=== PATIENT | female | born 1940 | race Caucasian/White ===

== ENCOUNTER 2020-02-13 06:55 | Outpatient (CLI) | payer MEDICARE, SELFPAY ==
[2020-02-13 07:40] LABS: Hemoglobin 12.5 g/dL (12.0-15.0); Mean Corpuscular HGB Conc 32.1 g/dl (32-36); Mean Corpuscular Hemoglobin 29.9 pg (26-34); Mean Corpuscular Volume 93.3 fl (80-100); Platelet Count Result 236 k/mm3 (150-375); Red Blood Count 4.18 M/mm3 (4.2-5.4); Red Cell Distribution Width 13.1 % (11.5-14.5); White Blood Count 5.2 K/mm3 (4.5-10.0)
[2020-02-13 07:51] LABS: Alanine Aminotransferase 16 U/L (4-35); Albumin Level 3.9 g/dL (3.5-5.1); Alkaline Phosphatase 54 U/L (38-126); Anion Gap 2 mmol/L (8-16); Aspartate Amino Transferase 27 U/L (14-36); Bilirubin,Total 0.7 mg/dL (0.2-1.3); Blood Urea Nitrogen 25 mg/dL (7-17); Calcium 9.2 mg/dL (8.4-10.2); Carbon Dioxide 34 mmol/L (22-30); Chloride 103 mmol/L (98-107); Cholesterol 164 mg/dL (0-200); Estimated Glomerular Filt Rate 54; Glucose 104 mg/dL (65-105); HDL Direct 72 mg/dL; Potassium 4.3 mmol/L (3.4-5.0); Sodium 139 mmol/L (137-145); Triglycerides 108 mg/dL (<150)
[2020-02-13 08:02] LABS: LDL Cholesterol Direct 65 mg/dL
[2020-02-13 08:46] LABS: Free T4 Free Thyroxine 0.91 ng/mL (0.78-2.19)
[2020-02-13 09:01] LABS: Folic Acid > 20.0 ng/mL (2.76->20); Vitamin B12 > 1000.0 pg/mL (239-931)
== END 2020-02-13 06:56 | disposition home or self-care (01) ==
PROVIDERS: PCP Internal Medicine; Visit Provider Physician Assistant
DX: E03.9 Hypothyroidism, unspecified (principal); R53.83 Other fatigue; I10 Essential (primary) hypertension; E55.9 Vitamin D deficiency, unspecified
CPT/HCPCS: 36415; 80053; 80061; 82306; 82607; 82746; 84439; 84443; 85027

== ENCOUNTER → 2020-03-26 16:12 | Outpatient (CLI) | payer MEDICARE, SELFPAY ==
--- NOTE | ~2020-03-26 | MM_ITS ---
EXAMINATION: MM screening deep BI w aly HISTORY: Screening mammogram TECHNIQUE: Craniocaudal and mediolateral oblique 3-D tomosynthesis images were obtained and synthetic 2-D images were generated. CAD analysis was submitted and interpreted. COMPARISON: 03/18/2018, 03/04/2017, 02/19/2016 bilateral digital screening mammogram examinations BREAST PARENCHYMAL COMPOSITION: The breasts are heterogeneously dense, which may obscure small masses . FINDINGS: There is a stable prominent amorphous benign calcification in the posterior upper outer edison drant of the left breast. There is no evidence of suspicious mass, calcification, or architectural distortion to suggest malignancy in either breast. There has been no suspicious interval change. IMPRESSION: 1. No mammographic evidence of malignancy. 2. Recommend routine screening mammography in one year. BI-RADS Category 2: Benign finding(s). Reviewed, dictated and finalized at location A. ANIC AND WELDER
== END ==
PROVIDERS: PCP Internal Medicine; Visit Provider Student in an Organized Health Care Education/Training Program
DX: Z12.31 Encounter for screening mammogram for malignant neoplasm of breast (principal)
CPT/HCPCS: 77063; 77067

== ENCOUNTER 2020-06-05 13:05 | Outpatient (CLI) | payer MEDICARE, SELFPAY ==
--- NOTE | ~2020-06-05 | US_ITS ---
EXAMINATION: US thyroid DATE: 06/05/2020 13:41 INDICATION: Goiter TECHNIQUE: Multiple ultrasound images of the thyroid were obtained. COMPARISON: 08/11/2018 FINDINGS: The right thyroid lobe measures 5.1 x 1.7 x 1.4 cm. The left thyroid lobe measures 5.2 x 1.6 x 1.4 c m. 2.1 cm wider than tall solid hypoechoic nodule with smooth margins and without echogenic foci in the right thyroid lobe (TI-RADS 4, moderately suspicious , FNA if >=1.5 cm, annual followup is >=1 cm ) with previously reported benign biopsy in 2010. There is a smaller 1.4 cm wider than tall solid iso to hyperechoic nodule with smooth margins in the left thyroid lobe (TI-RADS 3, mildly suspicious , F NA if >=2.5 cm, annual followup is >1.5 cm). There is normal echotexture, echogenicity and vascular f low throughout the thyroid gland. IMPRESSION: 1. No significant interval change in a couple bilateral likely benign thyroid nodules. Reviewed, dictated and finalized at location B. ICULTURAL MANAGER IMPRESSION: 1. No significant interval change in a couple bilateral likely benign thyroid n odules.
== END 2020-06-05 13:06 | disposition home or self-care (01) ==
PROVIDERS: PCP Internal Medicine; Visit Provider Internal Medicine
DX: E04.1 Nontoxic single thyroid nodule (principal)
CPT/HCPCS: 76536

== ENCOUNTER 2020-08-22 07:27 | Outpatient (CLI) | payer MEDICARE, SELFPAY ==
--- NOTE | ~2020-08-22 | XR_ITS ---
XR hip RT min 2V DATE: 08/22/2020 07:49 INDICATION: Right hip pain. No injury. Patient gets a catch with walking. TECHNIQUE: AP and lateral views of right hip COMPARISON: 09/23/2010 right hip FINDINGS: Osteopenia. Rotatory levoscoliosis and multilevel degenerative disc disease of the lumbar spine, mildly severe at L4-5, severe at L5-S1. Normal alignment at the pubic symphysis and sacroiliac joints. No fracture, dislocation, avascular necrosis or bone destruction of the right hip. Right hip joint sp henri appears well preserved. IMPRESSION: Osteopenia Rotatory levoscoliosis and multilevel degenerative disc disease of the lumbar spine No significant abnormality of right hip Reviewed, dictated and finalized at location B. IMPRESSION: Osteopenia Rotatory levoscoliosis and multilevel degenerative disc disease of the lumbar s pine No significant abnormality of right hip
== END 2020-08-22 07:28 | disposition home or self-care (01) ==
PROVIDERS: PCP Internal Medicine; Visit Provider Internal Medicine
DX: M85.851 Other specified disorders of bone density and structure, right thigh (principal); M47.816 Spondylosis without myelopathy or radiculopathy, lumbar region; M41.9 Scoliosis, unspecified
CPT/HCPCS: 73502

== ENCOUNTER 2020-11-11 08:07 | Outpatient (CLI) | payer MEDICARE, SELFPAY ==
[2020-11-11 08:46] LABS: Basophils Percent Auto 0.7 % (0.2-1.2); Eosinophils Absolute Auto 0.2 K/mm3 (0-0.3); Eosinophils Percent Auto 2.9 % (0-4.4); Hematocrit 39.7 % (37.0-47.0); Hemoglobin 12.5 g/dL (12.0-15.0); Immature Granulocyte Absolute 0.02 K/mm3 (0.00-0.031); Immature Granulocyte Percent A 0.4 % (0-0.5); Lymphocytes Absolute Auto 1.43 K/mm3 (0.9-3.2); Lymphocytes Percent Auto 25.6 % (18.3-44.2); Mean Corpuscular HGB Conc 31.5 g/dl (32-36); Mean Corpuscular Hemoglobin 30.3 pg (26-34); Mean Corpuscular Volume 96.4 fl (80-100); Mean Platelet Volume 10.2 fl (7.4-10.4); Monocytes Absolute Auto 0.4 K/mm3 (0.1-0.6); Monocytes Percent Auto 7.7 % (2.6-8.5); Neutrophils Absolute Auto 3.5 K/mm3 (1.3-6.7); Neutrophils Percent Auto 62.7 % (45.5-73.1); Platelet Count Result 230 k/mm3 (150-375); Red Blood Count 4.12 M/mm3 (4.2-5.4); Red Cell Distribution Width 13.2 % (11.5-14.5); White Blood Count 5.6 K/mm3 (4.5-10.0)
[2020-11-11 09:37] LABS: Free T4 Free Thyroxine 0.76 ng/mL (0.78-2.19)
[2020-11-11 10:32] LABS: Alanine Aminotransferase 23 U/L (4-35); Alkaline Phosphatase 47 U/L (38-126); Anion Gap 3 mmol/L (8-16); Aspartate Amino Transferase 31 U/L (14-36); Bilirubin,Total 0.5 mg/dL (0.2-1.3); Blood Urea Nitrogen 24 mg/dL (7-17); Calcium 9.6 mg/dL (8.4-10.2); Carbon Dioxide 31 mmol/L (22-30); Chloride 106 mmol/L (98-107); Cholesterol 181 mg/dL (0-200); Estimated Glomerular Filt Rate 48; Glucose 101 mg/dL (65-110); HDL Direct 74 mg/dL; Potassium 4.6 mmol/L (3.4-5.0); Sodium 140 mmol/L (137-145); Triglycerides 99 mg/dL (<150)
[2020-11-11 10:43] LABS: LDL Cholesterol Direct 66 mg/dL
[2020-11-11 11:39] LABS: Folic Acid > 20.0 ng/mL (2.76->20); Vitamin B12 > 1000.0 pg/mL (239-931)
== END 2020-11-11 08:08 | disposition home or self-care (01) ==
PROVIDERS: PCP Internal Medicine; Visit Provider Internal Medicine
DX: R53.83 Other fatigue (principal); E78.5 Hyperlipidemia, unspecified; E03.9 Hypothyroidism, unspecified; E55.9 Vitamin D deficiency, unspecified
CPT/HCPCS: 36415; 80053; 80061; 82306; 82607; 82746; 84439; 84443; 85025

== ENCOUNTER 2021-03-23 18:07 | Emergency (ER) | payer MEDICARE, SELFPAY ==
--- NOTE | ~2021-03-23 | XR_ITS ---
EXAMINATION: XR chest 2V 03/23/2021 18:40 INDICATION: Productive cough PROCEDURE: 2 view chest COMPARISON: Comparison to multiple prior studies sequentially, with oldest reviewed study dated 05/18. FINDINGS: The lungs are clear. The cardiomediastinal silhouette is within normal limits. There are no pleural effusions. There is no pneumothorax suspected. There is atherosclerosis. IMPRESSION: 1: NO ACUTE CARDIOPULMONARY DISEASE. Reviewed, dictated and finalized at location A. AGE LINE RELIEF OPERATOR
--- NOTE | 2021-03-23 18:13 | ED.URI ---
HPI - URI/Sore Throat General Chief Complaint: Upper Respiratory Infection Stated Complaint: chest congestion Time Seen by Provider: 03/23/21 18:18 Source: patient and RN notes reviewed Mode of arrival: ambulatory Limitations: no limitations History of Present Illness HPI Narrative: 80-year-old female presents with concern for harsh persistent cough that started Wednesday. She reports rhinorrhea and nasal congestion. She denies body aches, chills, sweats, fever, headache, sore throat, nausea, vomiting, diarrhea. Reports she has been vaccinated for Covid. MD elicited complaint: cough Related Data Home Medications Medication Instructions Recorded Confirmed ascorbic acid (vitamin C) 500 mg 500 mg PO DAILY 02/10/19 03/23/21 chewable tablet coenzyme Q10 30 mg capsule 30 mg PO DAILY 02/10/19 03/23/21 cyanocobalamin (vitamin B-12) 1,000 mcg SUBLINGUAL DAILY 02/10/19 03/23/21 1,000 mcg sublingual tablet multivitamin-ferrous 1 tablet PO DAILY 02/10/19 03/23/21 fumarate-folic acid 18 mg-400 mcg tablet Allergies Allergy/AdvReac Type Severity Reaction Status Date / Time Cephalosporins Allergy Severe throat Verified 03/23/21 18:29 closes cefuroxime Allergy Unknown throat Verified 03/23/21 18:29 swelling citalopram Allergy Unknown Anaphylactic Verified 03/23/21 18:29 Shock nortriptyline Allergy Unknown hot Verified 03/23/21 18:29 flashes, energetic ANTIDEPRESSANTS AdvReac Severe did not Uncoded 12/17/20 14:16 like how it made her feel Review of Systems Review of Systems: CONSTITUTIONAL: Denies malaise, chills, sweats, or fever. EYES: Denies visual changes, redness, or discharge. ENT: Reports rhinorrhea, congestion. Denies sinus pain, otalgia and sore throat. CARDIOVASCULAR: Denies chest pain, palpitations, or edema. RESPIRATORY: Reports productive cough. Denies dyspnea. GASTROINTESTINAL: Denies abdominal pain, nausea, vomiting, diarrhea SKIN: Denies rash or itching. MUSCULOSKELETAL: Denies myalgia. NEUROLOGIC: Denies headache. All systems reviewed & are unremarkable except as noted in HPI and below PMFSH Past Medical History Medical History Anxiety Essential (primary) hypertension Hypothyroidism Thyroid nodule Vitamin D deficiency, unspecified Family History Family History Father Malignant neoplasm of prostate Patient's father is Mother Patient's mother is Cerebrovascular accident, Onset Age: 86 Family history of malignant neoplasm of breast in first degree relative, Onset Age: 86 Other Family history of allergic disorder Family history of mental disorder Social History Social History Smoking status: Never smoker Second hand tobacco smoke exposure: No Alcohol intake: never Substance use: never Gender identity (if verbalized by the patient): Female Comments At time of signature, agree with nursing past medical, surgical, social and family history. There is no relevant family history pertinent to the presenting complaint Exam Narrative: GENERAL: Well-appearing, well-nourished, and in no acute distress. HEAD: Normocephalic EYES: PERRLA, conjunctivae clear ENT: Nares clear, clear discharge. Mucous membranes moist. TM pearly maher with sharp light reflex bilaterally; no tragal tenderness. Oropharynx not erythematous without lesions. Tonsils not enlarged and without exudate, no drooling, no hoarseness, no trismus, uvula midline. NECK: Supple. No lymphadenopathy CHEST: Left upper lobe crackles otherwise clear to auscultation, breath sounds equal. No wheezing, rhonchi or stridor. No respiratory distress, speaks in full sentences. HEART: Regular rate and rhythm. No murmur heard. SKIN: Warm, dry, no rash. NEURO: Alert and oriented x3. PSYCH: Norm
[2021-03-23 18:16] VITALS: BP 140/60; PULSE 68; RESP 16; TEMP 37.2; O2SAT 98
== END 2021-03-23 19:10 | disposition home or self-care (01) ==
PROVIDERS: Emergency Provider Nurse Practitioner; PCP Internal Medicine
DX: J06.9 Acute upper respiratory infection, unspecified (principal); Z20.822 Contact with and (suspected) exposure to COVID-19; I10 Essential (primary) hypertension; E03.9 Hypothyroidism, unspecified; E55.9 Vitamin D deficiency, unspecified; F41.9 Anxiety disorder, unspecified
CPT/HCPCS: 71046; 87426; 99213; C9803; G0463

== ENCOUNTER → 2021-04-23 15:26 | Outpatient (CLI) | payer MEDICARE, SELFPAY ==
--- NOTE | ~2021-04-23 | DEXA_ITS ---
Bone Density Report Name: JOANN GARCIA Age: 80 Sex: Female Ethnicity: White Date of : 1940 Indication: postmenopausal osteoporosis; height loss; Referring Provider: Kendra Fiore Study: Bone densitometry was performed. Exam Date: April 23, 2021 Accession number: [id number] Bone Density: Region BMD T-score Z-score Classification AP Spine (L1, L2, L3) 0.822 -1.8 0.8 Osteopenia Femoral Neck (Left) 0.484 -3.3 -1.0 Osteoporosis Total Hip (Left) 0.606 -2.8 -0.7 Osteoporosis Femoral Neck (Right) 0.523 -2.9 -0.7 Osteoporosis Total Hip (Right) 0.586 -2.9 -0.9 Osteoporosis Total Hip Mean 0.596 -2.9 -0.8 Osteoporosis World Health Organization criteria for BMD impression classify patients as: Normal (T-score at or above -1.0), Osteopenia (T-score between -1.0 and -2.5), or Osteoporosis (T-score at or below -2.5). 10-year Fracture Risk: FRAX not reported because: Some T-score for Spine Total or Hip Total or Femoral Neck at or below -2.5 Previous Exams: Region Exam Age BMD T-score BMD Change BMD Change Date g/cm2 vs Baseline vs Previous AP Spine(L1, L2, L3) 04/23/2021 80 0.822 -1.8 -0.044 -0.014 01/13/2019 78 0.836 -1.7 -0.029 -0.030* 01/11/2017 76 0.867 -1.4 0.001 0.036* 01/03/2015 74 0.830 -1.7 -0.035 -0.083* 12/20/2012 72 0.914 -0.9 0.048 0.005 08/15/2010 69 0.909 -1.0 0.044 0.049* 01/11/2006 65 0.860 -1.4 -0.005 -0.005 12/20/2003 63 0.865 -1.4 Total Hip(Left) 04/23/2021 80 0.606 -2.8 -0.025 -0.018 01/13/2019 78 0.624 -2.6 -0.007 -0.018 01/11/2017 76 0.642 -2.5 0.011 0.018 01/03/2015 74 0.623 -2.6 -0.007 -0.038* 12/20/2012 72 0.662 -2.3 0.031 0.016 08/15/2010 69 0.646 -2.4 0.015 -0.016 01/11/2006 65 0.662 -2.3 0.031 0.031 12/20/2003 63 0.631 -2.5 Total Hip(Right) 04/23/2021 80 0.586 -2.9 -0.036 -0.031* 01/13/2019 78 0.617 -2.7 -0.005 0.003 01/11/2017 76 0.614 -2.7 -0.008 -0.010 01/03/2015 74 0.624 -2.6 0.001 -0.038* 12/20/2012 72 0.661 -2.3 0.039 0.019 08/15/2010 69 0.642 -2.5 0.020 -0.016 01/11/2006 65 0.659 -2.3 0.036 0.036 12/20/2003 63 0.622 -2.6 *Denotes sig
--- NOTE | ~2021-04-23 | MM_ITS ---
EXAMINATION: MM screening deep BI w aly HISTORY: Screening TECHNIQUE: Craniocaudal and mediolateral oblique 3-D tomosynthesis images were obtained and synthetic 2-D images were generated. CAD analysis was submitted and interpreted. COMPARISON: Comparison to multiple prior studies sequentially, with oldest reviewed study dated 02/03. BREAST PARENCHYMAL COMPOSITION: The breasts are heterogenously dense, which may obscure small masses FINDINGS: There is no evidence of suspicious mass, calcification, or architectural distortion to sugg est malignancy in either breast. There has been no suspicious interval change. IMPRESSION: 1. No mammographic evidence of malignancy. 2. Recommend routine screening mammography in one year. BI-RADS Category 1: Negative Reviewed, dictated and finalized at location A. BITION CARVER
== END ==
PROVIDERS: PCP Internal Medicine; Visit Provider Student in an Organized Health Care Education/Training Program
DX: Z12.31 Encounter for screening mammogram for malignant neoplasm of breast (principal); Z78.0 Asymptomatic menopausal state; M81.0 Age-related osteoporosis without current pathological fracture
CPT/HCPCS: 77063; 77067; 77080

== ENCOUNTER 2021-08-28 16:56 | Emergency (ER) | payer OTHER, MEDICARE, SELFPAY ==
--- NOTE | ~2021-08-28 | XR_ITS ---
EXAMINATION: XR forearm RT 2V, XR wrist RT 2V DATE: 08/28/2021 17:33 INDICATION: Right wrist pain radiating to the forearm post injury TECHNIQUE: 1. AP an lateral views of the right forearm were obtained. 2. AP and lateral views of the right wrist were obtained. COMPARISON: none FINDINGS: Comminuted intra-articular fracture of the distal right radius. There is posterior predominant impact ion resulting in approximately 20 degrees dorsal tilt of the distal articular surface. There appears be a 102 mm lucent fracture gap along the distal articular surface. Nondisplaced ulnar styloid avulsi on fracture. Polyarticular osteoarthritis, moderate severity at the first carpometacarpal joint and m ild at the triscaphe and many of the metacarpophalangeal and interphalangeal joints. Normal alignment at the right elbow with additional mild osteoarthritis. Soft tissue swelling about the wrist and dis breonna forearm. IMPRESSION: 1. Dorsally impacted comminuted intra-articular fracture of the distal right radius. 2. Nondisplaced ulnar styloid avulsion fracture. 3. 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 Reviewed, dictated and finalized at location B. IMPRESSION: 1. Dorsally impacted comminuted intra-articular fracture of the distal right ra dius. 2. Nondisplaced ulnar styloid avulsion fracture. 3. 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
[2021-08-28 17:05] VITALS: BP 102/46; PULSE 43; RESP 8; TEMP 36.5; O2SAT 100
--- NOTE | 2021-08-28 17:17 | ED.UPPEXIN ---
HPI - Extremity Injury (Upper) General Chief Complaint: Extremity Injury, Upper Stated Complaint: wrist fx Time Seen by Provider: 08/28/21 17:10 Source: patient Mode of arrival: EMS Limitations: no limitations History of Present Illness HPI narrative: This is a 80-year-old female that presents to the emergency department after a fall today with right wrist pain. Reports she was walking out of work and tripped over a mat. She tried to catch herself with her right hand. Reports swelling and pain to the wrist. Reports decreased ROM in the wrist. Denies other injuries, hitting her head, loss of consciousness, prodromal symptoms, or numbness. Related Data Home Medications Medication Instructions Recorded Confirmed ascorbic acid (vitamin C) 500 mg 500 mg PO DAILY 02/10/19 07/01/21 chewable tablet coenzyme Q10 30 mg capsule (CoQ-10) 30 mg PO DAILY 02/10/19 07/01/21 cyanocobalamin (vitamin B-12) 1,000 mcg sublingual DAILY 02/10/19 07/01/21 1,000 mcg sublingual tablet multivitamin-ferrous 1 tablet PO DAILY 02/10/19 07/01/21 fumarate-folic acid 18 mg-400 mcg tablet (Centrum Complete) Allergies Allergy/AdvReac Type Severity Reaction Status Date / Time Cephalosporins Allergy Severe throat Verified 08/28/21 17:12 closes cefuroxime Allergy Unknown throat Verified 08/28/21 17:12 swelling citalopram Allergy Unknown Anaphylactic Verified 08/28/21 17:12 Shock nortriptyline Allergy Unknown hot Verified 08/28/21 17:12 flashes, energetic ANTIDEPRESSANTS AdvReac Severe did not Uncoded 08/28/21 17:12 like how it made her feel Review of Systems Review of Systems: CONSTITUTIONAL: Denies fever MUSCULOSKELETAL: Reports joint pain, and myalgia. NEUROLOGIC: Denies numbness, or weakness. PSYCHIATRIC: Reports anxiety All systems reviewed & are unremarkable except as noted in HPI and below PMFSH Past Medical History Medical History Anxiety Essential (primary) hypertension Hypothyroidism Thyroid nodule Vitamin D deficiency, unspecified Family History Family History Father Malignant neoplasm of prostate Patient's father is Mother Patient's mother is Cerebrovascular accident, Onset Age: 86 Family history of malignant neoplasm of breast in first degree relative, Onset Age: 86 Other Family history of allergic disorder Family history of mental disorder Social History Social History Smoking status: Never smoker Second hand tobacco smoke exposure: No Alcohol intake: never Substance use: never Gender identity (if verbalized by the patient): Female Exam Narrative: GENERAL: Well-appearing, well-nourished, anxious HEAD: Normocephalic, atraumatic. EYES: PERRLA and EOMI. ENT: Nares clear, no rhinorrhea or epistaxis. Mucous membranes moist. Oropharynx without tonsillar hypertrophy exudate or other lesions. Bilateral TMs pearly maher non-bulging NECK: Supple. No adenopathy or masses. No midline spinal tenderness CHEST: Clear to auscultation. No respiratory distress. No wheezes rales or rhonchi HEART: Regular rate and rhythm. No murmur heard. Normal peripheral pulses. EXTREMITIES: Mild edema about the right wrist with decreased range of motion. No other obvious deformities. Normal radial pulses SKIN: Warm, dry, no rash. NEURO: No focal deficits. Alert and oriented x3. Cranial nerves II through XII grossly intact PSYCH: Anxious Course Vital Signs Vital signs: Vital Signs Temperature 97.7 F 08/28/21 17:05 Pulse Rate 43 L 08/28/21 17:05 Respiratory Rate 8 L 08/28/21 17:05 Blood Pressure 102/46 L 08/28/21 17:05 Pulse Oximetry 100 08/28/21 17:05 Oxygen Delivery Room Air 08/28/21 17:05 Temperature 97.7 F 08/28/21 17:05 Pulse Rate 44 L 08/28/21 19
[2021-08-28] MEDS: diazePAM INJ (*CRX) 10 MG/2 ML SYRINGE 5 MG IV PUSH (17:33)
[2021-08-28 17:38] VITALS: BP 145/53; PULSE 51; RESP 12; O2SAT 99
[2021-08-28 17:40] VITALS: PULSE 20; O2SAT 100
[2021-08-28 19:13] VITALS: BP 122/47; PULSE 44; RESP 13; O2SAT 100
--- NOTE | 2021-08-28 19:13 | PC.NURSE ---
Report received from Giselle WALTERS and care of pt assumed at this time.
[2021-08-28 20:54] VITALS: BP 97/54; PULSE 56; RESP 16; O2SAT 98
== END 2021-08-28 20:55 | disposition home or self-care (01) ==
PROVIDERS: Emergency Provider Emergency Medicine; PCP Internal Medicine
DX: S52.571A Other intraarticular fracture of lower end of right radius, initial encounter for closed fracture (principal); S52.614A Nondisplaced fracture of right ulna styloid process, initial encounter for closed fracture; R00.1 Bradycardia, unspecified; I10 Essential (primary) hypertension; E03.9 Hypothyroidism, unspecified; E55.9 Vitamin D deficiency, unspecified; M19.021 Primary osteoarthritis, right elbow; M19.031 Primary osteoarthritis, right wrist; M18.9 Osteoarthritis of first carpometacarpal joint, unspecified; W18.09XA Striking against other object with subsequent fall, initial encounter
CPT/HCPCS: 73090; 73100; 96374; 99284; A4565; J3360

== ENCOUNTER 2021-10-15 09:46 | Outpatient (RCR) | payer MEDICARE, SELFPAY | END 2021-10-31 09:40 | disposition home or self-care (01) | LOC: ANHPT 09:46 | PROVIDERS: PCP Internal Medicine; Referring Provider Orthopaedic Surgery; Visit Provider Orthopaedic Surgery | DX: S52.501D Unspecified fracture of the lower end of right radius, subsequent encounter for closed fracture with routine healing (principal) | CPT/HCPCS: 99199 ==

== ENCOUNTER → 2021-11-25 01:35 | Outpatient (CLI) | payer MEDICARE, SELFPAY ==
[2021-11-25 11:31] LABS: SARS-CoV-2 RNA PCR Negative
== END ==
PROVIDERS: PCP Internal Medicine; Visit Provider Internal Medicine
DX: R05.9 Cough, unspecified (principal); Z20.822 Contact with and (suspected) exposure to COVID-19
CPT/HCPCS: C9803; U0003; U0005

== ENCOUNTER 2021-12-02 08:53 | Outpatient (CLI) | payer MEDICARE, SELFPAY ==
[2021-12-02 09:27] LABS: Basophils Percent Auto 0.5 % (0.2-1.2); Eosinophils Absolute Auto 0.1 K/mm3 (0-0.3); Eosinophils Percent Auto 1.4 % (0-4.4); Hematocrit 36.4 % (37.0-47.0); Hemoglobin 11.6 g/dL (12.0-15.0); Immature Granulocyte Absolute 0.04 K/mm3 (0.00-0.031); Immature Granulocyte Percent A 0.5 % (0-0.5); Mean Corpuscular HGB Conc 31.9 g/dl (32-36); Mean Corpuscular Hemoglobin 30.1 pg (26-34); Mean Corpuscular Volume 94.5 fl (80-100); Monocytes Absolute Auto 0.7 K/mm3 (0.1-0.6); Monocytes Percent Auto 7.8 % (2.6-8.5); Neutrophils Percent Auto 70.8 % (45.5-73.1); Platelet Count Result 285 k/mm3 (150-375); Red Blood Count 3.85 M/mm3 (4.2-5.4); Red Cell Distribution Width 13.4 % (11.5-14.5); White Blood Count 8.4 K/mm3 (4.5-10.0)
[2021-12-02 09:44] LABS: Alanine Aminotransferase 12 U/L (6-35); Albumin Level 4.2 g/dL (3.5-5.1); Alkaline Phosphatase 75 U/L (38-126); Anion Gap 7 mmol/L (8-16); Aspartate Amino Transferase 26 U/L (14-36); Bilirubin,Total 0.5 mg/dL (0.2-1.3); Blood Urea Nitrogen 24 mg/dL (7-17); Calcium 9.7 mg/dL (8.4-10.2); Carbon Dioxide 32 mmol/L (22-30); Chloride 98 mmol/L (98-107); Cholesterol 176 mg/dL (0-200); Estimated Glomerular Filt Rate 39; Glucose 117 mg/dL (65-110); HDL Direct 70 mg/dL; Potassium 4.5 mmol/L (3.4-5.0); Sodium 137 mmol/L (137-145); Triglycerides 111 mg/dL (<150)
[2021-12-02 09:55] LABS: LDL Cholesterol Direct 68 mg/dL
[2021-12-02 09:59] LABS: Free T4 Free Thyroxine 1.08 ng/mL (0.78-2.19); Vitamin D 25 Hydroxy 67.8 ng/mL
[2021-12-02 10:50] LABS: Folic Acid > 20.0 ng/mL (2.76->20); Vitamin B12 > 1000.0 pg/mL (239-931)
== END 2021-12-02 08:54 | disposition home or self-care (01) ==
LOC: ANHLAB 08:55
PROVIDERS: PCP Internal Medicine; Visit Provider Internal Medicine
DX: E03.9 Hypothyroidism, unspecified (principal); E55.9 Vitamin D deficiency, unspecified; R53.83 Other fatigue; I10 Essential (primary) hypertension
CPT/HCPCS: 36415; 80053; 80061; 82306; 82607; 82746; 84439; 84443; 85025

== ENCOUNTER 2022-04-15 09:07 | Outpatient (CLI) | payer MEDICARE, SELFPAY ==
[2022-04-15 09:23] LABS: Basophils Percent Auto 0.4 % (0.2-1.2); Eosinophils Absolute Auto 0.1 K/mm3 (0-0.3); Eosinophils Percent Auto 1.9 % (0-4.4); Hematocrit 40.3 % (37.0-47.0); Hemoglobin 12.9 g/dL (12.0-15.0); Immature Granulocyte Absolute 0.02 K/mm3 (0.00-0.031); Immature Granulocyte Percent A 0.4 % (0-0.5); Lymphocytes Percent Auto 26.8 % (18.3-44.2); Mean Corpuscular Hemoglobin 29.4 pg (26-34); Mean Corpuscular Volume 91.8 fl (80-100); Mean Platelet Volume 9.4 fl (7.4-10.4); Monocytes Absolute Auto 0.4 K/mm3 (0.1-0.6); Monocytes Percent Auto 8.2 % (2.6-8.5); Neutrophils Absolute Auto 3.3 K/mm3 (1.3-6.7); Neutrophils Percent Auto 62.3 % (45.5-73.1); Platelet Count Result 265 k/mm3 (150-375); Red Blood Count 4.39 M/mm3 (4.2-5.4); Red Cell Distribution Width 13.6 % (11.5-14.5); White Blood Count 5.2 K/mm3 (4.5-10.0)
[2022-04-15 09:40] LABS: Alanine Aminotransferase 18 U/L (6-35); Albumin Level 4.3 g/dL (3.5-5.1); Alkaline Phosphatase 59 U/L (38-126); Anion Gap 6 mmol/L (8-16); Aspartate Amino Transferase 25 U/L (14-36); Bilirubin,Total 0.4 mg/dL (0.2-1.3); Blood Urea Nitrogen 25 mg/dL (7-17); Calcium 9.2 mg/dL (8.4-10.2); Carbon Dioxide 31 mmol/L (22-30); Chloride 104 mmol/L (98-107); Estimated Glomerular Filt Rate 43; Glucose 110 mg/dL (65-110); Potassium 4.6 mmol/L (3.4-5.0); Sodium 141 mmol/L (137-145)
[2022-04-15 09:51] LABS: Hemoglobin A1C 5.6 % (<5.7)
[2022-04-15 09:52] LABS: Iron 91 ug/dL (37-170)
[2022-04-15 10:02] LABS: Percent Iron Saturation 26 % (20-50)
[2022-04-15 10:47] LABS: Folic Acid > 20.0 ng/mL (2.76->20)
== END 2022-04-15 09:08 | disposition home or self-care (01) ==
PROVIDERS: PCP Internal Medicine; Visit Provider Internal Medicine
DX: J32.9 Chronic sinusitis, unspecified (principal); R73.9 Hyperglycemia, unspecified; D64.9 Anemia, unspecified
CPT/HCPCS: 36415; 80053; 82607; 82746; 83036; 83540; 83550; 85025

== ENCOUNTER 2022-06-22 10:38 | Outpatient (CLI) | payer OTHER, SELFPAY ==
--- NOTE | 2022-06-22 11:01 | ECG_ITS ---
Measurements Intervals [place] Rate: 51 P: 17 TX: 192 QRS: -13 QRSD: 89 T: 53 QT: 419 QTc: 388 Interpretive Statements SINUS BRADYCARDIA DELAYED PRECORDIAL R/S TRANSITION BORDERLINE ECG COMPARED TO ECG 05/01/2019 23:33:59 SINUS BRADYCARDIA NOW PRESENT Electronically Signed On 06-22-2022 11:27:10 CDT by Josue Moreno D.O.
[2022-06-22 11:18] LABS: Anion Gap 2 mmol/L (8-16); Blood Urea Nitrogen 42 mg/dL (7-17); Calcium 9.2 mg/dL (8.4-10.2); Carbon Dioxide 32 mmol/L (22-30); Chloride 103 mmol/L (98-107); Estimated Glomerular Filt Rate 33; Glucose 104 mg/dL (65-110); Potassium 5.1 mmol/L (3.4-5.0); Sodium 137 mmol/L (137-145)
== END 2022-06-22 10:39 | disposition home or self-care (01) ==
PROVIDERS: PCP Internal Medicine; Visit Provider Orthopaedic Surgery Hand Surgery
DX: Z01.818 Encounter for other preprocedural examination (principal); R94.31 Abnormal electrocardiogram [ECG] [EKG]
CPT/HCPCS: 36415; 80048; 93005

== ENCOUNTER → 2022-08-11 14:10 | Outpatient (CLI) | payer MEDICARE, SELFPAY ==
--- NOTE | ~2022-08-11 | MM_ITS ---
EXAMINATION: MM screening deep BI w aly HISTORY: Screening mammogram, family history of breast cancer in her mother. TECHNIQUE: Craniocaudal and mediolateral oblique 3-D tomosynthesis images were obtained and synthetic 2-D images were generated. CAD analysis was submitted and interpreted. COMPARISON: 04/23/2021, 03/26/2020, 03/18/2018 BREAST PARENCHYMAL COMPOSITION: The breasts are heterogeneously dense, which may obscure small masses . FINDINGS: No suspicious mass, calcification, or architectural distortion are identified in either abigail ast to suggest malignancy. There has been no suspicious interval change. IMPRESSION: 1. No mammographic evidence of malignancy. 2. Recommend routine screening mammography while the patient remains in good health. BI-RADS Category 1: Negative Reviewed, dictated and finalized at location A. IMPRESSION: 1. No mammographic evidence of malignancy. 2. Recommend routine screening mammography while the patient remains in good he alth. BI-RADS Category 1: Negative
== END ==
PROVIDERS: PCP Student in an Organized Health Care Education/Training Program; Visit Provider Student in an Organized Health Care Education/Training Program
DX: Z12.31 Encounter for screening mammogram for malignant neoplasm of breast (principal)
CPT/HCPCS: 77063; 77067

== ENCOUNTER 2023-01-05 08:47 | Outpatient (CLI) | payer MEDICARE, SELFPAY ==
--- NOTE | ~2023-01-05 | XR_ITS ---
XR lumbar spine 2-3V DATE: 01/05/2023 09:12 INDICATION: Right posterior radiating back pain TECHNIQUE: Standing AP, lateral and coned lateral lumbosacral views COMPARISON: 09/23/2010 lumbar spine FINDINGS: There is osteopenia. There is approximately 18 degrees levoscoliosis measured from L1 to L4. There is severe degenerative disc disease at T12-L1, L1-2 and L2-3. Moderate degenerative disc disease at L4-5. Severe degenerative disc disease at L5-S1. There is degenerative change at the apophyseal joints with associated grade 1 anterolisthesis at L4-5 . The included lower thoracic and lumbar pedicles are intact. No fracture or bone destruction is detect ed. The sacral iliac joints are intact. IMPRESSION: Osteopenia Levoscoliosis Multilevel degenerative disc disease, most severe at T12-L1, L1-2, L2-3 and L5-S1 Reviewed, dictated and finalized at location L. IMPRESSION: Osteopenia Levoscoliosis Multilevel degenerative disc disease, most severe at T12-L1, L1-2, L2-3 and L5- S1
== END 2023-01-05 08:48 | disposition home or self-care (01) ==
PROVIDERS: PCP Internal Medicine; Visit Provider Internal Medicine
DX: M85.88 Other specified disorders of bone density and structure, other site (principal); M51.36 Other intervertebral disc degeneration, lumbar region; M51.34 Other intervertebral disc degeneration, thoracic region; M51.35 Other intervertebral disc degeneration, thoracolumbar region
CPT/HCPCS: 72100

== ENCOUNTER 2023-01-13 15:26 | Outpatient (CLI) | payer MEDICARE, SELFPAY ==
--- NOTE | ~2023-01-13 | MR_ITS ---
MRI of the lumbar spine Clinical History: Back pain Technique: Axial T2-weighted images, and sagittal T1-weighted, T2-weighted, and T2 fat-sat images wer e acquired. Findings: No acute fracture identified. There is 2 mm retrolisthesis of L1 over L2. There is 2 mm ret rolisthesis of L2 over L3. There is 4 mm retrolisthesis of L5 over S1. There is mild chronic anterior wedging deformity of T12. No suspicious bone marrow signal abnormality seen. At T12-L1, there is left foraminal disc osteophyte complex, with severe left neural foraminal narrowi ng. No central canal stenosis, cord compression, or right neural foraminal narrowing. At L1-L2, there is advanced degenerative disc narrowing. There is mild diffuse disc bulge and mild fa cet arthropathy. No central canal stenosis. There is moderate bilateral neural foraminal narrowing. At L2-L3, there is advanced degenerative disc narrowing. There is mild diffuse disc bulge and mild fa cet arthropathy. No central canal stenosis. There is moderate left neural foraminal narrowing, and se peyton right neural foraminal narrowing. At L3-L4, there is mild disc bulge with moderate to advanced facet arthropathy. No alex central wendy l stenosis. There is moderate to advanced right neural foraminal narrowing. There is minimal left faustino ral foraminal narrowing. At L4-L5, disc bulge and severe facet arthropathy result in moderate central canal stenosis/thecal sa c compression. There is advanced right neural foraminal narrowing, and mild to moderate left neural f oraminal narrowing. At L5-S1, there is advanced degenerative disc narrowing. Disc bulge/protrusion and facet arthropathy are present. There is minimal central canal stenosis. There is severe left neural foraminal narrowing , and moderate to severe right neural foraminal narrowing. Paravertebral soft tissues are unremarkable. There is a partially imaged probable cystic mass in the left pelvis measuring at least 4.8 cm in diameter. Impression: Moderate to severe degenerative spondylosis in the lumbar spine. Multiple grade 1 listheses are prese nt in the lumbar spine as well, as detailed above. Mild chronic anterior wedging deformity of T12. Partially imaged probable cystic mass in the left pelvis measuring at least 4.8 cm in diameter. This could be of gynecologic origin. Dedicated imaging advised to completely visualize the lesion, to bett er exclude solid component. Reviewed, dictated and finalized at location M. Impression: Moderate to severe degenerative spondylosis in the lumbar spine. Multiple grade 1 listheses are present in the lumbar spine as well, as detailed above. Mild chronic anterior wedging deformity of T12. Partially imaged probable cystic mass in the left pelvis measuring at least 4.8 cm in diameter. This could be of gynecologic origin. Dedicated imaging advised to completely visualize the lesion, to better exclude solid component.
== END 2023-01-13 15:27 | disposition home or self-care (01) ==
PROVIDERS: PCP Internal Medicine; Visit Provider Internal Medicine
DX: M19.90 Unspecified osteoarthritis, unspecified site (principal); M47.896 Other spondylosis, lumbar region
CPT/HCPCS: 72148

== ENCOUNTER 2023-01-19 13:11 | Outpatient (CLI) | payer MEDICARE, SELFPAY ==
[2023-01-22 03:24] LABS: CA-125 9 U/mL (<35)
== END 2023-01-19 13:12 | disposition home or self-care (01) ==
PROVIDERS: Visit Provider Obstetrics & Gynecology
DX: R19.04 Left lower quadrant abdominal swelling, mass and lump (principal)
CPT/HCPCS: 36415; 86304

== ENCOUNTER 2023-01-21 12:38 | Outpatient (CLI) | payer MEDICARE, SELFPAY ==
--- NOTE | ~2023-01-21 | US_ITS ---
EXAMINATION: US pelvic complete w TV DATE: 01/21/2023 13:32 INDICATION: Lower abdominal pain. Mass. Comparison:No prior studies for comparison. TECHNIQUE: Multiple transabdominal and endovaginal sonographic images of the pelvis performed. FINDINGS: The uterus measures 4.6 x 2.2 x 3.7 cm. The endometrial complex measures 5 mm. The there is a small right adnexal cyst measuring 1.4 cm. There is a simple 5 cm left ovarian cyst. There is no free fluid in the pelvis. There are no abnormal masses seen on either side. IMPRESSION: 1. Thickened endomtrial complex. The differential diagnosis includes endometrial hyperplasia, polyp a nd carcinoma. Biopsy is recommended. 2: Simple bilateral ovarian cysts, largest measuring 5 cm in the left ovary. Reviewed, dictated and finalized at location A. IMPRESSION: 1. Thickened endomtrial complex. The differential diagnosis includes endometria l hyperplasia, polyp and carcinoma. Biopsy is recommended. 2: Simple bilateral ovarian cysts, largest measuring 5 cm in the left ovary.
== END 2023-01-21 12:39 ==
LOC: MICIMG 12:39
PROVIDERS: PCP Internal Medicine; Visit Provider Obstetrics & Gynecology
DX: R19.04 Left lower quadrant abdominal swelling, mass and lump (principal); N83.201 Unspecified ovarian cyst, right side; N83.202 Unspecified ovarian cyst, left side
CPT/HCPCS: 76830; 76856

== ENCOUNTER 2023-01-21 12:40 | Outpatient (CLI) | payer MEDICARE, SELFPAY ==
--- NOTE | ~2023-01-21 | US_ITS ---
US thyroid INDICATION: Follow-up thyroid nodules TECHNIQUE: Real-time sonographic images of the thyroid gland were obtained. COMPARISON: Comparison to multiple prior studies sequentially, with oldest reviewed study dated 06/2020. FINDINGS: The right thyroid lobe measures 4.7 x 1.7 x 1.6 cm. The left thyroid lobe measures 4.3 x 1 .6 x 1.3 cm. Thyroid gland is diffusely heterogeneous. There are bilateral thyroid nodules which are not significantly changed from prior study. Largest dominant nodule in the right lobe measures 1.7 x 1.4 x 1.4 cm and is slightly hyperechoic, solid, wider than tall with smooth margins and no internal echogenic foci, TR 4. Largest nodule in the left lobe measures 1.5 x 1.2 x 0.7 cm and is slightly hyp erechoic, solid, wider than tall, smoothly marginated without echogenic foci, TR 3. IMPRESSION: 1. Enlarged heterogeneous thyroid gland containing multiple nodules which are relatively stable, lik amanda benign. Reviewed, dictated and finalized at location A. IMPRESSION: 1. Enlarged heterogeneous thyroid gland containing multiple nodules which are relatively stable, likely benign.
== END 2023-01-21 12:41 ==
LOC: MICIMG 12:41
PROVIDERS: PCP Internal Medicine; Visit Provider Internal Medicine
DX: E04.2 Nontoxic multinodular goiter (principal)
CPT/HCPCS: 76536

== ENCOUNTER 2023-01-28 02:15 | Day surgery (SDC) | payer MEDICARE, SELFPAY ==
[2023-01-19 13:36] VITALS: BMI 25.0
[2023-01-28 10:31] VITALS: BP 143/49; PULSE 54; RESP 18; TEMP 36.7; O2SAT 54; BMI 24.4
--- NOTE | 2023-01-28 10:59 | PM.HPGS ---
History of Present Illness History of Present Illness Consent: Risks, benefits, and alternatives have been discussed and questions answered. Patient agrees to proceed with procedure. Chief complaint: history of colonic polyps Narrative: Minal Rojo is a 82 year old female Presents for colonoscopy. Patient's current weight appetite and bowel movements are normal. Patient denies abdominal pain. She has had no bleeding. Family history noncontributory. Patient is reported to have an adenomatous colon polyp removed from the colon in 2018. This was performed in all. Patient presents today for screening exam. Review of Systems Review of Systems: Review of systems noncontributory. COUNTS INCLUDE 234 BEDS AT THE [facility] Past Medical History Medical History Anxiety Essential (primary) hypertension GERD (gastroesophageal reflux disease) Hypothyroidism Osteoporosis Thyroid disorder Thyroid nodule Vitamin D deficiency, unspecified Surgical History Surgical History History of esophageal surgery History of surgery of uterus Family History Family History Father Malignant neoplasm of prostate Patient's father is Mother Patient's mother is Cerebrovascular accident, Onset Age: 86 Family history of malignant neoplasm of breast in first degree relative, Onset Age: 86 Other Family history of allergic disorder Family history of mental disorder Social History Social History Smoking status: Never smoker Second hand tobacco smoke exposure: No Alcohol intake: never Substance use: never Lack of Transportation: No Lack of Food: Never True Current Housing: I Have Housing Concerned About Future Housing: No Difficulty Paying Gas/Electric Bills: No Difficulty Paying for Meds: No Currently Unemployed: No Education: High School Diploma/GED Difficulty w/ Childcare or Family Care: No Living arrangements: alone Gender identity (if verbalized by the patient): Female Spiritual care concerns: No Meds Home Medications and Allergies Home Medications Medication Instructions Recorded Confirmed Type ascorbic acid (vitamin C) 500 mg 500 mg PO DAILY 02/10/19 01/19/23 History chewable tablet cholecalciferol (vitamin D3) 125 5,000 unit PO DAILY #30 caps 02/10/19 01/19/23 Rx mcg (5,000 unit) capsule coenzyme Q10 30 mg capsule (CoQ-10) 30 mg PO DAILY 02/10/19 01/19/23 History cyanocobalamin (vitamin B-12) 1,000 mcg sublingual DAILY 02/10/19 01/19/23 History 1,000 mcg sublingual tablet multivitamin-ferrous 1 tablet PO DAILY 02/10/19 01/19/23 History fumarate-folic acid 18 mg-400 mcg tablet (Centrum Complete) acetaminophen 325 mg tablet 650 mg PO PRN PRN Pain 09/02/21 01/19/23 History (Tylenol) magnesium oxide 200 mg PO DAILY 09/02/21 01/19/23 History zinc 10 mg tablet 10 mg PO DAILY 09/02/21 01/19/23 History alendronate 70 mg tablet (Fosamax) 70 mg PO WEEKLY 03/10/22 01/19/23 History lisinopril 40 mg tablet 40 mg PO DAILY #90 tabs 06/24/22 01/19/23 Rx omeprazole 20 mg capsule,delayed 20 mg PO DAILY #90 caps 06/24/22 01/19/23 Rx release alprazolam 0.5 mg tablet 0.25 mg PO BID PRN anxiety #120 01/01/23 01/19/23 Rx tabs Allergies Allergy/AdvReac Type Severity Reaction Status Date / Time Cephalosporins Allergy Severe throat Verified 01/19/23 13:35 closes cefuroxime Allergy Unknown throat Verified 01/19/23 13:35 swelling citalopram Allergy Unknown Anaphylactic Verified 01/19/23 13:35 Shock nortriptyline Allergy Unknown hot Verified 01/19/23 13:35 flashes, energetic ANTIDEPRESSANTS AdvReac Severe did not Uncoded 01/19/23 13:35 like how it made her feel Vital Signs Vital Signs - 24 hr 01/28/23
[2023-01-28] MEDS: LACTATED RINGERS 1,000 ML 150 ML IV CONT (11:00)
--- NOTE | 2023-01-28 11:13 | WPDANESEPPF ---
Anes - Initial Pre Proc Eval Procedure: Operation Date: 01/28/23 11:30 Proposed Procedures p Colonoscopy - Kamran Cesar MD Date/Time: 01/28/23 11:13 Surgeon: Kamran Cesar MD Pre Op Diagnosis: history of colonic polyps Patient Data Age: 82 Gender: F Height: 1.6 m Weight: 62.6 kg Last Vital Signs Temp 98.1 F 01/28/23 10:31 Pulse 54 L 01/28/23 10:31 Resp 18 01/28/23 10:31 BP 143/49 H 01/28/23 10:31 Pulse Ox 54 L 01/28/23 10:31 O2 Del Method Room Air 01/28/23 10:31 Allergies Allergy/AdvReac Type Severity Reaction Status Date / Time Cephalosporins Allergy Severe throat Verified 01/19/23 13:35 closes cefuroxime Allergy Unknown throat Verified 01/19/23 13:35 swelling citalopram Allergy Unknown Anaphylactic Verified 01/19/23 13:35 Shock nortriptyline Allergy Unknown hot Verified 01/19/23 13:35 flashes, energetic ANTIDEPRESSANTS AdvReac Severe did not Uncoded 01/19/23 13:35 like how it made her feel Home Medications Medication Instructions Recorded Confirmed Type ascorbic acid (vitamin C) 500 mg 500 mg PO DAILY 02/10/19 01/19/23 History chewable tablet cholecalciferol (vitamin D3) 125 5,000 unit PO DAILY #30 caps 02/10/19 01/19/23 Rx mcg (5,000 unit) capsule coenzyme Q10 30 mg capsule (CoQ-10) 30 mg PO DAILY 02/10/19 01/19/23 History cyanocobalamin (vitamin B-12) 1,000 mcg sublingual DAILY 02/10/19 01/19/23 History 1,000 mcg sublingual tablet multivitamin-ferrous 1 tablet PO DAILY 02/10/19 01/19/23 History fumarate-folic acid 18 mg-400 mcg tablet (Centrum Complete) acetaminophen 325 mg tablet 650 mg PO PRN PRN Pain 09/02/21 01/19/23 History (Tylenol) magnesium oxide 200 mg PO DAILY 09/02/21 01/19/23 History zinc 10 mg tablet 10 mg PO DAILY 09/02/21 01/19/23 History alendronate 70 mg tablet (Fosamax) 70 mg PO WEEKLY 03/10/22 01/19/23 History lisinopril 40 mg tablet 40 mg PO DAILY #90 tabs 06/24/22 01/19/23 Rx omeprazole 20 mg capsule,delayed 20 mg PO DAILY #90 caps 06/24/22 01/19/23 Rx release alprazolam 0.5 mg tablet 0.25 mg PO BID PRN anxiety #120 01/01/23 01/19/23 Rx tabs Patient hx anesthesia problems: none Family hx anesthesia problems: none Results Review: All pre-operative results and documents have been reviewed as part of the pre-operative evaluation. FOR[facility]LY [facility] Past Medical History Medical History Anxiety Essential (primary) hypertension GERD (gastroesophageal reflux disease) Hypothyroidism Osteoporosis Thyroid disorder Thyroid nodule Vitamin D deficiency, unspecified Surgical History Surgical History History of esophageal surgery History of surgery of uterus Family History Family History Father Malignant neoplasm of prostate Patient's father is Mother Patient's mother is Cerebrovascular accident, Onset Age: 86 Family history of malignant neoplasm of breast in first degree relative, Onset Age: 86 Other Family history of allergic disorder Family history of mental disorder Social History Social History Smoking status: Never smoker Second hand tobacco smoke exposure: No Alcohol intake: never Substance use: never Lack of Transportation: No Lack of Food: Never True Current Housing: I Have Housing Concerned About Future Housing: No Difficulty Paying Gas/Electric Bills: No Difficulty Paying for Meds: No Currently Unemployed: No Education: High School Diploma/GED Difficulty w/ Childcare or Family Care: No Living arrangements: alone Gender identity (if verbalized by the patient): Female Spiritual care concerns: No Anes - Eval Final PreProcedure Day of Procedure 01/28/23 11:13 Patient rickyjeffrey
[2023-01-28 11:47] VITALS: BP 84/40; PULSE 62; RESP 20; O2SAT 98
[2023-01-28 11:57] VITALS: BP 97/44; PULSE 64; RESP 16; O2SAT 98
[2023-01-28 12:07] VITALS: BP 126/60; PULSE 50; RESP 16; O2SAT 98
== END 2023-01-28 12:21 | disposition home or self-care (01) ==
PROVIDERS: PCP Internal Medicine; Visit Provider Internal Medicine Gastroenterology
PROC: 0DJD8ZZ Inspection of Lower Intestinal Tract, Via Natural or Artificial Opening Endoscopic (ICD-10-PCS; CPT 45378; principal; 2023-01-28 11:30)
DX: Z12.11 Encounter for screening for malignant neoplasm of colon (principal); K64.8 Other hemorrhoids; K57.30 Diverticulosis of large intestine without perforation or abscess without bleeding; Z86.010 Personal history of colon polyps; I10 Essential (primary) hypertension; E03.9 Hypothyroidism, unspecified; M81.0 Age-related osteoporosis without current pathological fracture; E55.9 Vitamin D deficiency, unspecified; K21.9 Gastro-esophageal reflux disease without esophagitis; F41.9 Anxiety disorder, unspecified
CPT/HCPCS: G0105; J7120

== ENCOUNTER 2023-02-19 00:27 | Day surgery (SDC) | payer MEDICARE, SELFPAY ==
--- NOTE | 2023-02-15 12:53 | PC.NURSE ---
Report to the Outpatient Waiting Room, entrance under the green pavilion located off [facility], at time __0600 on date __02/19/23 . Planned Procedure Time: __0730 . Time changes happen often and if your time is changed the preop area will call you the afternoon before. - You and your visitor will be asked to self-screen and do not enter if you have any COVID symptoms. - A mask is optional within the hospital at this time. Patients may have clear liquids (water, carbonated beverages, clear teas, apple juice) until 3 hours prior to surgery with a maximum of 20 ounces. - No food from midnight until time of surgery - Infants may have breast milk until 4 hours before surgery, formula 6 hours prior to surgery. - Children will be allowed to drink immediately following surgery. If applicable, please bring a bottle or sippy cup to assist with drinking. Juice, water, soda, and popsicles are readily available. For infants on formula, please bring formula the day of surgery. Pacifiers are allowed. Take the following medications with a SIP of water the morning of surgery: ___NONE DO NOT STOP ANY OF YOUR OTHER PRESCRIPTION MEDICATIONS PRIOR TO SURGERY ?EXCEPT THE FOLLOWING Medications to discontinue per physician ___ALL VITAMINS AND SUPPLEMENTS 3 DAYS PRE OP.LAST DOSE 02/15/23 Please no make-up, nail maltese, hairspray, perfume, deodorant, or body powder the day of surgery. No jewelry (including any body piercings) or valuables the day of surgery, leave them at home. Please take a shower or bath the night before, or the morning of, surgery with an antibacterial soap. Wear comfortable, loose fitting clothing. Children are encouraged to wear pajamas. - Jewelry must be removed prior to entering the operating room. Rings and piercings that are not removed may be cut off. - The hospital will not accept responsibility for valuables. - Please leave all valuables, including medications, at home the day of surgery. If you are going home after surgery, a licensed stock car driver must drive you home. - NO public transportation without another adult if you receive anesthesia. - We recommend that an adult stay with you for 24 hours following discharge. - We also recommend that you do not drive, make important decision, drink alcoholic beverages, or take any drugs that were not prescribed by your health care provider for at least 24 hours after your discharge time. For Pediatric surgeries, we recommend two adults accompany the child home. Follow any additional instructions given to you from your surgeon. If you or anyone in your household have experienced Covid symptoms in the past week, please notify your surgeon or the nurse liaison at the phone number below for possible testing. Telephone instructions given to __PT and asked if any additional questions and then verbalized understanding. Patient advised to call surgeon office or pre surgery nurse liaison [phone] if any additional questions.
[2023-02-15 12:57] VITALS: BMI 25.2
--- NOTE | 2023-02-18 12:42 | PM.IMHP ---
H&P: HPI History of Present Illness Date/Time: 02/18/23 12:42 Chief Complaint: Abnormal ultrasound finding Narrative: She is here today for scheduled D and C hysteroscopy due to thickened endometrial stripe of 5 mm on ultrasound. She also has an incidental benign appearing adnexal cyst which she has opted for observation. She has had normal CA 125. She denies any bleeding. Review of Systems Review of Systems: All systems reviewed & are unremarkable except as noted in HPI and below Cardiovascular: Cardiovascular: Reports no additional cardiovascular complaints, Denies chest pain and Denies dyspnea Respiratory: Respiratory: Reports no additional respiratory complaints and Denies dyspnea Gastrointestinal: Gastrointestinal: Reports abdominal pain, Denies change in bowel habits, Denies diarrhea, Denies nausea and Denies vomiting Genitourinary: Genitourinary: Reports pelvic pain Musculoskeletal: Musculoskeletal: Reports back pain Integumentary/Breasts: Skin/Breast: Reports system reviewed and no additional complaints, except as docu Neurologic: Reports system reviewed and no additional complaints, except as documented PMFSH Past Medical History Medical History Anxiety Essential (primary) hypertension GERD (gastroesophageal reflux disease) Hypothyroidism Osteoporosis Thyroid disorder Thyroid nodule Vitamin D deficiency, unspecified Surgical History Surgical History History of esophageal surgery History of surgery of uterus Family History Family History Father Malignant neoplasm of prostate Patient's father is Mother Patient's mother is Cerebrovascular accident, Onset Age: 86 Family history of malignant neoplasm of breast in first degree relative, Onset Age: 86 Other Family history of allergic disorder Family history of mental disorder Social History Social History Smoking status: Never smoker Second hand tobacco smoke exposure: No Alcohol intake: never Substance use: never Lack of Transportation: No Lack of Food: Never True Current Housing: I Have Housing Concerned About Future Housing: No Difficulty Paying Gas/Electric Bills: No Difficulty Paying for Meds: No Currently Unemployed: No Education: High School Diploma/GED Difficulty w/ Childcare or Family Care: No Living arrangements: alone Gender identity (if verbalized by the patient): Female Spiritual care concerns: No Meds Home Medications and Allergies Home Medications Medication Instructions Recorded Confirmed Type ascorbic acid (vitamin C) 500 mg 1,500 mg PO DAILY 02/10/19 02/19/23 History chewable tablet cholecalciferol (vitamin D3) 125 5,000 unit PO DAILY #30 caps 02/10/19 02/19/23 Rx mcg (5,000 unit) capsule coenzyme Q10 30 mg capsule (CoQ-10) 50 mg PO DAILY 02/10/19 02/19/23 History cyanocobalamin (vitamin B-12) 1,000 mcg sublingual DAILY 02/10/19 02/19/23 History 1,000 mcg sublingual tablet multivitamin-ferrous 1 tablet PO DAILY 02/10/19 02/19/23 History fumarate-folic acid 18 mg-400 mcg tablet (Centrum Complete) acetaminophen 325 mg tablet 650 mg PO PRN PRN Pain 09/02/21 02/15/23 History (Tylenol) magnesium oxide 200 mg PO DAILY 09/02/21 02/19/23 History zinc 10 mg tablet 50 mg PO DAILY 09/02/21 02/19/23 History alendronate 70 mg tablet (Fosamax) 70 mg PO WEEKLY 03/10/22 02/19/23 History lisinopril 40 mg tablet 40 mg PO DAILY #90 tabs 06/24/22 02/19/23 Rx omeprazole 20 mg capsule,delayed 20 mg PO DAILY #90 caps 06/24/22 02/19/23 Rx release alprazolam 0.5 mg tablet 0.25 mg PO HS PRN anxiety 02/15/23 02/19/23 History calcium carbonate 600 mg-vitamin 1 tablet PO DAILY 02/15/23 02/19/23 History D3 10 mcg (400 unit) t
[2023-02-19 06:40] VITALS: BP 134/45; PULSE 58; RESP 20; TEMP 36.8; O2SAT 98
[2023-02-19] MEDS: ACETAMINOPHEN 500 MG TABLET 1000 MG PO (06:59)
[2023-02-19] MEDS: LACTATED RINGERS 1,000 ML 30 ML IV CONT (07:00)
--- NOTE | 2023-02-19 07:30 | WPDHPUPDATE1 ---
History and Physical Update Update Date/Time: 02/19/23 07:30 History and Physical has been reviewed, including an updated exam of the patient. There are NO changes in the patient's condition. Risks, benefits, and alternatives have been discussed and questions answered. Patient agrees to proceed with procedure.
--- NOTE | 2023-02-19 07:51 | WPDANESEPPF ---
Anes - Initial Pre Proc Eval Procedure: Operation Date: 02/19/23 08:30 Proposed Procedures p Hysteroscopy Dilation and Curettage Removal of any Endometrial Lesion if Necessary - Wil Damico MD Date/Time: 02/19/23 07:51 Surgeon: Wil Damico MD Pre Op Diagnosis: endometrial thickening Patient Data Age: 82 Gender: F Height: 1.6 m Weight: 65 kg Last Vital Signs Temp 36.8 C 02/19/23 06:40 Pulse 58 L 02/19/23 06:40 Resp 20 02/19/23 06:40 BP 134/45 L 02/19/23 06:40 Pulse Ox 98 02/19/23 06:40 O2 Del Method Room Air 02/19/23 06:40 Allergies Allergy/AdvReac Type Severity Reaction Status Date / Time Cephalosporins Allergy Severe throat Verified 02/19/23 06:56 closes cefuroxime Allergy Unknown throat Verified 02/19/23 06:56 swelling citalopram Allergy Unknown Anaphylactic Verified 02/19/23 06:56 Shock nortriptyline Allergy Unknown hot Verified 02/19/23 06:56 flashes, energetic gabapentin AdvReac Severe Fatigued Verified 02/19/23 06:56 ANTIDEPRESSANTS AdvReac Severe did not Uncoded 02/19/23 06:56 like how it made her feel Home Medications Medication Instructions Recorded Confirmed Type ascorbic acid (vitamin C) 500 mg 1,500 mg PO DAILY 02/10/19 02/19/23 History chewable tablet cholecalciferol (vitamin D3) 125 5,000 unit PO DAILY #30 caps 02/10/19 02/19/23 Rx mcg (5,000 unit) capsule coenzyme Q10 30 mg capsule (CoQ-10) 50 mg PO DAILY 02/10/19 02/19/23 History cyanocobalamin (vitamin B-12) 1,000 mcg sublingual DAILY 02/10/19 02/19/23 History 1,000 mcg sublingual tablet multivitamin-ferrous 1 tablet PO DAILY 02/10/19 02/19/23 History fumarate-folic acid 18 mg-400 mcg tablet (Centrum Complete) acetaminophen 325 mg tablet 650 mg PO PRN PRN Pain 09/02/21 02/15/23 History (Tylenol) magnesium oxide 200 mg PO DAILY 09/02/21 02/19/23 History zinc 10 mg tablet 50 mg PO DAILY 09/02/21 02/19/23 History alendronate 70 mg tablet (Fosamax) 70 mg PO WEEKLY 03/10/22 02/19/23 History lisinopril 40 mg tablet 40 mg PO DAILY #90 tabs 06/24/22 02/19/23 Rx omeprazole 20 mg capsule,delayed 20 mg PO DAILY #90 caps 06/24/22 02/19/23 Rx release alprazolam 0.5 mg tablet 0.25 mg PO HS PRN anxiety 02/15/23 02/19/23 History calcium carbonate 600 mg-vitamin 1 tablet PO DAILY 02/15/23 02/19/23 History D3 10 mcg (400 unit) tablet (Calcium 600 + D(3)) Patient hx anesthesia problems: none Family hx anesthesia problems: none Results Review: All pre-operative results and documents have been reviewed as part of the pre-operative evaluation. COUNTS INCLUDE 234 BEDS AT THE [facility] Past Medical History Medical History Anxiety Essential (primary) hypertension GERD (gastroesophageal reflux disease) Hypothyroidism Osteoporosis Thyroid disorder Thyroid nodule Vitamin D deficiency, unspecified Surgical History Surgical History History of esophageal surgery History of surgery of uterus Family History Family History Father Malignant neoplasm of prostate Patient's father is Mother Patient's mother is Cerebrovascular accident, Onset Age: 86 Family history of malignant neoplasm of breast in first degree relative, Onset Age: 86 Other Family history of allergic disorder Family history of mental disorder Social History Social History Smoking status: Never smoker Second hand tobacco smoke exposure: No Alcohol intake: never Substance use: never Lack of Transportation: No Lack of Food: Never True Current Housing: I Have Housing Concerned About Future Housing: No Difficulty Paying Gas/Electric Bills: No Difficulty Paying for Meds: No Currently Unemployed: No Education: High School Diploma
[2023-02-19] MEDS: CLINDAMYCIN 900 MG/D5W 50 ML 900 MG/50 ML PIGGYBACK 50 MG IVPB (08:39)
[2023-02-19] MEDS: LIDOCAINE HCL 1% LOCAL INJ 20 ML VIAL 10 ML INFILTRATE (08:52)
[2023-02-19 09:02] VITALS: BP 97/37; PULSE 56; RESP 14; TEMP 36.6; O2SAT 100
--- NOTE | 2023-02-19 09:10 | W.PM.PROC2 ---
Procedure Note - Detailed Date of Procedure 02/19/23 Pre-op Diagnosis endometrial thickening Post-op Diagnosis Same Procedure Performed Diagnostic hysteroscopy with removal of abnormal appearing area at posterior wall of the cavity. Surgeon Wil Damico MD Anesthesia MAC and Local Indications Thickened endometrium on ultrasound. Findings Uterus sound to 6 cm the cavity appeared atrophic and scarred, there were 2 small round areas at the lower cavity wall that were two small round thickened areas kayce the [employer] instrument was used and excised this area. A curettage obtaining minimal tissue. Description of Procedure After informed consent was obtained patient was taken to the operating room and adequate IV sedation was administered she was placed in low lithotomy position and prepped and draped in sterile fashion attention was turned to the vagina speculum was inserted single-tooth tenaculum placed on the posterior lip of the cervix due to the cervix being very atrophic and sclerotic with the vagina. The small dilator was inserted and then using hydro dilation the hysteroscope was inserted into the cavity the cavity appeared atrophic with the findings at the lower posterior cavity. The [employer] instrument was used to remove these areas. The rest of cavity was atrophic. A curettage was performed with minimal tissue obtained. Estimated Blood Loss 5 Drains No Packing No Pathology Yes (Excisional biopsy of endometrial lesions and scant endometrial curetting) Complications No immediate complications Condition Stable Disposition Same day [facility] Billing Surgery - Charge Forward: Surgery Billing
[2023-02-19 09:15] VITALS: BP 105/45; PULSE 47; RESP 16; O2SAT 97
[2023-02-19 09:40] VITALS: BP 119/45; PULSE 46; RESP 16
[2023-02-19 09:55] VITALS: BP 120/46; PULSE 44; RESP 16
[2023-02-19 10:20] VITALS: BP 122/44; PULSE 47; RESP 16
== END 2023-02-19 10:25 | disposition home or self-care (01) ==
PROVIDERS: PCP Internal Medicine; Visit Provider Obstetrics & Gynecology
PROC: 0U5B8ZZ Destruction of Endometrium, Via Natural or Artificial Opening Endoscopic (ICD-10-PCS; CPT 58563; principal; 2023-02-19 08:30)
DX: R93.89 Abnormal findings on diagnostic imaging of other specified body structures (principal); F41.9 Anxiety disorder, unspecified; I10 Essential (primary) hypertension; K21.9 Gastro-esophageal reflux disease without esophagitis; E03.9 Hypothyroidism, unspecified; E55.9 Vitamin D deficiency, unspecified; M81.0 Age-related osteoporosis without current pathological fracture; Z80.3 Family history of malignant neoplasm of breast; Z80.42 Family history of malignant neoplasm of prostate; Z82.49 Family history of ischemic heart disease and other diseases of the circulatory system
CPT/HCPCS: 58558; 88305; A9270; J3010; J7120

== ENCOUNTER 2023-03-25 21:54 | Emergency (ER) | payer MEDICARE, SELFPAY ==
--- NOTE | ~2023-03-25 | XR_ITS ---
EXAMINATION: XR chest 2V Exam Date/Time: 03/25/2023 22:15 [employer] HISTORY: new onset afib Comparison: 03/23/2021. RESULT: Lines, tubes, and devices: None. Lungs and pleura: Senescent change, otherwise clear. Cardiomediastinal silhouette: Stable. Other: No acute osseous or upper abdominal finding. IMPRESSION: No acute cardiopulmonary process. Reviewed, dictated and finalized at location [facility]
[2023-03-25 21:56] VITALS: BP 145/78; PULSE 140; RESP 19; TEMP 36.9; O2SAT 99
--- NOTE | 2023-03-25 22:02 | ECG_ITS ---
Measurements Intervals Boring Rate: 130 P: TX: 0 QRS: -49 QRSD: 98 T: 77 QT: 338 QTc: 498 Interpretive Statements ATRIAL FLUTTER/TACHYCARDIA WITH RAPID VENTRICULAR RESPONSE MARKED LEFT AXIS DEVIATION [QRS AXIS < -30] CONSIDER INFEROLATERAL ISCHEMIA ABNORMAL ECG COMPARED TO ECG 06/22/2022 11:10:28 ATRIAL FLUTTER REPLACES SINUS RHYTHM ISCHEMIC ST SEGMENT DEPRESSION IS NOTED RELATED TO TACHYCARDIA Electronically Signed On 03-26-2023 15:04:44 [employer] CHECKOUT CLERK by Dannie Hackett M.D.
[2023-03-25 22:21] LABS: Basophils Percent Auto 0.5 % (0.2-1.2); Eosinophils Absolute Auto 0.2 K/mm3 (0-0.3); Eosinophils Percent Auto 2.5 % (0-4.4); Hematocrit 39.6 % (37.0-47.0); Hemoglobin 12.7 g/dL (12.0-15.0); Immature Granulocyte Absolute 0.01 K/mm3 (0.00-0.031); Immature Granulocyte Percent A 0.1 % (0-0.5); Lymphocytes Absolute Auto 2.59 K/mm3 (0.9-3.2); Lymphocytes Percent Auto 34.6 % (18.3-44.2); Mean Corpuscular HGB Conc 32.1 g/dl (32-36); Mean Corpuscular Hemoglobin 30.3 pg (26-34); Mean Corpuscular Volume 94.5 fl (80-100); Mean Platelet Volume 10.4 fl (7.4-10.4); Monocytes Absolute Auto 0.5 K/mm3 (0.1-0.6); Monocytes Percent Auto 6.8 % (2.6-8.5); Neutrophils Absolute Auto 4.1 K/mm3 (1.3-6.7); Neutrophils Percent Auto 55.5 % (45.5-73.1); Platelet Count Result 266 k/mm3 (150-375); Red Blood Count 4.19 M/mm3 (4.2-5.4); Red Cell Distribution Width 13.2 % (11.5-14.5); White Blood Count 7.5 K/mm3 (4.5-10.0)
--- NOTE | 2023-03-25 22:21 | ED.GENADULT ---
HPI - General Adult General Chief complaint: Arrhythmia/Palpitations Stated complaint: afib Time Seen by Provider: 03/25/23 22:02 Source: patient Mode of arrival: EMS Limitations: no limitations History of Present Illness HPI narrative: This is an 82-year-old female who presents to the ED with chief complaint racing heart and rapid heart rate tonight while sitting in her chair. Reports a little bit of palpitations and discomfort in the chest but denies chest pain or shortness of breath. Denies syncope or lightheadedness. Reports she has never had anything like this in the past. She wishes cleared from a cardiac standpoint for her spine surgery that is scheduled for next week. Denies fevers, chills, leg swelling, cough, abdominal pain, nausea, vomiting. Related Data Home Medications Medication Instructions Recorded Confirmed ascorbic acid (vitamin C) 500 mg 1,500 mg PO DAILY 02/10/19 02/19/23 chewable tablet coenzyme Q10 30 mg capsule (CoQ-10) 50 mg PO DAILY 02/10/19 02/19/23 cyanocobalamin (vitamin B-12) 1,000 mcg sublingual DAILY 02/10/19 02/19/23 1,000 mcg sublingual tablet multivitamin-ferrous 1 tablet PO DAILY 02/10/19 02/19/23 fumarate-folic acid 18 mg-400 mcg tablet (Centrum Complete) acetaminophen 325 mg tablet 650 mg PO PRN PRN Pain 09/02/21 02/15/23 (Tylenol) magnesium oxide 200 mg PO DAILY 09/02/21 02/19/23 zinc 10 mg tablet 50 mg PO DAILY 09/02/21 02/19/23 alendronate 70 mg tablet (Fosamax) 70 mg PO WEEKLY 03/10/22 02/19/23 alprazolam 0.5 mg tablet 0.25 mg PO HS PRN anxiety 02/15/23 02/19/23 calcium carbonate 600 mg-vitamin 1 tablet PO DAILY 02/15/23 02/19/23 D3 10 mcg (400 unit) tablet (Calcium 600 + D(3)) Allergies Allergy/AdvReac Type Severity Reaction Status Date / Time Cephalosporins Allergy Severe throat Verified 03/25/23 22:01 closes cefuroxime Allergy Unknown throat Verified 03/25/23 22:01 swelling citalopram Allergy Unknown Anaphylactic Verified 03/25/23 22:01 Shock nortriptyline Allergy Unknown hot Verified 03/25/23 22:01 flashes, energetic gabapentin AdvReac Severe Fatigued Verified 03/25/23 22:01 ANTIDEPRESSANTS AdvReac Severe did not Uncoded 03/04/23 15:07 like how it made her feel Review of Systems Review of Systems: All systems as dictated in HPI [facility] Past Medical History Medical History (Updated 03/26/23 @ 00:19 by Eric Isaacs PA-C) Anxiety Essential (primary) hypertension GERD (gastroesophageal reflux disease) Hypothyroidism Osteoporosis Thyroid disorder Thyroid nodule Vitamin D deficiency, unspecified Surgical History Surgical History (Updated 03/05/23 @ 14:29 by Wil Damico MD) History of esophageal surgery History of [place]oscopy (~02/19/23[place] [facility] [place] thick[place]rium. Dr Damico. - atrophic History of surgery of uterus Family History Family History Father Malignant neoplasm of prostate Patient's father is Mother Patient's mother is Cerebrovascular accident, Onset Age: 86 Family history of malignant neoplasm of breast in first degree relative, Onset Age: 86 Other Family history of allergic disorder Family history of mental disorder Social History Social History Smoking status: Never smoker Second hand tobacco smoke exposure: No Alcohol intake: never Substance use: never Lack of Transportation: No Lack of Food: Never True Current Housing: I Have Housing Concerned About Future Housing: No Difficulty Paying Gas/Electric Bills: No Difficulty Paying for Meds: No Currently Unemployed: No Education: High School Diploma/GED Difficulty w/ Childcare or Family Care: No Living arrangements: alone Gender identity (if verbalized by the patient): Female Spiritual care concerns: No Exam Narrati
[2023-03-25 23:11] VITALS: BP 140/69; PULSE 65; RESP 16; O2SAT 97
[2023-03-25 23:13] LABS: Alanine Aminotransferase 21 U/L (6-35); Alkaline Phosphatase 56 U/L (38-126); Anion Gap 6 mmol/L (8-16); Aspartate Amino Transferase 36 U/L (14-36); Bilirubin,Total 0.4 mg/dL (0.2-1.3); Blood Urea Nitrogen 30 mg/dL (7-17); Calcium 9.2 mg/dL (8.4-10.2); Carbon Dioxide 24 mmol/L (22-30); Chloride 110 mmol/L (98-107); Estimated CRCL calculation 25 ml/min; Estimated Glomerular Filt Rate 39; Glucose 115 mg/dL (65-110); Lipase 416 U/L (23-300); Potassium 4.3 mmol/L (3.4-5.0); Sodium 140 mmol/L (137-145)
[2023-03-25 23:24] LABS: Troponin I < 0.012 ng/mL (0.000-0.034)
[2023-03-25 23:32] LABS: Prothrombin Time 13.6 Seconds (11.1-14.7)
[2023-03-25 23:33] LABS: Partial Thromboplastin Time 24.4 SECONDS (22.3-36.8)
[2023-03-26 00:57] VITALS: BP 116/55; PULSE 55; RESP 16; O2SAT 97
== END 2023-03-26 01:06 | disposition home or self-care (01) ==
PROVIDERS: Emergency Medicine; Emergency Provider Physician Assistant; PCP Internal Medicine
DX: I48.0 Paroxysmal atrial fibrillation (principal); I10 Essential (primary) hypertension; E03.9 Hypothyroidism, unspecified; E55.9 Vitamin D deficiency, unspecified; K21.9 Gastro-esophageal reflux disease without esophagitis; M81.0 Age-related osteoporosis without current pathological fracture; F41.9 Anxiety disorder, unspecified; R94.31 Abnormal electrocardiogram [ECG] [EKG]; I48.92 Unspecified atrial flutter
CPT/HCPCS: 36415; 71046; 80053; 83690; 84484; 85025; 85610; 85730; 93005; 99284

== ENCOUNTER 2023-04-14 07:41 | Outpatient (CLI) | payer MEDICARE, SELFPAY ==
[2023-04-14 08:46] LABS: Alanine Aminotransferase 16 U/L (6-35); Albumin Level 3.7 g/dL (3.5-5.1); Alkaline Phosphatase 57 U/L (38-126); Anion Gap 5 mmol/L (8-16); Aspartate Amino Transferase 26 U/L (14-36); Bilirubin,Total 0.3 mg/dL (0.2-1.3); Blood Urea Nitrogen 18 mg/dL (7-17); Calcium 8.7 mg/dL (8.4-10.2); Carbon Dioxide 30 mmol/L (22-30); Chloride 104 mmol/L (98-107); Cholesterol 160 mg/dL (0-200); Estimated Glomerular Filt Rate 48; Glucose 102 mg/dL (65-110); HDL Direct 50 mg/dL; Potassium 4.4 mmol/L (3.4-5.0); Sodium 139 mmol/L (137-145); Triglycerides 118 mg/dL (<150)
[2023-04-14 08:57] LABS: LDL Cholesterol Direct 71 mg/dL
[2023-04-14 09:02] LABS: Hemoglobin A1C 5.7 % (<5.7)
[2023-04-14 09:22] LABS: Free T4 Free Thyroxine 1.14 ng/mL (0.78-2.19)
[2023-04-14 09:38] LABS: Basophils Percent Auto 0.2 % (0.2-1.2); Eosinophils Percent Auto 0.6 % (0-4.4); Hematocrit 36.6 % (37.0-47.0); Hemoglobin 11.1 g/dL (12.0-15.0); Immature Granulocyte Absolute 0.02 K/mm3 (0.00-0.031); Immature Granulocyte Percent A 0.4 % (0-0.5); Lymphocytes Absolute Auto 1.33 K/mm3 (0.9-3.2); Mean Corpuscular HGB Conc 30.3 g/dl (32-36); Mean Corpuscular Hemoglobin 29.1 pg (26-34); Mean Corpuscular Volume 95.8 fl (80-100); Mean Platelet Volume 9.9 fl (7.4-10.4); Monocytes Absolute Auto 0.5 K/mm3 (0.1-0.6); Monocytes Percent Auto 10.9 % (2.6-8.5); Neutrophils Absolute Auto 2.8 K/mm3 (1.3-6.7); Neutrophils Percent Auto 59.9 % (45.5-73.1); Platelet Count Result 418 k/mm3 (150-375); Red Blood Count 3.82 M/mm3 (4.2-5.4); White Blood Count 4.8 K/mm3 (4.5-10.0)
== END 2023-04-14 07:42 | disposition home or self-care (01) ==
LOC: ANHLAB 07:55
PROVIDERS: PCP Internal Medicine; Referring Provider Internal Medicine Cardiovascular Disease; Visit Provider Internal Medicine
DX: D64.9 Anemia, unspecified (principal); E03.9 Hypothyroidism, unspecified; E55.9 Vitamin D deficiency, unspecified; I10 Essential (primary) hypertension; R73.9 Hyperglycemia, unspecified; R74.8 Abnormal levels of other serum enzymes; R11.0 Nausea; F41.8 Other specified anxiety disorders; I48.92 Unspecified atrial flutter
CPT/HCPCS: 36415; 80053; 80061; 82306; 83036; 84439; 84443; 85025

== ENCOUNTER 2023-05-09 09:30 | Inpatient (IN) | payer MEDICARE, SELFPAY ==
[2023-05-09] VITALS (10 sets, daily range): BP systolic 134–179; BP diastolic 49–60; PULSE 40–51; RESP 14–16; TEMP 36.4–36.5; O2SAT 95–99; BMI 25.0
--- NOTE | ~2023-05-09 | XR_ITS ---
EXAMINATION: XR chest 2V DATE: 05/09/2023 10:59 INDICATION: Restlessness, elevated BNP TECHNIQUE: AP and lateral views of the chest are obtained. COMPARISON: 03/25/2023 FINDINGS: The lungs are free of acute opacities. There are small pleural effusions. No pneumothorax i s identified. The cardiomediastinal silhouette is normal. There is moderate thoracic spondylosis. IMPRESSION: 1. No acute cardiopulmonary abnormality. Reviewed, dictated and finalized at location A. [employer]
--- NOTE | 2023-05-09 09:31 | ED.ANXIETY ---
HPI - Anxiety General Chief Complaint: Chest Pain Stated Complaint: anxiety Time Seen by Provider: 05/09/23 09:31 Source: patient Mode of arrival: ambulatory Limitations: no limitations History of Present Illness HPI narrative: Minal is an 82-year-old female patient presenting to the ER today with complaints of restlessness, weakness, and nausea x1 week she reports that just started metoprolol 3 weeks ago because she was having atrial flutter. Does take Eliquis for pulmonary embolism. States she has been taking Eliquis as directed. Has not been having any vomiting just the nausea. Has been forcing herself to eat and drink and take her medications. Denies any fever, chills, body aches, abdominal pain, chest pain, or shortness of breath. History of anxiety. Related Data Home Medications Medication Instructions Recorded Confirmed ascorbic acid (vitamin C) 500 mg 1,500 mg PO DAILY 02/10/19 04/07/23 chewable tablet coenzyme Q10 30 mg capsule (CoQ-10) 50 mg PO DAILY 02/10/19 04/07/23 cyanocobalamin (vitamin B-12) 1,000 mcg sublingual DAILY 02/10/19 04/07/23 1,000 mcg sublingual tablet multivitamin-ferrous 1 tablet PO DAILY 02/10/19 04/07/23 fumarate-folic acid 18 mg-400 mcg tablet (Centrum Complete) acetaminophen 325 mg tablet 650 mg PO PRN PRN Pain 09/02/21 04/07/23 (Tylenol) magnesium oxide 200 mg PO DAILY 09/02/21 04/07/23 zinc 10 mg tablet 50 mg PO DAILY 09/02/21 04/07/23 alendronate 70 mg tablet (Fosamax) 70 mg PO WEEKLY 03/10/22 04/07/23 calcium carbonate 600 mg-vitamin 1 tablet PO DAILY 02/15/23 04/07/23 D3 10 mcg (400 unit) tablet (Calcium 600 + D(3)) Allergies Allergy/AdvReac Type Severity Reaction Status Date / Time Cephalosporins Allergy Severe throat Verified 05/09/23 09:43 closes cefuroxime Allergy Unknown throat Verified 05/09/23 09:43 swelling citalopram Allergy Unknown Anaphylactic Verified 05/09/23 09:43 Shock nortriptyline Allergy Unknown hot Verified 05/09/23 09:43 flashes, energetic gabapentin AdvReac Severe Fatigued Verified 05/09/23 09:43 ANTIDEPRESSANTS AdvReac Severe did not Uncoded 04/07/23 15:29 like how it made her feel Review of Systems Review of Systems: Pertinent positives per HPI. Patient denies any fever, chills, rash, headache, visual changes, dizziness, cough, runny nose, sore throat, shortness of breath, chest pain, palpitations, nausea, vomiting, diarrhea, constipation, abdominal pain, or any urinary issues. [facility] Past Medical History Medical History Anxiety Essential (primary) hypertension GERD (gastroesophageal reflux disease) Hypothyroidism Osteoporosis Thyroid disorder Thyroid nodule Vitamin D deficiency, unspecified Surgical History Surgical History History of back surgery 03/30/23 History of esophageal surgery History of hysteroscopy (~02/19/23) [facility] D&C for thickened endometrium. Dr Damico. - atrophic History of surgery of uterus Family History Family History Father Malignant neoplasm of prostate Patient's father is Mother Patient's mother is Cerebrovascular accident, Onset Age: 86 Family history of malignant neoplasm of breast in first degree relative, Onset Age: 86 Other Family history of allergic disorder Family history of mental disorder Social History Social History Smoking status: Never smoker Second hand tobacco smoke exposure: No Alcohol intake: never Substance use: never Lack of Transportation: No Lack of Food: Never True Current Housing: I Have Housing Concerned About Future Housing: No Difficulty Paying Gas/Electric Bills: No Difficulty Paying for Meds: No Currently Unemployed: N
--- NOTE | 2023-05-09 09:38 | ECG_ITS ---
Measurements Intervals [place] Rate: 45 P: 47 TN: 172 QRS: -17 QRSD: 93 T: 43 QT: 447 QTc: 389 Interpretive Statements SINUS BRADYCARDIA COMPARED TO ECG 03/25/2023 22:01:16 SINUS BRADYCARDIA NOW PRESENT Electronically Signed On 05-09-2023 11:41:40 [employer]EL[employer] by Solo Benavidez M.D.
[2023-05-09 09:58] LABS: Basophils Percent Auto 0.3 % (0.2-1.2); Eosinophils Absolute Auto 0.1 K/mm3 (0-0.3); Hematocrit 37.4 % (37.0-47.0); Hemoglobin 11.8 g/dL (12.0-15.0); Immature Granulocyte Absolute 0.05 K/mm3 (0.00-0.031); Immature Granulocyte Percent A 0.6 % (0-0.5); Lymphocytes Absolute Auto 1.35 K/mm3 (0.9-3.2); Lymphocytes Percent Auto 15.6 % (18.3-44.2); Mean Corpuscular HGB Conc 31.6 g/dl (32-36); Mean Corpuscular Volume 91.9 fl (80-100); Mean Platelet Volume 10.2 fl (7.4-10.4); Monocytes Absolute Auto 0.6 K/mm3 (0.1-0.6); Monocytes Percent Auto 6.8 % (2.6-8.5); Neutrophils Absolute Auto 6.5 K/mm3 (1.3-6.7); Neutrophils Percent Auto 75.7 % (45.5-73.1); Platelet Count Result 265 k/mm3 (150-375); Red Blood Count 4.07 M/mm3 (4.2-5.4); Red Cell Distribution Width 14.3 % (11.5-14.5); White Blood Count 8.6 K/mm3 (4.5-10.0)
[2023-05-09] MEDS: LORazepam INJ (*CRX) 2 MG/ML VIAL 0.5 MG IV PUSH (10:06)
[2023-05-09] MEDS: ONDANSETRON INJ 4 MG/2 ML VIAL IV PUSH (10:06)
[2023-05-09] MEDS: SODIUM CHLORIDE 0.9% IV 1,000 ML 999 ML IV CONT (10:07)
[2023-05-09 10:08] LABS: INR 1.3; Prothrombin Time 16.4 Seconds (11.1-14.7)
[2023-05-09 10:09] LABS: Partial Thromboplastin Time 30.4 SECONDS (22.3-36.8)
[2023-05-09 10:14] LABS: Alanine Aminotransferase 16 U/L (6-35); Albumin Level 3.8 g/dL (3.5-5.1); Alkaline Phosphatase 59 U/L (38-126); Anion Gap 9 mmol/L (8-16); Aspartate Amino Transferase 21 U/L (14-36); Bilirubin,Total 0.6 mg/dL (0.2-1.3); Blood Urea Nitrogen 16 mg/dL (7-17); Calcium 8.8 mg/dL (8.4-10.2); Carbon Dioxide 24 mmol/L (22-30); Chloride 105 mmol/L (98-107); Estimated CRCL calculation 32 ml/min; Estimated Glomerular Filt Rate 53; Glucose 140 mg/dL (65-110); Potassium 3.8 mmol/L (3.4-5.0); Sodium 138 mmol/L (137-145)
[2023-05-09 10:23] LABS: NT Pro B Type Natriuretic Pept 1300 pg/mL (19.9-100)
[2023-05-09 10:26] LABS: Troponin I < 0.012 ng/mL (0.000-0.034)
[2023-05-09 11:27] LABS: Appearance Urine Clear (Clear); Bacteria Urine None Seen /hpf; Bilirubin Urine Negative (Negative); Blood Urine Negative (Negative); Color Urine Yellow (Yellow); Glucose Urine UA Negative (Negative); Ketones Urine Negative (Negative); Leukocyte Esterase Ur Trace LEU/UL (Negative); Need Manual Microscopic Reviewed; Nitrate Urine Negative (Negative); Non Pathogenic Casts 0-2; Protein Urine Negative (Negative); RBC Urine 0-2 /hpf (0-2); Specific Grav Ur 1.005 (1.001-1.035); Squamous Epithelial Cell Urine None seen /hpf (Few); Urobilinogen Urine 0.2 mg/dL (<2.0); WBC Urine 0-5 /hpf; pH Urine 7.5 (5.0-9.0)
[2023-05-09 11:28] LABS: Add Urine Microscopic? YES
[2023-05-09] MEDS: FUROSEMIDE INJ 40 MG/4 ML VIAL IV PUSH (13:02)
--- NOTE | 2023-05-09 13:17 | PM.IMHP ---
H&P: HPI History of Present Illness Date/Time: 05/09/23 13:17 Chief Complaint: Generalized Weakness Narrative: 82 y/o F presents here with generalized weakness, restlessness, and nausea with PMH of AFlutter on anticoagulation, HTN, GERD, Hypothyroidism, Osteoporosis, and Vitamin D Deficiency. Patient presents here with generalized weakness and restlessness for the past week. Developed nausea without vomiting and reduced appetite starting yesterday. Patient had recent diagnosis of atrial flutter and was started on metoprolol 25 mg b.i.d. PO. Denies fever, chills, body aches, abdominal pain, shortness a breath, palpitations, chest pain, sense of doom, fatigue, constipation/diarrhea. Reports an recent increase in anxiety. Patient was staying with her son for a few weeks and then went back home to [facility] when she got home she became depressed because of her recent medical conditions. Citing the following: Patient developed AFlutter on 03/25/23 - developed palpitations and a varying HR. Patient then had a laminectomy of the lumbar spine done at [facility] on 03/30. Post-surgery while patient was still in the hospital after her surgery she developed L sided CP which was constant for a few days. CT showed a pulmonary embolism to her R lung (described as small by patient). Placed on blood thinners. Reports that she initially was struggling to even get the medications together, now has become more used to the idea/routine and reports reduced anxiety. Patient was started on Paroxetine on 05/04, has previously taken this medication and tolerated it well. Initial VS at presentation: 97.7 F, HR 49, RR 16, 179/60, and 99% on RA. ED workup showed no leukocytosis, mild anemia with hemoglobin of 11.8, glucose 140, BNP 1300, and UA is not indicative of UTI. EKG showed sinus bradycardia with rate of 45. CXR: no acute cardiopulmonary abnormality. Review of Systems Review of Systems: All systems reviewed & are unremarkable except as noted in HPI and below PMFSH Past Medical History Medical History Anxiety Atrial flutter Essential (primary) hypertension GERD (gastroesophageal reflux disease) Hypothyroidism Osteoporosis Thyroid disorder Thyroid nodule Vitamin D deficiency, unspecified Surgical History Surgical History History of back surgery 03/30/23 History of esophageal surgery History of hysteroscopy (~02/19/23) [facility] [place] for thickened endometrium. Dr Damico. - atrophic History of surgery of uterus Family History Family History Father Malignant neoplasm of prostate Patient's father is Mother Patient's mother is Cerebrovascular accident, Onset Age: 86 Family history of malignant neoplasm of breast in first degree relative, Onset Age: 86 Other Family history of allergic disorder Family history of mental disorder Social History Social History Smoking status: Never smoker Second hand tobacco smoke exposure: No Alcohol intake: never Substance use: never Do You Feel Safe in your Home?: Yes Lack of Transportation: No Lack of Food: Never True Current Housing: I Have Housing Concerned About Future Housing: No Difficulty Paying Gas/Electric Bills: No Difficulty Paying for Meds: No Currently Unemployed: No Education: Decline to Answer Difficulty w/ Childcare or Family Care: No Living arrangements: alone Gender identity (if verbalized by the patient): Female Spiritual care concerns: No Meds Home Medications and Allergies Home Medications Medication Instructions Recorded Confirmed Type ascorbic acid (vitamin C) 500 mg 1,000 mg PO BID 02/10/19 05/09/23 History chewable tablet cholecalciferol (vitamin D3)
--- NOTE | 2023-05-09 14:50 | ADMGEN ---
This patient, Minal Rojo, was admitted to [facility] Surg Room 321-01 at 1450. Patient/family oriented to hospital policies and general routines including ID bracelet, bed and alarms, visiting hours, pain management, procedures, bathroom and other care routines, personal items, smoking policy, room service/diet, and visiting hours. Information on how to activate the Rapid Response Team has been discussed. Patient/Family are encouraged to report perceived risks to care and to ask questions if they do not understand what they are told or what they should do.
[2023-05-09 14:53] LABS: Troponin I < 0.012 ng/mL (0.000-0.034)
[2023-05-09 15:10] LABS: Influenza A QL RT-PCR Negative (Negative); Influenza B QL RT-PCR Negative (Negative); RSV RNA, RT-PCR Negative (Negative); SARS-CoV-2 RNA PCR Negative (Negative)
[2023-05-09] MEDS: SODIUM CHLORIDE 0.9% IV 1,000 ML 125 ML IV CONT (15:10)
[2023-05-09] MEDS: APIXABAN 5 MG TABLET PO (16:40)
[2023-05-09] MEDS: ASCORBIC ACID 500 MG TABLET 1000 MG PO (16:40)
[2023-05-09] MEDS: PARoxetine 10 MG TABLET PO (20:19)
[2023-05-09] MEDS: ALPRAZolam (*CRX) 0.25 MG TABLET PO (20:19)
[2023-05-09] MEDS: MELATONIN 3 MG TABLET PO (20:19)
[2023-05-10] VITALS (12 sets, daily range): BP systolic 144–172; BP diastolic 59–68; PULSE 39–63; RESP 16–18; TEMP 36.6–36.7; O2SAT 97–99
[2023-05-10] MEDS: SODIUM CHLORIDE 0.9% IV 1,000 ML 125 ML IV CONT ×3 (00:10→16:13)
--- NOTE | 2023-05-10 04:44 | PC.NURSE ---
patient awoke to use the bathroom,bilateral hands appear to have fine tremors.
[2023-05-10 06:52] LABS: Hematocrit 34.4 % (37.0-47.0); Hemoglobin 10.7 g/dL (12.0-15.0); Mean Corpuscular HGB Conc 31.1 g/dl (32-36); Mean Corpuscular Hemoglobin 29.5 pg (26-34); Mean Corpuscular Volume 94.8 fl (80-100); Mean Platelet Volume 10.6 fl (7.4-10.4); Platelet Count Result 212 k/mm3 (150-375); Red Blood Count 3.63 M/mm3 (4.2-5.4); Red Cell Distribution Width 14.5 % (11.5-14.5); White Blood Count 6.5 K/mm3 (4.5-10.0)
[2023-05-10 06:59] LABS: Anion Gap 1 mmol/L (8-16); Blood Urea Nitrogen 17 mg/dL (7-17); Carbon Dioxide 29 mmol/L (22-30); Chloride 109 mmol/L (98-107); Estimated CRCL calculation 29 ml/min; Estimated Glomerular Filt Rate 48; Glucose 111 mg/dL (65-110); Magnesium 2.2 mg/dL (1.6-2.3); Sodium 139 mmol/L (137-145)
[2023-05-10 07:25] LABS: Hemoglobin A1C 5.5 % (<5.7)
[2023-05-10] MEDS: METOPROLOL TARTRATE 12.5 MG TABLET PO (08:18)
[2023-05-10] MEDS: ZINC SULFATE 220 MG CAPSULE PO (08:19)
[2023-05-10] MEDS: PANTOPRAZOLE 40 MG TABLET PO (08:19)
[2023-05-10] MEDS: lisinopriL 20 MG TABLET 40 MG PO (08:19)
[2023-05-10] MEDS: ASCORBIC ACID 500 MG TABLET 1000 MG PO ×2 (08:20→16:14)
[2023-05-10] MEDS: MAGNESIUM OXIDE 200 MG TABLET PO (08:20)
[2023-05-10] MEDS: APIXABAN 5 MG TABLET PO ×2 (08:20→16:15)
[2023-05-10] MEDS: MULTIVITAMINS /C LUTEIN (CENTRUM SILVER) TABLET *BKC 1 TAB PO (08:20)
[2023-05-10] MEDS: CYANOCOBALAMIN 1,000 MCG TABLET 1000 MCG PO (08:20)
[2023-05-10] MEDS: CHOLECALCIFEROL 1,000 UNITS TABLET 5000 UNITS PO (08:20)
--- NOTE | 2023-05-10 08:56 | PM.CNCAR ---
Assessment and Plan Assessment and plan (1) Bradycardia: Code(s): R00.1 - Bradycardia, unspecified Status: Acute Assessment and Plan: She has sinus bradycardia without any evidence of high-degree AV block or significant pauses. She does have some periods of her heart rate being in the 30s during hours of sleep. She is hemodynamically stable with this and she is asymptomatic. Nevertheless, to avoid any significant bradycardia we can decrease the Toprol to 12.5mg daily. (2) Atrial fibrillation: Code(s): I48.91 - Unspecified atrial fibrillation Status: Acute Assessment and Plan: Episode of atrial fib/flutter in March 2023 which resolved spontaneously without any medical intervention. She has not had any recurrence since. She is anticoagulated with apixaban 5mg p.o. b.i.d. and this should be continued as she has a [id number] score of 3. (3) Hypertension: Qualifiers: Hypertension type: primary hypertension Qualified Code(s): I10 - Essential (primary) hypertension Code(s): I10 - Essential (primary) hypertension Status: Acute Assessment and Plan: She is on losartan 50mg at home, so will increase from 25mg to 50mg here. If she remains hypertensive, can increase losartan to 100mg. Plan Cardiology will sign off please call with questions. History of Present Illness History of Present Illness Consult date/time: 05/10/23 08:56 Requesting physician: Dawson Arteaga APRN Consult reason: Other (Bradycardia) Reason For Visit: Sinus Bradycardia/Weakness Narrative: Minal Rojo is an with history of coronary vasospasms and atrial fibrillation. She was initially diagnosed with atrial fibrillation in March of 2023. She came to the hospital at that time because of symptoms of a sensation of feeling her heart racing. She was brought to the emergency department where she was in atrial fibrillation with rapid ventricular response. She did spontaneously convert to sinus rhythm and was discharged home from the emergency room. It sounds like she was discharged home from the Emergency Department on a low-dose of metoprolol. Subsequent to with this event, she underwent a planned spinal surgery and during that hospitalization was found to have a PE. She was started on anticoagulation for that. She comes to the hospital now with a chief complaint of feeling shaky. She is also complaining of having trouble sleeping. Cardiology is being asked to see her because of sinus bradycardia. She denies any dizziness, syncope, presyncope, chest pain, palpitations, shortness of breath. At the time of my visit with her, she was resting comfortably in bed does not have any complaints. Review of Systems Review of Systems: All systems reviewed & are unremarkable except as noted in HPI and below PMFSH Past Medical History Medical History (Updated 05/10/23 @ 15:23 by SOCORRO Lopez) Anxiety Atrial flutter Essential (primary) hypertension GERD (gastroesophageal reflux disease) Hypertension Hypothyroidism Osteoporosis Thyroid disorder Thyroid nodule Vitamin D deficiency, unspecified Surgical History Surgical History History of back surgery 03/30/23 History of esophageal surgery History of hysteroscopy (~02/19/23) [facility] [place] thickened endometrium. Dr Damico. - atrophic History of surgery of uterus Family History Family History Father Malignant neoplasm of prostate Patient's father is Mother Patient's mother is Cerebrovascular accident, Onset Age: 86 Family history of malignant neoplasm of breast in first degree relative, Onset Age: 86 Other Family history of allergic disorder Family history of mental disorder Social History Social History Smo
[2023-05-10] MEDS: LORazepam (*CRX) 0.5 MG TABLET PO (10:19)
--- NOTE | 2023-05-10 13:39 | PM.IMPN ---
Progress Note: A&P Assessment and Plan (1) Bradycardia: Code(s): R00.1 - Bradycardia, unspecified Status: Acute Assessment and Plan: -EKG, initial: Size bradycardia with a rate of 45, when compared to previous in March of 2023 sinus bradycardia now present. -dx w/AFlutter on 03/25. placed on metoprolol 25 mg PO BID. ED spoke with cardiology - plan to halve dose to 12.5 mg PO BID. -tele monitoring and observation -cardiology consulted continue to monitor vitals order orthostatics PT/ OT (2) Generalized weakness: Code(s): R53.1 - Weakness Status: Acute Assessment and Plan: -EKG showed sinus bradycardia -no significant findings on CBC or chemistries. -Troponin: <0.012 x2 -CXR: Small pleural effusions, otherwise no acute cardiopulmonary abnormality. Given 40 of Lasix by ED. -Last Echo in 2020 - EF of 70-75%, impaired diastolic relaxation grade 1, mild concentric left ventricular hypertrophy, mild MV/PV/TV regurgitation. -TSH: 4.080 on 04/14/2023 (3) Hypertension: Qualifiers: Hypertension type: primary hypertension Qualified Code(s): I10 - Essential (primary) hypertension Code(s): I10 - Essential (primary) hypertension Status: Acute Assessment and Plan: -chronic, stable -continue home medications: lisinopril (4) Atrial flutter: Qualifiers: Atrial flutter type: unspecified Qualified Code(s): I48.92 - Unspecified atrial flutter Code(s): I48.92 - Unspecified atrial flutter Status: Acute Assessment and Plan: -continue home Eliquis -currently on 25 mg BID of metoprolol. due to bradycardia - cardiology requested dose be halved to 12.5 mg PO BID. -tele monitoring (5) Anxiety: Code(s): F41.9 - Anxiety disorder, unspecified Status: Acute Assessment and Plan: -continue home Xanax and paroxetine -c/o jitteriness , night time awakenings, and increased anxiety for the past week. checking cortisol and mag. Subjective Date/time seen: 05/10/23 13:39 Interval history: 82 y/o F presents here with generalized weakness, restlessness, and nausea with PMH of AFlutter on anticoagulation, HTN, GERD, Hypothyroidism, Osteoporosis, and Vitamin D Deficiency. Admitted for weakness and bradycardia BB has been reduced, pt being monitored on tele Cardiology rounding some anxiety this AM Review of Systems Review of Systems: Asymptomatic but anxious with hand tremors Exam Const: General: comfortable and no acute distress Other: , female, non-toxic appearance Eyes: General: appearance normal, both eyes and all related structures Sclera: sclerae normal Pupils: Equal, round and reactive pupils present EOM: EOMs intact bilaterally Resp: Effort & Inspection: normal respiratory effort Auscultation: clear to auscultation bilaterally Cardio: Rate: bradycardic Rhythm: regular rhythm Other: S1-S2 present without murmur, rub, ectopy Skin: General skin exam: normal color and no rashes or lesions noted Wounds: no wounds Neuro: Cranial nerves: Yes Equal, round and reactive pupils present Speech: normal speech Sensory Exam: normal sensation Other: A/Ox4 Extrem: General: normal to inspection Psych: Mental Status: mental status grossly normal Affect: Anxious affect present Other: +anxiety requiring multiple episodes of reassurance Objective Data Vital Signs Vital Signs: Vital Signs - 24 hr 05/09/23 14:21 05/09/23 14:40 05/09/23 15:05 Temperature Pulse Rate 40 L 46 L Respiratory Rate 14 16 Blood Pressure 137/53 L 136/52 L Pulse Oximetry 96 95 98 Oxygen Delivery Room Air 05/09/23 16:00 05/09/23 20:39 05/09/23 20:00 Temperature 36.4 C L Pulse Rate 42 L 51 L Respiratory Rate 16 Blood Pressure 149/51 H Pulse Oximetry 97 Oxygen Delivery Room Air 05/09/23 20:00 05/10/23 00:00 05/10/23 04:00 Temp
[2023-05-10] MEDS: ALPRAZolam (*CRX) 0.25 MG TABLET PO (20:59)
[2023-05-10] MEDS: PARoxetine 10 MG TABLET PO (20:59)
[2023-05-11] VITALS (11 sets, daily range): BP systolic 146–186; BP diastolic 50–98; PULSE 51–66; RESP 12–20; TEMP 36.4–36.8; O2SAT 97–100; BMI 25.0
[2023-05-11] MEDS: ALPRAZolam (*CRX) 0.125 MG TABLET PO ×2 (02:03→08:43)
--- NOTE | 2023-05-11 05:05 | PC.NURSE ---
woke up very anxious, crying saying I cant do this anymore, I need to see a specialist for anxiety , educated patient that meds can take 2-3 weeks before being effective.
[2023-05-11 06:45] LABS: Anion Gap 3 mmol/L (8-16); Blood Urea Nitrogen 15 mg/dL (7-17); Calcium 8.6 mg/dL (8.4-10.2); Carbon Dioxide 26 mmol/L (22-30); Chloride 110 mmol/L (98-107); Estimated CRCL calculation 32 ml/min; Estimated Glomerular Filt Rate 53; Glucose 114 mg/dL (65-110); Potassium 3.7 mmol/L (3.4-5.0); Sodium 139 mmol/L (137-145)
[2023-05-11] MEDS: CYANOCOBALAMIN 1,000 MCG TABLET 1000 MCG PO (08:41)
[2023-05-11] MEDS: ZINC SULFATE 220 MG CAPSULE PO (08:41)
[2023-05-11] MEDS: ASCORBIC ACID 500 MG TABLET 1000 MG PO ×2 (08:41→17:26)
[2023-05-11] MEDS: PANTOPRAZOLE 40 MG TABLET PO (08:41)
[2023-05-11] MEDS: MAGNESIUM OXIDE 200 MG TABLET PO (08:42)
[2023-05-11] MEDS: CHOLECALCIFEROL 1,000 UNITS TABLET 5000 UNITS PO (08:42)
[2023-05-11] MEDS: METOPROLOL SUCCINATE EXT REL 12.5 MG TABCR PO (08:42)
[2023-05-11] MEDS: MULTIVITAMINS /C LUTEIN (CENTRUM SILVER) TABLET *BKC 1 TAB PO (08:42)
[2023-05-11] MEDS: lisinopriL 20 MG TABLET 40 MG PO (08:43)
[2023-05-11] MEDS: APIXABAN 5 MG TABLET PO (08:43)
--- NOTE | 2023-05-11 14:49 | PM.IMPN ---
Progress Note: A&P Assessment and Plan (1) Bradycardia: Code(s): R00.1 - Bradycardia, unspecified Status: Acute Assessment and Plan: -EKG, initial: Size bradycardia with a rate of 45, when compared to previous in March of 2023 sinus bradycardia now present. -dx w/AFlutter on 03/25. placed on metoprolol 25 mg PO BID. ED spoke with cardiology - plan to halve dose to 12.5 mg PO daily -tele monitoring and observation -cardiology following continue to monitor vitals orthostatic today pending PT/ OT (2) Generalized weakness: Code(s): R53.1 - Weakness Status: Acute Assessment and Plan: -EKG showed sinus bradycardia -no significant findings on CBC or chemistries. -Troponin: <0.012 x2 -CXR: Small pleural effusions, otherwise no acute cardiopulmonary abnormality. Given 40 of Lasix by ED. -Last Echo in 2020 - EF of 70-75%, impaired diastolic relaxation grade 1, mild concentric left ventricular hypertrophy, mild MV/PV/TV regurgitation. -TSH: 4.080 on 04/14/2023 awaiting orthostatic vital signs (3) Hypertension: Qualifiers: Hypertension type: primary hypertension Qualified Code(s): I10 - Essential (primary) hypertension Code(s): I10 - Essential (primary) hypertension Status: Acute Assessment and Plan: -chronic, stable -continue home medications: lisinopril (4) Atrial flutter: Qualifiers: Atrial flutter type: unspecified Qualified Code(s): I48.92 - Unspecified atrial flutter Code(s): I48.92 - Unspecified atrial flutter Status: Acute Assessment and Plan: -continue home Eliquis -currently on 25 mg BID of metoprolol. due to bradycardia - cardiology requested dose be halved to 12.5 mg PO daily per cardiology -tele monitoring (5) Anxiety: Code(s): F41.9 - Anxiety disorder, unspecified Status: Acute Assessment and Plan: -continue home Xanax and paroxetine -c/o jitteriness , night time awakenings, and increased anxiety for the past week. checking cortisol and mag. Subjective Date/time seen: 05/11/23 14:49 Interval history: 82 y/o F presents here with generalized weakness, restlessness, and nausea with PMH of AFlutter on anticoagulation, HTN, GERD, Hypothyroidism, Osteoporosis, and Vitamin D Deficiency. Admitted for weakness and bradycardia BB has been reduced, pt being monitored on tele Cardiology rounding some anxiety this AM Patient noted to have positive orthostatic vital signs yesterday repeat pending Review of Systems Review of Systems: Asymptomatic but anxious with hand tremors All systems reviewed & are unremarkable except as noted in HPI and below Exam Const: General: comfortable and no acute distress Other: , female, non-toxic appearance HENMT: Face/Nose/Sinus: Normal nares present Mouth: Yes moist mucous membranes Eyes: General: appearance normal, both eyes and all related structures Sclera: sclerae normal Pupils: Equal, round and reactive pupils present EOM: EOMs intact bilaterally Resp: Effort & Inspection: normal respiratory effort Auscultation: clear to auscultation bilaterally Cardio: Rate: bradycardic Rhythm: regular rhythm Other: S1-S2 present without murmur, rub, ectopy Skin: General skin exam: normal color and no rashes or lesions noted Wounds: no wounds Neuro: Cranial nerves: Yes Equal, round and reactive pupils present Speech: normal speech Sensory Exam: normal sensation Other: A/Ox4 Extrem: General: normal to inspection Psych: Mental Status: mental status grossly normal Affect: Anxious affect present Other: +anxiety requiring multiple episodes of reassurance Objective Data Vital Signs Vital Signs: Vital Signs - 24 hr 05/10/23 15:58 05/10/23 16:00 05/10/23 21:10 Temperature 97.8 F 98.0 F Pulse Rate 49 L 48 L 56 L Respiratory Rate 18 16 Blood Pressure 166/61 H 160/6
--- NOTE | 2023-05-11 16:06 | PM.PNCARD ---
Progress Note: A&P Assessment and Plan (1) Bradycardia: Code(s): R00.1 - Bradycardia, unspecified Status: Acute Assessment and Plan: She has sinus bradycardia without any evidence of high-degree AV block or significant pauses. She does have some periods of her heart rate being in the 30s during hours of sleep. She is hemodynamically stable with this and she is asymptomatic. Nevertheless, to avoid any significant bradycardia we can decrease the Toprol to 12.5mg daily. (2) Atrial fibrillation: Code(s): I48.91 - Unspecified atrial fibrillation Status: Acute Assessment and Plan: Episode of atrial fib/flutter in March 2023 which resolved spontaneously without any medical intervention. She has not had any recurrence since. She is anticoagulated with apixaban 5mg p.o. b.i.d. and this should be continued as she has a [id number] score of 3. (3) Hypertension: Qualifiers: Hypertension type: primary hypertension Qualified Code(s): I10 - Essential (primary) hypertension Code(s): I10 - Essential (primary) hypertension Status: Acute Assessment and Plan: Will add norvasc 5mg to her regimen. Give first dose now. Up titrate as needed. (4) Orthostatic hypotension: Code(s): I95.1 - Orthostatic hypotension Status: Acute Assessment and Plan: Patient denies any symptoms of orthostasis including dizziness, presyncope, or syncope. Nevertheless, orthostatic blood pressure was obtained and she did have a drop in SBP from 186 mmHg to 169mm Hg, which does not meet criteria for orthostasis. She is significantly hypertensive. Will discontinue midodrine. (5) Anxiety: Code(s): F41.9 - Anxiety disorder, unspecified Status: Acute Assessment and Plan: Has a history of anxiety disorder. For reasons that are unclear, usual home dose alprazolam has been discontinued. She does still have alprazolam available as needed at nighttime. She has also been started on buspar 5mg twice daily as needed. During an episode of anxiety/panic this afternoon, systolic blood pressure reached 240 mmHg. Anxiety needs to be better controlled. Reviewed nonpharmacologic techniques for managing anxiety with the patient including breathing techniques and vagus nerve stimulation with cold exposure. Will also add hydroxyzine 25mg q6h prn. Further management of her anxiety to be addressed by hospitalist. Subjective Date/time seen: 05/11/23 16:06 Interval history: Cardiology was asked to re-evaluate this patient because of hypertension Patient is very anxious at the time of my evaluation with her. States she doesn't know what shes anxious about but she is visibly shaking and tearful. Patient states that she has been waking up around 2:00 a.m. in the morning every night with a feeling of severe anxiety. She is unable to get back to sleep because her mind is racing. States she feels like she can't go on living like this. Review of Systems Review of Systems: All systems reviewed & are unremarkable except as noted in HPI and below Exam Const: General: comfortable, no acute distress, alert and awake Orientation/consciousness: patient oriented x3 HENMT: Head: normal to inspection Eyes: General: appearance normal, both eyes and all related structures Pupils: Equal, round and reactive pupils present Neck: Neck: normal visual inspection, supple and no JVD Carotids: normal carotid upstroke Resp: Effort & Inspection: normal respiratory effort Auscultation: clear to auscultation bilaterally Cardio: Rate: regular rate Rhythm: regular rhythm Heart sounds: S1 normal heart sound present, S2 normal heart sound present and no murmurs GI: Auscultation: normal bowel sounds Skin: General skin exam: normal color Neuro: General: patient oriented x3 Cranial nerves: Yes Equal, round and reactive pupils present Extrem: General: normal to inspection Psych: Appearance
[2023-05-11] MEDS: busPIRone HCL 5 MG TABLET PO (16:18)
[2023-05-11] MEDS: amLODIPine BESYLATE 5 MG TABLET PO (17:26)
--- NOTE | 2023-05-11 19:29 | PC.NURSE ---
Pt orthostatics taken when pt was feeling very anxious. Orthostatics shown to provider who wanted her to remain on fluids. Pt becoming puffy. Provider ordered midodrine; questioned provider order as pt already hypertensive. Dose due at 1300. Encouraged pt to decline taking medication. Pt anxious and requires frequent consoling. Pt expresses frequent concerns over any new med causing her to feel extremely weak, heart racing, shortness of breath. Explained to pt that those are also symptoms of anxiety, which she acknowledged. Approx 1500 pt requesting to see her cardiac MD because her BPs remain elevated. Attempting to reach cardiac providers. Approx 1545, pt BP manual 240/108 Rt arm supine, 218/84 Lt arm supine. Vivian Madison to bedside to eval pt. Provider ordered new cardiac meds and gave several tips to help manage anxiety. Approx 1620, pt BP 180/84 manual. Administered 5 amlodipine per provider order. Pt resting well. Approximately 45 mins after amlodipine, pt calls this RN to bedside to share concerns that she again feels her heart racing and short of breath. Reminded pt of her anxiety and worked through some breathing with her. Checked on pt 15 minutes later, pt resting well.
[2023-05-11] MEDS: ALPRAZolam (*CRX) 0.25 MG TABLET PO (20:38)
[2023-05-11] MEDS: PARoxetine 10 MG TABLET PO (20:38)
[2023-05-11] MEDS: MELATONIN 3 MG TABLET PO (20:38)
[2023-05-12] VITALS (9 sets, daily range): BP systolic 152–173; BP diastolic 56–72; PULSE 42–85; RESP 14–20; TEMP 36.4–36.6; O2SAT 97–98
[2023-05-12] MEDS: hydrOXYzine HCL 25 MG TABLET PO (00:17)
[2023-05-12] MEDS: ACETAMINOPHEN 325 MG TABLET 650 MG PO ×2 (00:17→06:44)
[2023-05-12 06:39] LABS: Basophils Percent Auto 0.4 % (0.2-1.2); Eosinophils Absolute Auto 0.1 K/mm3 (0-0.3); Eosinophils Percent Auto 1.8 % (0-4.4); Hematocrit 36.8 % (37.0-47.0); Hemoglobin 11.6 g/dL (12.0-15.0); Immature Granulocyte Absolute 0.02 K/mm3 (0.00-0.031); Immature Granulocyte Percent A 0.3 % (0-0.5); Lymphocytes Absolute Auto 1.34 K/mm3 (0.9-3.2); Lymphocytes Percent Auto 18.1 % (18.3-44.2); Mean Corpuscular HGB Conc 31.5 g/dl (32-36); Mean Corpuscular Hemoglobin 29.2 pg (26-34); Mean Corpuscular Volume 92.7 fl (80-100); Mean Platelet Volume 9.9 fl (7.4-10.4); Monocytes Absolute Auto 0.6 K/mm3 (0.1-0.6); Monocytes Percent Auto 7.8 % (2.6-8.5); Neutrophils Absolute Auto 5.3 K/mm3 (1.3-6.7); Neutrophils Percent Auto 71.6 % (45.5-73.1); Platelet Count Result 239 k/mm3 (150-375); Red Blood Count 3.97 M/mm3 (4.2-5.4); Red Cell Distribution Width 14.3 % (11.5-14.5); White Blood Count 7.4 K/mm3 (4.5-10.0)
[2023-05-12 06:56] LABS: Alanine Aminotransferase 12 U/L (6-35); Albumin Level 3.3 g/dL (3.5-5.1); Alkaline Phosphatase 55 U/L (38-126); Anion Gap 5 mmol/L (8-16); Aspartate Amino Transferase 22 U/L (14-36); Bilirubin,Total 0.6 mg/dL (0.2-1.3); Blood Urea Nitrogen 13 mg/dL (7-17); Calcium 8.7 mg/dL (8.4-10.2); Carbon Dioxide 27 mmol/L (22-30); Chloride 108 mmol/L (98-107); Estimated CRCL calculation 32 ml/min; Estimated Glomerular Filt Rate 53; Glucose 111 mg/dL (65-110); Magnesium 2.3 mg/dL (1.6-2.3); Potassium 3.8 mmol/L (3.4-5.0); Sodium 140 mmol/L (137-145)
[2023-05-12] MEDS: CHOLECALCIFEROL 1,000 UNITS TABLET 5000 UNITS PO (10:00)
[2023-05-12] MEDS: CYANOCOBALAMIN 1,000 MCG TABLET 1000 MCG PO (10:01)
[2023-05-12] MEDS: ASCORBIC ACID 500 MG TABLET 1000 MG PO (10:01)
[2023-05-12] MEDS: ZINC SULFATE 220 MG CAPSULE PO (10:01)
[2023-05-12] MEDS: lisinopriL 20 MG TABLET 40 MG PO (10:01)
[2023-05-12] MEDS: MAGNESIUM OXIDE 200 MG TABLET PO (10:02)
[2023-05-12] MEDS: APIXABAN 5 MG TABLET PO (10:02)
[2023-05-12] MEDS: PANTOPRAZOLE 40 MG TABLET PO (10:02)
[2023-05-12] MEDS: MULTIVITAMINS /C LUTEIN (CENTRUM SILVER) TABLET *BKC 1 TAB PO (10:02)
[2023-05-12] MEDS: amLODIPine BESYLATE 5 MG TABLET PO (10:05)
[2023-05-12] MEDS: METOPROLOL SUCCINATE EXT REL 12.5 MG TABCR PO (10:05)
--- NOTE | 2023-05-12 12:35 | PM.DS ---
DS: Admitting Diagnosis Discharge Date 05/12/23 Admitting Diagnosis Generalized Weakness DS: Summary Hospital Course Hospital Course: 82 y/o F presents here with generalized weakness, restlessness, and nausea with PMH of AFlutter on anticoagulation, HTN, GERD, Hypothyroidism, Osteoporosis, and Vitamin D Deficiency. Patient presents here with generalized weakness and restlessness for the past week.? Developed nausea without vomiting and reduced appetite starting yesterday. Patient had recent diagnosis of atrial flutter and was started on metoprolol 25 mg b.i.d. PO. Denies fever, chills, body aches, abdominal pain, shortness a breath, palpitations, chest pain, sense of doom, fatigue, constipation/diarrhea. Reports an recent increase in anxiety. Patient was staying with her son for a few weeks and then went back home to [facility] when she got home she became depressed because of her recent medical conditions. Citing the following: Patient developed AFlutter on 03/25/23 - developed palpitations and a varying HR. Patient then had a laminectomy of the lumbar spine done at [facility] on 03/30. Post-surgery while patient was still in the hospital after her surgery she developed L sided CP which was constant for a few days. CT showed a pulmonary embolism to her R lung (described as small by patient). Placed on blood thinners. Reports that she initially was struggling to even get the medications together, now has become more used to the idea/routine and reports reduced anxiety. Patient was started on Paroxetine on 05/04, has previously taken this medication and tolerated it well. Initial VS at presentation: 97.7 F, HR 49, RR 16, 179/60, and 99% on RA. ED workup showed no leukocytosis, mild anemia with hemoglobin of 11.8, glucose 140, BNP 1300, and UA is not indicative of UTI. EKG showed sinus bradycardia with rate of 45. CXR: no acute cardiopulmonary abnormality. Evaluation notable for braydcardia and cardiology was consulted, they redused metoprolol to 12.5mg daily. patient remained stable afterwards and orthostatic vital signs were normal. clearance coordinator evaluation noted that patiantoine will discharge home with son. Blood meds was adjusted by adding Amlodipine 5mg daily Patinet will continue f/u with PCP in 3-5 days and cardiology as instructed Assessment and Plan (1) Bradycardia: ?Code(s): R00.1 - Bradycardia, unspecified ?Status:?Acute ?Assessment and Plan: -EKG, initial:? Size bradycardia with a rate of 45, when compared to previous in March of 2023 sinus bradycardia now present. -dx w/AFlutter on 03/25. placed on metoprolol 25 mg PO BID. card adjusted metoprolol to 12.5mg daily -tele monitoring and observation f/u with cardiology as instructed (2) Generalized weakness: ?Code(s): R53.1 - Weakness ?Status:?Acute ?Assessment and Plan: -EKG showed sinus bradycardia -no significant findings on CBC or chemistries. -Troponin: <0.012 x2 -CXR:? Small pleural effusions, otherwise no acute cardiopulmonary abnormality.? Given 40 of Lasix by ED. -Last Echo in 2020 - EF of 70-75%, impaired diastolic relaxation grade 1, mild concentric left ventricular hypertrophy, mild MV/PV/TV regurgitation. -TSH: 4.080 on 04/14/2023 awaiting orthostatic vital signs (3) Hypertension: ?Qualifiers: ?Hypertension type:?primary hypertension? Qualified Code(s):?I10 - Essential (primary) hypertension ?Code(s): I10 - Essential (primary) hypertension ?Status:?Acute ?Assessment and Plan: -chronic, stable -continue home medications: lisinopril (4) Atrial flutter: ?Qualifiers: ?Atrial flutter type:?unspecified? Qualified Code(s):?I48.92 - Unspecified atrial flutter ?Code(s): I48.92 - Unspecified atrial flutter ?Status:?Acute ?Assessment and Plan: -continue home Eliquis -currently on 25 mg BID of metoprolol. due to bradycardia - cardiology adjusted to 12.5 mg PO saeed
--- NOTE | 2023-05-12 18:37 | PC.NURSE ---
Patient had concerns if she should continue the metoprolol when she understood that it was being discontinued and start Amlodipine per Vivian from cardiology. I called Dr. Griffith to verify what meds she's going home on. stated she's going home on lower dose Metoprolol and continue the Amlodipine. Educated to continue both blood pressure medications and follow up at the office. Patient understood the education provided and no further questions at this time.
== END 2023-05-12 15:55 | disposition home or self-care (01) | DRG 310 ==
LOC: ANHED 13:22 → ANH3MEDSUR 14:41
PROVIDERS: Family Medicine; Student in an Organized Health Care Education/Training Program; Admitting Provider Internal Medicine; Emergency Provider Nurse Practitioner Family; PCP Internal Medicine; Visit Provider Internal Medicine
DX: R00.1 Bradycardia, unspecified (principal); T44.7X5A Adverse effect of beta-adrenoreceptor antagonists, initial encounter; I10 Essential (primary) hypertension; E03.9 Hypothyroidism, unspecified; E55.9 Vitamin D deficiency, unspecified; K21.9 Gastro-esophageal reflux disease without esophagitis; M81.0 Age-related osteoporosis without current pathological fracture; F41.9 Anxiety disorder, unspecified; Z20.822 Contact with and (suspected) exposure to COVID-19; Z79.01 Long term (current) use of anticoagulants; Z86.711 Personal history of pulmonary embolism
CPT/HCPCS: 36415; 71046; 80048; 80053; 81001; 82533; 83036; 83735; 83880; 84484; 85025; 85027; 85610; 85730; 87637; 93005; 96361; 96374; 96375; 97161; 97165; 99285; A9270; G0378; J1940; J2060; J2405; J7030

== ENCOUNTER 2023-06-03 09:21 | Outpatient (CLI) | payer MEDICARE, SELFPAY ==
--- NOTE | 2023-06-17 18:48 | WPDSLEEPSTUD ---
Sleep Study Date of Study: 06/03/23 Ordering Provider: Lalita Pandey, SALON DESIGNER Interpreting Physician: Minal Guerra MD Sleep Study Type: Split Polysomnogram Height: 1.6 m Weight: 62.596 kg Body Mass Index: 24.4 Neck Circumference (inches): 13.5 [place]: 5 Reason for Sleep Study Disrupted sleep, frequent nighttime awakenings; Her environmental attorney has treated her for atrial fib with rapid ventricular response. Sleep History Minal Rojo is an 82-year-old woman with fragmented sleep that began on May 02, 2023. She woke early in the morning hours at 2:00 a.m. tossing and turning, waking every hour on the hour with her mind racing. This continued until her primary care doctor started alprazolam 3 times a day at 0.25 mg. She was already on 0.25 mg at bedtime so she ended up taking 0.25 mg every 6 hours. She continued to wake up at 2:00 a.m., so the alprazolam was increased at bedtime. This allowed her to sleep until 4:30 or 5:00 a.m. She never awakens from sleep short of breath. She does not wake at night with heartburn, belching or coughing.??She does not know if she snores but her sister tells her that she does snore. She rarely has trouble sleeping when she has a cold. She never wakes up gasping for breath during the night. She never sweats excessively at night. She never notices her heart pounding or beating irregularly during the night. She occasionally falls asleep during the day. She occasional falls asleep involuntarily, however never falls asleep while driving. She next experiences loss of muscle tone with strong emotion. She never feels paralyzed on waking or falling asleep. She never experiences vivid dreams upon waking or falling asleep. She never feels afraid of going to sleep. She occasionally has nightmares. She occasionally recalls her dreams. She occasionally has thoughts racing through her mind. She the case feels sad or depressed. She frequently feels anxiety. She occasionally notices parts of her body jerk. She never kicks during the night. She never feels crawling or aching feelings in her legs. She never feels leg pain at night. She never has morning jaw pain, nor does she grind her teeth at night. She occasionally feels bothered by pain during the day, is occasionally awakened by pain during the night. She occasionally wakes up feeling stiff in the morning, never wakes feeling sore or achy in the morning. She never awakens with pain in her neck, spine, or joints. Normal bedtime is between 10:30 p.m. and 11:00 p.m. taking up to 30 minutes to fall asleep, waking every hour prior to starting alprazolam but now wakes once or twice during the night. While awake, she takes a deep breath there were nose, tries to relax. She may need 10 minutes or so to return to sleep. Her normal wake up time is between 7:30 a.m. and 8:00 a.m.. She keeps the same schedule on weekends. She estimates getting between 5 hours and 6 hours of sleep at night. She takes naps in the afternoon or evening only 15 minutes long. A short nap such as this is not refreshing. She is usually drowsy now on these medications for 2 hours after waking. She feels better in the afternoon compared to other times of day. Habits:??Tobacco: Never smoker Caffeine: none Alcohol:none Recreational substances: none PMFSH Past Medical History Medical History Anxiety Atrial flutter Essential (primary) hypertension GERD (gastroesophageal reflux disease) Hypertension Hypothyroidism Osteoporosis Thyroid disorder Thyroid nodule Vitamin D deficiency, unspecified Surgical History Surgical History History of back surgery 03/30/23 History of esophageal surgery History of hysteroscopy (~02/19/23) [facility] D&C for thickened endometrium. Dr Damico. - atrophic History of surgery of uterus Family History Family History (Reviewed 06/22/23 @
[2023-06-22 15:13] VITALS: BMI 24.4
== END 2023-06-04 07:04 | disposition home or self-care (01) ==
PROVIDERS: PCP Internal Medicine; Visit Provider Nurse Practitioner Adult Health
DX: G47.9 Sleep disorder, unspecified (principal); Z91.89 Other specified personal risk factors, not elsewhere classified; G47.33 Obstructive sleep apnea (adult) (pediatric)
CPT/HCPCS: 95811

== ENCOUNTER 2023-07-08 11:48 | Outpatient (CLI) | payer MEDICARE, SELFPAY ==
[2023-07-08 12:13] LABS: Basophils Percent Auto 0.4 % (0.2-1.2); Eosinophils Absolute Auto 0.1 K/mm3 (0-0.3); Eosinophils Percent Auto 1.5 % (0-4.4); Hematocrit 37.8 % (37.0-47.0); Hemoglobin 11.9 g/dL (12.0-15.0); Immature Granulocyte Absolute 0.02 K/mm3 (0.00-0.031); Immature Granulocyte Percent A 0.3 % (0-0.5); Lymphocytes Absolute Auto 1.44 K/mm3 (0.9-3.2); Lymphocytes Percent Auto 19.7 % (18.3-44.2); Mean Corpuscular HGB Conc 31.5 g/dl (32-36); Mean Corpuscular Hemoglobin 29.5 pg (26-34); Mean Corpuscular Volume 93.6 fl (80-100); Mean Platelet Volume 9.8 fl (7.4-10.4); Monocytes Absolute Auto 0.5 K/mm3 (0.1-0.6); Monocytes Percent Auto 7.2 % (2.6-8.5); Neutrophils Absolute Auto 5.2 K/mm3 (1.3-6.7); Neutrophils Percent Auto 70.9 % (45.5-73.1); Platelet Count Result 267 k/mm3 (150-375); Red Blood Count 4.04 M/mm3 (4.2-5.4); Red Cell Distribution Width 14.5 % (11.5-14.5); White Blood Count 7.3 K/mm3 (4.5-10.0)
== END 2023-07-08 11:49 | disposition home or self-care (01) ==
PROVIDERS: PCP Internal Medicine; Visit Provider Internal Medicine
DX: D75.839 Thrombocytosis, unspecified (principal)
CPT/HCPCS: 36415; 85025

== ENCOUNTER 2023-07-22 11:18 | Observation (INO) | payer MEDICARE, SELFPAY ==
[2023-07-22 11:50] VITALS: BP 122/56; PULSE 62; RESP 16; TEMP 36.1; O2SAT 100
--- NOTE | 2023-07-22 12:21 | ED.GIBLEED ---
HPI - GI Bleed General Chief complaint: GI Bleed Stated complaint: RECTAL BLEEDING Time Seen by Provider: 07/22/23 12:11 Source: patient Mode of arrival: ambulatory Limitations: no limitations History of Present Illness HPI Narrative: 82 YEARS OLD WHITE FEMALE CAME TO THE EMERGENCY ROOM BECAUSE INTERMITTENT FRESH RED BRIGHT BLOOD WHEN SHE HAVE A BOWEL MOVEMENT OVER THE LAST 5 DAYS. HISTORY OF HEMORRHOIDS AND CURRENTLY ON ELIQUIS. PATIENT DENIES ANY NAUSEA, VOMITING, DIARRHEA, CONSTIPATION, ABDOMINAL PAIN OR INCREASED FREQUENCY OF BOWEL MOVEMENT. PATIENT HAVE 1 BOWEL MOVEMENT A DAY. PATIENT DENIES ANY NASAL PAIN. LAST COLONOSCOPY BY DR. SONG FEBRUARY 2023 Related Data Home Medications Medication Instructions Recorded Confirmed ascorbic acid (vitamin C) 500 mg 1,000 mg PO BID 02/10/19 07/22/23 chewable tablet coenzyme Q10 30 mg capsule (CoQ-10) 50 mg PO DAILY 02/10/19 07/22/23 cyanocobalamin (vitamin B-12) 1,000 mcg sublingual DAILY 02/10/19 07/22/23 1,000 mcg sublingual tablet multivitamin-ferrous 1 tablet PO DAILY 02/10/19 07/22/23 fumarate-folic acid 18 mg-400 mcg tablet (Centrum Complete) magnesium oxide 250 mg PO DAILY 09/02/21 07/22/23 zinc 10 mg tablet 50 mg PO DAILY 09/02/21 07/22/23 alendronate 70 mg tablet (Fosamax) 70 mg PO WEEKLY 03/10/22 07/22/23 calcium carbonate 600 mg-vitamin 1 tablet PO BID 02/15/23 07/22/23 D3 10 mcg (400 unit) tablet (Calcium 600 + D(3)) Allergies Allergy/AdvReac Type Severity Reaction Status Date / Time Cephalosporins Allergy Severe throat Verified 07/22/23 12:29 closes cefuroxime Allergy Unknown throat Verified 07/22/23 12:29 swelling citalopram Allergy Unknown Anaphylactic Verified 07/22/23 12:29 Shock nortriptyline Allergy Unknown hot Verified 07/22/23 12:29 flashes, energetic gabapentin AdvReac Severe Fatigued Verified 07/22/23 12:29 ANTIDEPRESSANTS AdvReac Severe did not Uncoded 07/22/23 12:29 like how it made her feel PMFSH Past Medical History Medical History (Updated 07/23/23 @ 00:33 by Surya Gonzales MD) Anxiety Chronic anticoagulation Chronic kidney disease, stage 3 Complex regional pain syndrome Gastroesophageal reflux disease Hypertension Hypothyroidism Obstructive sleep apnea Osteoporosis Pulmonary embolism (03/2023) Thyroid nodule Transient atrial fibrillation/flutter Vitamin D deficiency, unspecified Surgical History Surgical History (Updated 07/22/23 @ 16:18 by Mony Moeller PA-C) History of back surgery (03/30/23) History of breast biopsy History of cardiac catheterization History of colonoscopy with polypectomy History of esophageal dilatation History of esophageal surgery History of hysteroscopy (02/19/23) With D&C for thickened endometrium-atrophic. History of surgery of uterus History of tubal ligation Family History Family History Father Malignant neoplasm of prostate Patient's father is Mother Patient's mother is Cerebrovascular accident, Onset Age: 86 Family history of malignant neoplasm of breast in first degree relative, Onset Age: 86 Other Family history of allergic disorder Family history of mental disorder Social History Social History (Updated 07/22/23 @ 16:19 by Mony Moeller PA-C) Social History: Surrogate medical decision maker: Frederick Pierre, son. Code status: Full code. Smoking status: Never smoker Second hand tobacco smoke exposure: No Alcohol intake: never Substance use: never Substance use type: does not use Do You Feel Safe in your Home?: Yes Lack of Transportation: No Lack of Food: Never True Current Housing: I Have Housing Concerned About Future Housing: No Difficulty Paying Gas/Electric Bills: No Difficulty Paying for Meds: No Currently Unemployed: No Education: High School Diploma/GED Difficulty w/
[2023-07-22 12:53] LABS: Basophils Percent Auto 0.5 % (0.2-1.2); Eosinophils Absolute Auto 0.1 K/mm3 (0-0.3); Eosinophils Percent Auto 1.1 % (0-4.4); Hematocrit 37.4 % (37.0-47.0); Hemoglobin 11.7 g/dL (12.0-15.0); Immature Granulocyte Absolute 0.02 K/mm3 (0.00-0.031); Immature Granulocyte Percent A 0.3 % (0-0.5); Lymphocytes Absolute Auto 1.61 K/mm3 (0.9-3.2); Lymphocytes Percent Auto 21.8 % (18.3-44.2); Mean Corpuscular HGB Conc 31.3 g/dl (32-36); Mean Corpuscular Hemoglobin 29.5 pg (26-34); Mean Corpuscular Volume 94.4 fl (80-100); Mean Platelet Volume 10.2 fl (7.4-10.4); Monocytes Absolute Auto 0.6 K/mm3 (0.1-0.6); Neutrophils Percent Auto 68.3 % (45.5-73.1); Platelet Count Result 241 k/mm3 (150-375); Red Blood Count 3.96 M/mm3 (4.2-5.4); Red Cell Distribution Width 14.3 % (11.5-14.5); White Blood Count 7.4 K/mm3 (4.5-10.0)
[2023-07-22 13:01] LABS: Lactic Acid Reflex 0.9 mmol/L (0.7-2.0)
[2023-07-22 13:02] LABS: Alanine Aminotransferase 16 U/L (6-35); Albumin Level 4.3 g/dL (3.5-5.1); Alkaline Phosphatase 58 U/L (38-126); Anion Gap 5 mmol/L (4-12); Aspartate Amino Transferase 27 U/L (14-36); Bilirubin,Total 0.5 mg/dL (0.2-1.3); Blood Urea Nitrogen 29 mg/dL (7-17); Calcium 9.2 mg/dL (8.4-10.2); Carbon Dioxide 25 mmol/L (22-30); Chloride 107 mmol/L (98-107); Estimated CRCL calculation 26 ml/min; Estimated Glomerular Filt Rate 43; Glucose 93 mg/dL (65-110); Potassium 4.5 mmol/L (3.4-5.0); Sodium 137 mmol/L (137-145)
[2023-07-22] MEDS: SODIUM CHLORIDE 0.9% IV 1,000 ML 999 ML IV CONT (13:04)
[2023-07-22] MEDS: PANTOPRAZOLE SODIUM IV 40 MG VIAL IV PUSH (13:04)
[2023-07-22 13:08] LABS: INR 1.4; Partial Thromboplastin Time 29.9 Seconds (22.3-36.8); Prothrombin Time 17.7 Seconds (11.1-14.7)
[2023-07-22 14:46] VITALS: BP 135/59; PULSE 57; RESP 18; O2SAT 100
[2023-07-22 15:10] VITALS: BP 134/61; PULSE 63; RESP 17; TEMP 36.4; O2SAT 98
--- NOTE | 2023-07-22 15:14 | ADMGEN ---
This patient, Minal Rojo, was admitted to Medical Room 260-. Patient/family oriented to hospital policies and general routines including ID bracelet, bed and alarms, visiting hours, pain management, procedures, bathroom and other care routines, personal items, smoking policy, room service/diet, and visiting hours. Information on how to activate the Rapid Response Team has been discussed. Patient/Family are encouraged to report perceived risks to care and to ask questions if they do not understand what they are told or what they should do.
--- NOTE | 2023-07-22 16:09 | PM.IMHP ---
H&P: HPI History of Present Illness Date/Time: 07/22/23 16:30 Chief Complaint: Rectal bleeding. Narrative: This is a pleasant 82-year-old female with history of small pulmonary embolism in March 2023, paroxysmal atrial fibrillation/flutter on anticoagulation, hemorrhoids, gastroesophageal reflux disease, chronic kidney disease stage 3, hypertension, hypothyroidism, and osteoporosis who presented to the emergency department for evaluation of rectal bleeding. Wednesday evening she had a small bowel movement but reports passing quite a bit of bright red blood per rectum. She called her doctor's exchange that night and was told to go to the emergency department if it happened again. She has had several normal bowel movement since that time however last night she got up to urinate and when she sat on the toilet a new large amount of bright red blood past from her rectum. She has continued to notice blood each time she goes to the bathroom since that time. She denies abdominal and rectal pain and also denies constipation and straining to have a bowel movement. She denies syncope, near syncope, epigastric and abdominal pain, chest pain, shortness of breath, nausea, vomiting, and melena. Vital signs were stable on arrival to the ED. Labs were significant for hemoglobin of 11.7 (stable when compared to labs over the last 4 months), BUN 29, creatinine 1.20. She did not take her Eliquis today. She has not had any bowel movements or blood loss since being admitted to the floor. Review of Systems Review of Systems: 12 systems were reviewed and are negative except for as per HPI. [facility] Past Medical History Medical History (Updated 07/23/23 @ 00:17 by Mony Moeller PA-C) Anxiety Chronic anticoagulation Chronic kidney disease, stage 3 Complex regional pain syndrome Gastroesophageal reflux disease Hypertension Hypothyroidism Obstructive sleep apnea Osteoporosis Pulmonary embolism (03/2023) Thyroid nodule Transient atrial fibrillation/flutter Vitamin D deficiency, unspecified Surgical History Surgical History (Updated 07/22/23 @ 16:18 by Mony Moeller PA-C) History of back surgery (03/30/23) History of breast biopsy History of cardiac catheterization History of colonoscopy with polypectomy History of esophageal dilatation History of esophageal surgery History of hysteroscopy (02/19/23) With D&C for thickened endometrium-atrophic. History of surgery of uterus History of tubal ligation Family History Family History Father Malignant neoplasm of prostate Patient's father is Mother Patient's mother is Cerebrovascular accident, Onset Age: 86 Family history of malignant neoplasm of breast in first degree relative, Onset Age: 86 Other Family history of allergic disorder Family history of mental disorder Social History Social History (Updated 07/22/23 @ 16:19 by Mony Moeller PA-C) Social History: Surrogate medical decision maker: Frederick Pierre, son. Code status: Full code. Smoking status: Never smoker Second hand tobacco smoke exposure: No Alcohol intake: never Substance use: never Substance use type: does not use Do You Feel Safe in your Home?: Yes Lack of Transportation: No Lack of Food: Never True Current Housing: I Have Housing Concerned About Future Housing: No Difficulty Paying Gas/Electric Bills: No Difficulty Paying for Meds: No Currently Unemployed: No Education: High School Diploma/GED Difficulty w/ Childcare or Family Care: No Living arrangements: alone Spiritual care concerns: No Meds Home Medications and Allergies Home Medications Medication Instructions Recorded Confirmed Type ascorbic acid (vitamin C) 500 mg 1,000 mg PO BID 02/10/19 07/22/23 History chewable tablet cholecalciferol (vitamin D3) 125 5,000 unit PO DAILY #30 caps 02/10/19
[2023-07-22 16:52] LABS: Hematocrit 36.3 % (37.0-47.0); Hemoglobin 11.4 g/dL (12.0-15.0)
[2023-07-22] MEDS: ALPRAZolam (*CRX) 0.25 MG TABLET PO ×2 (17:13→23:29)
[2023-07-22 20:10] VITALS: BP 119/57; PULSE 52; RESP 16; TEMP 36.5; O2SAT 100
[2023-07-22 20:11] VITALS: BP 131/57; PULSE 53
[2023-07-22 20:13] VITALS: BP 133/56; PULSE 54
[2023-07-22 21:20] LABS: Hematocrit 33.2 % (37.0-47.0); Hemoglobin 10.6 g/dL (12.0-15.0)
[2023-07-22] MEDS: ALPRAZolam (*CRX) 0.5 MG TABLET PO (23:29)
[2023-07-23 03:31] LABS: Hematocrit 32.8 % (37.0-47.0); Hemoglobin 10.5 g/dL (12.0-15.0); Mean Corpuscular Hemoglobin 29.9 pg (26-34); Mean Corpuscular Volume 93.4 fl (80-100); Mean Platelet Volume 10.1 fl (7.4-10.4); Platelet Count Result 217 k/mm3 (150-375); Red Blood Count 3.51 M/mm3 (4.2-5.4); Red Cell Distribution Width 14.5 % (11.5-14.5); White Blood Count 5.5 K/mm3 (4.5-10.0)
[2023-07-23 04:10] LABS: Anion Gap 1 mmol/L (4-12); Blood Urea Nitrogen 21 mg/dL (7-17); Calcium 8.8 mg/dL (8.4-10.2); Carbon Dioxide 26 mmol/L (22-30); Chloride 112 mmol/L (98-107); Estimated CRCL calculation 28 ml/min; Estimated Glomerular Filt Rate 48; Glucose 98 mg/dL (65-110); Magnesium 2.3 mg/dL (1.6-2.3); Potassium 4.2 mmol/L (3.4-5.0); Sodium 139 mmol/L (137-145)
[2023-07-23 04:36] VITALS: BP 117/46; PULSE 55; RESP 16; TEMP 36.8; O2SAT 98
[2023-07-23] MEDS: ALPRAZolam (*CRX) 0.25 MG TABLET PO ×2 (05:31→12:17)
[2023-07-23 06:52] LABS: Hematocrit 35.3 % (37.0-47.0)
--- NOTE | 2023-07-23 08:08 | P.CONGI_ITS ---
I, Montez Nolan MD, have provided a substantive portion of the care of this patient and discussed the patient with my Nurse Practitioner. I have reviewed any new relevant radiographic and laboratory results including medications. I agree with her documentation as noted below.?I personally performed the medical decision making and much of the history and exam for this encounter. briefly, she was diagnosed with PE and A flutter few months ago using blood thinners since and here with intermittent blood after stools, small amount. She had colonoscopy 01/2023 that showed medium size hemorrhoids and mild diverticulosis otherwise unremarkable. Hgb on admission unchanged, she is doing ok. Plan is topical treatment of hemorrhoids with suppository, avoid straining, no need to repeat colonoscopy. Recommend to follow-up with surgery for possible hemorrhoidectomy if ongoing bleeding, patient would like to talk to her pcp first. Assessment and Plan Assessment and plan (1) Hemorrhoids: Qualifiers: Hemorrhoid type: first degree Qualified Code(s): K64.0 - First degree hemorrhoids Code(s): K64.9 - Unspecified hemorrhoids Status: Acute (2) Rectal bleeding: Code(s): K62.5 - Hemorrhage of anus and rectum Status: Acute (3) History of colon polyps: Code(s): Z86.010 - Personal history of colonic polyps Status: Acute (4) Anemia: Qualifiers: Anemia type: unspecified type Qualified Code(s): D64.9 - Anemia, unspecified Code(s): D64.9 - Anemia, unspecified Status: Acute (5) Gastro-esophageal reflux disease without esophagitis: Code(s): K21.9 - Gastro-esophageal reflux disease without esophagitis Status: Acute (6) Dysphagia: Qualifiers: Dysphagia type: esophageal phase Qualified Code(s): R13.19 - Other dysphagia Code(s): R13.10 - Dysphagia, unspecified Status: Acute (7) Fecal incontinence with incomplete defecation: Code(s): R15.9 - Full incontinence of feces; R15.0 - Incomplete defecation Status: Acute Plan 1) Rectal bleeding/internal hemorrhoids/fecal incontinence/personal Hx of colon polyps: Colonoscopy 01/28/2023 at which time she was noted to have internal hemorrhoids and diverticulosis without per for bleeding. No repeat screening colonoscopy recommended at that time due to age. If patient with a history of AFib/Aflutter and an acute PE in March of 2023 and is on Eliquis 5 mg b.i.d. Since Wednesday the patient has been having intermittent. Trace to small amount of painless rectal bleeding. Since Wednesday she has skipped a dose of Eliquis intermittently and notes that the bleeding typically stops. She had a BM this morning that was liquid and brown in color. H/H lower but stable. * No indication at this time for emergent endoscopic evaluation and patient is at higher risk if Eliquis is held * Bleeding likely secondary to known internal hemorrhoids * Patient can follow up as outpatient to discuss treatment for her internal hemorrhoids * No GI indication to continue holding anticoagulants, monitor closely on restarting for increased severeity of rectal bleeding, but she may continue to have trace rectal bleeding until hemorrhoids are treated 2) Anemia of chronic disease: Patient with chronic but relatively stable H/H since 2019. Baseline Hgb is is between 10.5-11.5 and on admission Hgb was 11. Iron panel in Apr 2022 was normal. Colonoscopy in January 2023 showed Diverticulosis and internal hemorrhoids was otherwise unremarkable. Last EGD performed 7-8 years ago. * Will repeat iron panel and ferritin, supplement if deficie
--- NOTE | 2023-07-23 08:08 | WPDGICN ---
Assessment and Plan Assessment and plan (1) Hemorrhoids: Qualifiers: Hemorrhoid type: first degree Qualified Code(s): K64.0 - First degree hemorrhoids Code(s): K64.9 - Unspecified hemorrhoids Status: Acute (2) Rectal bleeding: Code(s): K62.5 - Hemorrhage of anus and rectum Status: Acute (3) History of colon polyps: Code(s): Z86.010 - Personal history of colonic polyps Status: Acute (4) Anemia: Qualifiers: Anemia type: unspecified type Qualified Code(s): D64.9 - Anemia, unspecified Code(s): D64.9 - Anemia, unspecified Status: Acute (5) Gastro-esophageal reflux disease without esophagitis: Code(s): K21.9 - Gastro-esophageal reflux disease without esophagitis Status: Acute (6) Dysphagia: Qualifiers: Dysphagia type: esophageal phase Qualified Code(s): R13.19 - Other dysphagia Code(s): R13.10 - Dysphagia, unspecified Status: Acute (7) Fecal incontinence with incomplete defecation: Code(s): R15.9 - Full incontinence of feces; R15.0 - Incomplete defecation Status: Acute Plan 1) Rectal bleeding/internal hemorrhoids/fecal incontinence/personal Hx of colon polyps: Colonoscopy 01/28/2023 at which time she was noted to have internal hemorrhoids and diverticulosis without per for bleeding. No repeat screening colonoscopy recommended at that time due to age. If patient with a history of AFib/Aflutter and an acute PE in March of 2023 and is on Eliquis 5 mg b.i.d. Since Wednesday the patient has been having intermittent. Trace to small amount of painless rectal bleeding. Since Wednesday she has skipped a dose of Eliquis intermittently and notes that the bleeding typically stops. She had a BM this morning that was liquid and brown in color. H/H lower but stable. No indication at this time for emergent endoscopic evaluation and patient is at higher risk if Eliquis is held Bleeding likely secondary to known internal hemorrhoids Patient can follow up as outpatient to discuss treatment for her internal hemorrhoids No GI indication to continue holding anticoagulants, monitor closely on restarting for increased severeity of rectal bleeding, but she may continue to have trace rectal bleeding until hemorrhoids are treated 2) Anemia of chronic disease: Patient with chronic but relatively stable H/H since 2019. Baseline Hgb is is between 10.5-11.5 and on admission Hgb was 11. Iron panel in Apr 2022 was normal. Colonoscopy in January 2023 showed Diverticulosis and internal hemorrhoids was otherwise unremarkable. Last EGD performed 7-8 years ago. Will repeat iron panel and ferritin, supplement if deficient Primary care team to continue monitoring 3) Dysphagia/GERD: Per patient she has a history of esophageal stricture versus ring that was dilated on 2 occasions in [id number]. She admits to intermittent difficulty swallowing solid foods but denies any difficulty swallowing liquids or pills. She states the food bolus typically passes when she drinks water. Reflux well controlled on omeprazole 20 mg daily. Continue omeprazole 20 mg daily as outpatient Patient to follow-up as outpatient to consider repeat EGD with dilation GI Consult Note Consult date/time: 07/23/23 08:08 Reason for consult: Rectal bleeding HPI: Minal Rojo is a 82 year old female with a past medical surgical history of PE in March of 2023, AFib/A-Flutter on Eliquis, hemorrhoids, GERD, chronic kidney disease stage 3, hypertension, hypothyroidism, history of cardiac catheterization, hysterectomy, personal Hx of colon polyps and tubal ligation. patient presented to the emergency room yesterday with complaints of rectal bleeding x5 days, and GI was consulted for rectal bleeding. Patient with a personal Hx of colon polyps, last colonoscopy in January 2023 noted internal hemorrhoids and diverticulosis. Patient with A-Fib/A-Flutter and rece
[2023-07-23 08:12] LABS: Free T4 Free Thyroxine Reflex 0.92 ng/dL (0.78-2.19)
[2023-07-23 08:54] LABS: Total Triiodothyronine (T3) 1.37 NG/ML (0.97-1.69)
--- NOTE | 2023-07-23 08:54 | PM.IMPN ---
Progress Note: A&P Assessment and Plan (1) Hematochezia: Code(s): K92.1 - Melena Status: Acute (2) Chronic anticoagulation: Code(s): Z79.01 - skilled nursing (current) use of anticoagulants Status: Acute (3) Transient atrial fibrillation/flutter: Code(s): I48.91 - Unspecified atrial fibrillation; I48.92 - Unspecified atrial flutter Status: Acute (4) Hypertension: Qualifiers: Hypertension type: primary hypertension Qualified Code(s): I10 - Essential (primary) hypertension Code(s): I10 - Essential (primary) hypertension Status: Acute (5) Hypothyroidism: Code(s): E03.9 - Hypothyroidism, unspecified Status: Acute (6) Chronic kidney disease, stage 3: Code(s): N18.30 - Chronic kidney disease, stage 3 unspecified Status: Acute (7) Gastroesophageal reflux disease: Code(s): K21.9 - Gastro-esophageal reflux disease without esophagitis Status: Acute Plan This is a pleasant 82-year-old female with history of small pulmonary embolism in March 2023, paroxysmal atrial fibrillation/flutter on anticoagulation, hemorrhoids, gastroesophageal reflux disease, chronic kidney disease stage 3, hypertension, hypothyroidism, and osteoporosis who presented to the emergency department for evaluation of rectal bleeding. Wednesday evening she had a small bowel movement but reports passing quite a bit of bright red blood per rectum. She called her doctor's exchange that night and was told to go to the emergency department if it happened again. She has had several normal bowel movement since that time however last night she got up to urinate and when she sat on the toilet a new large amount of bright red blood past from her rectum. She has continued to notice blood each time she goes to the bathroom since that time. She denies abdominal and rectal pain and also denies constipation and straining to have a bowel movement. She denies syncope, near syncope, epigastric and abdominal pain, chest pain, shortness of breath, nausea, vomiting, and melena. Vital signs were stable on arrival to the ED. Labs were significant for hemoglobin of 11.7 (stable when compared to labs over the last 4 months), BUN 29, creatinine 1.20. She did not take her Eliquis. She has not had any bowel movements or blood loss since being admitted to the floor. Hematochezia H&H remained stable hemorrhoidal versus diverticular bleed no abdominal pain reported. GI has been consulted. History of bleeding hemorrhoids History of diverticulosis CKD stage 3 GERD Hypertension Hypothyroidism UCHE History of PE 03/2023 Thyroid nodule History of atrial fibrillation DVT prophylaxis SCDs Full code Subjective Date/time seen: 07/23/23 08:54 Interval history: Chart reviewed. No new complaints. Discussed with nursing staff. Review of Systems Review of Systems: All systems reviewed & are unremarkable except as noted in HPI and below Exam Narrative: General: Well-developed female appearing a bit younger than her stated age sitting up in bed. HEENT: PERRL, EOMI. Sclera anicteric. Oral mucosa moist. Neck: Supple. Respiratory: Lungs are clear to auscultation bilaterally. Cardiovascular: Bradycardic with normal S1-S2. Gastrointestinal: Abdomen is soft, nontender, and nondistended with positive bowel sounds. Skin: Warm and dry. No rash or lesions on limited exam. Extremities: No cyanosis, clubbing, or edema. Radial and pedal pulses intact. Neurological: Alert. Cranial nerves 2-12 are grossly intact. Occasional tremors of the upper arms. No gross focal deficits to casual conversation. Psychiatric: Pleasant and cooperative with normal mood and affect. Judgment and insight intact. Objective Data Vital Signs Vital Signs: Vital Signs - 24 hr 07/22/23 11:50 07/22/23 14:46 07/22/23 15:10 Temperature 97.0 F L 97.5 F L Pulse Rate 62 57 L 63 Respiratory Rate 16 18 17 Blood Pressure 122/56 L
[2023-07-23 08:59] LABS: Basophils Percent Auto 0.6 % (0.2-1.2); Eosinophils Absolute Auto 0.2 K/mm3 (0-0.3); Eosinophils Percent Auto 3.2 % (0-4.4); Hematocrit 33.6 % (37.0-47.0); Hemoglobin 10.6 g/dL (12.0-15.0); Immature Granulocyte Absolute 0.01 K/mm3 (0.00-0.031); Immature Granulocyte Percent A 0.2 % (0-0.5); Lymphocytes Percent Auto 31.5 % (18.3-44.2); Mean Corpuscular HGB Conc 31.5 g/dl (32-36); Mean Corpuscular Hemoglobin 30.1 pg (26-34); Mean Corpuscular Volume 95.5 fl (80-100); Mean Platelet Volume 10.8 fl (7.4-10.4); Monocytes Absolute Auto 0.5 K/mm3 (0.1-0.6); Monocytes Percent Auto 9.5 % (2.6-8.5); Platelet Count Result 230 k/mm3 (150-375); Red Blood Count 3.52 M/mm3 (4.2-5.4); Red Cell Distribution Width 14.5 % (11.5-14.5); White Blood Count 5.4 K/mm3 (4.5-10.0)
[2023-07-23 09:09] LABS: Alanine Aminotransferase 13 U/L (6-35); Albumin Level 3.4 g/dL (3.5-5.1); Alkaline Phosphatase 47 U/L (38-126); Aspartate Amino Transferase 24 U/L (14-36); Bilirubin,Total 0.5 mg/dL (0.2-1.3)
[2023-07-23] MEDS: PANTOPRAZOLE SODIUM IV 40 MG VIAL IV PUSH (09:46)
[2023-07-23] MEDS: ZINC SULFATE 220 MG CAPSULE PO (09:47)
[2023-07-23] MEDS: CHOLECALCIFEROL 1,000 UNITS TABLET 5000 UNITS PO (09:47)
[2023-07-23] MEDS: MULTIVITAMINS /C LUTEIN (CENTRUM SILVER) TABLET *BKC 1 TAB PO (09:47)
[2023-07-23] MEDS: CALCIUM/VITAMIN D 500 MG/5 MCG (200 I.U.) TABLET PO (09:47)
[2023-07-23] MEDS: lisinopriL 20 MG TABLET 40 MG PO (09:47)
[2023-07-23] MEDS: CYANOCOBALAMIN 1,000 MCG TABLET 1000 MCG BY MOUTH (09:47)
[2023-07-23] MEDS: MAGNESIUM OXIDE 200 MG TABLET PO (09:47)
[2023-07-23 09:53] VITALS: BP 120/50; PULSE 53; RESP 14; O2SAT 99
[2023-07-23] MEDS: amLODIPine BESYLATE 5 MG TABLET PO (09:56)
--- NOTE | 2023-07-23 10:41 | PM.DS ---
DS: Summary Time Spent with Patient Time attestation: Total time spent providing and/or coordinating discharge services: DS: Data Data Completed and Pending Labs on day of discharge: Labs from last 24 hours 07/23/23 07/23/23 07/23/23 06:46 03:15 03:15 WBC RBC Hgb 11.0 L Hct 35.3 L MCV MCH MCHC RDW Plt Count MPV Immature Gran % (Auto) Neut % (Auto) Lymph % (Auto) [place] % (Auto) Eos % (Auto) Baso % (Auto) Lymph # (Auto) [place] # (Auto) Eos # (Auto) Baso # (Auto) Abs Immat Gran (auto) Absolute Neuts (auto) Absolute Nucleated RBC Nucleated RBC % PT INR APTT Sodium Potassium Chloride Carbon Dioxide Anion Gap BUN Creatinine Estim Creat Clear Calc Estimated GFR Glucose Lactic Acid Calcium Magnesium Total Bilirubin Direct Bilirubin AST ALT Alkaline Phosphatase Total Protein 6.0 L Albumin 3.4 L Cancelled TSH (Reflex) 4.300 Free T4 0.92 Total T3 1.37 Blood Type Antibody Screen 07/23/23 07/23/23 07/23/23 03:15 03:15 03:15 WBC RBC Hgb Hct MCV MCH MCHC RDW Plt Count MPV Immature Gran % (Auto) Neut % (Auto) Lymph % (Auto) [place] % (Auto) Eos % (Auto) Baso % (Auto) Lymph # (Auto) [place] # (Auto) Eos # (Auto) Baso # (Auto) Abs Immat Gran (auto) Absolute Neuts (auto) Absolute Nucleated RBC Nucleated RBC % PT INR APTT Sodium Potassium Chloride Carbon Dioxide Anion Gap BUN Creatinine Estim Creat Clear Calc Estimated GFR Glucose Lactic Acid Calcium Magnesium Total Bilirubin Direct Bilirubin AST 24 ALT 13 Cancelled Alkaline Phosphatase 47 Cancelled Total Protein Cancelled Albumin TSH (Reflex) Free T4 Total T3 Blood Type Antibody Screen 07/23/23 07/23/23 07/23/23 03:15 03:15 03:15 WBC RBC Hgb Hct MCV MCH MCHC RDW Plt Count MPV Immature Gran % (Auto) Neut % (Auto) Lymph % (Auto) [place] % (Auto) Eos % (Auto) Baso % (Auto) Lymph # (Auto) [place] # (Auto) Eos # (Auto) Baso # (Auto) Abs Immat Gran (auto) Absolute Neuts (auto) Absolute Nucleated RBC Nucleated RBC % PT INR APTT Sodium Potassium Chloride Carbon Dioxide Anion Gap BUN Creatinine Estim Creat Clear Calc Estimated GFR Glucose Cancelled Lactic Acid Calcium Cancelled 8.8 Magnesium 2.3 Total Bilirubin 0.5 Cancelled Direct Bilirubin 0.0 AST Cancelled ALT Alkaline Phosphatase Total Protein Albumin TSH (Reflex) Free T4 Total T3 Blood Type Antibody Screen 07/23/23 07/23/23 07/23/23 03:15 03:15 03:15 WBC RBC Hgb Hct MCV MCH MCHC RDW Plt Count MPV Immature Gran % (Auto) Neut % (Auto) Lymph % (Auto) [place] % (Auto) Eos % (Auto) Baso % (Auto) Lymph # (Auto) [place] # (Auto) Eos # (Auto) Baso # (Auto) Abs Immat Gran (auto) Absolute Neuts (auto) Absolute Nucleated RBC Nucleated RBC % PT INR APTT Sodium Potassium Chloride Carbon Dioxide Anion Gap BUN Creatinine Cancelled Estim Creat Clear Calc Cancelled 28 Estimated GFR Cancelled 48 L Glucose 98 Lactic Acid Calcium Magnesium Total Bilirubin Direct Bilirubin AST ALT Alkaline Phosphatase Total Protein Albumin TSH (Reflex) Free T4 Total T3 Blood Type Antibody Screen 07/23/23 07/23/23 07/23/23 03:15 03:15 03:15 WBC RBC Hgb Hct MCV MCH MCHC RDW Plt Count MPV Immature Gran % (Auto) Neut % (Auto) Lymph % (Auto) [place] % (Auto) Eos % (Auto) Baso % (Auto)
[2023-07-23 11:35] LABS: Iron 92 ug/dL (37-170)
[2023-07-23 11:44] LABS: Percent Iron Saturation 31 % (20-50)
[2023-07-23 14:14] VITALS: BP 112/52; PULSE 57; RESP 16; TEMP 36.9; O2SAT 98
[2023-07-23 14:16] VITALS: BP 120/47; PULSE 60; O2SAT 99
[2023-07-23 14:18] VITALS: BP 109/55; PULSE 70; O2SAT 100
--- NOTE | 2023-07-23 14:46 | PM.DS ---
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 Status: Acute (3) Transient atrial fibrillation/flutter: Code(s): I48.91 - Unspecified atrial fibrillation; I48.92 - Unspecified atrial flutter Status: Acute (4) Hypertension: Qualifiers: Hypertension type: primary hypertension Qualified Code(s): I10 - Essential (primary) hypertension Code(s): I10 - Essential (primary) hypertension Status: Acute (5) Hypothyroidism: Code(s): E03.9 - Hypothyroidism, unspecified Status: Acute (6) Chronic kidney disease, stage 3: Code(s): N18.30 - Chronic kidney disease, stage 3 unspecified Status: Acute (7) Gastroesophageal reflux disease: Code(s): K21.9 - Gastro-esophageal reflux disease without esophagitis Status: Acute DS: Summary Hospital Course Hospital Course: This is a pleasant 82-year-old female with history of small pulmonary embolism in March 2023, paroxysmal atrial fibrillation/flutter on anticoagulation, hemorrhoids, gastroesophageal reflux disease, chronic kidney disease stage 3, hypertension, hypothyroidism, and osteoporosis who presented to the emergency department for evaluation of rectal bleeding. Wednesday evening she had a small bowel movement but reports passing quite a bit of bright red blood per rectum. She called her doctor's exchange that night and was told to go to the emergency department if it happened again. She has had several normal bowel movement since that time however last night she got up to urinate and when she sat on the toilet a new large amount of bright red blood past from her rectum. She has continued to notice blood each time she goes to the bathroom since that time. She denies abdominal and rectal pain and also denies constipation and straining to have a bowel movement. She denies syncope, near syncope, epigastric and abdominal pain, chest pain, shortness of breath, nausea, vomiting, and melena. Vital signs were stable on arrival to the ED. Labs were significant for hemoglobin of 11.7 (stable when compared to labs over the last 4 months), BUN 29, creatinine 1.20. She did not take her Eliquis.? She has not had any bowel movements or blood loss since being admitted to the floor. Hematochezia H&H remained stable hemorrhoidal versus diverticular bleed no abdominal pain reported.? GI has been consulted. Suspected hemorrhoidal versus diverticular bleed no scopes planned. She already started having normal bowel movement with no further bleeding H&H remained stable vitals stable follow-up as an outpatient basis. 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 HEENT: PERRL, EOMI. Sclera anicteric. Oral mucosa moist. Neck: Supple. Respiratory: Lungs are clear to auscultation bilaterally. Cardiovascular: Bradycardic with normal S1-S2. Gastrointestinal: Abdomen is soft, nontender, and nondistended with positive bowel sounds. Skin: Warm and dry. No rash or lesions on limited exam. Extremities: No cyanosis, clubbing, or edema. Radial and pedal pulses intact. Neurological: Alert. Cranial nerves 2-12 are grossly intact. Occasional tremors of the upper arms. No gross focal deficits to casual conversation. Psychiatric: Pleasant and cooperative with normal
== END 2023-07-23 15:40 | disposition home or self-care (01) ==
LOC: ANHED 12:28 → ANH2MED 15:16
PROVIDERS: Nurse Practitioner Family; Physician Assistant; Admitting Provider Hospitalist; Emergency Provider Emergency Medicine; PCP Internal Medicine; Visit Provider Internal Medicine
DX: K64.0 First degree hemorrhoids (principal); K62.5 Hemorrhage of anus and rectum; R15.9 Full incontinence of feces; R15.0 Incomplete defecation; R13.19 Other dysphagia; I12.9 Hypertensive chronic kidney disease with stage 1 through stage 4 chronic kidney disease, or unspecified chronic kidney disease; D63.1 Anemia in chronic kidney disease; N18.30 Chronic kidney disease, stage 3 unspecified; E03.9 Hypothyroidism, unspecified; K21.9 Gastro-esophageal reflux disease without esophagitis; G47.33 Obstructive sleep apnea (adult) (pediatric); M81.0 Age-related osteoporosis without current pathological fracture; E55.9 Vitamin D deficiency, unspecified; F41.9 Anxiety disorder, unspecified; I48.91 Unspecified atrial fibrillation; I48.0 Paroxysmal atrial fibrillation; Z86.711 Personal history of pulmonary embolism; Z79.01 Long term (current) use of anticoagulants; Z86.010 Personal history of colon polyps
CPT/HCPCS: 36415; 80048; 80053; 80076; 82728; 83540; 83550; 83605; 83735; 84439; 84443; 84480; 85014; 85018; 85025; 85027; 85610; 85730; 86850; 86900; 86901; 96361; 96374; 96376; 99285; A9270; C9113; G0378; J7030

== ENCOUNTER 2023-08-09 15:11 | Outpatient (CLI) | payer MEDICARE, SELFPAY ==
--- NOTE | ~2023-08-09 | US_ITS ---
Pelvic ultrasound. Clinical History: Adnexal cyst COMPARISON: 01/21/2023 Technique: Realtime transabdominal and transvaginal scanning of the pelvis was performed. Color flow Doppler and Doppler spectral analysis were performed. Findings: The uterus is retroverted. The endometrial stripe has a thickness of 4 mm. Probable small calcified fibroid measuring 0.7 cm present.. The right ovary is not visualized. No significant right ovarian or adnexal mass is seen. There is a left adnexal cystic mass measuring 5.0 x 4.4 x 5.4 cm, with a single thin septation presen t. There is no evidence of free fluid in the cul de sac. Impression: 5.0 x 4.4 x 5.4 cm left adnexal cystic mass with single thin septation present. This lesion is essent ially stable from prior exam. Continued annual follow-up advised. Reviewed, dictated and finalized at [facility]. Impression: 5.0 x 4.4 x 5.4 cm left adnexal cystic mass with single thin septation present. This lesion is essentially stable from prior exam. Continued annual follow-up advised.
== END 2023-08-09 15:12 ==
PROVIDERS: PCP Internal Medicine; Visit Provider Obstetrics & Gynecology
DX: R19.00 Intra-abdominal and pelvic swelling, mass and lump, unspecified site (principal); N94.9 Unspecified condition associated with female genital organs and menstrual cycle
CPT/HCPCS: 76830; 76856

== ENCOUNTER 2023-08-10 11:47 | Outpatient (CLI) | payer MEDICARE, SELFPAY ==
[2023-08-12 14:58] LABS: CA-125 9 U/mL (<35)
== END 2023-08-10 11:48 | disposition home or self-care (01) ==
LOC: ANHLAB 11:50
PROVIDERS: PCP Internal Medicine; Visit Provider Obstetrics & Gynecology
DX: R19.09 Other intra-abdominal and pelvic swelling, mass and lump (principal)
CPT/HCPCS: 36415; 86304

== ENCOUNTER 2023-09-29 10:50 | Outpatient (CLI) | payer MEDICARE, SELFPAY ==
--- NOTE | ~2023-09-29 | XR_ITS ---
EXAMINATION: XR hip RT min 2V DATE: 09/29/2023 11:09 INDICATION: Right hip pain TECHNIQUE: Anteroposterior and frog-leg lateral views of the right hip were obtained. COMPARISON: None. FINDINGS: Alignment is normal. No fracture or suspected osteonecrosis. 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 Severe lumbosacral spondylosis. IMPRESSION: 1. 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 No acute osseous abnormality. 2. Severe lumbosacral spondylosis. Reviewed, dictated and finalized at location [facility]. IMPRESSION: 1. 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 No acute osseous abn ormality. 2. Severe lumbosacral spondylosis.
== END 2023-09-29 10:51 | disposition home or self-care (01) ==
PROVIDERS: PCP Internal Medicine; Visit Provider Internal Medicine
DX: M16.11 Unilateral primary osteoarthritis, right hip (principal); M53.3 Sacrococcygeal disorders, not elsewhere classified; M47.896 Other spondylosis, lumbar region
CPT/HCPCS: 73502

== ENCOUNTER 2023-10-26 16:20 | Outpatient (CLI) | payer MEDICARE, SELFPAY ==
[2023-10-26 16:51] LABS: Basophils Percent Auto 0.3 % (0.2-1.2); Eosinophils Absolute Auto 0.1 K/mm3 (0-0.3); Hematocrit 35.9 % (37.0-47.0); Hemoglobin 11.4 g/dL (12.0-15.0); Immature Granulocyte Absolute 0.02 K/mm3 (0.00-0.031); Immature Granulocyte Percent A 0.3 % (0-0.5); Lymphocytes Absolute Auto 1.77 K/mm3 (0.9-3.2); Lymphocytes Percent Auto 24.5 % (18.3-44.2); Mean Corpuscular HGB Conc 31.8 g/dl (32-36); Mean Corpuscular Hemoglobin 30.1 pg (26-34); Mean Corpuscular Volume 94.7 fl (80-100); Mean Platelet Volume 9.7 fl (7.4-10.4); Monocytes Absolute Auto 0.6 K/mm3 (0.1-0.6); Monocytes Percent Auto 7.9 % (2.6-8.5); Neutrophils Absolute Auto 4.8 K/mm3 (1.3-6.7); Platelet Count Result 240 k/mm3 (150-375); Red Blood Count 3.79 M/mm3 (4.2-5.4); Red Cell Distribution Width 13.2 % (11.5-14.5); White Blood Count 7.2 K/mm3 (4.5-10.0)
[2023-10-26 17:01] LABS: Alanine Aminotransferase 15 U/L (6-35); Albumin Level 4.1 g/dL (3.5-5.1); Alkaline Phosphatase 46 U/L (38-126); Anion Gap 9 mmol/L (4-12); Aspartate Amino Transferase 27 U/L (14-36); Bilirubin,Total 0.4 mg/dL (0.2-1.3); Blood Urea Nitrogen 24 mg/dL (7-17); Calcium 9.3 mg/dL (8.4-10.2); Carbon Dioxide 30 mmol/L (22-30); Chloride 99 mmol/L (98-107); Estimated Glomerular Filt Rate 36; Glucose 83 mg/dL (65-110); Potassium 4.3 mmol/L (3.4-5.0); Sodium 138 mmol/L (137-145)
[2023-10-26 18:59] LABS: Vitamin D 25 Hydroxy 92.5 ng/mL
== END 2023-10-26 16:21 | disposition home or self-care (01) ==
LOC: ANHLAB 16:22
PROVIDERS: PCP Internal Medicine; Visit Provider Internal Medicine
DX: D75.839 Thrombocytosis, unspecified (principal); I48.91 Unspecified atrial fibrillation; N18.30 Chronic kidney disease, stage 3 unspecified; E55.9 Vitamin D deficiency, unspecified; R53.83 Other fatigue
CPT/HCPCS: 36415; 80053; 82306; 84443; 85025

== ENCOUNTER 2023-11-29 14:29 | Outpatient (CLI) | payer MEDICARE, SELFPAY ==
[2023-11-29 16:07] LABS: Anion Gap 7 mmol/L (4-12); Blood Urea Nitrogen 27 mg/dL (7-17); Calcium 9.4 mg/dL (8.4-10.2); Carbon Dioxide 30 mmol/L (22-30); Chloride 101 mmol/L (98-107); Estimated Glomerular Filt Rate 36; Glucose 89 mg/dL (65-110); Potassium 4.4 mmol/L (3.4-5.0); Sodium 138 mmol/L (137-145)
== END 2023-11-29 14:30 | disposition home or self-care (01) ==
LOC: ANHLAB 14:36
PROVIDERS: PCP Internal Medicine; Visit Provider Internal Medicine
DX: N18.30 Chronic kidney disease, stage 3 unspecified (principal)
CPT/HCPCS: 36415; 80048

== ENCOUNTER 2023-12-02 10:57 | Outpatient (RCR) | payer MEDICARE, SELFPAY ==
[2023-12-02 11:03] VITALS: BMI 24.2
[2023-12-02 11:07] VITALS: BMI 24.2
== END 2024-02-21 10:50 | disposition home or self-care (01) ==
LOC: ANHDMC 10:57
PROVIDERS: PCP Internal Medicine; Visit Provider Internal Medicine
DX: N18.32 Chronic kidney disease, stage 3b (principal); Z71.3 Dietary counseling and surveillance
CPT/HCPCS: 97802

== ENCOUNTER 2023-12-10 08:16 | Outpatient (CLI) | payer MEDICARE, SELFPAY ==
--- NOTE | ~2023-12-10 | CT_ITS ---
Clinical Indication: Pulmonary embolus CT Scan of the Chest with Contrast: Technique: Contiguous sections were acquired throughout the chest after intravenous administration of 100 cc of Omnipaque 350. Dose reduction technique was used on this scan by utilizing automated expos ure control and iterative reconstruction technique. The dose-length product (DLP) was 243.57 mGy-cm. Findings: There is no evidence of any significant mediastinal, hilar or axillary lymphadenopathy. There is no f illing defect in the pulmonary arterial tree to suggest pulmonary embolus. There is no evidence of ao rtic dissection or aneurysm. There is no evidence of pleural or pericardial effusion. The lungs are clear, aside from probable mild dependent hypoventilatory changes. Images through the upper abdomen reveal hepatic cysts. Impression: No evidence of pulmonary embolus, aortic dissection, or aortic aneurysm. No significant pulmonary abnormality. Reviewed, dictated and finalized at [facility]. Impression: No evidence of pulmonary embolus, aortic dissection, or aortic aneurysm. No significant pulmonary abnormality.
[2023-12-10 08:43] LABS: Estimated Glomerular Filt Rate 33
== END 2023-12-10 08:17 | disposition home or self-care (01) ==
PROVIDERS: PCP Internal Medicine; Visit Provider Internal Medicine
DX: I26.99 Other pulmonary embolism without acute cor pulmonale (principal)
CPT/HCPCS: 71275; Q9967

== ENCOUNTER 2023-12-21 13:20 | Outpatient (CLI) | payer MEDICARE, SELFPAY ==
--- NOTE | ~2023-12-21 | MM_ITS ---
EXAMINATION: MM screening deep BI w aly HISTORY: Screening mammogram, family history of breast cancer in her mother. TECHNIQUE: Craniocaudal and mediolateral oblique 3-D tomosynthesis images were obtained and synthetic 2-D images were generated. CAD analysis was submitted and interpreted. COMPARISON: 08/11/2022, 04/23/2021, 03/26/2020 BREAST PARENCHYMAL COMPOSITION:Dense: The breasts are heterogeneously dense, which may obscure small masses. FINDINGS: No suspicious mass, calcification, or architectural distortion are identified in either abigail ast to suggest malignancy. There has been no suspicious interval change. IMPRESSION: No mammographic evidence of malignancy. Recommend routine screening mammography in one year. BI-RADS Category 1: Negative Reviewed, dictated and finalized at location .
== END 2023-12-21 13:21 | disposition home or self-care (01) ==
LOC: MICIMG 13:21
PROVIDERS: PCP Internal Medicine; Visit Provider Obstetrics & Gynecology
DX: Z12.31 Encounter for screening mammogram for malignant neoplasm of breast (principal)
CPT/HCPCS: 77063; 77067

== ENCOUNTER 2024-01-14 16:26 | Emergency (ER) | payer MEDICARE, SELFPAY ==
[2024-01-14 16:36] VITALS: BP 144/51; PULSE 56; RESP 18; TEMP 36.7; O2SAT 99
--- NOTE | 2024-01-14 16:53 | ED.WOUNDLAC ---
HPI - Wound/Laceration General Chief Complaint: Wound/Laceration Stated Complaint: Left Hand Finger Laceration Time Seen by Provider: 01/14/24 16:53 Source: patient, RN notes reviewed and old records reviewed Mode of arrival: ambulatory Limitations: no limitations History of Present Illness HPI narrative: 83-year-old female presents to the [facility] with a laceration to her left thumb that occurred about 930 this morning, was unable to get it to stop bleeding. Patient states that happened approximately 930 this morning when she was cutting apples. Bleeding on arrival is controlled. Related Data Home Medications Medication Instructions Recorded Confirmed ascorbic acid (vitamin C) 500 mg 1,000 mg PO BID 02/10/19 01/14/24 chewable tablet coenzyme Q10 30 mg capsule (CoQ-10) 50 mg PO DAILY 02/10/19 01/14/24 cyanocobalamin (vitamin B-12) 1,000 mcg sublingual DAILY 02/10/19 01/14/24 1,000 mcg sublingual tablet multivitamin-ferrous 1 tablet PO DAILY 02/10/19 01/14/24 fumarate-folic acid 18 mg-400 mcg tablet (Centrum Complete) magnesium oxide 250 mg PO DAILY 09/02/21 01/14/24 zinc 10 mg tablet 50 mg PO DAILY 09/02/21 01/14/24 alendronate 70 mg tablet (Fosamax) 70 mg PO WEEKLY 03/10/22 01/14/24 calcium 600 mg (as 1 tablet PO BID 02/15/23 01/14/24 carbonate)-vitamin D3 10 mcg (400 unit) tablet (Calcium 600 + D(3)) Allergies Allergy/AdvReac Type Severity Reaction Status Date / Time Cephalosporins Allergy Severe throat Verified 01/14/24 16:30 closes cefuroxime Allergy Unknown throat Verified 01/14/24 16:30 swelling citalopram Allergy Unknown Anaphylactic Verified 01/14/24 16:30 Shock nortriptyline Allergy Unknown hot Verified 01/14/24 16:30 flashes, energetic gabapentin AdvReac Severe Fatigued Verified 01/14/24 16:30 ANTIDEPRESSANTS AdvReac Severe did not Uncoded 01/14/24 16:30 like how it made her feel Review of Systems Review of Systems: All systems reviewed & are unremarkable except as noted in HPI and below Constitutional: Constitutional: Reports no additional constitutional complaints Eyes: Eyes: Reports no additional eye complaints ENT: Reports system reviewed and no additional complaints, except as documented Cardiovascular: Cardiovascular: Reports no additional cardiovascular complaints, Denies chest pain and Denies dyspnea Respiratory: Respiratory: Reports no additional respiratory complaints, Denies chest congestion, Denies cough and Denies dyspnea Gastrointestinal: Gastrointestinal: Reports no additional gastrointestinal complaints, Denies abdominal pain, Denies nausea and Denies vomiting Musculoskeletal: Musculoskeletal: Reports no additional musculoskeletal complaints Integumentary/Breasts: Skin/Breast: Reports as per HPI Neurologic: Reports system reviewed and no additional complaints, except as documented Psychiatric: Psychiatric: Reports no additional psychiatric complaints Allergic/Immunologic: Allergic/Immunologic: Reports no additional allergic/immunologic complaints [facility] Past Medical History Medical History (Updated 01/17/24 @ 09:33 by Abigail Olmedo APRN) Anxiety Chronic anticoagulation Chronic kidney disease, stage 3 Complex regional pain syndrome Gastroesophageal reflux disease Hypertension Hypothyroidism Obstructive sleep apnea Osteoporosis Pulmonary embolism (03/2023) RSD (reflex sympathetic dystrophy) Thyroid nodule Transient atrial fibrillation/flutter Vitamin D deficiency, unspecified Surgical History Surgical History History of back surgery (03/30/23) History of breast biopsy History of cardiac catheterization History of colonoscopy with polypectomy History of esophageal dilatation History of esophageal surgery History of hysteroscopy (02/19/23) With D&C for thickened endometrium-atrophic. History of surgery of uterus History of tubal ligation Family H
== END 2024-01-14 17:15 | disposition home or self-care (01) ==
PROVIDERS: Emergency Provider Nurse Practitioner; PCP Internal Medicine
DX: S61.012A Laceration without foreign body of left thumb without damage to nail, initial encounter (principal); W45.8XXA Other foreign body or object entering through skin, initial encounter; Y93.G9 Activity, other involving cooking and grilling; I13.10 Hypertensive heart and chronic kidney disease without heart failure, with stage 1 through stage 4 chronic kidney disease, or unspecified chronic kidney disease; N18.30 Chronic kidney disease, stage 3 unspecified; I48.91 Unspecified atrial fibrillation; I48.92 Unspecified atrial flutter; M19.90 Unspecified osteoarthritis, unspecified site; E03.9 Hypothyroidism, unspecified; K21.9 Gastro-esophageal reflux disease without esophagitis
CPT/HCPCS: 12001; 99212; G0463

== ENCOUNTER 2024-01-22 12:29 | Emergency (ER) | payer MEDICARE, SELFPAY ==
[2024-01-22 12:45] VITALS: BP 129/64; PULSE 65; RESP 16; TEMP 36.8; O2SAT 98
--- NOTE | 2024-01-22 13:02 | ED.EYEPROB ---
HPI - Eye Problem General Chief complaint: Eye Problems Stated complaint: left eye red Time Seen by Provider: 01/22/24 13:02 Source: patient Mode of arrival: ambulatory Limitations: no limitations History of Present Illness HPI Narrative: 83 yo F presents with redness to L eye since yesterday morning. Denies injury. Her son noticed it yesterday. Pt denies pain. drainage. eye maybe feels a little dry . pt does take a blood thinner. No worsening of L eye redness since first noticed. all systems reviewed and negative except as noted above. Related Data Home Medications Medication Instructions Recorded Confirmed ascorbic acid (vitamin C) 500 mg 1,000 mg PO BID 02/10/19 01/22/24 chewable tablet coenzyme Q10 30 mg capsule (CoQ-10) 50 mg PO DAILY 02/10/19 01/22/24 cyanocobalamin (vitamin B-12) 1,000 mcg sublingual DAILY 02/10/19 01/22/24 1,000 mcg sublingual tablet multivitamin-ferrous 1 tablet PO DAILY 02/10/19 01/22/24 fumarate-folic acid 18 mg-400 mcg tablet (Centrum Complete) magnesium oxide 250 mg PO DAILY 09/02/21 01/22/24 zinc 10 mg tablet 50 mg PO DAILY 09/02/21 01/22/24 alendronate 70 mg tablet (Fosamax) 70 mg PO WEEKLY 03/10/22 01/22/24 calcium 600 mg (as 1 tablet PO BID 02/15/23 01/22/24 carbonate)-vitamin D3 10 mcg (400 unit) tablet (Calcium 600 + D(3)) Allergies Allergy/AdvReac Type Severity Reaction Status Date / Time Cephalosporins Allergy Severe throat Verified 01/22/24 13:08 closes cefuroxime Allergy Unknown throat Verified 01/22/24 13:08 swelling citalopram Allergy Unknown Anaphylactic Verified 01/22/24 13:08 Shock nortriptyline Allergy Unknown hot Verified 01/22/24 13:08 flashes, energetic gabapentin AdvReac Severe Fatigued Verified 01/22/24 13:08 ANTIDEPRESSANTS AdvReac Severe did not Uncoded 01/22/24 13:08 like how it made her feel Review of Systems Review of Systems: CONSTITUTIONAL: Denies fever, chills, or sweats. EYES: Denies visual changes or discharge. Reports left eye redness. ENT: Denies rhinorrhea, congestion, sore throat, or otalgia. CARDIOVASCULAR: Denies chest pain, palpitations, or edema. RESPIRATORY: Denies cough or dyspnea. GASTROINTESTINAL: Denies abdominal pain, nausea, vomiting, or diarrhea. GENITOURINARY: Denies dysuria or hematuria. SKIN: Denies rash or itching. MUSCULOSKELETAL: Denies back pain, joint pain, or myalgia. NEUROLOGIC: Denies headache, numbness, or weakness. PSYCHIATRIC: Denies anxiety or depression. All other systems reviewed are negative, except as documented in HPI. PENDING SALE TO [facility] Past Medical History Medical History (Updated 01/22/24 @ 13:17 by Debora Rosales NP) Anxiety Chronic anticoagulation Chronic kidney disease, stage 3 Complex regional pain syndrome Gastroesophageal reflux disease Hypertension Hypothyroidism Obstructive sleep apnea Osteoporosis Pulmonary embolism (03/2023) RSD (reflex sympathetic dystrophy) Thyroid nodule Transient atrial fibrillation/flutter Vitamin D deficiency, unspecified Surgical History Surgical History History of back surgery (03/30/23) History of breast biopsy History of cardiac catheterization History of colonoscopy with polypectomy History of esophageal dilatation History of esophageal surgery History of hysteroscopy (02/19/23) With D&C for thickened endometrium-atrophic. History of surgery of uterus History of tubal ligation Family History Family History Father Malignant neoplasm of prostate Patient's father is Mother Patient's mother is Cerebrovascular accident, Onset Age: 86 Family history of malignant neoplasm of breast in first degree relative, Onset Age: 86 Other Family history of allergic disorder Family history of mental disorder Social History Social History (Reviewed 10/26/23
== END 2024-01-22 13:23 | disposition home or self-care (01) ==
PROVIDERS: Emergency Provider Nurse Practitioner Family; PCP Internal Medicine
DX: H11.32 Conjunctival hemorrhage, left eye (principal); I12.9 Hypertensive chronic kidney disease with stage 1 through stage 4 chronic kidney disease, or unspecified chronic kidney disease; N18.30 Chronic kidney disease, stage 3 unspecified; E03.9 Hypothyroidism, unspecified; M81.0 Age-related osteoporosis without current pathological fracture; E55.9 Vitamin D deficiency, unspecified; Z86.711 Personal history of pulmonary embolism
CPT/HCPCS: 99212; G0463

== ENCOUNTER 2024-02-22 11:54 | Outpatient (CLI) | payer MEDICARE, SELFPAY ==
[2024-02-24 05:14] LABS: CA-125 11 U/mL (<35)
== END 2024-02-22 11:55 | disposition home or self-care (01) ==
PROVIDERS: PCP Internal Medicine; Visit Provider Obstetrics & Gynecology
DX: R19.09 Other intra-abdominal and pelvic swelling, mass and lump (principal)
CPT/HCPCS: 36415; 86304

== ENCOUNTER 2024-03-06 07:13 | Outpatient (CLI) | payer MEDICARE, SELFPAY ==
[2024-03-06 07:52] LABS: Basophils Percent Auto 0.3 % (0.2-1.2); Eosinophils Absolute Auto 0.1 K/mm3 (0-0.3); Hematocrit 40.2 % (37.0-47.0); Hemoglobin 12.8 g/dL (12.0-15.0); Immature Granulocyte Absolute 0.02 K/mm3 (0.00-0.031); Immature Granulocyte Percent A 0.3 % (0-0.5); Lymphocytes Absolute Auto 1.36 K/mm3 (0.9-3.2); Lymphocytes Percent Auto 22.5 % (18.3-44.2); Mean Corpuscular HGB Conc 31.8 g/dl (32-36); Mean Corpuscular Hemoglobin 30.4 pg (26-34); Mean Corpuscular Volume 95.5 fl (80-100); Mean Platelet Volume 9.4 fl (7.4-10.4); Monocytes Absolute Auto 0.6 K/mm3 (0.1-0.6); Monocytes Percent Auto 9.1 % (2.6-8.5); Neutrophils Percent Auto 66.8 % (45.5-73.1); Platelet Count Result 280 k/mm3 (150-375); Red Blood Count 4.21 M/mm3 (4.2-5.4); Red Cell Distribution Width 13.2 % (11.5-14.5)
[2024-03-06 08:24] LABS: Alanine Aminotransferase 13 U/L (6-35); Albumin Level 4.1 g/dL (3.5-5.1); Alkaline Phosphatase 51 U/L (38-126); Anion Gap 4 mmol/L (4-12); Aspartate Amino Transferase 23 U/L (14-36); Bilirubin,Total 0.6 mg/dL (0.2-1.3); Blood Urea Nitrogen 20 mg/dL (7-17); Calcium 9.5 mg/dL (8.4-10.2); Carbon Dioxide 32 mmol/L (22-30); Chloride 103 mmol/L (98-107); Estimated Glomerular Filt Rate 43; Glucose 100 mg/dL (65-110); Potassium 4.4 mmol/L (3.4-5.0); Sodium 139 mmol/L (137-145)
== END 2024-03-06 07:14 | disposition home or self-care (01) ==
LOC: ANHLAB 07:15
PROVIDERS: PCP Internal Medicine; Visit Provider Internal Medicine
DX: R53.83 Other fatigue (principal); I10 Essential (primary) hypertension
CPT/HCPCS: 36415; 80053; 84443; 85025

== ENCOUNTER 2024-03-09 12:51 | Outpatient (CLI) | payer MEDICARE, SELFPAY ==
--- NOTE | ~2024-03-09 | US_ITS ---
Pelvic ultrasound. Clinical History: Ovarian cyst COMPARISON: 08/09/2023 Technique: Realtime transabdominal and transvaginal scanning of the pelvis was performed. Color flow Doppler and Doppler spectral analysis were performed. Findings: The uterus is retroverted, and measures 5.2 x 2.9 x 3.7 cm. The endometrial stripe has a t hickness of 3 mm. Probable small partially subserosal fibroid measures 8 mm in diameter. The right ovary is not visualized. No significant right ovarian or adnexal mass is seen. Left ovarian cyst measures 5.2 x 4.2 x 4.9 cm. There is an adjacent cyst measuring 2.4 cm in maximum diameter, versus a septation within a larger single cystic mass. There is no evidence of free fluid in the cul de sac. Impression: 5.2 cm cystic mass in the left ovary, either large simple cyst with adjacent smaller cyst, versus a c ystic mass with single septation. Appearance is stable from prior exam. One-year follow-up ultrasound recommended. Reviewed, dictated and finalized at location . [employer] Impression: 5.2 cm cystic mass in the left ovary, either large simple cyst with adjacent sm aller cyst, versus a cystic mass with single septation. Appearance is stable fr om prior exam. One-year follow-up ultrasound recommended.
== END 2024-03-09 12:52 | disposition home or self-care (01) ==
LOC: MICIMG 12:52
PROVIDERS: PCP Internal Medicine; Visit Provider Obstetrics & Gynecology
DX: N83.202 Unspecified ovarian cyst, left side (principal)
CPT/HCPCS: 76830; 76856

== ENCOUNTER 2024-08-08 14:07 | Outpatient (CLI) | payer MEDICARE, SELFPAY ==
--- OUTSIDE RECORDS SUMMARY | 2024-08-08 14:12 | XMS_ITS | Clinical Summary ---
Author Organization [facility] [place] [address] Address [address] [place] [address] Care Team Providers Care Captain Assistant Name Role Phone David Campbell DO Primary Care Provider [phone] Cecilio Sanchez MD Unavailable [phone] Allergies Active Allergy Reactions Criticality Noted Date Comments Cefazolin Anaphylaxis High Cefuroxime Anaphylaxis High 09/06/2017 Citalopram Nausea only Low 03/08/2020 Gabapentin Other (See comments) Low 04/02/2024 lethargy Nortriptyline Unknown 06/14/2019 Medications cyanocobalamin (vitamin B-12) 1,000 mcg tablet take 1 by Oral route every day 0 0 5 Active cholecalciferol (VITAMIN D3) 5,000 unit tablet take once daily 0 5 Active Additional Information Patient taking differently: 1,000 Units, Reported on 04/06/2024 co-enzyme Q-10 (CO Q-10) 50 mg capsule take 1 by Oral route every day 0 0 5 Active magnesium oxide (MAG-OX) 250 mg (150.8 mg elemental) tabletIndication s:hypomagnesemia Take 1 tablet (250 mg total) by mouth daily Active lisinopriL (PRINIVIL,ZESTRI L) 20 mg tablet Take 0.5 tablets (10 mg total) by mouth 2 (two) times a day 0 Active apixaban (ELIQUIS) 5 mg tablet Take 0.5 tablets (2.5 mg total) by mouth 2 (two) times a day Active multivit dqlwlfey-nhcq-OY -calcium (THERA-M) 9 mg iron-400 mcg tabletIndication s:Vitamin Deficiency Prevention Take 1 tablet by mouth daily Active omeprazole (PriLOSEC) 20 mg capsule Take 1 capsule (20 mg total) by mouth daily Active zinc sulfate (ZINCATE) 50 mg zinc (220 mg) capsule Take 1 capsule (220 mg total) by mouth daily Active alendronate (FOSAMAX) 70 mg tabletIndication s:Osteoporosis, unspecified osteoporosis type, unspecified pathological fracture presence Take 1 tablet (70 mg total) by mouth every 7 days Take in the morning with a full glass of water, on an empty stomach, and do not take anything else by mouth or lie down for the next 30 min. 12 tablet 3 4 10/13/19 25 Active hydrOXYzine (ATARAX) 25 mg tablet Take 2 tablets (50 mg total) by mouth nightly as needed for anxiety for up to 7 days 14 tablet 4 Active Additional Information Patient not taking.Reported on 04/06/2024 ALPRAZolam (XANAX) 0.5 mg tablet Take 0.25 three times daily and 0.5 mg at bedtime. 4 Active hydrOXYzine (ATARAX) 25 mg tabletIndication s:anxiety Take 1 tablet (25 mg total) by mouth 2 (two) times a day as needed for anxiety 20 tablet 4 Active Additional Information Patient not taking.Reported on 04/06/2024 busPIRone (BUSPAR) 15 mg tabletIndication s:Generalized Anxiety Disorder Take 1 tablet (15 mg total) by mouth 2 (two) times a day Active PARoxetine (PAXIL) 10 mg tablet Take 1 tablet (10 mg total) by mouth nightly Active Active Problems Problem Noted Date Diagnosed Date Benzodiazepine withdrawal without complication 1 04/19/2023 Occipital headache 02/18/2024 Grade I hemorrhoids 01/25/2024 UCHE (obstructive sleep apnea) 08/03/2023 History of pulmonary embolism 08/03/2023 Chronic anticoagulation 08/03/2023 Paroxysmal atrial flutter 08/03/2023 COVID 05/13/2023 Elevated troponin 05/13/2023 Primary insomnia 05/13/2023 Coronavirus infection 05/13/2023 Overview (05/13/2023): HKU1 Hypophosphatemia 05/13/2023 GERD without esophagitis 05/13/2023 Age-related physical debility 05/13/2023 Assessment & Plan (07/22/2023 9:54 AM CDT): Exercise and balance While the focus of the visit has been on bone strength-promoting treatments, we reviewed how balance (proprioception) serves as our s ixth sense. Improving balance plus strength-building exercises are, in my opinion, as important as medications to reduce the risk of fracture. I discussed and provided some straightforward and safe one-foot balance promotion exercises and demonstrated how to do these. Contracture of joint of finger 07/21/2022 Carpal tunnel syndrome of right wrist 06/30/2022 Multiple joint pain 03/16/2022 Complex regional pain syndro me type 1 of right upper extremity 02/03/2022 Closed fracture of distal end of radius 02/04/20 Right wrist pain 02/03/2022 History of COVID-19 06/25/2020 Essential hypertension 06/14/2019 Anxiety 02/14/2016 Overview (07/10/2016): Anxiety Hypothyroidism 02/14/2016 Overview (07/10/2016): Hypothyroidism, unspecified type Chest pain 05/11/2012 Overview (07/10/2016): Chest pain Osteoporosis 01/06/2010 Overview (07/22/2023): Dates back to 200903/05/22 T-score femoral neck = -3.2 ALN 03/2022 Assessment & Plan (07/22/2023 9:48 AM CDT): Today, we see the patient back after 1.5 years of ALN. The BMD has RISEN 6.7% which is an excellent response. This hs occurred despite intervening illnesses which could have precipitated more bone loss. The plan will be for her to continue the ALN for a treatment course of 5-years and from there we will institute a treatment pause for 5-years, then resume active treatment from there. Calcium and D After the essential part of today's visit, I again reviewed the patient's total calcium intake. We discussed that optimum calcium intake for bone health is critical. The total amount to achieve via diet (preferred) and supplements is 1000-1200mg daily, not more than this. We discussed different foods and accessories to make that goal realized. I referenced the handout in our brochure. I discussed how to maintain adequate Vitamin D levels best, and that is via supplementation, especially from Labor Day until Day. Exercise and balance While the focus of the visit has been on bone strength-promoting treatments, we reviewed how balance (proprioception) serves as our s ixth sense. Improving balance plus strength-building exercises are, in my opinion, as important as medications to reduce the risk of fracture. I discussed and provided some straightforward and safe one-foot balance promotion exercises and demonstrated how to do these. Assessment & Plan (03/05/2022 12:26 PM DATA WAREHOUSE CONSULTANT): She is very afraid to take injections meds like ZOL or TPTD. She is agreeable to oral meds. She is at very high risk for fracture. The only med that I feel has a sig chance to reduce fracture including hip is ALN. I reviewed the patient s current total amount of calcium intake. We discussed that optimum calcium intake for bone health is important. The total amount to achieve via diet (preferred) and supplements is 1000-1200mg a day and not more than this. We discussed different foods and supplements to make that goal realized. I discussed how to best maintain adequate Vitamin D levels and that is via supplementation, especially from Labor Day until Day. While the focus of the visit has been on bone strength promoting treatments, we reviewed how balance (proprioception) in essence serves as our s ixth sense. Improving balance plus strength building exercises are, in my opinion, as important as medications to reduce risk of fracture. I discussed and provided some very simple and safe one foot balance promotion exercises. 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 Overview (07/10/2016): Myocardial infarct, old Encounters Date Type Department Care Team Description 05/19/2024 11:50 AM DATA WAREHOUSE CONSULTANT Lab [facility] [address] [place] [address] 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 (HCC) 05/19/2024 Telephone [facility] at [address] [place] [address] Rubi Car MD from Last 3 Months Surgical History Surgery Date Site/Laterality Comments BACK SURGERY 03/05/2023 - 04/04/2023 CARPAL TUNNEL RELEASE 06/03/2022 - 07/03/2022 SPINE SURGERY 2022 Medical History Medical History Date Comments Hypertension Kidney disease Sleep apnea Thyroid disease Arthritis Anxiety GERD (gastroesophageal reflux disease) 2006 Osteoporosis 2021 Cataract 2023 Family History Medical History Relation Name Comments Cancer Father Carlos Domínguez Prostate cancer Father Carlos Domínguez prostate can cer; Cause of : prostate cancer Cancer Mother Jodie Domínguez Heart disease Mother Jodie Domínguez Hypertension Mother Jodie Domínguez Other Mother Jodie Domínguez heart disease, ICD; Cause of : heart disease, ICD Relation Name Status Comments Father Carlos Domínguez (Age 71) Mother Jodie Domínguez (Age 83) Social History Tobacco Use Types Packs/Day Years Used Date Smoking Tobacco: Never Smokeless Tobacco: Never Tobacco Cessation:Counseling Given: Not Answered Alcohol Use Standard Drinks/Week Comments No 0 (1 standard drink = 0.6 oz pur e alcohol) [facility] Utilities Answer Date Recorded In the past 12 months has [email or web address], gas, oil, or water [employer] threatened to shut off services in your home? No 02/18/2024 Social Connection and Isolat ion Panel [NHANES] Answer Date Recorded In a typical week, how many times do you talk on the phone with family, friends, or neighbors? More than three times a week 02/18/2024 How often do you get togethe r with friends or relatives? More than three times a week 02/18/2024 How often do you attend [facility] or orthodoxy services? Never 02/18/2024 Do you belong to any clubs o r organizations such as christianity groups, unions, fraternal or athletic groups, or school groups? No 02/18/2024 How often do you attend meet ings of the clubs or organizations you belong to? Never 02/18/2024 Are you , , di vorced, , never , or living with a partner? 02/18/2024 AUDIT-C Answer Date Recorded Q1: How often do you have a drink containing alcohol? Never 04/06/2024 Q2: How many drinks containi ng alcohol do you have on a typical day when you are drinking? Patient does not drink Q3: How often do you have si x or more drinks on one occasion? Never 04/06/2024 Overall Financial Resource Strain (CARDIA) Answe r Date Recorded How hard is it for you to pa y for the very basics like food, housing, medical care, and heating? Not very hard 02/18/2024 Hunger Vital Sign Answer Date Recorded Within the past 12 months, y ou worried that your food would run out before you got the money to buy more. Never true 02/18/20 24 Within the past 12 months, t he food you bought just didn't last and you didn't have money to get more. Never true 02/18/2024 PRAPARE - Transportation Answer Date Re corded In the past 12 months, has l ack of transportation kept you from medical appointments or from getting medications? No 02/03 In the past 12 months, has l ack of transportation kept you from meetings, work, or from getting things needed for daily living? No 02/18/2024 Housing Stability Vital Sign Answer Erasmo e Recorded In the last 12 months, was t here a time when you were not able to pay the mortgage or rent on time? No 05/14/2023 In the last 12 months, how many places have you lived? 1 05/14/2023 In the last 12 months, was t here a time when you did not have a steady place to sleep or slept in a snf (including now)? No 05/14/2023 Housing Stability Vital Sign Answer Erasmo e Recorded In the last 12 months, was t here a time when you were not able to pay the mortgage or rent on time? No 02/18/2024 In the past 12 months, how m any times have you moved where you were living? 0 02/18/2024 At any time in the past 12 m [facility], were you homeless or living in a snf (including now)? No 02/18/2024 Personal Safety Answer Date Recorded Have you ever been in or are you currently in a harmful physical or emotional relationship or is someone making you feel afraid or unsafe? Denies 04/13/2024 Comments No Sex and Gender Information Value Date Recorded Sex Assigned at Not on file Legal Sex Female 3:18 AM DATA WAREHOUSE CONSULTANT Gender Identity Not on file Sexual Orientation Not on file Obstetrics History Last Filed Vital Signs Vital Sign Reading Time Taken Comments Blood Pressure 132/53 04/13/2024 1:00 PM DATA WAREHOUSE CONSULTANT Pulse 60 04/13/2024 1:00 PM DATA WAREHOUSE CONSULTANT Temperature 37.3 C (99.1 F) 04/13/2024 11:17 AM DATA WAREHOUSE CONSULTANT Respiratory Rate 15 04/13/2024 1:00 PM DATA WAREHOUSE CONSULTANT Oxygen Saturation 94% 04/13/2024 1:00 PM DATA WAREHOUSE CONSULTANT Inhaled Oxygen Concentration - - Weight 59.9 kg (132 lb) 04/13/2024 11:18 AM DATA WAREHOUSE CONSULTANT Height 154.9 cm (5' 1 ) 04/13/2024 11:18 AM DATA WAREHOUSE CONSULTANT Body Mass Index 24.94 04/13/2024 11:18 AM DATA WAREHOUSE CONSULTANT Plan of Treatment Health Maintenance Due Date Last Done Comments Depression Screening 1940 DTaP/Tdap/Td Vaccine (1 - Tdap) 1952 Hepatitis B Screening 10/22/1959 Pneumococcal vaccine 65+ (1 of 1 - PCV) 10/22/1991 Zoster Vaccine (1 of 2) 10/22/1991 Well Visit 65+ 2006 Covid-19 Vaccine ( - season) 2023, 06/26/2020 Influenza Vaccine (Season Ended) 2024 Fall Risk Assessment 02/19/2025 02/20/2024 Osteoporosis Screening-Bone Density Scan 07/21/2025 07/22/2023, 03/05/2022 Procedures Procedure Name Priority Date/Time Associated Diagnosis Comments EGFR Routine 05/19/2024 12:15 PM DATA WAREHOUSE CONSULTANT 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 (HCC) BASIC METABOLIC PANEL Routine 05/19/2024 12:15 PM DATA WAREHOUSE CONSULTANT 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 (HCC) DEXA TBS AXIAL SKELETON BONE DENSITY 1 OR MORE SITES Schedule Routine, Read Routine (OP Routine) 07/22/2023 9:05 AM CDT Osteoporosis, unspecified osteoporosis type, unspecified pathological fracture presence from Last 3 Months or Most Recently Relevant to Health Maintenance Results * (ABNORMAL) eGFR (05/19/2024 12:15 PM DATA WAREHOUSE CONSULTANT) eGFR 39(L) >=60 mL/min/1. 73 m2 Comment: Interpretive Data Reference Interval Normal >/= 90 mL/min/1.73m2 Mildly decreased* 60 - 89 mL/min/1.73m2 Mildly to moderately decreased 45 - 59 mL/min/1.73m2 Moderately to severely decreased 30 - 44 mL/min/1.73m2 Severely decreased 15 - 29 mL/min/1.73m2 Kidney Failure < 15 mL/min/1.73m2 *Relative to young adult level Estimated glomerular filtration rate is determined by the 2020 CKD-EPI equation recommended by the National Kidney Foundation (A Unifying Approach to GFR Estimation: Recommendations of the NKF-ASK Task Force on Reassessing the Inclusion of Race in Diagnosing Kidney Disease, JASN 2020). The CKD-EPI equation should not be used for patients with unstable renal function and has not been validated in children and those over 70. Current interpretive data was last reviewed 2021. Blood 05/19/2024 12:1 5 PM DATA WAREHOUSE CONSULTANT 05/19/2024 12:42 PM DATA WAREHOUSE CONSULTANT us Rubi Car MD LAB BLOOD ORDERABLES Final Result [facility] [address] [facility] Department [place] [address] * (ABNORMAL) Basic metabolic panel (05/19/2024 12:15 PM DATA WAREHOUSE CONSULTANT) Sodium 136 135 - 145 mmol/L Potassium, pl 4.7 3.3 - 4.9 mmol/L [facility] Chloride 100 97 - 110 mmol/L [facility] CO2 29 22 - 32 mmol/L [facility] Anion gap 7 2 - 15 mmol/L [facility] BUN 23 6 - 25 mg/dL [facility] Creatinine 1.36(H) 0.60 - 1.10 mg/dL [facility] Glucose 92 70 - 199 mg/dL [facility] Comment: Interpretive Data Fasting glucose >/= 126 mg/dl is diagnostic for diabetes. Fasting is defined as no caloric intake for at least 8 hours. Fasting glucose between 100 mg/dl to 125 mg/dl is diagnostic of prediabetes. In a patient with classic symptoms of hyperglycemia or hyperglycemic crisis, a random glucose >/= 200 mg/dl is diagnostic for diabetes. In the absence of unequivocal hyperglycemia, results should be confirmed by repeat testing. The classification and Diagnosis of Diabetes Diabetes Care 202; 46: S19-S40. Current interpretive data was last revised 2022. Calcium 9.9 8.5 - 10.3 mg/dL [facility] Blood 05/19/2024 12:1 5 PM DATA WAREHOUSE CONSULTANT 05/19/2024 12:42 PM DATA WAREHOUSE CONSULTANT Rubi Car MD LAB BLOOD ORDERABLES Final Result [facility] [address] [facility] Department [place] [address] * Dexa TBS Axial Skeleton Bone Density 1 or more sites (07/22/2023 9:05 AM CDT) Anatomical Region Laterality Modality Wrist, Body N/A Radiographic Anna ging Narrative 07/22/2023 9:49 AM CDT Patient Name: Joann Garcia Date of : 1940 Date of scan: 07/22/2023 Bone mineral density was performed on a [employer] Discovery Densitometer. Based on machine cross-calibration and precision studies the least significant changes of this densitometer is 0.024 g/cm2 at the spine, 0.020 g/cm2 at the total proximal femur, and 0.014g/cm2 at the forearm. HISTORY: This is a 82 y.o. postmenopausal female with a history of osteoporosis and vitamin D deficiency. She reports that she has never smoked. She has never used smokeless tobacco. Currently on treatment with calcium, vitamin D, alendronate (Fosamax), and anticoagulants, previously treated with risedronate (Actonel), and current complaint of arm pain and back pain. INDICATIONS: Menopause status, treatment monitoring, history of prior right wrist fracture, vitamin D deficiency, and history of osteoporosis. FINDINGS: BONE MINERAL DENSITY OF THE LUMBAR SPINE Bone Mineral Density (BMD) of the lumbar spine was measured from L1-L4 and the average density was calculated to be 0.821 gm/cm2. This corresponds to a T-score (standard deviations from the mean of young adults) of -1.8. When compared to the previous study of 03/05/2022 there has been a 0.058 gm/cm (7.6%) increase in bone density that is considered significant. BONE MINERAL DENSITY OF THE PROXIMAL FEMUR Bone Mineral Density (BMD) of the left hip total was found to be 0.637 gm/cm2. This corresponds to a T-score standard deviations from the mean of young adults of -2.5. Femoral neck is 0.504 gm/cm2 with a T-score (standard deviations from the mean of young adults) of -3.1. When compared to the previous study of 03/05/2022 there has been a 0.040 gm/cm (6.7%) increase in bone density that is considered significant. SUMMARY: Bone mineral density shows evidence of osteoporosis and marked increase risk of fracture. There has been a significant increase in bone density since previous measurement. L4 excluded from bone mineral density analysis of the lumbar spine because of bone density being more than 1 standard deviation discrepant relative to one adjacent vertebra. Clinical correlation is recommended. The lumbar spine Trabecular Bone Score is 1.280 which suggests partially degraded bone microarchitecture compared to the general population. Final decisions regarding diagnostic or therapeutic recommendations should include BMD, TBS, additional clinical risk factors as well the clinical context of the patient. Please see attached TBS results for further details. ADDITIONAL COMMENTS: Postmenopausal Women and Men Over 50: Diagnostic criteria: Osteoporosis: BMD at or below -2.5 T-score; Osteopenia (low bone mass): BMD between -1.0 and -2.5 T-score. If the patient has a history of a fragility fracture, a fracture that occurred with trauma equivalent to a fall from a standing position or less, then the diagnosis is osteoporosis regardless of bone density. The history and data sections of the bone mineral density scan were prepared by Bibi Dillard)(Curt)(BD) CBDT who is accredited by the International Society of Clinical Densitometry. The overall patient assessment and scan interpretation were performed by Lito Epps MD who is certified by the International Society of Clinical Densitometry. [id number] us Lito Epps MD IMG DXA PROCEDURES Final Resul t from Last 3 Months or Most Recently Relevant to Health Maintenance Insurance MEDICARE [facility] MEDICARE [facility] MEDICARE SUPPLEMENT MEDICARE BLUE CROSS MEDICARE SUPPLEMENT Advance Directives For more information, please contact: [phone] Documents on File Type Date Recorded Patient Director Of Sustainability Programs Expl anation ADVANCE DIRECTIVE 02/18/2024 2:13 PM [place] [facility] [employer] * Full Code (Latest Code Status on File) Date Activated Date Inactivated Comments 02/18/2024 5:03 AM 02/20/2024 6:50 PM * Full Code Date Activated Date Inactivated Comments 05/13/2023 7:48 PM 05/14/2023 7:03 PM Care Teams Captain Assistant Relationship Specialty Start Date End Date David Campbell DO PCP - General Internal Medicine 05/26/23 Cecilio Sanchez MD [id number] [place] [address] Surgeon Colon and Rectal Surgery 01/26/24
--- OUTSIDE RECORDS SUMMARY | 2024-08-08 14:12 | XMS_ITS | Referral Summary ---
Author Organization [facility] [address] Address [address] [place] [address] Care Team Providers Care Freight Handler Name Role Phone Hany Campbelldie Primary Care Provider [phone] Cecilio Sanchez MD Unavailable [phone] Encounters Date Type Department Care Team Description 05/19/2024 Telephone [facility] [place] [address] [place] [address] Rubi Car MD 05/19/2024 11:50 AM DONOR SERVICES TEAM LEADER Lab [facility] [address] [place] [address] 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 Exercise and balance While the focus of [...] these. Assessment & Plan (03/05/2022 12:26 PM DONOR SERVICES TEAM LEADER): She is very afraid to take injections [...] and that is via supplementation, especially from until . 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 Never 02/18/2024 Do you belong to any clubs o r organizations such as episcopalian groups, unions, fraternal or athletic groups, or [...] place to sleep or slept in a fdc (including now)? No 05/14/2023 Housing Stability Vital Sign Answer Erasmo e Recorded In the last 12 months, was t here a time when you were not able to pay the mortgage or rent on time? No 02/18/2024 In the past 12 months, how m any times have you moved where you were living? 0 02/18/2024 At any time in the past 12 m [facility], were you homeless or living in a fdc (including now)? No 02/18/2024 Personal Safety Answer Date Recorded Have you ever been in or are you currently in a harmful physical or emotional relationship or is someone making you feel afraid or unsafe? Denies 04/13/2024 Comments No Sex and Gender Information Value Date Recorded Sex Assigned at Not on file Legal Sex Female 3:18 AM DONOR SERVICES TEAM LEADER Gender Identity Not on file Sexual Orientation Not on file Last Filed Vital Signs Vital Sign Reading Time Taken Comments Blood Pressure 132/53 04/13/2024 1:00 PM DONOR SERVICES TEAM LEADER Pulse 60 04/13/2024 1:00 PM DONOR SERVICES TEAM LEADER Temperature 37.3 C (99.1 F) 04/13/2024 11:17 AM DONOR SERVICES TEAM LEADER Respiratory Rate 15 04/13/2024 1:00 PM DONOR SERVICES TEAM LEADER Oxygen Saturation 94% 04/13/2024 1:00 PM DONOR SERVICES TEAM LEADER Inhaled Oxygen Concentration - - Weight 59.9 kg (132 lb) 04/13/2024 11:18 AM DONOR SERVICES TEAM LEADER Height 154.9 cm (5' 1 ) 04/13/2024 11:18 AM DONOR SERVICES TEAM LEADER Body Mass Index 24.94 04/13/2024 11:18 AM DONOR SERVICES TEAM LEADER Plan of Treatment Not on file Procedures Procedure Name Priority Date/Time Associated Diagnosis Comments EGFR Routine 05/19/2024 12:15 PM DONOR SERVICES TEAM LEADER 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 (HCC) BASIC METABOLIC PANEL Routine 05/19/2024 12:15 PM DONOR SERVICES TEAM LEADER 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 (HCC) DEXA TBS AXIAL SKELETON BONE DENSITY 1 OR MORE SITES Schedule Routine, Read Routine (OP Routine) 07/22/2023 9:05 AM CDT Osteoporosis, unspecified osteoporosis type, unspecified pathological fracture presence from Last 3 Months or Most Recently Relevant to Health Maintenance Results * (ABNORMAL) eGFR (05/19/2024 12:15 PM DONOR SERVICES TEAM LEADER) eGFR 39(L) >=60 mL/min/1. 73 m2 Comment: [...] reviewed 2021. Blood 05/19/2024 12:1 5 PM DONOR SERVICES TEAM LEADER 05/19/2024 12:42 PM DONOR SERVICES TEAM LEADER Result [facility] Rubi Car MD LAB BLOOD ORDERABLES Final Result Performing Organization Address City/[facility] Co de Phone Number [address] [place] [address] * (ABNORMAL) Basic metabolic panel (05/19/2024 12:15 PM DONOR SERVICES TEAM LEADER) Sodium 136 135 - 145 mmol/L Potassium, pl 4.7 3.3 - 4.9 mmol/L [facility] Chloride 100 97 - 110 mmol/L [facility] CO2 29 22 - 32 mmol/L [facility] Anion gap 7 2 - 15 mmol/L [facility] BUN 23 6 - 25 mg/dL [facility] Creatinine 1.36(H) 0.60 - 1.10 mg/dL [facility] Glucose 92 70 - 199 mg/dL [facility] Comment: Interpretive Data Fasting glucose >/= [...] 2022. Calcium 9.9 8.5 - 10.3 mg/dL [facility] Blood 05/19/2024 12:1 5 PM DONOR SERVICES TEAM LEADER 05/19/2024 12:42 PM DONOR SERVICES TEAM LEADER Result [facility] Rubi Car MD LAB BLOOD ORDERABLES Final Result Performing Organization Address City/[facility]/ZIP Co de Phone Number [address] [place] [address] * Dexa TBS Axial Skeleton Bone Density 1 or more sites (07/22/2023 9:05 AM CDT) Anatomical Region Laterality Modality Wrist, Body N/A Radiographic Anna ging Narrative 07/22/2023 9:49 AM CDT Patient Name: Joann Garcia Date of : 1940 Date of scan: 07/22/2023 Bone mineral density was performed on a [employer] Discovery Densitometer. Based on machine cross-calibration and [...] mineral density scan were prepared by Bibi Schumacher(Ezekiel)(Curt)(BD) CBDT who is accredited by the International Society of Clinical Densitometry. The overall patient assessment and scan interpretation were performed by Lito Epps MD who is certified by the International Society of Clinical Densitometry. [id number] Lito Epps MD IMG DXA PROCEDURES Final Resul t from Last 3 Months or Most Recently Relevant to Health Maintenance Insurance MEDICARE [facility] MEDICARE [facility] BLUE CROSS MEDICARE SUPPLEMENT MEDICARE [facility] MEDICARE SUPPLEMENT Advance Directives For more information, please contact: [phone] Documents on File Type Date Recorded Patient Group Exercise Instructor Expl anation ADVANCE DIRECTIVE 02/18/2024 2:13 PM [place] [employer] * Full Code (Latest Code Status on File) Date Activated Date Inactivated Comments 02/18/2024 5:03 AM 02/20/2024 6:50 PM * Full Code Date Activated Date Inactivated Comments 05/13/2023 7:48 PM 05/14/2023 7:03 PM Care Teams Freight Handler Relationship Specialty Start Date End Date David Campbell DO PCP - General Internal Medicine 05/26/23 Cecilio Sanchez MD [phone] [place] [address] Surgeon Colon and Rectal Surgery 01/26/24
--- OUTSIDE RECORDS SUMMARY | 2024-08-08 14:12 | XMS_ITS | Clinical Summary ---
Author Organization [facility] Address [address] [facility] [address] [place] [address] Phone Care Team Providers Care Painting And Coating Worker Name Role Phone Raghavendra Gutiérrez DO Primary Care Provider Allergies Active Allergy Reactions Criticality Noted Date Comments Cefuroxime Anaphylaxis 09/06/2017 Citalopram Nausea 03/08/2020 Nortriptyline Unknown 06/14/2019 Medications omeprazole (PRILOSEC) 20 MG CAPSULE DELAYED RELEASE 0 06/22/2017 Act nikole ALPRAZolam (XANAX) 0.5 MG Tablet Take 0.25 mg by mouth nightly as needed. Active Cyanocobalamin (VITAMIN B12 PO) Take by mouth. Active Ascorbic Acid (VITAMIN C PO) Take by mouth. Active Cholecalciferol (VITAMIN D3 PO) Take by mouth. Active Zinc Sulfate (ZINCATE PO) Take by mouth. Active Coenzyme Q10 (CO Q10) 100 MG Capsule Take by mouth. Active Magnesium 250 MG Tablet Take by mouth. Active Iodine Strong, Lugols, (IODINE STRONG PO) Take by mouth. Active Multiple Minerals-Vitami ns (CALCIUM & VIT D3 BONE HEALTH PO) Take by mouth. Active Multiple Vitamins-Minera ls (MULTIVITAMIN PO) Take by mouth. Active lisinopril (PRINIVIL, ZESTRIL) 40 MG Tablet Take 40 mg by mouth. 04/12/2019 Active PARoxetine (PAXIL) 20 MG Tablet TAKE 1 TABLET BY MOUTH ONCE DAILY 03/05/2020 Active Euthyrox 25 MCG Tablet TAKE 1 TABLET BY MOUTH ONCE DAILY 02/13/2020 Active metoclopramide (REGLAN) 5 MG TabletIndicatio ns:Nausea,Hiata l hernia Take 1 Tab by mouth nightly. 30 Tab 3 03/08/2020 Active ondansetron (Zofran) 4 MG TabletIndicatio ns:Nausea Take 1 Tab by mouth every 8 hours as needed for Nausea - 1st line. 15 Tab 03/08/2020 Active prochlorperazin e (COMPAZINE) 10 MG Tablet Take 1 Tab by mouth every 6 hours as needed for Nausea - 1st line. 30 Tab 03/12/2020 Active Active Problems No known active problems Family History Medical History Relation Name Comments Cancer Father prostate Cancer Mother breast Dementia Mother Heart Disease Mother Pacemaker Mother Relation Name Status Comments Father Mother Social History Tobacco Use Types Packs/Day Years Used Date Smoking Tobacco: Never Smokeless Tobacco: Never Tobacco Cessation:Counseling Given: No Alcohol Use Standard Drinks/Week Comments No 0 (1 standard drink = 0.6 oz pur e alcohol) Sexually Active Control Partners Comments Not Currently Comments No Sex and Gender Information Value Date Recorded Sex Assigned at Not on file Legal Sex Female 8:04 AM CDT Gender Identity Not on file Sexual Orientation Not on file 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 Not on file Not on file Not on file Last Filed Vital Signs Vital Sign Reading Time Taken Comments Blood Pressure 120/70 03/08/2020 2:25 PM MEAT PRODUCTS DEMONSTRATOR Pulse 61 03/08/2020 2:25 PM MEAT PRODUCTS DEMONSTRATOR Temperature 35.6 C (96 F) 03/08/2020 2:25 PM MEAT PRODUCTS DEMONSTRATOR Respiratory Rate 16 03/08/2020 2:25 PM MEAT PRODUCTS DEMONSTRATOR Oxygen Saturation 98% 03/08/2020 2:25 PM MEAT PRODUCTS DEMONSTRATOR Inhaled Oxygen Concentration - - Weight 60.8 kg (134 lb) 03/08/2020 2:25 PM MEAT PRODUCTS DEMONSTRATOR Height 160 cm (5' 3 ) 11/30/2017 9:00 AM CDT Body Mass Index 23.74 11/30/2017 9:00 AM CDT Plan of Treatment Health Maintenance Due Date Last Done Comments Hepatitis C Virus (HCV) Screening 1940 TdaP Immunization 1940 Pneumococcal Immunization (5 0+ years) (1 of 1 - PCV) 10/22/1991 Zoster Immunization (1 of 2) 10/22/1991 Respiratory Syncytial Virus (RSV) Immunization (Adult) (1 - 1-dose 75+ series) 2016 Influenza Immunization (#1) 2023 SARS-COV-2 Immunization (3 - 2023- season) 2023 07/24/2020, 06/26/2020 Hepatitis B Immunization Aged Out No longer eligible based on patient's age to complete this topic Meningococcal Immunization (ACWY) Aged Out No longer eligible b ased on patient's age to complete this topic Rotavirus Immunization Aged Out No lo nger eligible based on patient's age to complete this topic Insurance MEDICARE [facility] Care Teams Painting And Coating Worker Relationship Specialty Start Date End Date Raghavendra Gutiérrez DO [address] [place], [place] [id number] PCP - General Internal Medicine 08/06/17
--- OUTSIDE RECORDS SUMMARY | 2024-08-08 14:12 | XMS_ITS | Continuity of Care Document ---
Author Organization [facility] Address [address] [place] [address] Phone Care Team Providers Care Auto Radio Mechanic Name Role Phone Mcgraw Ham Unavailable Unavailable Procedures Procedure Date Office Consultation Ophthalmoscopy Eye Exam, New Patient Advance Directives Directive Yes / No Effective Date File Name No Information Encounters Encounter Description Practice Location Reason(s) For Visit Diagnoses Date Provider Providers Copied on Encounter Office Consultation [facility], [address], [place], [place], [id number], [place] tel:[phone] [facility] No Information [address] [place], [address], [place]. tel:[phone] Referring Provider: Hugo cox, [address], [address]. tel:[phone] [facility], [address], [place], [place], [id number], [place] tel:[phone] [facility] No Information [address] Demian Arias. [address], [address], [place]. tel:[phone] Referring Provider: Raghavendra Gutiérrez MD, [address], [place], [address]. tel:[phone] Family History Family Member Type Diagnosis Age At Onset No Information Payers Payer name Insurance type Covered libertarian ID Authoriza tion(s) [place] [id number] [facility] Commercial [place] [id number] Social History Type Description Quantity Date Captured [...]
--- OUTSIDE RECORDS SUMMARY | 2024-08-08 14:13 | XMS_ITS | Clinical Summary ---
Author Organization [facility] Address [facility]ly [facility] [place] [address] Care Team Providers Care Rn Disease Management Name Role Phone None, Provider Primary Care Provider Unavaila ble Immunizations Immunization Administration Dates Next Due MODERNA COVID-19 (12+) MRNA, LNP-S, PF, 100 MCG/ 0.5 ML DOSE 07/24/2020,06/26/2020 Social History Tobacco Use Types Packs/Day Years Used Date Smoking Tobacco: Never Assessed Comments Unknown Sex and Gender Information Value Date Recorded Sex Assigned at Not on file Legal Sex Female 11:25 AM CDT Gender Identity Not on file Sexual Orientation Not on file Plan of Treatment Health Maintenance Due Date Last Done Comments DTaP, Tdap and Td Vaccines ( 1 - Tdap) 1959 Pneumococcal Vaccine: 50+ Years (1 of 1 - PCV) 10/22/1991 Zoster Vaccines (1 of 2) 10/22/1991 Dexa Scan (General) 2006 RSV Immunization or 60+ Years (1 - 1-dose 75+ series) 2016 COVID-19 Vaccine (3 - 2023-2 5 season) 2023 07/24/2020, 06/26/2020 Meningococcal B Vaccine Aged Out No l onger eligible based on patient's age to complete this topic Meningococcal Vaccine Aged Out No alison bishop eligible based on patient's age to complete this topic RSV Immunizations Under 20 Months Aged Out No longer eligible b ased on patient's age to complete this topic Care Teams Rn Disease Management Relationship Specialty Start Date End Date None, Provider, PCP - General 06/26/20
[2024-08-10 03:09] LABS: CA-125 11 U/mL (<35)
== END 2024-08-08 14:08 | disposition home or self-care (01) ==
LOC: ANHLAB 14:08
PROVIDERS: PCP Internal Medicine; Visit Provider Obstetrics & Gynecology
DX: R19.09 Other intra-abdominal and pelvic swelling, mass and lump (principal); N83.209 Unspecified ovarian cyst, unspecified side
CPT/HCPCS: 36415; 86304

== ENCOUNTER 2024-08-15 13:55 | Outpatient (CLI) | payer MEDICARE, SELFPAY ==
--- NOTE | ~2024-08-15 | US_ITS ---
Pelvic ultrasound. Clinical History: Ovarian cyst Technique: Realtime transabdominal and transvaginal scanning of the pelvis was performed. Color flow Doppler and Doppler spectral analysis were performed. Findings: The uterus is retroverted.. The endometrial stripe has a thickness of 3 mm. No focal mass is identified. The right ovary is not visualized. No significant right ovarian or adnexal mass is seen. The left ovary measures 6.4 x 5.4 x 5.5 cm. Minimally complex left ovarian cyst with a septation and minimal internal debris measures 5.5 x 4.8 x 4.4 cm in size. There is no evidence of free fluid in the cul de sac. Impression: 5.5 cm mildly complex left ovarian cyst may be mildly increased in size from prior exam, but otherwis e is similar in appearance. Continued follow-up at a minimum advised. Gynecologic consultation recomm ended if not already performed. Cystic ovarian neoplasm not completely excluded. Reviewed, dictated and finalized at location . Impression: 5.5 cm mildly complex left ovarian cyst may be mildly increased in size from pr ior exam, but otherwise is similar in appearance. Continued follow-up at a mini mum advised. Gynecologic consultation recommended if not already performed. Cys tic ovarian neoplasm not completely excluded.
== END 2024-08-15 13:56 | disposition home or self-care (01) ==
LOC: MICIMG 13:56
PROVIDERS: PCP Internal Medicine; Visit Provider Obstetrics & Gynecology
DX: N83.292 Other ovarian cyst, left side (principal)
CPT/HCPCS: 76830; 76856

== ENCOUNTER 2024-11-01 06:59 | Outpatient (CLI) | payer MEDICARE, SELFPAY ==
--- OUTSIDE RECORDS SUMMARY | 2024-11-01 07:03 | XMS_ITS | Clinical Summary ---
Author Organization [facility] [address] Address [address] [place] [address] Care Team Providers Care Tanker Serviceman Name Role Phone David Campbell DO Primary Care Provider [phone] Cecilio Sanchez MD Unavailable [phone] Allergies Active Allergy Reactions Criticality Noted Date Comments Cefazolin Anaphylaxis High Cefuroxime Anaphylaxis High 09/06/2017 Citalopram Nausea only Low 03/08/2020 Gabapentin Other (See comments) Low 04/02/2024 lethargy Nortriptyline Unknown 06/14/2019 Medications cholecalciferol (VITAMIN D3) 5,000 unit tablet take once daily 0 5 Active magnesium oxide (MAG-OX) 250 mg (150.8 mg elemental) tabletIndications :hypomagnesemia Take 1 tablet (250 mg total) by mouth daily Active apixaban (ELIQUIS) 5 mg tablet Take 0.5 tablets (2.5 mg total) by mouth 2 (two) times a day Active multivit fqsautmf-xndq-QZ- calcium (THERA-M) 9 mg iron-400 mcg tabletIndications :Vitamin Deficiency Prevention Take 1 tablet by mouth daily Active omeprazole (PriLOSEC) 20 mg capsule Take 1 capsule (20 mg total) by mouth daily Active ALPRAZolam (XANAX) 0.5 mg tablet Take 0.25 three times daily and 0.5 mg at bedtime. [address] (CYMBALTA) 30 mg capsule Take 1 capsule (30 mg total) by mouth daily Active lisinopriL (PRINIVIL,ZESTRIL ) 10 mg tablet Take 1 tablet (10 mg total) by mouth 2 (two) times a day 5 Active alendronate (FOSAMAX) 35 mg tabletIndications :Osteoporosis, unspecified osteoporosis type, unspecified pathological fracture presence Take 1 tablet (35 mg total) by mouth every 7 days Take in the morning with a full glass of water, on an empty stomach, and do not take anything else by mouth or lie down for the next 30 min. 12 tablet 3 5 09/29/19 26 Active Active Problems Problem Noted Date Diagnosed Date Burning chest pain 09/07/2024 Benzodiazepine withdrawal without complication 1 04/19/2023 Occipital [...] = -3.2 ALN 03/2022 Assessment & Plan (09/28/2024 11:16 AM CDT): Doing well, given the reduced eGFR we will back off the ALN to lower the dose from 70mg per week to 35mg per week. Assessment & Plan (07/22/2023 9:48 AM CDT): [...] and that is via supplementation, especially from Day until . Exercise and balance While the [...] these. Assessment & Plan (03/05/2022 12:26 PM TECHNICAL SALES REPRESENTATIVES): She is very afraid to take injections [...] Encounters Date Type Department Care Team Description 09/28/2024 11:00 AM CDT Office Visit [address] [place] [address] [place] [address] Lito Epps MD Osteoporosis, unspecified osteoporosis type, unspecified pathological fracture presence 09/28/2024 10:30 AM CDT Clinical Support [address] [place] [address] [place] [address] Osteoporosis, unspecified osteoporosis type, unspecified pathological fracture presence 09/28/[address] [place] [address] [place] [address] Lito Epps MD 09/07/2024 10:30 AM CDT Office Visit [facility] Cardiology [address] [place] [address] Cecilio Cordova MD Paroxysmal atrial flutter (HCC) (Primary Dx); Essential hypertension; Chronic anticoagulation; UCHE (obstructive sleep apnea); Anxiety; Burning chest pain 09/06/2024 Telephone [facility] Gastroenterology at [place] [address] [place] [address] Rubi Car MD 08/23/2024 10:15 AM CDT Lab [facility] Lab [address] [place] [address] 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 (HCC) from Last 3 Months Surgical History Surgery Date Site/Laterality Comments BACK SURGERY 03/05/2023 - 04/04/2023 CARPAL TUNNEL RELEASE 06/03/2022 - 07/03/2022 SPINE SURGERY 2022 FRACTURE SURGERY 2021 Medical History Medical History Date Comments Hypertension Kidney disease Sleep apnea Thyroid disease Arthritis Anxiety GERD (gastroesophageal reflux disease) 2006 Osteoporosis 2021 Cataract 2023 Depression 2021 Neuromuscular disorder (HCC) 2021 CRPS Family History Medical History Relation Name Comments Cancer Father Carlos Domínguez Prostate cancer Father Carlos Domínguez prostate can cer; Cause of : prostate cancer Cancer Mother Jodie Domínguez Heart disease Mother Jodie oDmínguez Hypertension Mother Jodie Domínguez Other Mother Jodie Domínguez heart disease, ICD; Cause of : heart disease, ICD Osteoporosis Sister Broken bones Neg Hx Hip fracture Neg Hx Kyphosis Neg Hx Scoliosis Neg Hx Relation Name Status Comments Father Carlos Domínguez (Age 71) Mother Jodie Domínguez (Age 83) Sister Social History Tobacco Use Types Packs/Day Years Used Date Smoking Tobacco: Never Smokeless Tobacco: Never Tobacco Cessation:Counseling Given: Not Answered Alcohol Use Standard Drinks/Week Comments No 0 (1 standard drink = 0.6 oz pur e alcohol) [facility] Utilities Answer Date Recorded In the past 12 months has e [employer], gas, oil, or water company threatened to shut off services in your [...] often do you attend chur ch or sikhism services? Never 02/18/2024 Do you belong to any clubs o r organizations such as hoahaoism groups, unions, fraternal or athletic groups, or [...] place to sleep or slept in a assisted (including now)? No 05/14/2023 Housing Stability Vital [...] time in the past 12 m [facility], were you homeless or living in a assisted (including now)? No 02/18/2024 Personal Safety Answer Date Recorded Have you ever been in or are you currently in a harmful physical or emotional relationship or is someone making you feel afraid or unsafe? Denies 04/13/2024 Comments No Sex and Gender Information Value Date Recorded Sex Assigned at Not on file Legal Sex Female 3:18 AM TECHNICAL SALES REPRESENTATIVES Gender Identity Not on file Sexual Orientation Not on file Obstetrics History Last Filed Vital Signs Vital Sign Reading Time Taken Comments Blood Pressure 122/62 09/07/2024 10:41 AM CDT Pulse 64 09/07/2024 10:41 AM CDT Temperature 37.3 C (99.1 F) 04/13/2024 11:17 AM TECHNICAL SALES REPRESENTATIVES Respiratory Rate 15 04/13/2024 1:00 PM TECHNICAL SALES REPRESENTATIVES Oxygen Saturation 99% 09/07/2024 10:41 AM CDT Inhaled Oxygen Concentration - - Weight 61.2 kg (135 lb) 09/28/2024 10:44 AM CDT Height 157.5 cm (5' 2) 09/28/2024 10:44 AM CDT Body Mass Index 24.69 09/28/2024 10:44 AM CDT Plan of Treatment Health Maintenance Due Date Last Done Comments Depression Screening 1940 DTaP/Tdap/Td Vaccine (1 - Tdap) 1952 Hepatitis B Screening 10/22/1959 Pneumococcal vaccine 65+ (1 of 1 - PCV) 10/22/1991 Zoster Vaccine (1 of 2) 10/22/1991 Well Visit 65+ 2006 Covid-19 Vaccine (3 - 2024-25 season) 2023, 06/26/2020 Influenza Vaccine (#1) 2024 Fall Risk Assessment 02/19/2025 02/20/2024 Osteoporosis Screening-Bone Density Scan 09/28/2026 09/28/2024, 07/22/2023, 03/05/2022 Procedures Procedure Name Priority Date/Time Associated Diagnosis Comments DEXA TBS AXIAL SKELETON BONE DENSITY 1 OR MORE SITES Schedule Routine, Read Routine (OP Routine) 09/28/2024 10:23 AM CDT Osteoporosis, unspecified osteoporosis type, unspecified pathological fracture presence EGFR Routine 08/23/2024 10:20 AM CDT 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 (HCC) BASIC METABOLIC PANEL Routine 08/23/2024 10:20 AM CDT 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 (HCC) from Last 3 Months Results * Dexa TBS Axial Skeleton Bone Density 1 or more sites (09/28/2024 10:23 AM CDT) Anatomical Region Laterality Modality Wrist, Body N/A Radiographic Anna ging Narrative 09/28/2024 11:15 AM CDT Patient Name: Joann Garcia Date of : 1940 Date of scan: 09/28/2024 Bone mineral density was performed on a Hologic Discovery Densitometer. Based on machine cross-calibration and precision studies the least significant changes of this densitometer is 0.024 g/cm2 at the spine, 0.020 g/cm2 at the total proximal femur, and 0.014g/cm2 at the forearm. HISTORY: This is a 83 y.o. postmenopausal female with a history of osteoporosis. She reports that she has never smoked. She has never used smokeless tobacco. Currently on treatment with vitamin D, alendronate (Fosamax), and anticoagulants, previously treated with risedronate (Actonel), and current complaint of arm pain. INDICATIONS: Menopause status, treatment monitoring, history of prior wrist fracture, and history of osteoporosis. FINDINGS: BONE MINERAL DENSITY OF THE LUMBAR SPINE Bone Mineral Density (BMD) of the lumbar spine was measured from L1-L3 and the average density was calculated to be 0.822 gm/cm2. This corresponds to a T-score (standard deviations from the mean of young adults) of -1.8. When compared to the previous study of 07/22/2023 there has been no significant changes in bone density. BONE MINERAL DENSITY OF THE PROXIMAL FEMUR Bone Mineral Density (BMD) of the left hip total was found to be 0.623 gm/cm2. This corresponds to a T-score standard deviations from the mean of young adults of -2.6. Femoral neck is 0.513 gm/cm2 with a T-score (standard deviations from the mean of young adults) of -3.0. When compared to the previous study of 07/22/2023 there has been no significant changes in bone density. SUMMARY: Bone mineral density shows evidence of osteoporosis and marked increase risk of fracture. There has been no significant changes in bone density since previous measurement. L4 excluded from bone mineral density analysis of the lumbar spine due to bone density being more than 1 standard deviation discrepant relative to one adjacent vertebra. Clinical correlation is recommended. The lumbar spine Trabecular Bone Score is 1.322 which suggests normal bone microarchitecture, compared to the general population. Final decisions [...] bone mineral density scan were prepared by Josefina Dillard) JACQUELINE who is accredited by the International Society of Clinical Densitometry. The overall patient assessment and scan interpretation were performed by Lito Epps M.D. who is certified by the International Society of Clinical Densitometry. [id number] Lito Epps MD IM DXA PROCEDURES Final Resul t * (ABNORMAL) eGFR (08/23/2024 10:20 AM CDT) [facility] eGFR 41(L) >=60 mL/min/1. 73 m2 Comment: Interpretive Data [...] interpretive data was last reviewed 2021. Blood 08/23/2024 10:2 0 AM CDT 08/23/2024 10:42 AM CDT Rubi Car MD LAB BLOOD ORDERABLES Final Result [facility] [address] [place] [address] * (ABNORMAL) Basic metabolic panel (08/23/2024 10:20 AM CDT) [facility] Sodium 138 135 - 145 mmol/L Potassium, pl 4.6 3.3 - 4.9 mmol/L [facility] Chloride 102 97 - 110 mmol/L [facility] CO2 27 22 - 32 mmol/L [facility] Anion gap 9 2 - 15 mmol/L [facility] BUN 25 6 - 25 mg/dL [facility] Creatinine 1.29(H) 0.60 - 1.10 mg/dL [facility] Glucose 95 70 - 199 mg/dL [facility] Comment: Interpretive Data Fasting glucose >/= [...] classification and Diagnosis of Diabetes Diabetes Care 2021; 46: S19-S40. Current interpretive data was last revised 2022. Calcium 9.0 8.5 - 10.3 mg/dL [facility] Blood 08/23/2024 10:2 0 AM CDT 08/23/2024 10:42 AM CDT Rubi aCr MD LAB BLOOD ORDERABLES Final Result [facility] [address] Department [place] [address] from Last 3 Months Insurance MEDICARE [facility] MEDICARE [facility] BLUE CROSS MEDICARE SUPPLEMENT MEDICARE [employer] CR[employer] MEDICARE SUPPLEMENT Advance Directives For more information, please contact: [phone] Documents on File Type Date Recorded Patient Cancer Program Consultant Expl anation ADVANCE DIRECTIVE 02/18/2024 2:13 PM Juana r of [employer] * Full Code (Latest Code Status on File) Date Activated Date Inactivated Comments 02/18/2024 5:03 AM 02/20/2024 6:50 PM * Full Code Date Activated Date Inactivated Comments 05/13/2023 7:48 PM 05/14/2023 7:03 PM Care Teams Tanker Serviceman Relationship Specialty Start Date End Date David Campbell DO PCP - General Internal Medicine 05/26/23 Cecilio Sanchez MD [phone] [place] [address] Surgeon Colon and Rectal Surgery 01/26/24
--- OUTSIDE RECORDS SUMMARY | 2024-11-01 07:03 | XMS_ITS | Clinical Summary ---
Author Organization [facility] Address [address], [facility] [address] [place] [address] Phone Care Team Providers Care Photogrammetry Airplane Pilot Name Role Phone Raghavendra Gutiérrez DO Primary [...] Comments Blood Pressure 120/70 03/08/2020 2:25 PM SERVICES EXECUTIVE Pulse 61 03/08/2020 2:25 PM SERVICES EXECUTIVE Temperature 35.6 C (96 F) 03/08/2020 2:25 PM SERVICES EXECUTIVE Respiratory Rate 16 03/08/2020 2:25 PM SERVICES EXECUTIVE Oxygen Saturation 98% 03/08/2020 2:25 PM SERVICES EXECUTIVE Inhaled Oxygen Concentration - - Weight 60.8 kg (134 lb) 03/08/2020 2:25 PM SERVICES EXECUTIVE Height 160 cm (5' 3) 11/30/2017 9:00 AM CDT Body Mass Index 23.74 11/30/2017 9:00 AM CDT Plan of Treatment Health Maintenance Due Date Last Done Comments Hepatitis C Virus (HCV) Screening 1940 TdaP Immunization 1940 Pneumococcal Immunization (5 0+ years) (1 of 1 - PCV) 10/22/1991 Zoster Immunization (1 of 2) 10/22/1991 Respiratory Syncytial Virus (RSV) Immunization (Adult) (1 - 1-dose 75+ series) 2016 SARS-COV-2 Immunization (3 - season) 2023 07/24/2020, 06/26/2020 Influenza Immunization (#1) 2024 Hepatitis B Immunization Aged Out No longer eligible based on patient's age to complete this topic Human Papillomavirus (HPV) Immunization Aged Out No longer eligible b ased on patient's age to complete this topic Meningococcal Immunization (ACWY) Aged Out No longer eligible b ased on patient's age to complete this topic Rotavirus Immunization Aged Out No lo nger eligible based on patient's age to complete this topic Insurance MEDICARE [facility] Care Teams Photogrammetry Airplane Pilot Relationship Specialty Start Date End Date Raghavendra Gutiérrez DO [address] [place] [address] PCP - General Internal Medicine 08/06/17
--- OUTSIDE RECORDS SUMMARY | 2024-11-01 07:03 | XMS_ITS | Referral Summary ---
Author Organization [facility] [address] [facility] [address] Address [address] [place] [address] Care Team Providers Care Transcripter Name Role Phone Shannan David Primary Care Provider [phone] Cecilio Sanchez MD Unavailable [phone] Encounters Date Type Department Care Team Description 09/28/2024 Telephone [facility] [address] 5th [place] [address] Lito Epps MD 09/28/2024 11:00 AM CDT Office Visit [facility] [address] [facility] [address] 5th [place] [address] [place] [address] Lito Epps MD Osteoporosis, unspecified osteoporosis type, unspecified pathological fracture presence 09/28/2024 10:30 AM CDT Clinical Support [facility] [address] [facility] 5th [place] [address] Osteoporosis, unspecified osteoporosis type, unspecified pathological fracture presence 09/07/2024 10:30 AM CDT Office Visit [facility] Cardiology [address] [place] [address] Cecilio Cordova MD Paroxysmal atrial flutter (HCC) (Primary Dx); Essential hypertension; Chronic anticoagulation; UCHE (obstructive sleep apnea); Anxiety; Burning chest pain 09/06/2024 Telephone [facility] Gastroenterology at [place] [address] [facility] [address] [facility] [facility] [address] [place] [address] Rubi Car MD 08/23/2024 10:15 AM CDT Lab [facility] Lab [address] [place] [address] 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 [...] 2 (two) times a day Active multivit zdkvnrdi-wkgb-GV- calcium (THERA-M) 9 mg iron-400 mcg tabletIndications [...] these. Assessment & Plan (03/05/2022 12:26 PM MEASUREMENT TECHNICIAN): She is very afraid to take injections [...] drink = 0.6 oz pur e alcohol) [facility] Utilities Answer Date Recorded In the past 12 months has [employer], gas, oil, or water [employer] threatened to shut off services in your [...] often do you attend chur ch or oriental orthodox services? Never 02/18/2024 Do you belong to any clubs o r organizations such as shinto groups, unions, fraternal or athletic groups, or [...] place to sleep or slept in a penitentiary (including now)? No 05/14/2023 Housing Stability Vital Sign Answer Erasmo e Recorded In the last 12 months, was t here a time when you were not able to pay the mortgage or rent on time? No 02/18/2024 In the past 12 months, how m any times have you moved where you were living? 0 02/18/2024 At any time in the past 12 m [facility], were you homeless or living in a penitentiary (including now)? No 02/18/2024 Personal Safety Answer Date Recorded Have you ever been in or are you currently in a harmful physical or emotional relationship or is someone making you feel afraid or unsafe? Denies 04/13/2024 Comments No Sex and Gender Information Value Date Recorded Sex Assigned at Not on file Legal Sex Female 3:18 AM MEASUREMENT TECHNICIAN Gender Identity Not on file Sexual Orientation Not on file Last Filed Vital Signs Vital Sign Reading Time Taken Comments Blood Pressure 122/62 09/07/2024 10:41 AM CDT Pulse 64 09/07/2024 10:41 AM CDT Temperature 37.3 C (99.1 F) 04/13/2024 11:17 AM MEASUREMENT TECHNICIAN Respiratory Rate 15 04/13/2024 1:00 PM MEASUREMENT TECHNICIAN Oxygen Saturation 99% 09/07/2024 10:41 AM CDT Inhaled Oxygen Concentration - - Weight 61.2 kg (135 lb) 09/28/2024 10:44 AM CDT Height 157.5 cm (5' 2) 09/28/2024 10:44 AM CDT Body Mass Index 24.69 09/28/2024 10:44 AM CDT Plan of Treatment Not on file Procedures [...] Bone mineral density was performed on a [employer] Discovery Densitometer. Based on machine cross-calibration and [...] density scan were prepared by Josefina Dillard) CBDT who is accredited by the International Society of Clinical Densitometry. The overall patient assessment and scan interpretation were performed by Lito Epps M.D. who is certified by the International Society of Clinical Densitometry. [id number] us Lito Epps MD IMG DXA PROCEDURES Final Resul t * (ABNORMAL) eGFR (08/23/2024 10:20 AM CDT) eGFR 41(L) >=60 mL/min/1. 73 m2 Comment: [...] 0 AM CDT 08/23/2024 10:42 AM CDT us Rubi Car MD LAB BLOOD ORDERABLES Final Result [facility] [address] [facility] Department [place] [address] * (ABNORMAL) Basic metabolic panel (08/23/2024 10:20 AM CDT) Sodium 138 135 - 145 mmol/L Potassium, pl 4.6 3.3 - 4.9 mmol/L [facility] Chloride 102 97 - 110 mmol/L [facility] CO2 27 22 - 32 mmol/L [facility] Anion gap 9 2 - 15 mmol/L [facility] BUN 25 6 - 25 mg/dL [facility] Creatinine 1.29(H) 0.60 - 1.10 mg/dL [facility] Glucose 95 70 - 199 mg/dL [facility] Comment: Interpretive Data Fasting glucose >/= 126 [...] 2022. Calcium 9.0 8.5 - 10.3 mg/dL [facility] Blood 08/23/2024 10:2 0 AM CDT 08/23/2024 10:42 AM CDT Rubi Car MD LAB BLOOD ORDERABLES Final Result [facility] [address] [facility] Department [place] [address] from Last 3 Months Insurance MEDICARE [facility] MEDICARE [facility] BLUE CROSS MEDICARE SUPPLEMENT MEDICARE [facility] MEDICARE SUPPLEMENT Advance Directives For more information, please contact: [phone] Documents on File Type Date Recorded Patient Property Claims Manager Expl anation ADVANCE DIRECTIVE 02/18/2024 2:13 PM [place] r of [employer] * Full Code (Latest Code Status on File) Date Activated Date Inactivated Comments 02/18/2024 5:03 AM 02/20/2024 6:50 PM * Full Code Date Activated Date Inactivated Comments 05/13/2023 7:48 PM 05/14/2023 7:03 PM Care Teams Transcripter Relationship Specialty Start Date End Date David Campbell DO PCP - General Internal Medicine 05/26/23 Cecilio Sanchez MD [phone] [place] [address] Surgeon Colon and Rectal Surgery 01/26/24
--- OUTSIDE RECORDS SUMMARY | 2024-11-01 07:03 | XMS_ITS | Patient Health Record ---
Author Organization [facility] [place] 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 Name Role Phone David Campbell DO Primary Care Provider Zoe Andres Unavailable [phone] Allergies Allergen (clinical drug ingredient) Drug/Non Drug Allergy documented on EMR Reaction Allergy Type Onset Date Status cefuroxime Cefuroxime Unknown Drug Allergy 04/09/2020 Acti ve Results Component Value Reference Range Notes UDT Reviewed date:09/26/2024 05:22:47 PM Interpretation: Performing Lab: Notes/Report: THC n 0 - 50 ng/ml Cocaine n 0 - 300 ng/ml Amphetamine n 0 - 1000 ng/ml Buprenorphine (BUP) n 0 - 10 ng/ml Secobarbital (Bar) n 0 - 300 ng/ml Oxazepam (BZO) p 0 - 300 ng/ml 9-wrpawlmvvq-4,9-zkuqwhtz-2,3-diphenylpyrrolidine (GHULAM P) n 0 - 300 ng/ml Methamphetamine (MET) n 0 - 1000 ng/ml Methylenedioxymethamphetamine (MDMA) n 0 - 500 ng/ml Morphine (MOP 300/[id number]) n 0 - 300 ng/ml Methadone (MTD) n 0 - 300 ng/ml Phencyclidine (PCP) n 0 - 25 ng/ml UDT Reviewed date:10/24/2024 06:07:42 PM Interpretation: Performing Lab: Notes/Report: THC n 0 - 50 ng/ml Cocaine n 0 - 300 ng/ml Amphetamine n 0 - 1000 ng/ml Buprenorphine (BUP) n 0 - 10 ng/ml Secobarbital (Bar) n 0 - 300 ng/ml Oxazepam (BZO) p 0 - 300 ng/ml 3-penijgmuij-0,1-zanmforw-0,3-diphenylpyrrolidine (GHULAM P) n 0 - 300 ng/ml Methamphetamine (MET) n 0 - 1000 ng/ml Methylenedioxymethamphetamine (MDMA) n 0 - 500 ng/ml Morphine (MOP 300/[id number]) n 0 - 300 ng/ml Methadone (MTD) n 0 - 300 ng/ml Phencyclidine (PCP) n 0 - 25 ng/ml Nortriptyline (TCA) n 0 - 1000 ng/ml Oxycodone n 0 - 300 ng/ml x n 0 - 300 ng/ml Reason For Referral No Information Medications Medication SIG (Take, Route, Frequency, Duration) Notes Start Date End Date Status ALPRAZolam 0.5 MG 1 tablet Oral three times a day; Duration: 30 days 10/24/2024 Active DULoxetine HCl 40 MG 1 capsule Orally Once a day 09/27/2024 Active Magnesium 250 MG 1 tablet with a meal Orally Once a day Active Vitamin D 25 MCG (1000 UT) 1 tablet Orally Once a day Active Zinc 50 MG 1 tablet Orally Once a day Active PROMETHAZINE-DM 6.25 MG-15 MG/5 ML ORAL SYRUP *Reorder from [employer] for eRx and Interaction Alerts* 04/09/2020 Not-Taking Alendronate Sodium 70 MG Oral; Duration: 84 Days weekly on Sundays Active EUTHYROX 25 MCG TABLET *Reorder from [employer] for eRx and Interaction Alerts* 04/09/2020 Not-Taking Omeprazole 20 MG Oral 04/09/2020 Ac tive Eliquis 2.5 MG as directed Orally Active Co Q 10 10 MG as directed Orally Active Multivitamin - 1 tablet Orally Once a day Active Lisinopril 10 MG 1 tablet Oral twice a day 04/09/2020 Active Social History Tobacco Use: Social History Observation Description Date Details (start date - stop date) Never Smoker NA - NA Sex Assigned At : Social History Observation Description Sex Assigned At Female Tobacco Control (Standard) Question Answer Notes Tobacco use: Nonsmoker AUDIT-C (Standard) Question Answer Notes Did you have a drink containing alcohol in the p ast year? No Problems Problem Type SNOMED Code ICD Code Onset Dates Problem Status W/U Status Risk Notes Problem Mild recurrent major depression (18549556) Major depressive disorder, recurrent, mild (F33.0) Active confirmed Problem Generalized anxiety disorder (91363037) Generalized anxiety disorder (F41.1) Active confirmed Problem Complex regional pain syndrome (897116493) Complex regional pain syndrome I, unspecified (G90.50) Active confirmed Problem Obstructive sleep apnea (57641151) Obstructive sleep apnea (G47.33) Active confirmed Problem Essential hypertension (10657584) Benign essential HTN (I10) Active confirmed Problem Obstructive sleep apnea syndrome (87942097) UCHE (obstructive sleep apnea) (G47.33) Active confirmed Vital Signs Heart Rate 71 /min 10/24/2024 Height-cm 165.10 cm 10/24/2024 Blood pressure diastolic 58 mm Hg 10/24/2024 Weight-kg 61.69 kg 10/24/2024 Height 65.00 in 10/24/2024 Blood pressure systolic 98 mm Hg 10/24/2024 Weight 136 lbs 10/24/2024 BMI 22.63 kg/m2 10/24/2024 Encounters Encounter Location Date Provider Diagnosis [facility] [address] [address] 05/26/2024 Zoe Amor Generalized anxiety disorder F41.1 ; Major depressive disorder, recurrent, mild F33.0 ; Complex regional pain syndrome I, unspecified G90.50 ; UHCE (obstructive sleep apnea) G47.33 and Essential hypertension I10 [facility] [address] [address] 06/15/2024 Zoe Amor Generalized anxiety disorder F41.1 ; Major depressive disorder, recurrent, mild F33.0 ; Complex regional pain syndrome I, unspecified G90.50 ; Encounter for screening for cardiovascular disorders Z13.6 ; Encounter for screening for depression Z13.31 ; UCHE (obstructive sleep apnea) G47.33 and Benign essential HTN I10 [facility] [address] [address] 07/12/2024 Zoe Amor Generalized anxiety disorder F41.1 ; Major depressive disorder, recurrent, mild F33.0 ; Complex regional pain syndrome I, unspecified G90.50 ; Benign essential HTN I10 and Encounter for screening for depression Z13.31 [facility], [facility] [address] [place] [address] 08/02/2024 Zoe Amor Generalized anxiety disorder F41.1 ; Major depressive disorder, recurrent, mild F33.0 ; Complex regional pain syndrome I, unspecified G90.50 ; Encounter for screening for depression Z13.31 and Encounter for screening for cardiovascular disorders Z13.6 [facility], [facility] [address] [place] [address] 08/29/2024 Zoe Amor Generalized anxiety disorder F41.1 ; Major depressive disorder, recurrent, mild F33.0 ; Complex regional pain syndrome I, unspecified G90.50 ; Encounter for screening for depression Z13.31 and Encounter for screening for cardiovascular disorders Z13.6 [facility], [place] [address] [place] [address] 09/26/2024 Zoe Amor Generalized anxiety disorder F41.1 ; Major depressive disorder, recurrent, mild F33.0 ; Benign essential HTN I10 ; Complex regional pain syndrome I, unspecified G90.50 and Encounter for screening for depression Z13.31 [facility], [place] [address] [place] [address] 10/24/2024 Zoe Amor Major depressive disorder, recurrent, mild F33.0 ; Generalized anxiety disorder F41.1 and Complex regional pain syndrome I, unspecified G90.50 [facility], [place] [address] [place] [address] 10/27/2024 Zoe Amor [facility], [facility] [address] [place] [address] 06/23/2024 Zoe Amor [facility], [place] [address] [place] [address] 08/04/2024 Zoe Amor [facility], [facility] [address] [place] [address] 09/06/2024 Zoe Amor [facility], [place] [address] [place] [address] 09/20/2024 Zoe Amor [facility], [place] [address] [place] [address] 09/28/2024 Zoe Amor [facility] [address] [facility] [address] [place] [address] 10/11/2024 Zoe Amor Assessments Encounter Date Diagnosis (ICD Code) Assessment Notes Treatment Notes Treatment Clinical Notes Section Notes 08/02/2024 Generalized anxiety disorder (ICD-10 - F41.1) 09/26/2024 Major depressive disorder, recurrent, mild (ICD-10 - F33.0) 09/26/2024 Generalized anxiety disorder (ICD-10 - F41.1) Electronic Prior Authorization was requested for DULoxetine HCl 40 MG Capsule Delayed Release Particles. Provider can order medication once approval received. 10/24/2024 Major depressive disorder, recurrent, mild (ICD-10 - F33.0) 10/24/2024 Generalized anxiety disorder (ICD-10 - F41.1) 07/12/2024 Generalized anxiety disorder (ICD-10 - F41.1) Long-Term Risks of Benzodiazepines Benzodiazepines are commonly prescribed for anxiety, insomnia, and seizures, but their long-term use is associated with several significant risks, particularly in older adults. - Chronic benzodiazepine use can lead to physical and psychological dependence. - Withdrawal symptoms include rebound anxiety, insomnia, agitation, tremors, and, in severe cases, seizures. - Tapering is often required to prevent withdrawal complications. - Long-term use is linked to memory problems, reduced attention, and delayed thinking/reactio ns. - Some studies suggest an increased risk of dementia, though causality remains debated. - Benzodiazepines cause sedation, impaired coordination, and muscle weakness, significantly increases fall risk. This can be especially dangerous in those on blood thinners and with medical conditions such as osteoporosis - The elderly are particularly vulnerable due to decreased metabolism and clearance of benzodiazepines, leading to prolonged sedation and enhanced adverse effects. - Increased sensitivity to cognitive impairment, delirium, and paradoxical reactions (e.g., agitation, aggression). 06/15/2024 Major depressive disorder, recurrent, mild (ICD-10 - F33.0) Anxiety symptoms including nervousness, teeth chattering, and tremors, particularly pronounced in mornings and gradually improving throughout the day. Symptoms present for 3-4 weeks. Recent adjustment in alprazolam dosing may be contributing to morning tremors and anxiety. Denies any symptoms suspicious of underlying medical cause; reports timing of tremor and anxiety are around timing of xanax dosing Reports improvement in mood but continues to experience anxiety symptoms. Plan: - Discontinue paroxetine 10 mg daily (reports pills too small to cut, taper off by taking every other day for 7 days) - Start duloxetine (Cymbalta) at lowest dose, to be titrated slowly - Continue buspirone 15 mg twice daily for now - Continue current alprazolam regimen for now: 0.5 mg at noon and 6 PM, 0.25 mg at midnight and 6 AM - Monitor for changes in anxiety and tremor - Educate patient on potential benefits of duloxetine for anxiety, depression, and neuropathic pain associated with CRPS - Advise patient to inform primary care physician about transition of mental health medication management (reports she has not) - Monitor for side effects and efficacy of medication changes - Schedule follow-up appointment in 4 weeks to assess medication transition and symptom improvement 06/15/2024 Generalized anxiety disorder (ICD-10 - F41.1) Anxiety symptoms including nervousness, teeth chattering, and tremors, particularly pronounced in mornings and gradually improving throughout the day. Symptoms present for 3-4 weeks. Recent adjustment in alprazolam dosing may be contributing to morning tremors and anxiety. Denies any symptoms suspicious of underlying medical cause; reports timing of tremor and anxiety are around timing of xanax dosing Reports improvement in mood but continues to experience anxiety symptoms. Plan: - Discontinue paroxetine 10 mg daily (reports pills too small to cut, taper off by taking every other day for 7 days) - Start duloxetine (Cymbalta) at lowest dose, to be titrated slowly - Continue buspirone 15 mg twice daily for now - Continue current alprazolam regimen for now: 0.5 mg at noon and 6 PM, 0.25 mg at midnight and 6 AM - Monitor for changes in anxiety and tremor - Educate patient on potential benefits of duloxetine for anxiety, depression, and neuropathic pain associated with CRPS - Advise patient to inform primary care physician about transition of mental health medication management (reports she has not) - Monitor for side effects and efficacy of medication changes - Schedule follow-up appointment in 4 weeks to assess medication transition and symptom improvement 05/26/2024 Major depressive disorder, recurrent, mild (ICD-10 - F33.0) Discussed senior care risks of benzodiazepines and recommended treatment options for anxiety. Discussed consideration of multiple providers prescribing medications, and consolidation into one ideal. Discussed complexity of condition with CRPS and sympathetic activication affecting anxiety levels. She has been experiencing low blood pressures on pain medications and cannot take any, discussed benzodiazepine's effect on blood pressures and risks of taking the two medications together; this may be interfering with overall pain and symptoms control. Agreed to treat moving forward with the goal of tapering off benzodiazepines in a safe, appropriate way while adjustment treatment plan to get better control of anxiety Plan: - Continue paroxetine 10 mg daily as prescribed by Dr. Pace (she just had refilled) - Continue buspirone 15 mg twice daily as prescribed by Dr. Campbell (she just had refilled) - Continue alprazolam 0.5 mg every 6 hours for now (she jusrt had refilled) - Plan to taper off alprazolam and find safer long-term solution in future visits - Schedule follow-up appointment in 3-4 weeks to establish new baseline and discuss further steps Complex Regional Pain Syndrome (CRPS) Plan: - Continue physical therapy for CRPS management Sleep Apnea Plan: - Continue using oral device for sleep apnea management Patient Communication Plan: - Patient to inform Dr. Bowser that psychiatric medications will begin to be managed at [facility] - Request records from Dr. Pace if needed Follow-up in 3-4 weeks to discuss further steps 05/26/2024 Generalized anxiety disorder (ICD-10 - F41.1) Discussed terminal clerk risks of benzodiazepines and recommended treatment options for anxiety. Discussed consideration of multiple providers prescribing medications, and consolidation into one ideal. Discussed complexity of condition with CRPS and sympathetic activication affecting anxiety levels. She has been experiencing low blood pressures on pain medications and cannot take any, discussed benzodiazepine's effect on blood pressures and risks of taking the two medications together; this may be interfering with overall pain and symptoms control. Agreed to treat moving forward with the goal of tapering off benzodiazepines in a safe, appropriate way while adjustment treatment plan to get better control of anxiety Plan: - Continue paroxetine 10 mg daily as prescribed by Dr. Pace (she just had refilled) - Continue buspirone 15 mg twice daily as prescribed by Dr. Campbell (she just had refilled) - Continue alprazolam 0.5 mg every 6 hours for now (she jusrt had refilled) - Plan to taper off alprazolam and find safer long-term solution in future visits - Schedule follow-up appointment in 3-4 weeks to establish new baseline and discuss further steps Complex Regional Pain Syndrome (CRPS) Plan: - Continue physical therapy for CRPS management Sleep Apnea Plan: - Continue using oral device for sleep apnea management Patient Communication Plan: - Patient to inform Dr. Bowser that psychiatric medications will begin to be managed at [facility] - Request records from Dr. Pace if needed Follow-up in 3-4 weeks to discuss further steps 08/29/2024 Major depressive disorder, recurrent, mild (ICD-10 - F33.0) 08/29/2024 Generalized anxiety disorder (ICD-10 - F41.1) 08/29/2024 Complex regional pain syndrome I, unspecified (ICD-10 - G90.50) 05/26/2024 Complex regional pain syndrome I, unspecified (ICD-10 - G90.50) Discussed terminal clerk risks of benzodiazepines and recommended treatment options for anxiety. Discussed consideration of multiple providers prescribing medications, and consolidation into one ideal. Discussed complexity of condition with CRPS and sympathetic activication affecting anxiety levels. She has been experiencing low blood pressures on pain medications and cannot take any, discussed benzodiazepine's effect on blood pressures and risks of taking the two medications together; this may be interfering with overall pain and symptoms control. Agreed to treat moving forward with the goal of tapering off benzodiazepines in a safe, appropriate way while adjustment treatment plan to get better control of anxiety Plan: - Continue paroxetine 10 mg daily as prescribed by Dr. Pace (she just had refilled) - Continue buspirone 15 mg twice daily as prescribed by Dr. Campbell (she just had refilled) - Continue alprazolam 0.5 mg every 6 hours for now (she jusrt had refilled) - Plan to taper off alprazolam and find safer long-term solution in future visits - Schedule follow-up appointment in 3-4 weeks to establish new baseline and discuss further steps Complex Regional Pain Syndrome (CRPS) Plan: - Continue physical therapy for CRPS management Sleep Apnea Plan: - Continue using oral device for sleep apnea management Patient Communication Plan: - Patient to inform Dr. Bowser that psychiatric medications will begin to be managed at [facility] - Request records from Dr. Pace if needed Follow-up in 3-4 weeks to discuss further steps 06/15/2024 Complex regional pain syndrome I, unspecified (ICD-10 - G90.50) Anxiety symptoms including nervousness, teeth chattering, and tremors, particularly pronounced in mornings and gradually improving throughout the day. Symptoms present for 3-4 weeks. Recent adjustment in alprazolam dosing may be contributing to morning tremors and anxiety. Denies any symptoms suspicious of underlying medical cause; reports timing of tremor and anxiety are around timing of xanax dosing Reports improvement in mood but continues to experience anxiety symptoms. Plan: - Discontinue paroxetine 10 mg daily (reports pills too small to cut, taper off by taking every other day for 7 days) - Start duloxetine (Cymbalta) at lowest dose, to be titrated slowly - Continue buspirone 15 mg twice daily for now - Continue current alprazolam regimen for now: 0.5 mg at noon and 6 PM, 0.25 mg at midnight and 6 AM - Monitor for changes in anxiety and tremor - Educate patient on potential benefits of duloxetine for anxiety, depression, and neuropathic pain associated with CRPS - Advise patient to inform primary care physician about transition of mental health medication management (reports she has not) - Monitor for side effects and efficacy of medication changes - Schedule follow-up appointment in 4 weeks to assess medication transition and symptom improvement 09/26/2024 Benign essential HTN (ICD-10 - I10) 10/24/2024 Complex regional pain syndrome I, unspecified (ICD-10 - G90.50) 07/12/2024 Major depressive disorder, recurrent, mild (ICD-10 - F33.0) 08/02/2024 Major depressive disorder, recurrent, mild (ICD-10 - F33.0) 08/02/2024 Complex regional pain syndrome I, unspecified (ICD-10 - G90.50) 09/26/2024 Complex regional pain syndrome I, unspecified (ICD-10 - G90.50) 07/12/2024 Complex regional pain syndrome I, unspecified (ICD-10 - G90.50) 06/15/2024 Encounter for screening for cardiovascular disorders (ICD-10 - Z13.6) Anxiety symptoms including nervousness, teeth chattering, and tremors, particularly pronounced in mornings and gradually improving throughout the day. Symptoms present for 3-4 weeks. Recent adjustment in alprazolam dosing may be contributing to morning tremors and anxiety. Denies any symptoms suspicious of underlying medical cause; reports timing of tremor and anxiety are around timing of xanax dosing Reports improvement in mood but continues to experience anxiety symptoms. Plan: - Discontinue paroxetine 10 mg daily (reports pills too small to cut, taper off by taking every other day for 7 days) - Start duloxetine (Cymbalta) at lowest dose, to be titrated slowly - Continue buspirone 15 mg twice daily for now - Continue current alprazolam regimen for now: 0.5 mg at noon and 6 PM, 0.25 mg at midnight and 6 AM - Monitor for changes in anxiety and tremor - Educate patient on potential benefits of duloxetine for anxiety, depression, and neuropathic pain associated with CRPS - Advise patient to inform primary care physician about transition of mental health medication management (reports she has not) - Monitor for side effects and efficacy of medication changes - Schedule follow-up appointment in 4 weeks to assess medication transition and symptom improvement 05/26/2024 UCHE (obstructive sleep apnea) (ICD-10 - G47.33) Discussed terminal clerk risks of benzodiazepines and recommended treatment options for anxiety. Discussed consideration of multiple providers prescribing medications, and consolidation into one ideal. Discussed complexity of condition with CRPS and sympathetic activication affecting anxiety levels. She has been experiencing low blood pressures on pain medications and cannot take any, discussed benzodiazepine's effect on blood pressures and risks of taking the two medications together; this may be interfering with overall pain and symptoms control. Agreed to treat moving forward with the goal of tapering off benzodiazepines in a safe, appropriate way while adjustment treatment plan to get better control of anxiety Plan: - Continue paroxetine 10 mg daily as prescribed by Dr. Pace (she just had refilled) - Continue buspirone 15 mg twice daily as prescribed by Dr. Campbell (she just had refilled) - Continue alprazolam 0.5 mg every 6 hours for now (she jusrt had refilled) - Plan to taper off alprazolam and find safer long-term solution in future visits - Schedule follow-up appointment in 3-4 weeks to establish new baseline and discuss further steps Complex Regional Pain Syndrome (CRPS) Plan: - Continue physical therapy for CRPS management Sleep Apnea Plan: - Continue using oral device for sleep apnea management Patient Communication Plan: - Patient to inform Dr. Bowser that psychiatric medications will begin to be managed at [facility] - Request records from Dr. Pace if needed Follow-up in 3-4 weeks to discuss further steps 08/29/2024 Encounter for screening for depression (ICD-10 - Z13.31) 05/26/2024 Essential hypertension (ICD-10 - I10) Discussed senior care risks of benzodiazepines and recommended treatment options for anxiety. Discussed consideration of multiple providers prescribing medications, and consolidation into one ideal. Discussed complexity of condition with CRPS and sympathetic activication affecting anxiety levels. She has been experiencing low blood pressures on pain medications and cannot take any, discussed benzodiazepine's effect on blood pressures and risks of taking the two medications together; this may be interfering with overall pain and symptoms control. Agreed to treat moving forward with the goal of tapering off benzodiazepines in a safe, appropriate way while adjustment treatment plan to get better control of anxiety Plan: - Continue paroxetine 10 mg daily as prescribed by Dr. Pace (she just had refilled) - Continue buspirone 15 mg twice daily as prescribed by Dr. Campbell (she just had refilled) - Continue alprazolam 0.5 mg every 6 hours for now (she jusrt had refilled) - Plan to taper off alprazolam and find safer long-term solution in future visits - Schedule follow-up appointment in 3-4 weeks to establish new baseline and discuss further steps Complex Regional Pain Syndrome (CRPS) Plan: - Continue physical therapy for CRPS management Sleep Apnea Plan: - Continue using oral device for sleep apnea management Patient Communication Plan: - Patient to inform Dr. Bowser that psychiatric medications will begin to be managed at [facility] - Request records from Dr. Pace if needed Follow-up in 3-4 weeks to discuss further steps 06/15/2024 Encounter for screening for depression (ICD-10 - Z13.31) Anxiety symptoms including nervousness, teeth chattering, and tremors, particularly pronounced in mornings and gradually improving throughout the day. Symptoms present for 3-4 weeks. Recent adjustment in alprazolam dosing may be contributing to morning tremors and anxiety. Denies any symptoms suspicious of underlying medical cause; reports timing of tremor and anxiety are around timing of xanax dosing Reports improvement in mood but continues to experience anxiety symptoms. Plan: - Discontinue paroxetine 10 mg daily (reports pills too small to cut, taper off by taking every other day for 7 days) - Start duloxetine (Cymbalta) at lowest dose, to be titrated slowly - Continue buspirone 15 mg twice daily for now - Continue current alprazolam regimen for now: 0.5 mg at noon and 6 PM, 0.25 mg at midnight and 6 AM - Monitor for changes in anxiety and tremor - Educate patient on potential benefits of duloxetine for anxiety, depression, and neuropathic pain associated with CRPS - Advise patient to inform primary care physician about transition of mental health medication management (reports she has not) - Monitor for side effects and efficacy of medication changes - Schedule follow-up appointment in 4 weeks to assess medication transition and symptom improvement 08/29/2024 Encounter for screening for cardiovascular disorders (ICD-10 - Z13.6) 07/12/2024 Benign essential HTN (ICD-10 - I10) 09/26/2024 Encounter for screening for depression (ICD-10 - Z13.31) 08/02/2024 Encounter for screening for depression (ICD-10 - Z13.31) 08/02/2024 Encounter for screening for cardiovascular disorders (ICD-10 - Z13.6) 07/12/2024 Encounter for screening for depression (ICD-10 - Z13.31) 06/15/2024 UCHE (obstructive sleep apnea) (ICD-10 - G47.33) Continue oral appliance for UCHE treatment Anxiety symptoms including nervousness, teeth chattering, and tremors, particularly pronounced in mornings and gradually improving throughout the day. Symptoms present for 3-4 weeks. Recent adjustment in alprazolam dosing may be contributing to morning tremors and anxiety. Denies any symptoms suspicious of underlying medical cause; reports timing of tremor and anxiety are around timing of xanax dosing Reports improvement in mood but continues to experience anxiety symptoms. Plan: - Discontinue paroxetine 10 mg daily (reports pills too small to cut, taper off by taking every other day for 7 days) - Start duloxetine (Cymbalta) at lowest dose, to be titrated slowly - Continue buspirone 15 mg twice daily for now - Continue current alprazolam regimen for now: 0.5 mg at noon and 6 PM, 0.25 mg at midnight and 6 AM - Monitor for changes in anxiety and tremor - Educate patient on potential benefits of duloxetine for anxiety, depression, and neuropathic pain associated with CRPS - Advise patient to inform primary care physician about transition of mental health medication management (reports she has not) - Monitor for side effects and efficacy of medication changes - Schedule follow-up appointment in 4 weeks to assess medication transition and symptom improvement 06/15/2024 Benign essential HTN (ICD-10 - I10) Continue treatment per log yard manager Consider benzodiazepine effect on BP Anxiety symptoms including nervousness, teeth chattering, and tremors, particularly pronounced in mornings and gradually improving throughout the day. Symptoms present for 3-4 weeks. Recent adjustment in alprazolam dosing may be contributing to morning tremors and anxiety. Denies any symptoms suspicious of underlying medical cause; reports timing of tremor and anxiety are around timing of xanax dosing Reports improvement in mood but continues to experience anxiety symptoms. Plan: - Discontinue paroxetine 10 mg daily (reports pills too small to cut, taper off by taking every other day for 7 days) - Start duloxetine (Cymbalta) at lowest dose, to be titrated slowly - Continue buspirone 15 mg twice daily for now - Continue current alprazolam regimen for now: 0.5 mg at noon and 6 PM, 0.25 mg at midnight and 6 AM - Monitor for changes in anxiety and tremor - Educate patient on potential benefits of duloxetine for anxiety, depression, and neuropathic pain associated with CRPS - Advise patient to inform primary care physician about transition of mental health medication management (reports she has not) - Monitor for side effects and efficacy of medication changes - Schedule follow-up appointment in 4 weeks to assess medication transition and symptom improvement 05/26/2024 Other Continued current medications prescribed by primary care physician, will resume upon follow up appointment in 3 weeks. - Paroxetine 10 mg daily - alprazolam 0.5 mg q 6 hours - buspirone 15 mg twice a day Discussed senior care risks of benzodiazepines and recommended treatment options for anxiety. Discussed consideration of multiple providers prescribing medications, and consolidation into one ideal. Discussed complexity of condition with CRPS and sympathetic activication affecting anxiety levels. She has been experiencing low blood pressures on pain medications and cannot take any, discussed benzodiazepine's effect on blood pressures and risks of taking the two medications together; this may be interfering with overall pain and symptoms control. Agreed to treat moving forward with the goal of tapering off benzodiazepines in a safe, appropriate way while adjustment treatment plan to get better control of anxiety Plan: - Continue paroxetine 10 mg daily as prescribed by Dr. Pace (she just had refilled) - Continue buspirone 15 mg twice daily as prescribed by Dr. Campbell (she just had refilled) - Continue alprazolam 0.5 mg every 6 hours for now (she jusrt had refilled) - Plan to taper off alprazolam and find safer long-term solution in future visits - Schedule follow-up appointment in 3-4 weeks to establish new baseline and discuss further steps Complex Regional Pain Syndrome (CRPS) Plan: - Continue physical therapy for CRPS management Sleep Apnea Plan: - Continue using oral device for sleep apnea management Patient Communication Plan: - Patient to inform Dr. Bowser that psychiatric medications will begin to be managed at [facility] - Request records from Dr. Pace if needed Follow-up in 3-4 weeks to discuss further steps 06/15/2024 Other Long-Term Risks of Benzodiazepines Benzodiazepines are commonly prescribed for anxiety, insomnia, and seizures, but their long-term use is associated with several significant risks, particularly in older adults. - Chronic benzodiazepine use can lead to physical and psychological dependence. - Withdrawal symptoms include rebound anxiety, insomnia, agitation, tremors, and, in severe cases, seizures. - Tapering is often required to prevent withdrawal complications. - Long-term use is linked to memory problems, reduced attention, and delayed thinking/reactio ns. - Some studies suggest an increased risk of dementia, though causality remains debated. - Benzodiazepines cause sedation, impaired coordination, and muscle weakness, significantly increases fall risk. This can be especially dangerous in those on blood thinners and with medical conditions such as osteoporosis - The elderly are particularly vulnerable due to decreased metabolism and clearance of benzodiazepines, leading to prolonged sedation and enhanced adverse effects. - Increased sensitivity to cognitive impairment, delirium, and paradoxical reactions (e.g., agitation, aggression). Anxiety symptoms including nervousness, teeth chattering, and tremors, particularly pronounced in mornings and gradually improving throughout the day. Symptoms present for 3-4 weeks. Recent adjustment in alprazolam dosing may be contributing to morning tremors and anxiety. Denies any symptoms suspicious of underlying medical cause; reports timing of tremor and anxiety are around timing of xanax dosing Reports improvement in mood but continues to experience anxiety symptoms. Plan: - Discontinue paroxetine 10 mg daily (reports pills too small to cut, taper off by taking every other day for 7 days) - Start duloxetine (Cymbalta) at lowest dose, to be titrated slowly - Continue buspirone 15 mg twice daily for now - Continue current alprazolam regimen for now: 0.5 mg at noon and 6 PM, 0.25 mg at midnight and 6 AM - Monitor for changes in anxiety and tremor - Educate patient on potential benefits of duloxetine for anxiety, depression, and neuropathic pain associated with CRPS - Advise patient to inform primary care physician about transition of mental health medication management (reports she has not) - Monitor for side effects and efficacy of medication changes - Schedule follow-up appointment in 4 weeks to assess medication transition and symptom improvement 07/12/2024 Maame Garcia, a female patient with chronic regional pain syndrome (CRPS), chronic kidney disease stage 3, and anxiety, presents with concerns about medication management and ongoing tremors. Anxiety Assessment: Patient reports improvement in anxiety symptoms with current medication regimen, including duloxetine, buspirone, and alprazolam. However, there are concerns about the use of buspirone due to the patient's chronic kidney disease. The patient experienced a recent anxiety episode that led to tachycardia (heart rate up to 135 bpm) and weakness lasting for a couple of days. Anxiety is also noted to potentially exacerbate CRPS flare-ups. Plan: - Decrease buspirone dose from 15 mg to 7.5 mg - Patient informed of potential adjustment period of 1-2 weeks - Continue duloxetine 20 mg daily - Discuss potential increase to 30 mg at next visit - Continue alprazolam as currently prescribed - Consider future switch to clonazepam for longer-acting anxiolytic effect - Follow up in 3 weeks to assess response to medication changes and discuss potential duloxetine dose increase Chronic Regional Pain Syndrome (CRPS) Assessment: Patient reports improvement in CRPS symptoms with less frequent flare-ups. However, a flare-up occurred one week ago, affecting blood pressure. Patient is undergoing therapy for arm-related symptoms and mentions a history of Stellate-Ganglio n injection, which reportedly worsened nerve-related symptoms. Plan: - Continue current pain management regimen - Emphasize importance of anxiety management to reduce CRPS flare-ups - Continue physical therapy for arm-related symptoms Medication Management Assessment: Patient is on multiple medications, including duloxetine, buspirone, alprazolam, Namenda, omeprazole, Prolia, lisinopril, Eliquis, and allopurinol. There are concerns about polypharmacy and potential interactions, particularly with regards to kidney function. Patient reports self-adjusting alprazolam dosing. Plan: - Adjust medication regimen as outlined in anxiety management plan - Educate patient on importance of adhering to prescribed medication schedule and dosages - Monitor for side effects and efficacy of medication changes - Consider gradual medication reduction to minimize polypharmacy, prioritizing kidney-friendly options Tremors Assessment: Patient reports persistent tremors, primarily affecting the mouth and teeth, which are more pronounced in the morning and improve throughout the day. Hand tremors have reportedly resolved. The tremors may be related to medication side effects or withdrawal symptoms from alprazolam. Plan: - Monitor tremors in relation to medication changes - Assess tremor severity and impact on daily functioning at follow-up appointment 08/02/2024 Other Minal Garcia, a female patient with a history of Complex Regional Pain Syndrome (CRPS), atrial flutter, and recent back surgery, presents with concerns about anxiety, depression, and heart rate fluctuations. Anxiety and Depression Assessment: Patient reports improvement in anxiety and depression symptoms with duloxetine. Recent stressors include job loss and concerns about her grandson. She experienced an episode of increased anxiety following a concert, with chest nervousness and elevated heart rate (108 bpm). Patient has been using alprazolam 0.5mg TID and 0.25mg qAM for anxiety management. Long-term use of alprazolam is not recommended due to TELESALES MANAGER suppression and potential rebound effects. Plan: - Increase duloxetine from 20mg to 30mg daily for depression and anxiety - Explained that duloxetine also helps with pain and nerve pain - Discontinue buspirone - Continue alprazolam 0.5mg TID and 0.25mg qAM, but aim to minimize use - Advised patient to try reducing evening dose to 0.25mg if possible - Discussed potential future switch to clonazepam for longer-acting, milder effect - Recommend psychotherapy for support with life changes and coping strategies - Follow up to assess response to medication changes and ongoing anxiety/depressi on symptoms Cardiovascular Concerns Assessment: Patient reports heart rate fluctuations, including episodes of tachycardia (up to 108 bpm) and concerning bradycardia (44-48 bpm). History of atrial flutter developed after a Stellate ganglion injection in January 2023. Patient also mentions a past pulmonary embolism (blood clot in right lower lung) discovered before back surgery on March 30, 2023. Recent exacerbation of symptoms after attending a loud concert. Plan: - Refer patient to log yard manager for evaluation of heart rate fluctuations and management of atrial flutter - Advise patient to monitor and record heart rate fluctuations - Educate patient on signs and symptoms that warrant immediate medical attention - Follow up after cardiology consultation to review findings and adjust treatment plan as needed Complex Regional Pain Syndrome (CRPS) Assessment: Patient reports an exacerbation of CRPS symptoms following recent concert attendance. History of worsening symptoms after a Stellate ganglion injection in January 2023. Patient has been resting to manage symptoms. Plan: - Continue current pain management regimen - Increase duloxetine to 30mg daily, which may also help with nerve pain associated with CRPS - Educate patient on pacing activities and avoiding triggers that may exacerbate CRPS symptoms - Consider referral to pain management for review of treatment options if symptoms persist or worsen 08/29/2024 Maame Garcia, female, presents with a history of anxiety, CRPS, and cardiovascular issues, reporting an accidental medication overdose and ongoing fatigue. Medication Overdose Assessment: Patient reports accidental double dosing of alprazolam 0.5 mg and lisinopril 10 mg on August 10. Experienced immediate adverse effects including burning sensation, stinging, elevated heart rate (108 bpm), and extreme fatigue lasting over a week. Patient slept excessively for 2 days post-incident and had difficulty staying awake to eat. Currently reports persistent burning sensation in upper arm and ongoing fatigue. Patient notes high sensitivity to medications. Plan: - Adjust alprazolam dosing: - Trial half tablet of 6 pm dose. - Attempt to extend dosing interval to 7 hours - Continue monitoring for persistent side effects - Educate on medication safety and proper administration - Advise to follow up with log yard manager as scheduled next week Anxiety Assessment: Patient reports occasional anxiety symptoms, currently well-controlled. On alprazolam 0.5 mg and duloxetine 30 mg for management. Plan: - Continue duloxetine 30 mg - Consider increasing to 40 mg at next visit - Maintain current alprazolam regimen with adjusted dosing as outlined above Complex Regional Pain Syndrome (CRPS) Assessment: Patient reports worsening CRPS symptoms, now extending beyond initial elbow involvement to include upper arm, armpit, and breast area during flares. Reports a severe CRPS attack on April 02 requiring emergency transport. Suggests possible nerve damage from previous angioinjection treatment. Current symptoms contribute to overall fatigue. Plan: - Continue current pain management regimen - Monitor progression of symptoms - Consider referral to pain specialist for reevaluation if symptoms continue to worsen Cardiovascular Issues Assessment: Patient on lisinopril and Eliquis for blood pressure and anticoagulation management. Reports morning blood pressure readings of 90-99/57 mmHg. Scheduled follow-up with log yard manager next week. Plan: - Continue current cardiovascular medications: - Lisinopril - Eliquis 2.5 mg PO BID - Advise patient to bring blood pressure log to cardiology appointment - Await cardiology recommendations before making any medication adjustments Sleep Disturbance Assessment: Patient reports fragmented sleep pattern, waking at 6 AM for medication, staying up until midnight, then sleeping for a couple more hours before rising at 8 AM. This disrupted sleep likely contributes to reported fatigue. Plan: - Encourage sleep hygiene practices - Consider sleep study if sleep disturbances persist despite medication adjustments and improved pain control 09/26/2024 Other Minal Garcia, female patient with complex regional pain syndrome (CRPS), chronic kidney disease stage 3, and anxiety, presenting with concerns about medication management and heart rate fluctuations. Complex Regional Pain Syndrome (CRPS) Assessment: Patient reports improvement in CRPS symptoms after reducing alprazolam dosage from 5mg to 0.25mg, with a 3-week adjustment period. She experienced a flare-up on September 01 with increased heart rate and blood pressure, requiring rest for symptom management. Current alprazolam regimen may be affecting CRPS symptoms, potentially interfering with nerve healing and neuroplasticity. Duloxetine is being used as a treatment option for CRPS, which is supported by evidence. Plan: - Educate patient on potential short-term increase in CRPS symptoms during alprazolam tapering - Discuss long-term benefits of reducing alprazolam for nerve healing and CRPS management Anxiety Assessment: Patient reports ongoing anxiety, particularly related to increased heart rate when hurrying or engaging in physical activities. Alprazolam is currently being used for anxiety management, but there is a goal to taper and discontinue due to potential interference with CRPS treatment and nerve healing. Plan: - Continue alprazolam taper as tolerated - Increase duloxetine to 40mg daily to support mood and anxiety management - Educate patient on the relationship between alprazolam, anxiety, and CRPS symptoms - Encourage use of deep breathing techniques for anxiety management, as patient reported success with this method during recent flare-up Tachycardia Assessment: Patient reports episodes of increased heart rate, reaching up to 115 bpm with minimal exertion such as walking in a store or carrying groceries. A nuclear stress test was recommended by another provider, but patient expresses concerns about potential reaction with CRPS. Patient prefers a treadmill stress test instead. Plan: - Monitor heart rate and its relationship to physical activity and anxiety symptoms - Educate patient on the importance of cardiac evaluation for persistent tachycardia Chronic Kidney Disease Stage 3 Assessment: Patient reports stable stage 3 chronic kidney disease. Following dietary recommendations including low sodium intake, avoiding beef, and consuming mainly chicken, fish, and turkey. Maintaining hydration with 3-4 bottles of water daily. Next nephrology follow-up scheduled for November 01 with pre-appointment lab work. Plan: - Continue current dietary and hydration regimen - Attend scheduled nephrology follow-up on November 01 - Complete pre-appointment lab work as ordered by commercial management accountant and share results 10/24/2024 Maame Garcia, a patient with Complex Regional Pain Syndrome (CRPS) and chronic kidney disease, presents with recent episodes related to CRPS line changes and reports improved mood but ongoing depression related to her condition. Complex Regional Pain Syndrome (CRPS) Assessment: Patient reports recent CRPS episodes on September 01 and September 22, which she attributes to line changes. She describes autonomic dysfunction in the central nervous system, as diagnosed by her orthopedic doctor. The condition originated after a wrist fracture and continues to cause functional limitations, including difficulty grasping objects and inability to overuse the affected arm. Patient demonstrates understanding of the condition's impact on her body's reactions to changes. Plan: - Continue current management plan for CRPS - Follow up with orthopedic doctor as scheduled Depression Assessment: Patient reports improved mood overall but acknowledges ongoing depressive symptoms related to coping with CRPS. The functional limitations imposed by CRPS appear to be a significant contributing factor to her depressive symptoms. Plan: - Continue Duloxetine 40 mg PO daily with breakfast - Monitor for side effects, particularly constipation - Maintain current dosage; consider gradual increase to 60 mg if needed in the future - Encourage ongoing use of coping strategies for depression Anxiety Assessment: Patient is currently managed on Alprazolam (Xanax) for anxiety. Current dosing schedule is 0.25 mg at 6 am, 0.5 mg at noon, 0.25 mg at 6 pm, and 0.5 mg at midnight. Sleep onset latency is reported as 30-40 minutes, stays up until midnight to take Xanax. Plan: - Adjust Alprazolam (Xanax) dosing schedule: - Continue 0.25 mg at 6 am - Shift afternoon dose of 0.5 mg from noon to around 1 pm - Shift 0.5 mg dose from midnight to around 10:30 pm (patient's usual bedtime) - Discontinue 6 pm dose after adjusting to Lisinopril changes - Monitor for changes in anxiety symptoms and sleep quality - Follow up to assess efficacy of new dosing schedule Hypotension Assessment: Patient reports low blood pressure readings, with morning values in the 90s/50s range. Recent reading was 98/58. Primary care physician has recommended discontinuation of evening Lisinopril dose. Plan: - Discontinue evening dose of Lisinopril 10 mg as per primary care physician's recommendation - Monitor blood pressure readings, particularly in the morning - Educate patient on signs and symptoms of hypotension - Follow up with primary care physician regarding blood pressure management Chronic Kidney Disease, Stage 3 Assessment: Patient has been diagnosed with stage 3 chronic kidney disease. She reports making dietary changes independently, including reducing salt and protein intake. Patient expresses dissatisfaction with previous commercial management accountant and is scheduled to see a new commercial management accountant, Dr. Goldberg at [place], on November 27. Plan: - Continue current dietary modifications (low salt, low protein) - Encourage adequate hydration (patient reports 48-64 oz water daily) - Attend scheduled appointment with new commercial management accountant, Dr. Goldberg, on November 27 - Review and adjust medications as needed to ensure kidney-friendly regimen Plan Of Treatment Next Appt Details Provider Name:Zoe birmingham, 11/21/2024 03:00:00 PM, [address] [facility] [address] [facility] [address], [place], [address], Insurance Providers Payer Name Payer Address Payer Phone Subscriber Number Group Number Insured Name Patient Relationship to Insured Coverage Start Date Coverage End Date Medicare-I l Medicare [address] [place] [phone] [id number] MINAL GARCIA Self - patient is the insured [facility] [address] [place] [address] [id number] MINAL AGRCIA Self - patient is the insured Medical (General) History Medical History History ICD Code Past Psychiatric History: An xiety Disorder,Panic Disorder,Major Depressive Episode Primary insomnia F51.01 Benign essential hypertension I10 Obstructive sleep apnea G47.33 Hypothyroidism E03.9 GERD (gastroesophageal reflux disease) K 21.9 Osteoporosis M81.0 Fracture of right radius Carpal tunnel syndrome of right wrist G5 6.01 Complex regional pain syndrome I, unspec ified G90.50 Paroxysmal atrial flutter (CMS/HCC) I48. 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
--- OUTSIDE RECORDS SUMMARY | 2024-11-01 07:04 | XMS_ITS | Clinical Summary ---
Author Organization [facility] Address [facility] [place] [address] Care Team Providers Care Blowing Weasand Name Role Phone None, Provider Primary Care [...] age to complete this topic Care Teams Blowing Weasand Relationship Specialty Start Date End Date None, Provider, PCP - General 06/26/20
--- OUTSIDE RECORDS SUMMARY | 2024-11-01 07:04 | XMS_ITS | Patient Health Record ---
Author Organization [facility] Address [address] [place], [place] [address] Care Team Providers Care Discotheque Dancer Name Role Phone LEILA JOHNSON Unavailable [phone] Raghavendra Gutiérrez Unavailable Unavailable Reason For Referral No Information Medications Medication SIG (Take, Route, Frequency, Duration) Notes Start Date End Date Status ALPRAZolam 0.25 MG Oral Tablet ORAL alprazolam 0.25 MG Oral TabletOriginal Medicationalprazolam 0.25 MG Oral Tablet *Reorder from [employer] for eRx and Interaction Alerts* 7 Active cholecalciferol 5000 UNT / folic acid 1 MG Oral Tablet ORAL cholecalciferol 5000 UNT / folic acid 1 MG Oral TabletOriginal Medicationcholecalciferol 5000 UNT / folic acid 1 MG Oral Tablet *[facility] and Interaction [facility]* 7 Active Ascorbic Acid 500 MG Oral Tablet ORAL ascorbic acid 500 MG Oral TabletOriginal Medicationascorbic acid 500 MG Oral Tablet *Reorder from [facility] for eRx and Interaction Alerts* 7 Active folic acid 1 MG / vitamin B12 0.5 MG Oral Tablet ORAL folic acid 1 MG / vitamin B1 2 0.5 MG Oral TabletOriginal Medicationfolic acid 1 MG / vitamin B12 0.5 MG Oral Tablet *Reorder from [facility] for eRx and Interaction Alerts* 7 Active omeprazole 20 MG Delayed Release Oral Tablet ORAL omeprazole 20 MG Delayed Release Oral TabletOriginal Medicationomeprazole 20 MG Delayed Release Oral Tablet *Reorder from [employer] for eRx and Interaction Alerts* 7 Active Medrol Dosepak ORAL Medrol DosepakOr iginal MedicationMedrol Dosepak *Reorder from [facility] for eRx and Interaction Alerts* 9 Active ubidecarenone 100 MG Oral Capsule ORAL ubidecarenone 100 MG Oral CapsuleOriginal Medicationubidecarenone 100 MG Oral Capsule *[facility] for [facility] and Interaction Alerts* 7 Active Plan Of Treatment No Information Insurance Providers Payer Name Payer Address Payer Phone Subscriber Number Group Number Insured Name Patient Relationship to Insured Coverage Start Date Coverage End Date Medicare Part B [place] [address] [place] [address] [id number] JOANN GARCIA Self - patient is the insured [facility] ATTN CLAIMS [address] [place] [address] [id number] JOANN GARCIA Self - patient is the insured [facility] [address] [place], [place] [id number] JOANN GARCIA Self - patient is the insured
[2024-11-01 08:05] LABS: Hematocrit 33.5 % (37.0-47.0); Hemoglobin 10.8 g/dL (12.0-15.0); Immature Granulocyte Percent A 0.4 % (0-0.5); Lymphocytes Absolute Auto 1.34 K/mm3 (0.9-3.2); Mean Corpuscular HGB Conc 32.2 g/dl (32-36); Mean Corpuscular Hemoglobin 29.4 pg (26-34); Mean Corpuscular Volume 91.3 fl (80-100); Nucleated Red Blood Cells Absolute Auto 0.000 K/mm3 (0.0-0.012); Nucleated Red Blood Cells Perc 0.0 % (0.0-0.2); Platelet Count Result 257 k/mm3 (150-375); Red Blood Count 3.67 M/mm3 (4.2-5.4); White Blood Count 5.4 K/mm3 (4.5-10.0)
[2024-11-01 09:49] LABS: Free T4 Free Thyroxine 1.01 ng/dL (0.78-2.19)
[2024-11-01 10:06] LABS: Hemoglobin A1C 5.6 % (<5.7)
[2024-11-01 11:38] LABS: Alanine Aminotransferase 21 U/L (6-35); Albumin Level 3.8 g/dL (3.5-5.1); Alkaline Phosphatase 45 U/L (38-126); Anion Gap 3 mmol/L (4-12); Aspartate Amino Transferase 44 U/L (14-36); Bilirubin,Total 0.6 mg/dL (0.2-1.3); Blood Urea Nitrogen 21 mg/dL (7-17); Calcium 8.8 mg/dL (8.4-10.2); Carbon Dioxide 27 mmol/L (22-30); Chloride 102 mmol/L (98-107); Cholesterol 167 mg/dL (0-200); Estimated Glomerular Filt Rate 38; Glucose 93 mg/dL (65-110); HDL Direct 55 mg/dL; Potassium 4.3 mmol/L (3.4-5.0); Sodium 132 mmol/L (137-145); Total Protein 6.5 g/dL (6.3-8.2); Triglycerides 91 mg/dL (<150)
[2024-11-01 12:13] LABS: Thyroid Stimulating Hormone 5.060 uIU/mL (0.465-4.680)
== END 2024-11-01 07:00 | disposition home or self-care (01) ==
PROVIDERS: PCP Internal Medicine; Visit Provider Internal Medicine
DX: R73.9 Hyperglycemia, unspecified (principal); R53.83 Other fatigue; E03.9 Hypothyroidism, unspecified; E78.5 Hyperlipidemia, unspecified; I10 Essential (primary) hypertension; E55.9 Vitamin D deficiency, unspecified
CPT/HCPCS: 36415; 80053; 80061; 82306; 83036; 84439; 84443; 85025

== ENCOUNTER 2024-11-03 13:26 | Outpatient (CLI) | payer OTHER, MEDICARE, SELFPAY ==
--- NOTE | ~2024-11-03 | MR_ITS ---
EXAMINATION: MR hand RT wo con DATE: 11/03/2024 15:19 INDICATION: Right hand injury presenting with pain TECHNIQUE: Magnetic resonance imaging (MRI) of the right hand was performed without intravenous contr ast to include the metacarpals and digits but which excludes portions of the proximal carpal row. Seq uences included sagittal, coronal, and axial T1-weighted FSE and T2-weighted FS FSE. COMPARISON: None FINDINGS: Suggestion of deformity of the fifth digit with hyperextension at the metacarpophalangeal joint and f lexion at the proximal interphalangeal joint. This is likely related to a tear of the A2 enriqueta with bowstringing of the flexor tendon at the level of the mid to distal diaphysis of the proximal phalanx with 4 mm separation of the deep margin of the flexor tendon from the palmar cortex of the neck of t he proximal phalanx. The visualized portion of the flexor and extensor tendons of the hand are otherw ise unremarkable. Bone alignment is otherwise normal. Normal marrow signal with no fracture or pathol ogic marrow replacing process. Polyarticular osteoarthritis, moderate severity at the first carpometa carpal joint and mild at the triscaphe and multiple metacarpophalangeal and interphalangeal joints. M edial and lateral collateral ligament complexes at the metacarpophalangeal and interphalangeal joints are normal. 8 x 4 x 5 mm ganglion cyst position palmar to the hamate. No joint effusions, tenosynovi tis or other abnormal fluid collections intrinsic musculature of the hand is unremarkable. IMPRESSION: 1. Deformity of the fifth digit with posterior ring of the flexor tendon at the mid to distal aspect of the proximal phalanx consistent with tear of the A2 flexor enriqueta. 2. Polyarticular osteoarthritis throughout the right hand, mild to moderate severity at the right fir st carpometacarpal joint and otherwise mild. Reviewed, dictated and finalized at location A. IMPRESSION: 1. Deformity of the fifth digit with posterior ring of the flexor tendon at the mid to distal aspect of the proximal phalanx consistent with tear of the A2 fl exor enriqueta. 2. Polyarticular osteoarthritis throughout the right hand, mild to moderate sev erity at the right first carpometacarpal joint and otherwise mild.
--- NOTE | ~2024-11-03 | MR_ITS ---
MRI of the right forearm CLINICAL HISTORY: Injury TECHNIQUE: T1-weighted and STIR images were performed in the axial, coronal, and sagittal planes. FINDINGS: No fracture or bone marrow edema seen. Osseous structures are intact. Visualized joint spac es are grossly intact. There is mild fluid surrounding the distal extensor digitorum longus muscle and tendons, which could reflect low-grade injury or tenosynovitis. Remaining musculature demonstrates normal signal. No other soft tissue mass or fluid evident. Tendons themselves appear intact. IMPRESSION: Small amount of fluid about the distal extensor digitorum longus muscle belly and tendons, which coul d reflect tenosynovitis or low-grade muscle strain/injury. Reviewed, dictated and finalized at location . IMPRESSION: Small amount of fluid about the distal extensor digitorum longus muscle belly a nd tendons, which could reflect tenosynovitis or low-grade muscle strain/injury .
--- NOTE | ~2024-11-03 | MR_ITS ---
MRI of the right wrist Technique: Coronal T1 weighted and proton density fat sat images, and axial and sagittal proton-densi ty and proton-density fat-sat images were acquired. Clinical History: Injury Findings: Questionable partial tearing of the dorsal band of the scapholunate ligament, but there is no widening of the scapholunate interval. Lunotriquetral ligament is intact. TFCC appears intact. There is minimal polyarticular osteoarthritic change in the wrist. No bone marrow edema or suspicious marrow signal abnormality seen. No significant joint effusion. There is a 9 mm ganglion cyst adjacen t to the ulnar aspect of the hook of the hamate (axial image 80). Flexor and extensor tendons are intact. No other soft tissue mass or fluid collection. IMPRESSION: Possible partial tearing of the dorsal band of the scapholunate ligament, without scapholunate interv al widening. Minimal degenerative changes. 9 mm ganglion cyst along the ulnar aspect of the hook of the hamate. Reviewed, dictated and finalized at location . IMPRESSION: Possible partial tearing of the dorsal band of the scapholunate ligament, witho ut scapholunate interval widening. Minimal degenerative changes. 9 mm ganglion cyst along the ulnar aspect of the hook of the hamate.
--- OUTSIDE RECORDS SUMMARY | 2024-11-03 13:40 | XMS_ITS | Patient Health Record ---
Author Organization [facility] As [facility] Address [address] [place] [address] Care Team Providers Care Emergency Room Nurse Name Role Phone David Campbell DO Primary Care Provider Zoe Andres Unavailable [phone] Allergies Allergen (clinical drug ingredient) Drug/Non Drug [...] Oxazepam (BZO) p 0 - 300 ng/ml 8-lrlmsvvvlf-2,0-trxghsls-9,3-diphenylpyrrolidine (GHULAM P) n 0 - 300 ng/ml Methamphetamine (MET) n 0 - 1000 ng/ml Methylenedioxymethamphetamine (MDMA) n 0 - 500 ng/ml Morphine (MOP 300/YNM1728) n 0 - 300 ng/ml Methadone (MTD) [...] Oxazepam (BZO) p 0 - 300 ng/ml 2-dbickeyyny-8,1-vhyzbusy-5,3-diphenylpyrrolidine (GHULAM P) n 0 - 300 ng/ml Methamphetamine (MET) n 0 - 1000 ng/ml Methylenedioxymethamphetamine (MDMA) n 0 - 500 ng/ml Morphine (MOP 300/KRJ1004) n 0 - 300 ng/ml Methadone (MTD) [...] MG-15 MG/5 ML ORAL SYRUP *Reorder from [employer] for eRx and Interaction Alerts* 04/09/2020 Not-Taking Alendronate Sodium 70 MG Oral; Duration: 84 Days weekly on Sundays Active EUTHYROX 25 MCG TABLET *Reorder from [employer] for eRx and Interaction Alerts* 04/09/2020 Not-Taking [...] Risk Notes Problem Mild recurrent major depression (44312858) Major depressive disorder, recurrent, mild (F33.0) Active confirmed Problem Generalized anxiety disorder (24325003) Generalized anxiety disorder (F41.1) Active confirmed Problem Complex regional pain syndrome (725724650) Complex regional pain syndrome I, unspecified (G90.50) Active confirmed Problem Obstructive sleep apnea (16613878) Obstructive sleep apnea (G47.33) Active confirmed Problem Essential hypertension (34568932) Benign essential HTN (I10) Active confirmed Problem Obstructive sleep apnea syndrome (07790868) UCHE (obstructive sleep apnea) (G47.33) Active confirmed Vital Signs Heart Rate 71 /min 10/24/2024 Height-cm 165.10 cm 10/24/2024 Blood pressure diastolic 58 mm Hg 10/24/2024 Weight-kg 61.69 kg 10/24/2024 Height 65.00 in 10/24/2024 Blood pressure systolic 98 mm Hg 10/24/2024 Weight 136 lbs 10/24/2024 BMI 22.63 kg/m2 10/24/2024 Encounters Encounter Location Date Provider Diagnosis [facility] [address] [address] 05/26/2024 Zoe Amor Generalized anxiety disorder F41.1 ; Major depressive disorder, recurrent, mild F33.0 ; Complex regional pain syndrome I, unspecified G90.50 ; UCHE (obstructive sleep apnea) G47.33 and Essential hypertension I10 [facility] [address] [address] 06/15/2024 Zoe Amor Generalized anxiety disorder F41.1 ; Major depressive disorder, recurrent, mild F33.0 ; Complex regional pain syndrome I, unspecified G90.50 ; Encounter for screening for cardiovascular disorders Z13.6 ; Encounter for screening for depression Z13.31 ; UCHE (obstructive sleep apnea) G47.33 and Benign essential HTN I10 [facility] [address] [address] 07/12/2024 Zoe Amor Generalized anxiety disorder F41.1 ; Major depressive disorder, recurrent, mild F33.0 ; Complex regional pain syndrome I, unspecified G90.50 ; Benign essential HTN I10 and Encounter for screening for depression Z13.31 [facility], [facility] [address] [place] [address] 08/02/2024 Zoe Amor Generalized anxiety disorder F41.1 ; Major depressive disorder, recurrent, mild F33.0 ; Complex regional pain syndrome I, unspecified G90.50 ; Encounter for screening for depression Z13.31 and Encounter for screening for cardiovascular disorders Z13.6 [facility], [facility] [address] [place] [address] 08/29/2024 Zoe Amor Generalized anxiety disorder F41.1 ; Major depressive disorder, recurrent, mild F33.0 ; Complex regional pain syndrome I, unspecified G90.50 ; Encounter for screening for depression Z13.31 and Encounter for screening for cardiovascular disorders Z13.6 [facility], [place] [address] [place] [address] 09/26/2024 Zoe Amor Generalized anxiety disorder F41.1 ; Major depressive disorder, recurrent, mild F33.0 ; Benign essential HTN I10 ; Complex regional pain syndrome I, unspecified G90.50 and Encounter for screening for depression Z13.31 [facility], [place] [address] [place] [address] 10/24/2024 Zoe Amor Major depressive disorder, recurrent, mild F33.0 ; Generalized anxiety disorder F41.1 and Complex regional pain syndrome I, unspecified G90.50 [facility], [place] [address] [place] [address] 10/27/2024 Zoe Amor [facility], [facility] [address] [place] [address] 06/23/2024 Zoe Amor [facility], [place] [address] [place] [address] 08/04/2024 Zoe Amor [facility], [facility] [address] [place] [address] 09/06/2024 Zoe Amor [facility], [place] [address] [place] [address] 09/20/2024 Zoe Amor [facility], [place] [address] [place] [address] 09/28/2024 Zoe Amor [facility] [address] [place] [address] 10/11/2024 Zoesina Holleyjsoe francisco Assessments Encounter Date Diagnosis (ICD Code) Assessment Notes Treatment Notes Treatment Clinical Notes Section Notes 05/26/2024 Major depressive disorder, recurrent, mild (ICD-10 - F33.0) Discussed senior living risks of benzodiazepines and recommended treatment options [...] medications will begin to be managed at [facility] - Request records from Dr. Pace if needed Follow-up in 3-4 weeks to discuss further steps 05/26/2024 Generalized anxiety disorder (ICD-10 - F41.1) Discussed senior living risks of benzodiazepines and recommended treatment options [...] medications will begin to be managed at [facility] - Request records from Dr. Pace if needed Follow-up in 3-4 weeks to discuss further steps 06/15/2024 Major depressive disorder, recurrent, mild (ICD-10 [...] assess medication transition and symptom improvement 07/12/2024 Generalized anxiety disorder (ICD-10 - F41.1) [...] delirium, and paradoxical reactions (e.g., agitation, aggression). 08/02/2024 Generalized anxiety disorder (ICD-10 - F41.1) 08/29/2024 Major depressive disorder, recurrent, mild (ICD-10 - F33.0) 08/29/2024 Generalized anxiety disorder (ICD-10 - F41.1) 09/26/2024 Major depressive disorder, recurrent, mild (ICD-10 - F33.0) 09/26/2024 Generalized anxiety disorder (ICD-10 - F41.1) Electronic Prior Authorization was requested for DULoxetine HCl 40 MG Capsule Delayed Release Particles. Provider can order medication once approval received. 10/24/2024 Major depressive disorder, recurrent, mild (ICD-10 - F33.0) 10/24/2024 Generalized anxiety disorder (ICD-10 - F41.1) 10/24/2024 Complex regional pain syndrome I, unspecified (ICD-10 - G90.50) 09/26/2024 Benign essential HTN (ICD-10 - I10) 08/29/2024 Complex regional pain syndrome I, unspecified (ICD-10 - G90.50) 08/02/2024 Major depressive disorder, recurrent, mild (ICD-10 - F33.0) 07/12/2024 Major depressive disorder, recurrent, mild (ICD-10 - F33.0) 06/15/2024 Complex regional pain syndrome I, unspecified [...] assess medication transition and symptom improvement 05/26/2024 Complex regional pain syndrome I, unspecified (ICD-10 - G90.50) Discussed petroleum terminal plant operator risks of benzodiazepines and recommended treatment options [...] medications will begin to be managed at [facility] - Request records from Dr. Pace if needed Follow-up in 3-4 weeks to discuss further steps 05/26/2024 UCHE (obstructive sleep apnea) (ICD-10 - G47.33) Discussed petroleum terminal plant operator risks of benzodiazepines and recommended treatment options [...] medications will begin to be managed at [facility] - Request records from Dr. Pace if needed Follow-up in 3-4 weeks to discuss further steps 06/15/2024 Encounter for screening for cardiovascular disorders [...] assess medication transition and symptom improvement 07/12/2024 Complex regional pain syndrome I, unspecified (ICD-10 - G90.50) 08/02/2024 Complex regional pain syndrome I, unspecified (ICD-10 - G90.50) 08/29/2024 Encounter for screening for depression (ICD-10 - Z13.31) 09/26/2024 Complex regional pain syndrome I, unspecified (ICD-10 - G90.50) 09/26/2024 Encounter for screening for depression (ICD-10 - Z13.31) 08/02/2024 Encounter for screening for depression (ICD-10 - Z13.31) 08/29/2024 Encounter for screening for cardiovascular disorders (ICD-10 - Z13.6) 07/12/2024 Benign essential HTN (ICD-10 - I10) 06/15/2024 Encounter for screening for depression (ICD-10 [...] assess medication transition and symptom improvement 05/26/2024 Essential hypertension (ICD-10 - I10) Discussed petroleum terminal plant operator risks of benzodiazepines and recommended treatment options [...] medications will begin to be managed at [facility] - Request records from Dr. Pace if needed Follow-up in 3-4 weeks to discuss further steps 06/15/2024 UCHE (obstructive sleep apnea) (ICD-10 - [...] assess medication transition and symptom improvement 07/12/2024 Encounter for screening for depression (ICD-10 - Z13.31) 08/02/2024 Encounter for screening for cardiovascular disorders (ICD-10 - Z13.6) 06/15/2024 Benign essential HTN (ICD-10 - I10) Continue treatment per back sewer Consider benzodiazepine effect on BP Anxiety symptoms [...] 15 mg twice a day Discussed senior living risks of benzodiazepines and recommended treatment options [...] medications will begin to be managed at [facility] - Request records from Dr. Pace if [...] of alprazolam is not recommended due to PODIATRIC PHYSICIAN suppression and potential rebound effects. Plan: - [...] loud concert. Plan: - Refer patient to back sewer for evaluation of heart rate fluctuations and [...] administration - Advise to follow up with back sewer as scheduled next week Anxiety Assessment: Patient [...] readings of 90-99/57 mmHg. Scheduled follow-up with back sewer next week. Plan: - Continue current cardiovascular [...] Complete pre-appointment lab work as ordered by cabinetmaker maintenance and share results 10/24/2024 Maame Garcia, a [...] protein intake. Patient expresses dissatisfaction with previous cabinetmaker maintenance and is scheduled to see a new cabinetmaker maintenance, Dr. Goldberg at [facility], on November 27. Plan: - Continue current dietary modifications (low salt, low protein) - Encourage adequate hydration (patient reports 48-64 oz water daily) - Attend scheduled appointment with new cabinetmaker maintenance, Dr. Goldberg, on November 27 - Review and adjust medications as needed to ensure kidney-friendly regimen Plan Of Treatment Next Appt Details Provider Name:Zoe birmingham, 11/21/2024 03:00:00 PM, 3160 COUNTS INCLUDE 234 BEDS AT [facility] [address], [facility] [address], [place], [address], Insurance Providers Payer Name Payer Address Payer Phone Subscriber Number Group Number Insured Name Patient Relationship to Insured Coverage Start Date Coverage End Date Medicare-I l Medicare [address] [place] [phone] [id number] MINAL GARCIA Self - patient is the insured [facility] [address] [place] [address] [id number] MINAL GARCIA Self - patient is the insured Medical [...]
--- OUTSIDE RECORDS SUMMARY | 2024-11-03 13:40 | XMS_ITS | Clinical Summary ---
Author Organization [facility] [address] Address [address] [place] [address] Care Team Providers Care Owner Professional Engineer Name Role Phone David Campbell DO Primary Care Provider [phone] Cecilio Sanchez MD Unavailable [phone] Allergies Active Allergy Reactions Criticality Noted Date [...] 2 (two) times a day Active multivit nqnudmhh-cidh-DF- calcium (THERA-M) 9 mg iron-400 mcg tabletIndications [...] these. 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): She is very afraid to take injections [...] Description 09/28/2024 11:00 AM CDT Office Visit [address] [place] [address] [place] [address] Lito Epps MD Osteoporosis, unspecified osteoporosis type, unspecified pathological fracture presence 09/28/2024 10:30 AM CDT Clinical Support [address] [place] [address] [place] [address] Osteoporosis, unspecified osteoporosis type, unspecified pathological fracture presence 09/28/[address] [place] [address] [place] [address] Lito Epps MD 09/07/2024 10:30 AM CDT Office Visit [facility] [address] [place] [address] Cecilio Cordova MD Paroxysmal atrial flutter (HCC) (Primary Dx); Essential hypertension; Chronic anticoagulation; UCHE (obstructive sleep apnea); Anxiety; Burning chest pain 09/06/2024 Telephone [facility] Gastroenterology at [place] [address] [place] [address] Rubi Car MD 08/23/2024 10:15 AM CDT Lab [facility] [address] [place] [address] 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 (HCC) from Last 3 Months Surgical History Surgery Date Site/Laterality Comments BACK SURGERY 03/05/2023 - 04/04/2023 CARPAL TUNNEL RELEASE 06/03/2022 - 07/03/2022 SPINE SURGERY 2022 FRACTURE SURGERY 2021 Medical History Medical History Date Comments Hypertension Kidney disease Sleep apnea Thyroid disease Arthritis Anxiety GERD (gastroesophageal reflux disease) 2006 Osteoporosis 2021 Cataract 2023 Depression 2021 Neuromuscular disorder 2021 CRPS Family History Medical History Relation [...] drink = 0.6 oz pur e alcohol) [facility] Utilities Answer Date Recorded In the past 12 months has e [employer], gas, oil, or water company threatened to [...] often do you attend chur ch or mu-ism services? Never 02/18/2024 Do you belong to any clubs o r organizations such as restorationism groups, unions, fraternal or athletic groups, or [...] place to sleep or slept in a care home (including now)? No 05/14/2023 Housing Stability Vital Sign Answer Erasmo e Recorded In the last 12 months, was t here a time when you were not able to pay the mortgage or rent on time? No 02/18/2024 In the past 12 months, how m any times have you moved where you were living? 0 02/18/2024 At any time in the past 12 m [facility], were you homeless or living in a care home (including now)? No 02/18/2024 Personal Safety Answer Date Recorded Have you ever been in or are you currently in a harmful physical or emotional relationship or is someone making you feel afraid or unsafe? 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 Based on machine cross-calibration and [...] by the International Society of Clinical Densitometry. [id number] Lito Epps MD [facility] DXA PROCEDURES Final Resul t * (ABNORMAL) eGFR (08/23/2024 10:20 AM CDT) [facility] eGFR 41(L) >=60 mL/min/1. 73 m2 Comment: [...] MD LAB BLOOD ORDERABLES Final Result [facility] [address] Department [place] [address] * (ABNORMAL) Basic metabolic panel (08/23/2024 10:20 AM CDT) [facility] Sodium 138 135 - 145 mmol/L Potassium, pl 4.6 3.3 - 4.9 mmol/L [facility] Chloride 102 97 - 110 mmol/L [facility] CO2 27 22 - 32 mmol/L [facility] Anion gap 9 2 - 15 mmol/L [facility] BUN 25 6 - 25 mg/dL [facility] Creatinine 1.29(H) 0.60 - 1.10 mg/dL [facility] Glucose 95 70 - 199 mg/dL [facility] Comment: Interpretive Data Fasting glucose >/= [...] LAB BLOOD ORDERABLES Final Result [facility] [address] Department [place] [address] from Last 3 Months Insurance MEDICARE [facility] MEDICARE [facility] BLUE CROSS MEDICARE SUPPLEMENT MEDICARE [facility] MEDICARE SUPPLEMENT Advance Directives For more information, please contact: [phone] Documents on File Type Date Recorded Patient Land Surveyor Manager Expl anation ADVANCE DIRECTIVE 02/18/2024 2:13 PM [employer] Screen Operator-Medical * Full Code (Latest Code Status on File) Date Activated Date Inactivated Comments 02/18/2024 5:03 AM 02/20/2024 6:50 PM * Full Code Date Activated Date Inactivated Comments 05/13/2023 7:48 PM 05/14/2023 7:03 PM Care Teams Owner Professional Engineer Relationship Specialty Start Date End Date David Campbell DO PCP - General Internal Medicine 05/26/23 Cecilio Sanchez MD [phone] [place] [address] Surgeon Colon and Rectal Surgery 01/26/24
--- OUTSIDE RECORDS SUMMARY | 2024-11-03 13:40 | XMS_ITS | Clinical Summary ---
Author Organization [facility] Address [address] [facility] [address] [place] [address] Phone Care Team Providers Care Physician Relations Representative Name Role Phone Raghavendra Gutiérrez DO Primary [...] Comments Blood Pressure 120/70 03/08/2020 2:25 PM MOLDER WAX BALL Pulse 61 03/08/2020 2:25 PM MOLDER WAX BALL Temperature 35.6 C (96 F) 03/08/2020 2:25 PM MOLDER WAX BALL Respiratory Rate 16 03/08/2020 2:25 PM MOLDER WAX BALL Oxygen Saturation 98% 03/08/2020 2:25 PM MOLDER WAX BALL Inhaled Oxygen Concentration - - Weight 60.8 kg (134 lb) 03/08/2020 2:25 PM MOLDER WAX BALL Height 160 cm (5' 3) 11/30/2017 9:00 [...] age to complete this topic Insurance MEDICARE [facility] Care Teams Physician Relations Representative Relationship Specialty Start Date End Date Raghavendra Gutiérrez DO [address] [place] [address] PCP - General Internal Medicine 08/06/17
--- OUTSIDE RECORDS SUMMARY | 2024-11-03 13:41 | XMS_ITS | Clinical Summary ---
Author Organization [facility] Address [facility] [place] [address] Care Team Providers Care Research Chemical Engineer Name Role Phone None, Provider Primary Care [...] age to complete this topic Care Teams Research Chemical Engineer Relationship Specialty Start Date End Date None, Provider, PCP - General 06/26/20
--- OUTSIDE RECORDS SUMMARY | 2024-11-03 13:41 | XMS_ITS | Referral Summary ---
Author Organization [facility] [address] Address [address] [place] [address] Care Team Providers Care Cartridge Gauger Name Role Phone Shannan David Primary Care Provider [phone] Cecilio Sanchez MD Unavailable [phone] Encounters Date Type Department Care Team Description 09/28/2024 Telephone [facility] [address] [facility] Medicine 5th [place] [address] Lito Epps MD 09/28/2024 11:00 AM CDT Office Visit [facility] [address] [facility] 5th [place] [address] [place] [address] Lito Epps MD Osteoporosis, unspecified osteoporosis type, unspecified pathological fracture presence 09/28/2024 10:30 AM CDT Clinical Support [facility] [address] [facility] 5th [place] [address] Osteoporosis, unspecified osteoporosis type, unspecified pathological fracture presence 09/07/2024 10:30 AM CDT Office Visit [facility] Cardiology [address] [place] [address] Cecilio Cordova MD Paroxysmal atrial flutter (HCC) (Primary Dx); Essential hypertension; Chronic anticoagulation; UCHE (obstructive sleep apnea); Anxiety; Burning chest pain 09/06/2024 Telephone [facility] Gastroenterology at [place] [address] [facility] [address] [place] [address] Rubi Car MD 08/23/2024 10:15 AM CDT Lab [facility] Lab [address] [place] [address] 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 [...] 2 (two) times a day Active multivit ccfbtzss-zmnc-YR- calcium (THERA-M) 9 mg iron-400 mcg tabletIndications [...] these. Assessment & Plan (03/05/2022 12:26 PM CLINICAL SCIENCE LIAISON): She is very afraid to take injections [...] drink = 0.6 oz pur e alcohol) [facility] Utilities Answer Date Recorded In the past 12 months has [employer], gas, oil, or water [employer] threatened to shut off services in your [...] often do you attend chur ch or episcopalian services? Never 02/18/2024 Do you belong to any clubs o r organizations such as voodoo groups, unions, fraternal or athletic groups, or [...] any time in the past 12 m [facility], were you homeless or living in [...] on file Legal Sex Female 3:18 AM CLINICAL SCIENCE LIAISON Gender Identity Not on file Sexual Orientation Not on file Last Filed Vital Signs Vital Sign Reading Time Taken Comments Blood Pressure 122/62 09/07/2024 10:41 AM CDT Pulse 64 09/07/2024 10:41 AM CDT Temperature 37.3 C (99.1 F) 04/13/2024 11:17 AM CLINICAL SCIENCE LIAISON Respiratory Rate 15 04/13/2024 1:00 PM CLINICAL SCIENCE LIAISON Oxygen Saturation 99% 09/07/2024 10:41 AM CDT [...] Bone mineral density was performed on a Mendor Discovery Densitometer. Based on machine cross-calibration and [...] by the International Society of Clinical Densitometry. [id number] us Lito Epps MD IMG DXA PROCEDURES [...] MD LAB BLOOD ORDERABLES Final Result [facility] [address] [facility] Department [place] [address] * (ABNORMAL) Basic metabolic panel (08/23/2024 10:20 AM CDT) Sodium 138 135 - 145 mmol/L Potassium, pl 4.6 3.3 - 4.9 mmol/L [facility] Chloride 102 97 - 110 mmol/L [facility] CO2 27 22 - 32 mmol/L [facility] Anion gap 9 2 - 15 mmol/L [facility] BUN 25 6 - 25 mg/dL [facility] Creatinine 1.29(H) 0.60 - 1.10 mg/dL [facility] Glucose 95 70 - 199 mg/dL [facility] Comment: Interpretive Data Fasting glucose >/= [...] 2022. Calcium 9.0 8.5 - 10.3 mg/dL [facility] Blood 08/23/2024 10:2 0 AM CDT 08/23/2024 10:42 AM CDT Rubi Car MD LAB BLOOD ORDERABLES Final Result [facility] [address] [facility] [place] [address] from Last 3 Months [place] [address] [facility] MEDICARE [facility] BLUE CROSS MEDICARE SUPPLEMENT MEDICARE [facility] MEDICARE SUPPLEMENT Advance Directives For more information, please contact: [phone] Documents on File Type Date Recorded Patient Tool Maker Apprentice Expl anation ADVANCE DIRECTIVE 02/18/2024 2:13 PM Juana r of Jig Worker-Medical * Full Code (Latest Code Status on File) Date Activated Date Inactivated Comments 02/18/2024 5:03 AM 02/20/2024 6:50 PM * Full Code Date Activated Date Inactivated Comments 05/13/2023 7:48 PM 05/14/2023 7:03 PM Care Teams Cartridge Gauger Relationship Specialty Start Date End Date David Campbell DO PCP - General Internal Medicine 05/26/23 Cecilio Sanchez MD [phone] [place] [address] Surgeon Colon and Rectal Surgery 01/26/24
--- OUTSIDE RECORDS SUMMARY | 2024-11-03 13:41 | XMS_ITS | Patient Health Record ---
Author Organization [facility] Address [address] [place], [place] [address] Care Team Providers Care Asset Administrator Name Role Phone LEILA JOHNSON Unavailable [phone] Raghavendra Gutiérrez Unavailable Unavailable Reason For Referral No Information Medications Medication SIG (Take, Route, Frequency, Duration) Notes Start Date End Date Status ALPRAZolam 0.25 MG Oral Tablet ORAL alprazolam 0.25 MG Oral TabletOriginal Medicationalprazolam 0.25 MG Oral Tablet *Reorder from [employer] for eRx and Interaction Alerts* 7 Active cholecalciferol 5000 UNT / folic acid 1 MG Oral Tablet ORAL cholecalciferol 5000 UNT / folic acid 1 MG Oral TabletOriginal Medicationcholecalciferol 5000 UNT / folic acid 1 MG Oral Tablet *[facility]Rx and Interaction Alert[facility]* 7 Active Ascorbic Acid 500 MG Oral Tablet ORAL ascorbic acid 500 MG Oral TabletOriginal Medicationascorbic acid 500 MG Oral Tablet *Reorder from [facility] for eRx and Interaction Alerts* 7 Active folic acid 1 MG / vitamin B12 0.5 MG Oral Tablet ORAL folic acid 1 MG / vitamin B1 2 0.5 MG Oral TabletOriginal Medicationfolic acid 1 MG / vitamin B12 0.5 MG Oral Tablet *Reorder from [facility] for eRx and Interaction Alerts* 7 Active omeprazole 20 MG Delayed Release Oral Tablet ORAL omeprazole 20 MG Delayed Release Oral TabletOriginal Medicationomeprazole 20 MG Delayed Release Oral Tablet *Reorder from [employer] for eRx and Interaction Alerts* 7 Active Medrol Dosepak ORAL Medrol DosepakOr iginal MedicationMedrol Dosepak *Reorder from [facility] for eRx and Interaction Alerts* 9 Active ubidecarenone 100 MG Oral Capsule ORAL ubidecarenone 100 MG Oral CapsuleOriginal Medicationubidecarenone 100 MG Oral Capsule *[facility] and Interaction Alerts* 7 Active Plan Of Treatment No Information Insurance Providers Payer Name Payer Address Payer Phone Subscriber Number Group Number Insured Name Patient Relationship to Insured Coverage Start Date Coverage End Date Medicare Part B [place] [address] [place] [address] [id number] JOANN GARCIA Self - patient is the insured [facility] ([facility]) ATTN CLAIMS [address] [place] [address] [id number] JOANN GARCIA Self - patient is the insured [facility] [address] [place], [place] [id number] JOANN GARCIA Self - patient is the insured
--- OUTSIDE RECORDS SUMMARY | 2024-11-03 13:41 | XMS_ITS | Continuity of Care Document ---
Author Organization [facility] Address [address] [place] [address] Phone Care Team Providers Care Javascript Web Developer Name Role Phone Mcgraw Ham Unavailable Unavailable Procedures Procedure Date Office Consultation Ophthalmoscopy Eye Exam, New Patient Advance Directives Directive Yes / No Effective Date File Name No Information Encounters Encounter Description Practice Location Reason(s) For Visit Diagnoses Date Provider Providers Copied on Encounter Office Consultation [facility], [address], [place], [place], [id number], [place] tel:[phone] [facility] No Information [address] [place], [address], [place]. tel:[phone] Referring Provider: Hugo cox, [address], [address]. tel:[phone] [facility], [address], [place], [place], [address], [place] tel:[phone] [facility] No Information 8[address] Demian Arias. [address], [address], [place]. tel:[phone] Referring Provider: Raghavendra Gutiérrez MD, [address], [place], [address]. tel:[phone] Family History Family Member Type Diagnosis Age At Onset No Information Payers Payer name Insurance type Covered green party ID Authoriza tion(s) [place] MB [id number] [facility] Commercial BL [id number] Social History Type Description Quantity Date Captured [...]
== END 2024-11-03 13:27 | disposition home or self-care (01) ==
PROVIDERS: PCP Internal Medicine; Visit Provider Internal Medicine
DX: M19.031 Primary osteoarthritis, right wrist (principal); M67.431 Ganglion, right wrist; M19.041 Primary osteoarthritis, right hand
CPT/HCPCS: 73218; 73221

== ENCOUNTER 2024-11-16 13:54 | Outpatient (CLI) | payer MEDICARE, SELFPAY ==
--- OUTSIDE RECORDS SUMMARY | 2024-11-16 13:56 | XMS_ITS | Continuity of Care Document ---
Author Organization [facility] Address [address] [place] [address] Phone Care Team Providers Care Barrel Coater Name Role Phone Mcgraw Ham Unavailable Unavailable Procedures Procedure Date Office Consultation Ophthalmoscopy Eye Exam, New Patient Advance Directives Directive Yes / No Effective Date File Name No Information Encounters Encounter Description Practice Location Reason(s) For Visit Diagnoses Date Provider Providers Copied on Encounter Office Consultation [facility], [address], [place], [place], [address], [place] tel:[phone] [facility] No Information [address] [place], [address], [place]. tel:[phone] Referring Provider: Hugo cox, [address], [address]. tel:[phone] [facility], [address], [place], [place], [address], [place] tel:[phone] [facility] No Information [address] Demian Arias. [address], [address], [place]. tel:[phone] Referring Provider: Raghavendra Gutiérrez MD, [address], [place], [address]. tel:[phone] Family History Family Member Type Diagnosis Age At Onset No Information Payers Payer name Insurance type Covered democrat ID Authoriza tion(s) [place] [id number] [facility] Commercial BL [id number] Social History Type Description Quantity Date Captured [...]
--- OUTSIDE RECORDS SUMMARY | 2024-11-16 13:56 | XMS_ITS | Clinical Summary ---
Author Organization [facility] Address [facility] [place] [address] Care Team Providers Care Rolloff Driver Name Role Phone None, Provider Primary Care [...] age to complete this topic Care Teams Rolloff Driver Relationship Specialty Start Date End Date None, Provider, PCP - General 06/26/20
--- OUTSIDE RECORDS SUMMARY | 2024-11-16 13:56 | XMS_ITS | Clinical Summary ---
Author Organization [facility] [address] Address [address] [place] [address] Care Team Providers Care Building Architect Name Role Phone David Campbell DO Primary Care Provider [phone] Cecilio Sanchez MD Unavailable [phone] Allergies Active Allergy Reactions Criticality Noted Date [...] 2 (two) times a day Active multivit awcksfpk-dplp-ZQ- calcium (THERA-M) 9 mg iron-400 mcg tabletIndications [...] these. Assessment & Plan (03/05/2022 12:26 PM NURSING STAFF DEVELOPMENT COORDINATOR): She is very afraid to take injections [...] Description 09/28/2024 11:00 AM CDT Office Visit [address] 5th [place] [address] [place] [address] Lito Epps MD Osteoporosis, unspecified osteoporosis type, unspecified pathological fracture presence 09/28/2024 10:30 AM CDT Clinical Support [address] 5th [place] [address] [place] [address] Osteoporosis, unspecified osteoporosis type, unspecified pathological fracture presence 09/28/[address] 5th [place] [address] [place] [address] Lito Epps MD 09/07/2024 10:30 AM CDT Office Visit [place] [facility] Cardiology [address] [place] [address] Cecilio Cordova MD Paroxysmal atrial flutter (HCC) (Primary Dx); Essential hypertension; Chronic anticoagulation; UCHE (obstructive sleep apnea); Anxiety; Burning chest pain 09/06/2024 Telephone [facility] Gastroenterology at [place] [address] [facility] [address] [place] [address] Rubi Car MD 08/23/2024 10:15 AM CDT Lab [facility] Lab [address] [place] [address] 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 No 02/18/2024 Social Connection and Isolation Panel Answer Date Recorded In a typical week, [...] any clubs o r organizations such as faith groups, unions, fraternal or athletic groups, or [...] place to sleep or slept in a halfway (including now)? No 05/14/2023 Housing Stability Vital Sign Answer Erasmo e Recorded In the last 12 months, was t here a time when you were not able to pay the mortgage or rent on time? No 02/18/2024 In the past 12 months, how m any times have you moved where you were living? 0 02/18/2024 At any time in the past 12 m [facility], were you homeless or living in a halfway (including now)? No 02/18/2024 Personal Safety Answer Date Recorded Have you ever been in or are you currently in a harmful physical or emotional relationship or is someone making you feel afraid or unsafe? Denies 04/13/2024 Comments No Sex and Gender Information Value Date Recorded Sex Assigned at Not on file Legal Sex Female 3:18 AM NURSING STAFF DEVELOPMENT COORDINATOR Gender Identity Not on file Sexual Orientation Not on file Obstetrics History Last Filed Vital Signs Vital Sign Reading Time Taken Comments Blood Pressure 122/62 09/07/2024 10:41 AM CDT Pulse 64 09/07/2024 10:41 AM CDT Temperature 37.3 C (99.1 F) 04/13/2024 11:17 AM NURSING STAFF DEVELOPMENT COORDINATOR Respiratory Rate 15 04/13/2024 1:00 PM NURSING STAFF DEVELOPMENT COORDINATOR Oxygen Saturation 99% 09/07/2024 10:41 AM CDT [...] ( - season) 2023, 06/26/2020 Influenza Vaccine (#1) [...] Bone mineral density was performed on a Holo[employer]uri[employer] Discovery Densitometer. Based on machine cross-calibration and [...] density scan were prepared by Josefina Dillard) AJCQUELINE who is accredited by the International Society of Clinical Densitometry. The overall patient assessment and scan interpretation were performed by Lito Epps M.D. who is certified by the International Society of Clinical Densitometry. [id number] us Lito Epps MD IM DXA PROCEDURES Final Resul t * (ABNORMAL) eGFR (08/23/2024 10:20 AM CDT) [facility] eGFR 41(L) >=60 mL/min/1. 73 m2 [...] Car MD LAB BLOOD ORDERABLES Final Result [facility] [address] [facility] Department [place] [address] * (ABNORMAL) Basic metabolic panel (08/23/2024 10:20 AM CDT) [facility] Sodium 138 135 - 145 mmol/L Potassium, pl 4.6 3.3 - 4.9 mmol/L [facility] Chloride 102 97 - 110 mmol/L [facility] CO2 27 22 - 32 mmol/L [facility] Anion gap 9 2 - 15 mmol/L [facility] BUN 25 6 - 25 mg/dL [facility] Creatinine 1.29(H) 0.60 - 1.10 mg/dL [facility] Glucose 95 70 - 199 mg/dL [facility] Comment: Interpretive Data Fasting glucose [...] Car MD LAB BLOOD ORDERABLES Final Result [facility] [address] [facility] Department [place] [address] from Last 3 Months Insurance [facility]ICARE [facility] MEDICARE [facility] BLUE CROSS MEDICARE SUPPLEMENT MEDICARE [place] CROSS MEDICARE SUPPLEMENT Advance Directives For more information, please contact: [phone] Documents on File Type Date Recorded Patient Dehairing Machine Tender Expl anation ADVANCE DIRECTIVE 02/18/2024 2:13 PM Juana r of Banjo Repairer-Medical * Full Code (Latest Code Status on File) Date Activated Date Inactivated Comments 02/18/2024 5:03 AM 02/20/2024 6:50 PM * Full Code Date Activated Date Inactivated Comments 05/13/2023 7:48 PM 05/14/2023 7:03 PM Care Teams Building Architect Relationship Specialty Start Date End Date David Campbell DO PCP - General Internal Medicine 05/26/23 Cecilio Sanchez MD [phone] [place] [address] Surgeon Colon and Rectal Surgery 01/26/24
--- OUTSIDE RECORDS SUMMARY | 2024-11-16 13:56 | XMS_ITS | Clinical Summary ---
Author Organization [facility] Address [address] [facility] [address] [place] [address] Phone Care Team Providers Care Sequins Slinger Name Role Phone Raghavendra Gutiérrez DO Primary [...] Comments Blood Pressure 120/70 03/08/2020 2:25 PM WHARF LABORER Pulse 61 03/08/2020 2:25 PM WHARF LABORER Temperature 35.6 C (96 F) 03/08/2020 2:25 PM WHARF LABORER Respiratory Rate 16 03/08/2020 2:25 PM WHARF LABORER Oxygen Saturation 98% 03/08/2020 2:25 PM WHARF LABORER Inhaled Oxygen Concentration - - Weight 60.8 kg (134 lb) 03/08/2020 2:25 PM WHARF LABORER Height 160 cm (5' 3) 11/30/2017 9:00 [...] age to complete this topic Insurance MEDICARE [facility] Care Teams Sequins Slinger Relationship Specialty Start Date End Date Raghavendra Gutiérrez DO [address] [place] [address] PCP - General Internal Medicine 08/06/17
[2024-11-16 14:27] LABS: Anion Gap 4 mmol/L (4-12); Blood Urea Nitrogen 23 mg/dL (7-17); Calcium 9.1 mg/dL (8.4-10.2); Carbon Dioxide 29 mmol/L (22-30); Chloride 103 mmol/L (98-107); Estimated Glomerular Filt Rate 40; Glucose 129 mg/dL (65-110); Potassium 4.2 mmol/L (3.4-5.0); Sodium 136 mmol/L (137-145)
== END 2024-11-16 13:55 | disposition home or self-care (01) ==
PROVIDERS: PCP Internal Medicine; Visit Provider Internal Medicine
DX: N18.31 Chronic kidney disease, stage 3a (principal); E87.1 Hypo-osmolality and hyponatremia
CPT/HCPCS: 36415; 80048

== ENCOUNTER 2025-02-08 13:12 | Outpatient (CLI) | payer MEDICARE, SELFPAY ==
--- NOTE | ~2025-02-08 | US_ITS ---
EXAMINATION: US pelvic complete w TV INDICATION: Follow-up left ovarian cyst Comparison:Ultrasound dated 08/15/2024 TECHNIQUE: Multiple transabdominal and endovaginal sonographic images of the pelvis performed. FINDINGS: The uterus measures 5.6 x 2.4 x 3.3 cm. The endometrial complex measures 3 mm. The right ovary is not visualized. Left ovary contains a simple cyst measuring 6 x 5.3 x 5 cm, slightly larger than on prior study. There is no free fluid in the pelvis. There are no abnormal masses seen on either side. IMPRESSION: 1. Enlarging left ovarian simple cyst measuring 6 cm. Differential diagnosis includes benign simple ovarian cysts, serous cystoadenoma, cystic ovarian neoplasm and paraovarian cyst. Recommend gynecologic consultation, correlation with serum CEA 125 levels and repeat pelvic ultrasound in 3-6 months for monitoring. Reviewed, dictated and finalized at location O. CHOOL SUBSTITUTE TEACHER IMPRESSION: 1. Enlarging left ovarian simple cyst measuring 6 cm. Differential diagnosis in cludes benign simple ovarian cysts, serous cystoadenoma, cystic ovarian neoplas m and paraovarian cyst. Recommend gynecologic consultation, correlation with se rum CEA 125 levels and repeat pelvic ultrasound in 3-6 months for monitoring.
== END 2025-02-08 13:13 | disposition home or self-care (01) ==
LOC: MICIMG 13:13
PROVIDERS: PCP Internal Medicine; Visit Provider Obstetrics & Gynecology
DX: N83.209 Unspecified ovarian cyst, unspecified side (principal)
CPT/HCPCS: 76830; 76856

== ENCOUNTER 2025-02-13 12:45 | Outpatient (CLI) | payer MEDICARE, SELFPAY ==
--- OUTSIDE RECORDS SUMMARY | 2007-09-08 07:17 | XMS_ITS | Continuity of Care Document ---
Author Organization [facility] Address [address] [place] [address] Phone Care Team Providers Care Resident Care Director Name Role Phone Mcgraw Ham Unavailable Unavailable Procedures Procedure Date Office Consultation Ophthalmoscopy Eye Exam, New Patient Advance Directives Directive Yes / No Effective Date File Name No Information Encounters Encounter Description Practice Location Reason(s) For Visit Diagnoses Date Provider Providers Copied on Encounter Office Consultation [facility], [address], [place], [place], [id number], [place] tel:[phone] [facility] No Information 5-[address] [place], [address], [place]. tel:[phone] Referring Provider: Hugo cox, [address], [address]. tel:[phone] [facility], [address], [place], [place], [id number], [place] tel:[phone] [facility] No Information 8-200 8 Demian Arias. [address], [address], [place]. tel:[phone] Referring Provider: Raghavendra Gutiérrez MD, [address], [place], [address]. tel:[phone] Family History Family Member Type Diagnosis Age At Onset No Information Payers Payer name Insurance type Covered alliance party ID Authoriza tion(s) [place] [id number] [facility] Commercial BL [id number] Social History Type Description Quantity Date Captured Comments Sex Female Smoking Status No Information Chief Complaint And Reason For Visit No Information Reason For Referral Reason For Referral No Information History Of Present Illness Encounter Date Complaint History Of Prese nt Illness No Information Functional Status Date Functional Assessmen t No Information Instructions Date Instruction Additional Infor mation No Information Assessments Type Assessment Date No Information Patient Care Teams Name Effective Dates (start - stop) Status Members No Information
--- OUTSIDE RECORDS SUMMARY | 2025-02-13 12:48 | XMS_ITS | Clinical Summary ---
Author Organization [facility] [address] Address [address] [place] [address] Care Team Providers Care Shactor Helper Name Role Phone David Campbell DO Primary Care Provider [phone] Lenny Sanchez MD Unavailable [phone] Allergies Active Allergy Reactions Criticality Noted Date [...] 2 (two) times a day Active multivit wommwdxk-tslm-HJ- calcium (THERA-M) 9 mg iron-400 mcg tabletIndications [...] these. Assessment & Plan (03/05/2022 12:26 PM DIRECTOR OF EVENTS): She is very afraid to take injections [...] Encounters Date Type Department Care Team Description 12/29/2024 9:15 AM CDT Ancillary Procedure [facility] Medical Group Cardiology at [address] [place] [address] Burning chest pain 12/29/2024 Results Follow-Up [facility] Cardiology at [address] [place] [address] Lenny Blevins MD NM MPI SPECT (Rest and/or Stress) Multiple Studies 12/27/2024 Telephone [facility] Medical [facility] Cardiology [address] [facility] [address] [place] [address] Lenny Blevins MD stress test from Last 3 Months Surgical History Surgery [...] drink = 0.6 oz pur e alcohol) [facility] Utilities Answer Date Recorded In the past 12 months has [employer], gas, oil, or water [employer] threatened to shut off services in your [...] any clubs o r organizations such as yazdanism groups, unions, fraternal or athletic groups, or [...] any time in the past 12 m [facility], were you homeless [...] on file Legal Sex Female 3:18 AM DIRECTOR OF EVENTS Gender Identity Not on file Sexual Orientation Not on file Last Filed Vital Signs Vital Sign Reading Time Taken Comments Blood Pressure 122/62 09/07/2024 10:41 AM CDT Pulse 64 09/07/2024 10:41 AM CDT Temperature 37.3 C (99.1 F) 04/13/2024 11:17 AM DIRECTOR OF EVENTS Respiratory Rate 15 04/13/2024 1:00 PM DIRECTOR OF EVENTS Oxygen Saturation 99% 09/07/2024 10:41 AM CDT [...] 65+ 2006 Covid-19 Vaccine (3 - season) 2024, 06/26/2020 Influenza Vaccine (#1) 2024 Fall Risk Assessment 02/19/2025 02/20/2024 Osteoporosis Screening-Bone Density Scan 09/28/2026 09/28/2024, 07/22/2023, 03/05/2022 Procedures Procedure Name Priority Date/Time Associated Diagnosis Comments NM MPI SPECT (REST AND/OR STRESS) MULTIPLE STUDIES Schedule Routine, Read Routine (OP Routine) 12/29/2024 10:41 AM CDT Burning chest pain DEXA TBS AXIAL SKELETON BONE DENSITY 1 OR MORE SITES Schedule Routine, Read Routine (OP Routine) 09/28/2024 10:23 AM CDT Osteoporosis, unspecified osteoporosis type, unspecified pathological fracture presence from Last 3 Months or Most Recently Relevant to Health Maintenance Results * NM MPI SPECT (Rest and/or Stress) Multiple Studies (12/29/2024 10:41 AM CDT) Anatomical Region Laterality Modality Body N/A Electrocardiogra phy 12/29/2024 9:15 AM CDT Narrative 12/29/2024 4:16 PM CDT [facility] Medical Group Cardiology [address], [place] [address] [address] [facility] [address], [place] [address], [place] [address] P:[phone] P:[phone] MPI Imaging Report Patient Name: JOANN GARCIA E : 1940 Study Date: 12/29/2024 9:15:00 AM Sex: F Tech: [facility] Location: [facility] Provider: LENNY BLEVINS Height(Cm): 157.5 BSA: Weight(Kg): 61.2 Heart Rate: 116 BMI: 24.67 Order Provider: LENNY BLEVINS PHYSICIAN: Primary Care Physician: Dr. Campbell. [facility] Physician: Raymond Blevins M.D. Stress Supervision: Raymond Blevins M.D. Stress Interpreting Physician: Raymond Blevins M.D. Image Interpreting Physician: Raymond Blevins M.D. PROCEDURES: Exercise SPECT Report: Myocardial perfusion imaging with Tc99m Sestamibi SPECT at rest and stress post exercise using the Chandana protocol. INDICATIONS: Hypertension, Family Hx CAD, and R07.89 Other chest pain. FINDINGS: Procedure: One day rest/stress protocol was used. Tc99m Sestamibi injected IV at rest was 8.8 millicuries 25.1 millicuries of Tc99m Sestamibi injected IV at peak stress Patient had no symptoms during stress test. Baseline heart rate was 49 BPM Peak heart rate was 136 BPM Max projected heart rate was 137 Percent predicted max heart rate achieved was 99 % Exercise Time 6:00 min Baseline blood pressure was 145/51 mmHg Peak blood pressure 151/71 mmHg Termination: Leg fatigue. Exercise Tolerance: Excellent for patient's age. Resting ECG: Sinus bradycardia. Post ECG: No diagnostic ST changes. Arrhythmia: Occasional APCs. Perfusion Findings: Normal perfusion imaging. No definite fixed or reversible defects. Technical quality of study is excellent. Left ventricle cavity size at rest is normal. Left ventricle cavity size with stress is unchanged. A TID of 0.85 was automatically calculated. LV Function: Global left ventricular function is normal. Left Ventricular Ejection Fraction is 70 %. CONCLUSIONS: Myocardial perfusion imaging is normal. Global left ventricular function is normal. Left Ventricular Ejection Fraction is 70 %. Negative EKG portion of stress test. Attenuation correction utilized for the interpretation of this study. Electronically Signed By: Lenny Blevins MD 12/29/2024 3:33:44 PM CDT Electronically Signed By: Lenny Blevins MD 12/29/2024 3:33:44 PM CDT Procedure Note Lenny Blevins MD - 12/29/2024 [facility] Medical Group Cardiology [address] [facility] [address], [place] [address] [address] [facility] [address], [place] [address] [address] [place] [address] P:[phone] P:[phone] MPI Imaging Report Patient Name: JOANN GARCIA E : 1940 Study Date: 12/29/2024 9:15:00 AM Sex: F Tech: INDIRA HERNANDEZ Location: [facility] Provider: LENNY BLEVINS Height(Cm): 157.5 BSA: Weight(Kg): 61.2 Heart Rate: 116 BMI: 24.67 Order Provider: LENNY BLEVINS PHYSICIAN: Primary Care Physician: Dr. Campbell. [facility] Physician: Raymond Blevins M.D.Stress Supervision: Raymond Blevins M.D. Stress Interpreting Physician: Sebastian Douglas Image Interpreting Physician: Raymond Blevins M.D. PROCEDURES: Exercise SPECT Report: Myocardial perfusion imaging with Tc99m Sestamibi SPECT at rest and stresspost exercise using the Chandana protocol. INDICATIONS: Hypertension, Family Hx CAD, and R07.89 Other chest pain. FINDINGS: Procedure: One day rest/stress protocol was used. Tc99m Sestamibi injected IV at rest was 8.8 millicuries 25.1 millicuries of Tc99m Sestamibi injected IV at peak stress Patient had no symptoms during stress test. Baseline heart rate was 49 BPM Peak heart rate was 136 BPM Max projected heart rate was 137 Percent predicted max heart rate achieved was 99 % Exercise Time 6:00 min Baseline blood pressure was 145/51 mmHg Peak blood pressure 151/71 mmHg Termination: Leg fatigue. Exercise Tolerance: Excellent for patient's age. Resting ECG: Sinus bradycardia. Post ECG: No diagnostic ST changes. Arrhythmia: Occasional APCs. Perfusion Findings: Normal perfusion imaging. No definite fixed or reversible defects.Technical quality of study is excellent. Left ventricle cavity size at rest is normal. Leftventricle cavity size with stress is unchanged. A TID of 0.85 was automaticallycalculated. LV Function: Global left ventricular function is normal. Left Ventricular EjectionFraction is 70 %. CONCLUSIONS: Myocardial perfusion imaging is normal. Global left ventricular function is normal. Left Ventricular EjectionFraction is 70 %. Negative EKG portion of stress test. Attenuation correction utilized for the interpretation of this study. Electronically Signed By: Lenny Blevins MD 12/29/2024 3:33:44 PM CDT Electronically Signed By: Lenny Blevins MD 12/29/2024 3:33:44 PM CDT us Lenny Blevins MD IMG NM PROCEDURES Final R esult * Dexa TBS Axial Skeleton Bone Density 1 or more sites (09/28/2024 10:23 AM CDT) Anatomical Region Laterality Modality Wrist, Body N/A Radiographic Anna ging Narrative 09/28/2024 11:15 AM CDT Patient Name: Joann Garcia Date of : 1940 Date of scan: 09/28/2024 Bone mineral density was performed on a [employer] Discovery Densitometer. Based on machine cross-calibration and [...] mineral density scan were prepared by Josefina Schumacher(Ezekiel) JACQUELINE who is accredited by the International Society of Clinical Densitometry. The overall patient assessment and scan interpretation were performed by Lito Epps M.D. who is certified by the International Society of Clinical Densitometry. 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
--- OUTSIDE RECORDS SUMMARY | 2025-02-13 12:48 | XMS_ITS | Data Portability ---
Author Organization [place] [facility], Main Office Address [address] [place] [address] Care Team Providers Care Operator Coating Furnace Name Role Phone PAULA DAVE Primary Care Provider [phone] PAULA DAVE Referring Provider [phone] MALGORZATA MACKENZIE Personal Attendant Assessment No assessment recorded. Plan of Treatment Reminders Order Date Submit Date Provider Last Modified By Organization Details Last Modified Time Details Appointments None recorded. Lab None recorded. Referral occupation al therapist referral - ROM, STRENGTHEN INTRINSICS [address] [facility], [address], [place], [address], 3 11:05:36 occupation al therapist referral - ROM/STRENG THENING, MODALITIES [address] [facility], [address], [place], [address], 3 12:19:25 occupation al therapist referral - dynamize splint, splint 3-4 times a day for 20-30min 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 Surgeries None recorded. Imaging None recorded. Medication Orders None recorded. Patient TargetsNo targets recorded. Patient InstructionsNo instructions recorded. Reason for Referral Occupational Therapist Refer ral for Closed fracture of distal end of radius DUDLEY WORK COMPInjury Date 08/28/2021Injured Body Part R [id number]'s Comp GURDEEP MCGARRYAdjuster Adjuster pLASTAZOTE SPLINT SMALL AND RING MP IN FLEXIONROM=P-A-AA Referring Physician: Carlos Jerez, Orthopedic Surgery, Encounter Date: 06/30/2022 Occupational Therapist Refer ral for Closed fracture of distal end of radius P-AA-AROM, MODALITIES Referring Physician: Carlos Jerez, Orthopedic Surgery, Encounter Date: 07/07/2022 Occupational Therapist Refer ral for Pain of right wrist dynamize splint, splint 3-4 times a day for 20-30min Referring Physician: Carlos Jerez, Orthopedic Surgery, Encounter Date: 07/21/2022 Occupational Therapist Refer ral for Carpal tunnel syndrome of right wrist ROM/STRENGTHENING, MODALITIES Referring Physician: Carlos Jerez, Orthopedic Surgery, Encounter Date: 08/18/2022 Occupational Therapist Refer ral for Complex regional pain syndrome of hand ROM, STRENGTHEN INTRINSICS Referring Physician: Carlos Jerez Orthopedic Surgery, Encounter Date: 10/20/2022 Results Created Date Observation Date Name Description Value Unit Range Abnormal Flag Note LastModifiedBy Organization Detail LastModifiedTime Result Notes None recorded. Problems Name Problem SNOMED Code Status Onset Date Resolution Date Notes Provider Name and Address Organization Details Recorded Time Complex regional pain syndrome 501811142 Active 2021 Not Available [facility] 3 01:25:00 Closed fracture of distal end of radius 50339423 Active 2021 Not Available [facility] 3 01:25:00 Pain of right wrist 0353031512592 00 Active 2021 Not Available [facility] 3 01:25:00 Pain of multiple joints 37229585 Active 2021 Not Available [facility] 3 01:25:00 Carpal tunnel syndrome of right wrist 6978811949962 08 Active 2022 Jann Melvin RMA null, [facility] 3 09:14:37 Contractur e of joint of finger 377051589 Active 2022 Carlos Jerez MD [address] [place] [address], [address] , [facility] 3 17:05:30 Complex regional pain syndrome of hand 181013601 Active 2022 Leny Singleton, ATC L null, [facility] 3 10:08:13 Problem Notes None recorded. Medical Equipment None Reported. Medications Name Sig Start Date Stop Date Status Note LastModified by Organization Details LastModified Time paroxetine 10 mg tablet TAKE 1 TABLET BY MOUTH AT BEDTIME active Not Available Not Available No t Available azithromycin 250 mg tablet TAKE 2 TABLETS BY MOUTH ON DAY 1, AND THEN TAKE 1 TABLET BY MOUTH ONCE A DAY ON DAY 2 THROUGH DAY 5 active Not Available Not Available No t Available benzonatate 200 mg capsule TAKE 1 CAPSULE BY MOUTH TWICE DAILY NEEDED FOR COUGH active Not Available Not Available No t Available alendronate 70 mg tablet TAKE 1 TABLET BY MOUTH ONCE A WEEK TAKE IN THE MORNING WITH A FULL GLASS OF WATER, ON AN EMPTY STOMACH, AND DO NOT TAKE ANYTHING ELSE BY MOUTH OR LIE DOWN FOR THE NEXT 30 MINUTES. active Not Available Not Available No t Available triamcinolone acetonide 0.1 % topical cream active Not Available Not Available Not Available alprazolam 0.5 mg tablet TAKE 1 TABLET BY MOUTH TWICE DAILY NEEDED FOR ANXIETY active Not Available Not Available No t Available triamcinolone acetonide 0.025 % topical cream APPLY CREAM TOPICALLY TO RASH AREA ON BACK OF NECK TWICE DAILY FOR 4 WEEKS FOR FLARES (DO NOT APPLY TO FACE, MUST TAKE 2 WEEK BREAK BEFORE RESTARTING ) active Not Available Not Available No t Available hydrocodone 7.5 mg-acetaminop hen 325 mg tablet TAKE 1 TABLET BY MOUTH EVERY 6 HOURS NEEDED FOR PAIN active Not Available Not Available No t Available omeprazole 20 mg capsule,delay ed release TAKE 1 CAPSULE BY MOUTH ONCE DAILY active Not Available Not Available No t Available methylprednis olone 4 mg tablets in a dose pack active Not Available Not Available No t Available lisinopril 40 mg tablet TAKE 1 TABLET BY MOUTH ONCE DAILY active Not Available Not Available No t Available BinaxNOW COVID-19 Ag Self Test kit Use as Directed on the Package active Not Available Not Available No t Available Vitals Date Recorded Body height Body mass index (BMI) Body weight Provider Name and Address Organization Details Last Updated DateTime 06/30/2022 160.02 cm 24.8 kg/m2 39871.93 g Jann Melvin [facility] [employer] [facility] [employer] [facility] 06/30/2022 09:14:09 Date Recorded Body height Body mass index (BMI) Body weight Provider Name and Address Organization Details Last Updated DateTime 07/07/2022 160.02 cm 24.8 kg/m2 56423.93 g Rae Hawley [facility] [employer] [facility] [employer] [facility] 07/07/2022 14:24:11 Date Recorded Body height Body mass index (BMI) Body weight Provider Name and Address Organization Details Last Updated DateTime 07/21/2022 160.02 cm 24.8 kg/m2 98162.93 jeffrey Hawley [facility] [employer] [facility] [employer] [facility] 07/21/2022 15:50:03 Date Recorded Body height Body mass index (BMI) Body weight Provider Name and Address Organization Details Last Updated DateTime 08/18/2022 160.02 cm 25.3 kg/m2 05193.71 g Leny Singleton [facility] [employer] [facility] [employer] [facility] 08/18/2022 10:24:42 Date Recorded Body height Body mass index (BMI) Body weight Provider Name and Address Organization Details Last Updated DateTime 10/20/2022 160.02 cm 25.3 kg/m2 17848.71 g Leny Cartysvetlana, ATC L [place] [facility] [employer] [facility] 10/20/2022 10:07:40 Social History Question Answer Notes LastModified by [employer] Details LastModified Time Tobacco Smoking Status Unknown If Ever Smoked Not Available [employer] 06/04/2022 01:23:59 What Was The Date Of Your Most Recent Tobacco Screening? 11/11/2021 [id number] Information not available 06/04/2022 Sex: Unknown Functional Status Question Answer Note LastModified by [employer] Details LastModified Time What is your level of alcohol consumption? None [id number] Information not available 06/04/2022 Mental Status None recorded. Family History Relationship Description Onset Age of this Age Resolved Age Notes LastModified by Organization Details LastModified Time Mother Heart disease [id number] Not available 06/04/2022 01:24:10 Mother Hypertensive disorder [id number] Not available 06/04/2022 01:24:10 Medical History Condition Response OSTEOPOROSIS Y HYPERTENSION Y Gynecological HistoryNo gynecological history recorded. Obstetrics History GPAL:G 0 P 0 0 0 0 Past Encounters Encounter ID Performer Location Encounter Start Date Encounter Closed Date Diagnosis/Indication Diagnosis SNOMED-CT Code Diagnosis ICD10 Code Diagnosis IMO Codes Diagnosis Note [id number] Carlos Jerez MD Julio_[facility] [place] [address] [place] [address] 11/11/2021 00:00:00 11/11/2021 12:47:24 [id number] Carlos Jerez MD Julio_[facility] [place] [address] [place] [address] 12/23/2021 00:00:00 12/23/2021 12:50:15 [id number] MD CELESTE DrakeJeffrey [facility] [place] [address] [place] [address] 02/03/2022 00:00:00 02/03/2022 12:16:23 [id number] Carlos Jerez MD [facility] [place] [address] [place] [address] 03/17/2022 00:00:00 03/17/2022 12:53:13 [id number] Carlos Jerez MD [facility] [place] [address] [place] [address] 05/26/2022 00:00:00 05/26/2022 12:28:58 [id number] Carlos Jerez MD [facility] [place] [address] [place] [address] 06/30/2022 09:11:56 06/30/2022 10:18:52 Closed fracture of distal end of radius 78500253 S52.501A Pain of right wrist 3169 562005 01529 M25.531 Complex re gional pain syndrome 165727742 G90.519 patient was referred down and OT will start her on range of motion right away and dressing changes thumb maker a Plastazote protective splint to keep those MCPs flexed and she takes it off just for exercises wears it day and night we will see her next week for suture removal and then will let her leave it off for an hour a day then moved to 2 hours a day and gradually wean her from the brace after 6-8 weeks Carpal pascale richard syndrome of right wrist 3501239754 35552 G56.01 daily dressing change see her next week for suture removal from the carpal tunnel as well [id number] Carlos Jerez MD [facility] [place] [address] [place] [address] 07/07/2022 14:22:13 07/07/2022 15:56:19 Closed fracture of distal end of radius 74252757 S52.501A patient will continue with therapy now she has a protective splint she can take it off to shower and to do gentle range of motion at home but otherwise she will wear it outside of her exercise periods and at night I will see her back in 2 weeks for follow-up continue occupation al therapy with range of motion and modalities [id number] Carlos Jerez MD [facility] [place] [address] [place] [address] 07/21/2022 15:47:17 07/21/2022 16:36:29 Pain of right wrist 3663836096 73044 M25.531 Carpal pascale richard syndrome of right wrist 8674944834 80316 G56.01 continue with nerve and tendon glides and strengthen ing of the hand now with therapy. 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 We will have them dynamize or splint she can wear at now 3 or 4 times a day for 20-30 minutes with a dynamize to help flex her fingers [id number] Carlos Jerez MD [facility] [place] [address] [place] [address] 08/18/2022 10:22:04 08/18/2022 11:16:04 Pain of right wrist 9215478131 69706 M25.531 Carpal pascale richard syndrome of right wrist 6896648666 29286 G56.01 Contractur e of joint of finger 645816648 M24.549 patient will continue working with therapy twice a week for 6 more weeks I will see her back in 8 weeks for possible release at that point as her signs of RSD have diminished she is making a pretty good fist now her strength is gradually coming back her pain is gradually subsiding still has a little bit of pain over the ECU tendon and distal radioulnar joint but all is stable no subluxing of either the joint or the tendon. [id number] Carlos Jerez MD [facility] [place] [address] [place] [address] 10/20/2022 10:03:34 10/20/2022 10:38:22 Pain of right wrist 7570999514 02513 M25.531 Carpal pascale richard syndrome of right wrist 2862439147 61538 G56.01 Complex re gional pain syndrome of hand 973512235 G90.519 patient will continue with aggressive therapy working on strengthen ing of her intrinsics and range of motion. If she has some continued numbing and tingling complaints in the ulnar distributi on of the hand and an EMG nerve conduction would be of benefit. For now, she needs to avoid prolonged periods of elbow flexion such as falling asleep with the elbow being beneath her or having the elbow flexed up beyond 90 and putting pressure on the elbow such as resting on arm rest any time she feels a numbing and tingling in the ulnar part of the hand she needs to straighten the elbow. Health Concerns Section Related Observation LastModified by Organization Detai ls LastModified Time None Recorded Concern Status LastModified by Organization Details LastModified Time None Recorded Advance Directives Directive None Recorded Payers Insurance Date Sequence Insurance Name Policy Number Policy Colvin Covered Member ID Colvin Member ID Guarantor Name 10/17/2022 1 [place] Minal Shantelle Darrel [id number] Minal Rojo 10/17/2022 2 [place] [id number] Minal E Darrel [id number] Minal Rojo 06/04/2022 [employer] [facility] Minal Rojo Minal Rojo Notes Date Note Type Note Provider Name and Address Organization Details Recorded Time 06/30/2022 text/html patient returns today for follow-up we did a capsulotomy and a carpal tunnel release 06/26/2022 she had an extension contracture of the right small MCP she is doing well comes in today for follow-up evaluation MD Rosalio Drake, [address] [address], [place], [address], [facility] [employer] [facility] 06/30/2022 12:34:57 07/07/2022 text/html patient fell fractured her wrist while at work treated elsewhere for the minimally impacted wrist fracture. Unfortunately, the patient developed a reflex sympathetic dystrophy also known as chronic regional pain syndrome she had all the hallmarks signs and symptoms with the stiffness the hypersensitivity and pain treated her conservatively until we got to the point that there was no improvement and then she necessitated a capsulotomy of her MCP on the small finger and a carpal tunnel decompression numbing and tingling is better now and the range of motion is better now comes in today for follow-up from her surgery on 06/26/2022 MD Rosalio Drake [address], [place], [address], [employer] 07/07/2022 16:19:57 07/21/2022 text/html patient returns today for follow-up did a right carpal tunnel release for chronic regional pain syndrome type 1 and a capsulotomy of her right small finger MCP joint due to severe extension contracture she is making progress with therapy 1 month postop now Carlos Jerez MD [address], [place], [address], [employer] 07/21/2022 17:06:48 08/18/2022 text/html patient returns today for follow-up did a right carpal tunnel release for chronic regional pain syndrome type 1 and a capsulotomy of her right small finger MCP joint due to severe extension contracture she is making progress with therapy 2 month postop now Carlos Jerez MD [address], [place], [address], [employer] 08/18/2022 12:36:43 10/20/2022 text/html patient returns today for follow-up did a right carpal tunnel release for chronic regional pain syndrome type 1 and a capsulotomy of her right small finger MCP joint due to severe extension contracture she is making progress with therapy 4 month postop now. patient had developed a chronic regional pain syndrome due to a wrist fracture which happens in about 1 and a 1000 wrist fractures. She is still having some of the atrophy of the skin and musculature of the hand has had a little bit of recent numbing and tingling in the small finger which an EMG nerve conduction study could be ordered if continues Carlos Jerez MD [address], [address], [place], [address], [employer] 10/20/2022 11:13:51 OBGyn Episode No OBEpisode recorded.
--- OUTSIDE RECORDS SUMMARY | 2025-02-13 12:48 | XMS_ITS | Clinical Summary ---
Author Organization [facility] Address [address] [facility] [address] [place] [address] Phone Care Team Providers Care Assembler Mechanical Ordnance Name Role Phone Raghavendra Gutiérrez DO Primary [...] Comments Blood Pressure 120/70 03/08/2020 2:25 PM CAR SALESMAN Pulse 61 03/08/2020 2:25 PM CAR SALESMAN Temperature 35.6 C (96 F) 03/08/2020 2:25 PM CAR SALESMAN Respiratory Rate 16 03/08/2020 2:25 PM CAR SALESMAN Oxygen Saturation 98% 03/08/2020 2:25 PM CAR SALESMAN Inhaled Oxygen Concentration - - Weight 60.8 kg (134 lb) 03/08/2020 2:25 PM CAR SALESMAN Height 160 cm (5' 3) 11/30/2017 9:00 AM CDT Body Mass Index 23.74 11/30/2017 9:00 AM CDT Plan of Treatment Health Maintenance Due Date Last Done Comments Hepatitis C Virus (HCV) Screening 1940 TdaP Immunization 1940 Pneumococcal Immunization (5 0+ years) (1 of 1 - PCV) 10/22/1991 Zoster Immunization (1 of 2) 10/22/1991 Medicare Initial AWV [id number] 10/04/2007 Respiratory Syncytial Virus (RSV) Immunization (Adult) (1 - 1-dose 75+ series) 2016 Influenza Immunization (#1) 2024 SARS-COV-2 Immunization ( - season) 2024 07/24/2020, 06/26/2020 Hepatitis B Immunization Aged Out [...] age to complete this topic Insurance MEDICARE [facility] Care Teams Assembler Mechanical Ordnance Relationship Specialty Start Date End Date Raghavendra Gutiérrez DO [address] [place] [address] PCP - General Internal Medicine 08/06/17
--- OUTSIDE RECORDS SUMMARY | 2025-02-13 12:48 | XMS_ITS | Patient Health Record ---
Author Organization [facility] [facility] Address [address] [place] [address] Care Team Providers Care Beater Room Supervisor Name Role Phone David Campbell DO Primary Care Provider Zoe Andres Unavailable [phone] Allergies Allergen (clinical drug ingredient) Drug/Non Drug Allergy documented on EMR Reaction Allergy Type Onset Date Status cefuroxime Cefuroxime Unknown Drug Allergy 04/09/2020 Acti ve Results Component Value Reference Range Notes UDT (10 Panel) Reviewed date:01/30/2025 10:01:41 PM Interpretation: Performing Lab: Notes/Report: Amphetamine (AMP) N Buprenorphine (BUP) N Oxazepam (BZO) P Cocaine (KAREN) N Methamphetamine (mAMP) N Methylenedioxymethamphetamine (MDMA) N Morphine (MOP) N Methadone (MTD) N Oxycodone (OXY) N THC N UDT Reviewed date:11/22/2024 01:39:00 PM Interpretation: Performing Lab: Notes/Report: Amphetamine (AMP) n 0 - 1000 ng/ml Buprenorphine (BUP) n 0 - 10 ng/ml Oxazepam (BZO) p 0 - 300 ng/ml Cocaine (KAREN) n 0 - 300 ng/ml Methamphetamine (mAMP) n 0 - 300 ng/ml Methylenedioxymethamphetamine (MDMA) n 0 - 500 ng/ml Morphine (MOP) n 0 - 25 ng/ml Methadone (MTD) n 0 - 300 ng/ml Oxycodone (OXY) n 0 - 300 ng/ml THC n 0 - 50 ng/ml x n 0 - 1000 ng/ml x n 0 - 1000 ng/ml x n 0 - 300 ng/ml x n 0 - 300 ng/ml UDT Reviewed date:10/24/2024 06:07:42 PM Interpretation: Performing Lab: Notes/Report: Amphetamine (AMP) n 0 - 1000 ng/ml Buprenorphine (BUP) n 0 - 10 ng/ml Oxazepam (BZO) p 0 - 300 ng/ml Cocaine (KAREN) n 0 - 300 ng/ml Methamphetamine (mAMP) n 0 - 300 ng/ml Methylenedioxymethamphetamine (MDMA) n 0 - 500 ng/ml Morphine (MOP) n 0 - 25 ng/ml Methadone (MTD) n 0 - 300 ng/ml Oxycodone (OXY) n 0 - 300 ng/ml THC n 0 - 50 ng/ml x n 0 - 1000 ng/ml x n 0 - 1000 ng/ml x n 0 - 300 ng/ml x n 0 - 300 ng/ml x n 0 - 300 ng/ml UDT Reviewed date:09/26/2024 05:22:47 PM Interpretation: Performing Lab: Notes/Report: Amphetamine (AMP) n 0 - 1000 ng/ml Buprenorphine (BUP) n 0 - 10 ng/ml Oxazepam (BZO) p 0 - 300 ng/ml Cocaine (KAREN) n 0 - 300 ng/ml Methamphetamine (mAMP) n 0 - 300 ng/ml Methylenedioxymethamphetamine (MDMA) n 0 - 500 ng/ml Morphine (MOP) n 0 - 25 ng/ml Methadone (MTD) n 0 - 300 ng/ml THC n 0 - 50 ng/ml x n 0 - 1000 ng/ml x n 0 - 300 ng/ml x n 0 - 300 ng/ml Reason For Referral No Information Medications Medication SIG (Take, Route, Frequency, Duration) Notes Start Date End Date Status ALPRAZolam 0.5 MG Tablet 1 tablet Orally Twice a day; Duration: 30 days 01/30/2025 Active Zinc 50 MG Tablet 1 tablet Orally Once a day Not-Taking Co Q 10 10 MG Capsule as directed Orally Not-Taking Alendronate Sodium 35 MG Tablet 1 tablet Oral; Duration: 84 days weekly on Sundays Active EUTHYROX 25 MCG TABLET *Reorder from [employer] for eRx and Interaction Alerts* 04/09/2020 Not-Taking Vitamin D 25 MCG (1000 UT) Tablet 1 tablet Orally Once a day Active PROMETHAZINE-DM 6.25 MG-15 MG/5 ML ORAL SYRUP *Reorder from [employer] for eRx and Interaction Alerts* 04/09/2020 Not-Taking Magnesium 250 MG Tablet 1 tablet with a meal Orally Once a day Active Multivitamin - Tablet 1 tablet Orally Once a day Active DULoxetine HCl 40 MG Capsule Delayed Release Particles 1 capsule Orally Once a day; Duration: 30 days 01/30/2025 Active Eliquis 2.5 MG Tablet as directed Orally Active Omeprazole 20 MG Capsule Delayed Release Oral 04/09/2020 Active Lisinopril 10 MG Tablet 1 tablet Oral Once a day 04/09/2020 Active Social History Tobacco Use: Social History Observation Description Date Details (start date - stop date) Never Smoker NA - NA Sex Assigned At : Social History Observation Description Sex Assigned At Female Social History Miscellaneous: Social Info Question Answer Notes Advance Care Planning Are you your own decision-maker Yes Do you have Power of Attorne y for Health or Medical? No Advance Directive Healthcare Proxy pre sent (someone designated to make medical decisions) Social History Social Info Question Answer Notes Household: Marital Status: Number of Adults in household: 1 Number of Children in Household: 0 Level of Education: Finished High School Drug/Alcohol: Social Info Question Answer Notes Drugs Have you used drugs other than those for medical reasons in the past 12 months? No AUDIT-C (Standard) Did you have a drink containing alcohol in the past year? No Tobacco Use: Social Info Question Answer Notes Tobacco Control (Standard) Tobacco use: Nonsmoker Additional Details Category Social Info Options Details Migrated Social History Migrated Social History Alcohol Intake: None 02/16/2020,Tobacco Years: Never smoker 02/16/2020 Problems Problem Type SNOMED Code ICD Code Onset Dates Problem Status W/U Status Risk Notes Problem Mild recurrent major depression (55496815) Major depressive disorder, recurrent, mild (F33.0) Active confirmed Problem Moderate recurrent major depression (79813010) Major depressive disorder, recurrent, moderate (F33.1) Active confirmed Problem Generalized anxiety disorder (93634101) Generalized anxiety disorder (F41.1) Active confirmed Problem Complex regional pain syndrome (127360967) Complex regional pain syndrome I, unspecified (G90.50) Active confirmed Problem Obstructive sleep apnea (91484689) Obstructive sleep apnea (G47.33) Active confirmed Problem Essential hypertension (87823052) Benign essential HTN (I10) Active confirmed Problem Obstructive sleep apnea syndrome (64278253) UCHE (obstructive sleep apnea) (G47.33) Active confirmed Vital Signs Heart Rate 52 /min 01/30/2025 Height-cm 165.1 cm 01/30/2025 Blood pressure diastolic 73 mm Hg 01/30/2025 Weight-kg 58.97 kg 01/30/2025 Height 65.00 in 01/30/2025 Blood pressure systolic 131 mm Hg 01/30/2025 Weight 130 lbs 01/30/2025 BMI 21.63 kg/m2 01/30/2025 Encounters Encounter Location Date Provider Diagnosis [facility] [address] [address] 05/26/2024 Zoe Amor Generalized anxiety disorder F41.1 ; Major depressive disorder, recurrent, mild F33.0 ; Complex regional pain syndrome I, unspecified G90.50 ; UCHE (obstructive sleep apnea) G47.33 and Essential hypertension I10 [facility] [address] [address] 06/15/2024 Zoe Amor Generalized anxiety disorder F41.1 ; Major depressive disorder, recurrent, mild F33.0 ; Complex regional pain syndrome I, unspecified G90.50 ; Encounter for screening for cardiovascular disorders Z13.6 ; Encounter for screening for depression Z13.31 ; UCHE (obstructive sleep apnea) G47.33 and Benign essential HTN I10 [facility] [place] [id number] [address] 07/12/2024 Zoe Amor Generalized anxiety disorder F41.1 ; Major depressive disorder, recurrent, mild F33.0 ; Complex regional pain syndrome I, unspecified G90.50 ; Benign essential HTN I10 and Encounter for screening for depression Z13.31 [facility] [address] [address] 08/02/2024 Zoe Amor Generalized anxiety disorder F41.1 ; Major depressive disorder, recurrent, mild F33.0 ; Complex regional pain syndrome I, unspecified G90.50 ; Encounter for screening for depression Z13.31 and Encounter for screening for cardiovascular disorders Z13.6 [facility] [employer] [address] [place] [address] 08/29/2024 Zoe Amor Generalized anxiety disorder F41.1 ; Major depressive disorder, recurrent, mild F33.0 ; Complex regional pain syndrome I, unspecified G90.50 ; Encounter for screening for depression Z13.31 and Encounter for screening for cardiovascular disorders Z13.6 [facility], [place] [address] [place] [address] 09/26/2024 Zoe Amor Generalized anxiety disorder F41.1 ; Major depressive disorder, recurrent, mild F33.0 ; Benign essential HTN I10 ; Complex regional pain syndrome I, unspecified G90.50 and Encounter for screening for depression Z13.31 [facility], [place] [address] [place] [address] 10/24/2024 Zoe Amor Major depressive disorder, recurrent, mild F33.0 ; Generalized anxiety disorder F41.1 and Complex regional pain syndrome I, unspecified G90.50 [facility], [place] [address] [place] [address] 11/21/2024 Zoe Amor Major depressive disorder, recurrent, mild F33.0 ; Generalized anxiety disorder F41.1 and Complex regional pain syndrome I, unspecified G90.50 [facility], [place] [address] [place] [address] 12/19/2024 Zoe Amor Generalized anxiety disorder F41.1 ; Major depressive disorder, recurrent, moderate F33.1 and Complex regional pain syndrome I, unspecified G90.50 [facility], [place] [address] [place] [address] 01/30/2025 Zoe Amor Major depressive disorder, recurrent, moderate F33.1 ; Generalized anxiety disorder F41.1 and Complex regional pain syndrome I, unspecified G90.50 [facility], [place] [address] [place] [address] 06/23/2024 Zoe Amor [facility], [place] [address] [place] [address] 08/04/2024 Zoe Amor [facility], [place] [address] [place] [address] 09/06/2024 Zoe Amor [facility], [place] [address] [place] [address] 09/20/2024 Zoe Amor [facility] [address] [place] [address] 09/28/2024 Zoe Amor [facility] [address] [place] [address] 10/11/2024 Zoe Amor [facility] [address] [place] [address] 10/27/2024 Zoe Amor Assessments Encounter Date Diagnosis (ICD Code) Assessment Notes Treatment Notes Treatment Clinical Notes Section Notes 05/26/2024 Major depressive disorder, recurrent, mild (ICD-10 - F33.0) Discussed [facility] risks of benzodiazepines and recommended treatment options [...] medications will begin to be managed at [facility] - Request records from Dr. 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 Pace if [...] Provider can order medication once approval received. 12/19/2024 Major depressive disorder, recurrent, moderate (ICD-10 - F33.1) 12/19/2024 Generalized anxiety disorder (ICD-10 - F41.1) 08/02/2024 Generalized anxiety disorder (ICD-10 - F41.1) 07/12/2024 [...] to assess medication transition and symptom improvement 01/30/2025 Major depressive disorder, recurrent, moderate (ICD-10 - F33.1) 01/30/2025 Generalized anxiety disorder (ICD-10 - F41.1) 11/21/2024 Major depressive disorder, recurrent, mild (ICD-10 - F33.0) 10/24/2024 Major depressive disorder, recurrent, mild (ICD-10 - F33.0) 10/24/2024 Generalized anxiety disorder (ICD-10 - F41.1) 10/24/2024 Complex regional pain syndrome I, unspecified (ICD-10 - G90.50) 11/21/2024 Generalized anxiety disorder (ICD-10 - F41.1) 01/30/2025 Complex regional pain syndrome I, unspecified (ICD-10 - G90.50) 06/15/2024 Complex regional pain syndrome I, unspecified [...] assess medication transition and symptom improvement 07/12/2024 Major depressive disorder, recurrent, mild (ICD-10 - F33.0) 09/26/2024 Benign essential HTN (ICD-10 - I10) 12/19/2024 Complex regional pain syndrome I, unspecified (ICD-10 - G90.50) 08/02/2024 Major depressive disorder, recurrent, mild (ICD-10 - F33.0) 08/29/2024 Complex regional pain syndrome I, unspecified (ICD-10 - G90.50) 05/26/2024 Complex regional pain syndrome I, unspecified (ICD-10 - G90.50) 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 and recommended treatment [...] (obstructive sleep apnea) (ICD-10 - G47.33) Discussed [facility] risks of benzodiazepines and recommended treatment options [...] in 3-4 weeks to discuss further steps 09/26/2024 Complex regional pain syndrome I, unspecified (ICD-10 - G90.50) 08/29/2024 Encounter for screening for depression (ICD-10 - Z13.31) 08/02/2024 Complex regional pain syndrome I, unspecified [...] to assess medication transition and symptom improvement 11/21/2024 Complex regional pain syndrome I, unspecified (ICD-10 - G90.50) 07/12/2024 Benign essential HTN (ICD-10 - I10) [...] to assess medication transition and symptom improvement 08/02/2024 Encounter for screening for depression (ICD-10 - Z13.31) 09/26/2024 Encounter for screening for depression (ICD-10 - Z13.31) 05/26/2024 Essential hypertension (ICD-10 - I10) 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 Pace if needed Follow-up in 3-4 weeks to discuss further steps 08/29/2024 Encounter for screening for cardiovascular disorders (ICD-10 - Z13.6) 07/12/2024 Encounter for screening for depression (ICD-10 - Z13.31) 08/02/2024 Encounter for screening for cardiovascular disorders (ICD-10 - Z13.6) 06/15/2024 UCHE (obstructive sleep apnea) (ICD-10 - [...] HTN (ICD-10 - I10) Continue treatment per ux developer Consider benzodiazepine effect on BP Anxiety symptoms [...] buspirone 15 mg twice a day Discussed [facility] risks of benzodiazepines and recommended treatment options [...] medications will begin to be managed at [facility] - Request records from Dr. Pace if [...] assess medication transition and symptom improvement 07/12/2024 Other Minal Garcia, a female patient with chronic regional [...] on daily functioning at follow-up appointment 08/02/2024 Maame Garcia, a female patient with a history [...] of alprazolam is not recommended due to CARE TRANSPORT NURSE suppression and potential rebound effects. Plan: - [...] loud concert. Plan: - Refer patient to ux developer for evaluation of heart rate fluctuations and [...] options if symptoms persist or worsen 08/29/2024 Other Minal Garcia, female, presents with a history of [...] administration - Advise to follow up with ux developer as scheduled next week Anxiety Assessment: Patient [...] readings of 90-99/57 mmHg. Scheduled follow-up with ux developer next week. Plan: - Continue current cardiovascular [...] Complete pre-appointment lab work as ordered by customer support advisor and share results 10/24/2024 Other Minal Garcia, a patient with Complex Regional Pain [...] protein intake. Patient expresses dissatisfaction with previous customer support advisor and is scheduled to see a new customer support advisor, Dr. Goldberg at [facility], on November 27. Plan: - Continue current dietary modifications (low salt, low protein) - Encourage adequate hydration (patient reports 48-64 oz water daily) - Attend scheduled appointment with new customer support advisor, Dr. Goldberg, on November 27 - Review and adjust medications as needed to ensure kidney-friendly regimen 11/21/2024 Other Minal Garcia, female, presents with anxiety, sleep disturbances, and concerns about blood pressure and medication management. Anxiety Assessment: Patient reports anxiety is currently at a manageable level with the current medication regimen. She is tapering off the evening dose of alprazolam, having started reducing the 6 PM dose from 0.25 mg last week. Patient experienced increased anxiety when taking the 10 PM dose late one night. Sleep disturbances have been noted, with difficulty falling asleep and reduced deep sleep according to her sleep tracking jorge alberto. Plan: - Continue alprazolam: - 0.25 mg in the morning - 0.5 mg at 1 PM - 0.5 mg at 10:30 PM - Continue duloxetine 40 mg - Monitor for constipation as a side effect of duloxetine - Increase fiber intake as needed - Use Colace if necessary for constipation management - Follow up in 4 weeks - Patient to contact if issues arise sooner Hypotension Assessment: Patient reports low blood pressure readings, particularly in the mornings (90s systolic) and when active (103-106/50s). She was taken off lisinopril 110 mg in July. No significant symptoms of dizziness or lightheadedness reported. Recent lab work showed low sodium (132, improved to 136) and elevated creatinine (1.39, improved to 1.2) with low GFR (38, improved to 40). Plan: - Consult with primary care physician or Vivian Luo regarding potential lisinopril adjustment - Monitor for symptoms of lightheadedness or fainting - Discuss sodium and fluid intake with other doctors - Patient to request referral to a sales agent pest control service Wrist injury Assessment: MRI revealed a partially torn tendon in the wrist, a 9 mm cyst, and fluid accumulation. Patient has a follow-up appointment scheduled with Dr. Reardon in Pain Management on December 19 for re-evaluation. Plan: - Attend scheduled follow-up appointment with Dr. Reardon on December 19 for pain management re-evaluation Medical Decision Making Minal Garcia is a female patient with a history of anxiety and recent medication adjustments, presenting for follow-up on her alprazolam taper and management of multiple medical issues. The patient's alprazolam taper is progressing with manageable anxiety, though sleep disturbances have emerged. Recent MRI results show a partially torn wrist tendon and a 9mm cyst, which will be addressed by pain management. Blood pressure readings are on the lower side, potentially related to the discontinuation of lisinopril in July. Recent lab work showed improvement in sodium levels from 132 to 136, and creatinine from 1.39 to 1.2 with GFR increasing from 38 to 40. The clinician is considering the interplay between blood pressure, kidney function, and medications, particularly noting the effects of lisinopril on sodium levels and duloxetine on blood pressure. Sleep issues are being monitored without immediate medication changes. The decision to maintain current duloxetine dosage at 40mg is based on its effectiveness for anxiety management, balanced against the need to monitor for constipation as a side effect. 12/19/2024 Other Minal Garcia, a patient with chronic kidney disease, presents with multiple physical complaints including hand/wrist pain, fatigue, and anxiety, as well as concerns about her kidney function and medication management. Anxiety and Depression Assessment: Patient reports ongoing anxiety management. Currently taking duloxetine and alprazolam for anxiety symptoms. Sleep onset is delayed but duration is adequate when achieved (8-9 hours). Appetite is poor, with recent weight loss from 141 lbs in July to 131-132 lbs currently. Denies suicidal thoughts. Plan: - Continue duloxetine 40 mg - Continue alprazolam 0.5 mg, half tablet AM, 1 tablets 1 pm and 10:00 pm - Consider reducing afternoon alprazolam dose to hald a tablet if symptoms allow - Maintain current sleep hygiene practices, going to bed between 10-10:30 PM after taking medication Chronic Kidney Disease Assessment: Patient has stable chronic kidney disease of unknown etiology, with no family history. Recent creatinine level was 1.29 in August, improved but still elevated. Sodium level is low. Multiple factors potentially affecting kidney function and electrolyte balance are being considered, including medications (duloxetine, lisinopril), blood pressure, and dietary intake. Comprehensive workup ordered by customer support advisor includes parathyroid, creatinine, urinalysis, CK, cortisol, renal function panel, CHARLIE, and thyroid-stimulat ing hormone tests to investigate underlying causes. Plan: - Follow up with customer support advisor and recommend adhering to treatment plan - Continue tracking all food intake and blood pressure readings Hand and Wrist Pain Assessment: Patient reports ongoing hand and wrist pain following an MRI on November 03. Imaging revealed a 9 mm cyst, fluid in the forearm, and a tear in the tendon that has not healed as expected. The flexor tendon (A2) in one finger is torn, resulting in permanent damage. Patient started physical therapy last week. Plan: - Continue physical therapy for hand and wrist - Follow up as planned with hand surgeon to discuss potential surgical intervention Medication Management Assessment: Patient is on multiple medications that may interact with each other and affect kidney function and electrolyte balance. Duloxetine may be contributing to low sodium levels but is primarily metabolized by the liver. Lisinopril is affecting blood pressure management. Plan: - Continue current medication regimen, including duloxetine and alprazolam - Monitor for side effects and efficacy of current medications - Coordinate medication management with customer support advisor's recommendations Medical Decision Making Minal Garcia is a female patient with a history of chronic kidney disease, presenting with multiple concerns including fatigue, hand/wrist pain, and anxiety. The patient's recent MRI revealed a 9mm cyst and fluid in the forearm, with a tendon tear that has not healed as expected. Chronic kidney disease management is complicated by low sodium levels, potentially exacerbated by duloxetine use. Recent labs show improved but still elevated creatinine (1.29) and high lipase (423). Differential diagnoses for kidney issues include underlying immune disorders, parathyroid dysfunction, and medication side effects. Dr. Goldberg has ordered comprehensive testing including renal function panel, CHARLIE, TSH, and parathyroid hormone to investigate potential causes, given the absence of family history. The patient's blood pressure is generally well-controlled but occasionally low, causing lightheadedness. Current psychiatric medications appear to be managing symptoms adequately, though sleep disturbances and poor appetite persist. Balancing kidney disease management with psychiatric medication effects and nutritional needs remains a complex challenge. 01/30/2025 Maame Garcia is a female patient with CRPS experiencing worsening evening pain and burning sensations in her hand and arm, currently managing depression and anxiety while tapering alprazolam. Alprazolam taperPatient successfully extended morning dose from 1 PM to 2 PM while maintaining current regimen of half tablet morning, half tablet afternoon (now at 2 PM), and one full tablet at bedtime. Body sensitivity to medication changes noted, with possible adjustment period contributing to CRPS symptom fluctuation.Plan :- Continue current alprazolam regimen: half tablet morning, half tablet afternoon at 2 PM, one tablet at bedtime- Maintain current taper schedule for additional 4 weeks to allow body adjustment- Refill alprazolam prescription for 30-day supply Depression and anxietyPatient reports feeling lost regarding future work capacity due to hand limitations, unable to perform basic tasks like lifting a gallon jug. Anxiety remains present with inability to handle stress and difficulty experiencing excitement. Central nervous system sensitivity noted with stress-induced burning sensations and elevated heart rate (reached 138 BPM with minimal exertion). Depression and anxiety currently more manageable on duloxetine 40 mg.Plan:- Continue duloxetine 40 mg daily- Monitor mood and anxiety symptoms over next 4 weeks- Consider increasing duloxetine to 60 mg if depression and anxiety symptoms do not improve adequately ConstipationPati ent managing constipation with high fiber diet, experiencing bowel movements every other day. Occasional use of Colace for symptom management. Constipation likely medication-relat ed and manageable at current level.Plan:- Continue current fiber management strategies- Use Colace as needed for constipation relief- Monitor constipation symptoms before considering duloxetine dose increase CRPS flare Patient reports worsening CRPS symptoms with evening onset of stinging and burning pain in the top of her hand, extending up her arm and underneath her armpit. Hand specialist evaluation on January 08 revealed fluid in the forearm, two non-healing areas, and a 9-millimeter cyst. Dr. Mahesh Webb advised against surgery due to complexity and risk of worsening symptoms. Pain requires positional support with pillow placement and intermittent heating pad use for relief. The flare-up timing coincides with alprazolam dose reduction, though causality remains uncertain given concurrent physical pathology including swelling and structural abnormalities. Plan: - Continue current pain management strategies including positional support and heating pad use - Monitor CRPS symptoms for improvement over next 4 weeks as body potentially adjusts to reduced alprazolam - Await documentation from hand specialist Dr. Mahesh Webb Medical Decision MakingMinal Garcia is a female with Complex Regional Pain Syndrome (CRPS) presenting with increased evening burning and stinging pain in her hand and arm, along with concerns about recent alprazolam dose reduction. 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 Mahesh Webb on January 08 revealing fluid in the forearm, a 9-millimeter cyst, and two non-healing areas, with surgical intervention not recommended due to risk of worsening her condition. The temporal relationship between her alprazolam dose reduction and symptom exacerbation is unclear, as she has successfully extended the timing of doses to 2 o'clock, suggesting possible medication adjustment rather than withdrawal. Her current duloxetine dose of 40 milligrams is below the typical 60-milligram therapeutic range for depression, anxiety, and chronic pain management, but increasing the dose is being deferred due to existing constipation issues requiring management with fiber and occasional Colace. The patient's anxiety and stress directly correlate with pain flares and elevated heart rate, demonstrating the interconnected nature of her psychiatric and pain symptoms. Given the complexity of her CRPS with documented structural abnormalities and her sensitivity to medications, a conservative approach of allowing more time for medication adjustment is warranted before making dosage changes. Plan Of Treatment Next Appt Details Provider Name:Zoe Jaime birmingham, 02/28/2025 04:00:00 PM, [address] [facility] [address], [facility] [address], [place], [address], Insurance Providers Payer Name Payer Address Payer Phone Subscriber Number Group Number Insured Name Patient Relationship to Insured Coverage Start Date Coverage End Date Medicare-I l Medicare [address] [place] [address] [id number] MINAL GARCIA Self - patient is the insured [facility] [address] [place] [address] [id number] MINAL GARCIA Self - patient is the [...]
--- OUTSIDE RECORDS SUMMARY | 2025-02-13 12:48 | XMS_ITS | Data Portability ---
Author Organization [facility], Telehealth (patients home) Address [address] [place] [address] Assessment Encounter Date Assessment Date Assessment LastModified by Organization Details LastModified Time 03/22/2024 03/22/2024 Met with Minal benítez for psychiatric evaluation Phq9=19 mod severe MARITO 7=15 severe [email or web address] Not available 03/22/2024 21:23:53 03/27/2024 03/27/2024 met with Minal benítez for follow-up on her severe MDD and anxiety since starting Paxil PHQ-9 = 19 severe MARITO-7 14 moderate [email or web address] Not available 03/27/2024 23:39:10 04/07/2024 04/07/2024 Met with Minal benítez to follow up on her Severe MDD and MARITO PHQ9=11mod GAD7=11 mod [email or web address] Not available 04/07/2024 19:46:15 Plan of Treatment Reminders Order Date Submit Date Provider Last Modified By Organization Details Last Modified Time Details Appointments None recorded. Lab None recorded. Referral None recorded. Procedures None recorded. Surgeries None recorded. Imaging None recorded. Medication Orders Paxil 10 mg tablet 2024 025 [facility] [place], [address], 19:27:33 buspirone 15 mg tablet 2024 025 [facility] [address] [place], [address], 19:27:31 Paxil 10 mg tablet 2023 024 [facility] [facility], [place], [address], 13:59:57 Patient TargetsNo targets recorded. Patient Instructions Encounter Date Encounter Id Patient Instructions Last Modified By Organization Details Last Modified Time 04/07/2024 [id number] depression treatment: care instructions [email or web address] Not available 04/07/2024 19:27:24 Reason for Referral None Reported. Problems Name Problem SNOMED Code Status Onset Date Resolution Date Notes Provider Name and Address Organization Details Recorded Time Severe recurrent major depression without psychotic features 69406752 Active 2023 Jacqueline Pace CNM, [facility]- [address], [place], [address], [facility] 13:56:30 Anxiety 43141569 Active 2023 Jacqueline Pace CNM, [facility] [address], [place], [address], [facility] 13:58:39 Problem Notes None recorded. Medical Equipment None Reported. Allergies Allergen ID Allergen Name Allergen Category Reaction Reaction Severity Criticality Documentation Date Start Date Code Code System Note Provider Name and Address Organization Details Recorded Time 1445 gabapenti n medicatio n Not available Not available Not available 03/22/2024 95318 RxNorm Tiffany Mayo [facility] 4 13:04:20 1446 nortripty line medicatio n Not available Not available Not available 03/22/2024 7531 RxNorm Tiffany Mayo [facility] 4 13:04:27 1447 cefuroxim e Not available Not available Not available Not available 03/22/2024 2194 RxNorm Tiffany Mayo [facility] 13:05:09 Medications Name Sig Start Date Stop Date Status Note LastModified by Organization Details LastModified Time paroxetine 10 mg tablet Take 1 tablet every day by oral route. active Not Available Not Available No t Available lisinopril 20 mg tablet TAKE 1 TABLET BY MOUTH ONCE DAILY active Not Available Not Available No t Available ondansetron HCl 4 mg tablet TAKE 1 TABLET BY MOUTH EVERY 8 HOURS NEEDED FOR NAUSEA AND VOMITING active Not Available Not Available No t Available alendronate 70 mg tablet Take 1 tablet every week by oral route. active Not Available Not Available No t Available clonazepam 0.5 mg tablet TAKE 1 TABLET BY MOUTH ONCE DAILY FOR 7 DAYS active Not Available Not Available No t Available amlodipine 5 mg tablet TAKE 1 TABLET BY MOUTH ONCE DAILY active Not Available Not Available No t Available tramadol 50 mg tablet TAKE 1 TABLET BY MOUTH EVERY 6 HOURS NEEDED active Not Available Not Available No t Available alprazolam 0.5 mg tablet TAKE 1/2 TABLET BY MOUTH 3 TIMES DAILY AND 1 TABLET AT BEDTIME active Not Available Not Available N ot Available alprazolam 0.25 mg tablet Take 1 tablet 5 times a day by oral route. active Not Available Not Available No t Available paroxetine 20 mg tablet TAKE 1 TABLET BY MOUTH ONCE DAILY active Not Available Not Available No t Available nystatin 100,000 unit/gram topical cream APPLY CREAM TOPICALLY TO AFFECTED AREA TWICE DAILY NEEDED FOR RASH active Not Available Not Available No t Available lisinopril 10 mg tablet Take 1 tablet every day by oral route. active Not Available Not Available No t Available buspirone 7.5 mg tablet TAKE 1 TABLET BY MOUTH TWICE DAILY active Not Available Not Available No t Available omeprazole 20 mg capsule,delay ed release TAKE 1 CAPSULE BY MOUTH ONCE DAILY active Not Available Not Available No t Available hydroxyzine HCl 25 mg tablet TAKE 2 TABLETS BY MOUTH NIGHTLY NEEDED FOR ANXIETY FOR UP TO 7 DAYS active Not Available Not Available No t Available metoprolol succinate ER 25 mg tablet,extend ed release 24 hr TAKE 1/2 (ONE-HALF) TABLET BY MOUTH ONCE DAILY FOR 30 DAYS active Not Available Not Available No t Available lisinopril 40 mg tablet TAKE 1 TABLET BY MOUTH ONCE DAILY active Not Available Not Available No t Available buspirone 15 mg tablet Take 1 tablet twice a day by oral route, for anxiety. active Not Available Not Available No t Available metoprolol tartrate 25 mg tablet TAKE 1 TABLET BY MOUTH TWICE DAILY active Not Available Not Available No t Available omeprazole active Not Available Not Av ailable Not Available Eliquis 5 mg tablet TAKE 1/2 (ONE-HALF) TABLET BY MOUTH TWICE DAILY active Not Available Not Available No t Available Eliquis DVT-PE Treatment 30-Day Starter 5 mg (74 tablets) in dose pack active Not Available Not Available Not Available Vitals Date Recorded Body height Body mass index (BMI) Body weight Heart rate Systolic And Diastolic Provider Name and Address Organization Details Last Updated DateTime 04/07/2024 154.94 cm 25.3 kg/m2 85376.38 g 57 /min 143/80 mm[Hg] Tiffany Mayo [facility] 04/07/2024 16:59:42 Date Recorded Systolic And Diastolic Provider Name and Address Organization Details Last Updated DateTime 03/22/2024 146/78 mm[Hg] Jacqueline Pace, REGI, PMHNP- [address], [place], [address] 03/22/2024 14:10:37 Date Recorded Body height Body mass index (BMI) Body weight Heart rate Systolic And Diastolic Provider Name and Address Organization Details Last Updated DateTime 03/22/2024 154.94 cm 25.1 kg/m2 58976.79 g 99 /min 172/82 mm[Hg] Tiffany Mayo [facility] 03/22/2024 13:00:30 Date Recorded Body height Body mass index (BMI) Body weight Heart rate Systolic And Diastolic Provider Name and Address Organization Details Last Updated DateTime 03/27/2024 154.94 cm 25.3 kg/m2 26214.38 g 62 /min 149/75 mm[Hg] Tiffany Mayo [facility] 03/27/2024 15:22:26 Social History Question Answer Notes LastModified by Organizat ion Details LastModified Time Tobacco Smoking Status [facility] 13:07:20 What Is Your Level Of Caffeine Consumption? None [email or web address] Information not available 03/22/2024 Are There Any Guns Present In Your Home? No [email or web address] Information not available 03/22/2024 Do You Feel Safe In Your Home? Yes [email or web address] Information not available 03/22/2024 Sex: Unknown Functional Status Question Answer Note LastModified by Organizat ion Details LastModified Time Do you use any illicit or recreational drugs? No [email or web address] Information not available 03/22/2024 Do you or have you ever used any other forms of tobacco or nicotine? No [email or web address] Information not available 03/22/2024 What is your level of alcohol consumption? None [email or web address] Information not available 03/22/2024 What is your exercise level? None [email or web address] Information not available 03/22/2024 Mental Status Question Answer Note LastModified by Organization D etails LastModified Time Do you feel stressed (tense, restless, nervous, or anxious, or unable to sleep at night)? [id number] [email or web address] Information not available 03/22/2024 Family History Relationship Description Onset Age of this Age Resolved Age Notes LastModified by Organization Details LastModified Time Mother Malignant neoplasm of breast [email or web address] Not available 2023 13:05:54 Mother Heart disease Not available 2023 13:06:13 Father Malignant neoplasm of prostate [email or web address] Not available 2023 13:06:04 Medical History Condition Response Anxiety Disorder Y Thyroid Disease Y Hypertension Y Depression Y Kidney Disease Y Gynecological HistoryNo gynecological history recorded. Obstetrics History GPAL:G 3 P 2 0 1 0 Type Value Full Term 2 Induced 1 Total 3 Past Encounters Encounter ID Performer Location Encounter Start Date Encounter Closed Date Diagnosis/Indication Diagnosis SNOMED-CT Code Diagnosis ICD10 Code Diagnosis IMO Codes Diagnosis Note [id number] Jacqueline Pace CNM, [facility] Main Office [address] [place] [address] 03/22/2024 12:55:02 03/24/2024 13:14:23 Anxiety 49503555 F41.9 start paxil 10mg dailyconti nue xanax - rx by pcpSergio cespedes pt that I cannot prescribe Xanax. I am unable to assist in the wean off of xanax. but informed her that is something that needs to be done very slowly Severe rec urrent major depression without psychotic features 92828958 F33.2 Discussed paxil vs. mirtazapin e.start paxil 10mg - take at hsencourag e starting therapyrtc 1 week [id number] Jacqueline Pace CNM, [facility] Main Office [address] [place] [address] 03/27/2024 15:15:45 03/29/2024 11:04:47 Anxiety 69542231 F41.9 Continue paxil 10mg dailyconti nue xanax - rx by pcp Severe rec urrent major depression without psychotic features 72572743 F33.2 Continue Paxil 10 mg at at bedtimeenc ourage starting therapyrtc 1 1/2 weeks [id number] Jacqueline Pace CNM, [facility]HNP- Main Office [address] [place] [address] 04/07/2024 16:57:06 04/10/2024 09:58:49 Severe recurrent major depression without psychotic features 79310571 F33.2 Continue Paxil 10 mg at at bedtimeenc ourage starting therapy- referal to [facility] givenrtc 3weeks Anxiety 77290700 F41.9 Continue paxil 10mg dailyConti nue Buspar 15mg bidcontinu e xanax - rx by pcp Health Concerns Section Related Observation LastModified by Organization Detai ls LastModified Time None Recorded Concern Status LastModified by Organization Details LastModified Time None Recorded Advance Directives Directive None Recorded Payers Insurance Date Sequence Insurance Name Policy Number Policy Colvin Covered Member ID Colvin Member ID Guarantor Name 01/07/2025 1 [place] Minal Pepper Rojo [id number] Minal Rojo 04/06/2024 2 [place] [id number] Minal Rojo [id number] Minalneo Rojo Notes Date Note Type Note Provider Name and Address Organization Details Recorded Time 4 text/html I met with Minal today for a psychiatric evaluation. Minal has her sister with her for the visit. Minal has been struggling with anxiety and depression for a year, but since February, depression has increased, and she cannot stop crying. She has a history of anxiety and depression. She is currently taking Xanax and Buspar. She expresses desire to wean off of Xanax. Has previously been on Paxil a few years ago and did well with Paxil. She has never had a psychiatric hospitalization. Denies any physical, emotional or sexual abuse. Denies any history of Head injuries or seizures. No history of suicide attempts or self-harm. No alcohol or drug use/abuse.Minal states her mood to be anxious, nervous, I dont feel good, weak. Admit to feelings of worthlessness, helplessness and hopelesness. Endorses feelings of guilt. Appetite is poor- eats 3 meals a day. Sleep is poor- no problem falling asleep, does admit to waking thought the night. getting approx 5 hours of sleep at night. Minal does endorse Passive SI- I wish I could go to sleep and not wake up. Has had these thoughts since Novem. No plan or intent. Sister is what keeps her safe. No Active SI or HI. Denies any Ah or VH.Minal lives by herself. She has 2 adult children. Has a son that lives in the area. They have a good relationship. She has a younger sister, whom she lists as her support person. Minal is retired.Family psychiatric history- Mom- Depression, Grandson- Addictioncompleted suicides in the family- none Jacqueline Pace CNM, [facility]- [address], [place], [address], [facility] 03/22/2024 21:55:48 4 text/html Met with Minal to follow-up on her severe MDD and anxiety since starting Paxil. Minal sister is present with her for the visit. Minal is feeling better today. Not tearful. States having a bad evening last night very anxious, even calling the ambulance but not being transported to the hospital. States her mood to be good, nervous. Feelings of worthlessness and helplessness are improving. She is feeling some hope. Denies any SI or HI. Last had passive thoughts of SI a week ago. No auditory hallucinations or visual hallucinations. Jacqueline Pace CNM, [facility]- [address], [place], [address], [facility] 03/27/2024 23:49:49 5 text/html Met with Minal today to follow up on severe MDD and MARITO. Minal was seen in [place] [facility] for her pain and Passive SI, was not admitted to [facility]. Minal is doing good today. feeling like paxil is helping. no longer crying all the time. States her mood to be stressed. States that feelings of worthlessness, hopelessness and helplessness have improved. Sleep has improved. Denies any SI or Hi. Did states having some thoughts of wishing she would last wednesday and wednesday, due to all of the pain she is experiencing in her arm. HAs appointment on the with pain clinic. Denies any plan or intent. Denies any AH or VH. Jacqueline Pace, REGI, PMHNP-BC [address] [facility] [address], [place], [address], [facility] 04/07/2024 19:48:44 OBGyn Episode No OBEpisode recorded.
--- OUTSIDE RECORDS SUMMARY | 2025-02-13 12:48 | XMS_ITS | Encounter Summary ---
Author Organization [facility] Address [address] [place] [address] Care Team Providers Care Air Traffic Control Supervisor Name Role Phone Colton Campbelle Primary Care Provider [phone] Cecilio Sanchez MD Unavailable [phone] Encounter Details Date Type Department Care Team (Late st Contact Info) Description 12/29/2024 Results Follow-Up [facility] Cardiology at [address] [place] [address] Cecilio Cordova MD [address] [facility] [address] [facility] [address] [place] [address] NM MPI SPECT (Rest and/or Stress) Multiple Studies Social History Tobacco Use Types Packs/Day Years Used Date Smoking Tobacco: Never Smokeless Tobacco: Never Alcohol Use Standard Drinks/Week Comments No 0 (1 standard drink = 0.6 oz pur e alcohol) [facility] Utilities Answer Date Recorded In the past 12 months has e electric, gas, oil, or water company threatened to [...] often do you attend chur ch or mormon services? Never 02/18/2024 Do you belong to any clubs o r organizations such as baptism groups, unions, fraternal or athletic groups, or [...] place to sleep or slept in a longterm (including now)? No 05/14/2023 Housing Stability Vital [...] time in the past 12 m [facility], were you homeless or living in a longterm (including now)? No 02/18/2024 Personal Safety Answer Date Recorded Have you ever been in or are you currently in a harmful physical or emotional relationship or is someone making you feel afraid or unsafe? 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
--- OUTSIDE RECORDS SUMMARY | 2025-02-13 12:49 | XMS_ITS | Patient Health Record ---
Author Organization [facility] Address [address] [place], [place] [address] Care Team Providers Care Machine Marker Name Role Phone LEILA JOHNSON Unavailable [phone] Raghavendra Gutiérrez Unavailable Unavailable Reason For Referral No Information Medications Medication SIG (Take, Route, Frequency, Duration) Notes Start Date End Date Status ALPRAZolam 0.25 MG Oral Tablet ORAL alprazolam 0.25 MG Oral TabletOriginal Medicationalprazolam 0.25 MG Oral Tablet *Reorder from [email or web address] for eRx and Interaction Alerts* 7 Active cholecalciferol 5000 UNT / folic acid 1 MG Oral Tablet ORAL cholecalciferol 5000 UNT / folic acid 1 MG Oral TabletOriginal Medicationcholecalciferol 5000 UNT / folic acid 1 MG Oral Tablet *[email or web address] and Interaction Alert[facility]* 7 Active Ascorbic Acid 500 MG Oral Tablet ORAL ascorbic acid 500 MG Oral TabletOriginal Medicationascorbic acid 500 MG Oral Tablet *Reorder from [facility] for eRx and Interaction Alerts* 7 Active folic acid 1 MG / vitamin B12 0.5 MG Oral Tablet ORAL folic acid 1 MG / vitamin B1 2 0.5 MG Oral TabletOriginal Medicationfolic acid 1 MG / vitamin B12 0.5 MG Oral Tablet *Reorder from [facility] for eRx and Interaction Alerts* 7 Active omeprazole 20 MG Delayed Release Oral Tablet ORAL omeprazole 20 MG Delayed Release Oral TabletOriginal Medicationomeprazole 20 MG Delayed Release Oral Tablet *Reorder from [facility] for eRx and Interaction Alerts* 7 Active Medrol Dosepak ORAL Medrol DosepakOr iginal MedicationMedrol Dosepak *Reorder from [facility] for eRx and Interaction Alerts* 9 Active ubidecarenone 100 MG Oral Capsule ORAL ubidecarenone 100 MG Oral CapsuleOriginal Medicationubidecarenone 100 MG Oral Capsule *[facility] for [facility] and Interaction Alerts* 7 Active Social History Social History Additional Details Category Social Info Options Details Migrated Social History Migrated Social History Smoking Status : Former tobacco user , History of tobacco use : Plan Of Treatment No Information Insurance Providers Payer Name Payer Address Payer Phone Subscriber Number Group Number Insured Name Patient Relationship to Insured Coverage Start Date Coverage End Date Medicare Part B [place] [address] [place] [address] [id number] JOANN GARCIA Self - patient is the insured [facility] ([facility]) ATTN CLAIMS [address] [place] [address] [id number] JOANN GARCIA Self - patient is the insured [facility] B [address] [place], [place] [phone] [id number] JOANN GARCIA Self - patient is the insured
--- OUTSIDE RECORDS SUMMARY | 2025-02-13 12:49 | XMS_ITS | Clinical Summary ---
Author Organization [facility] Address [facility] [place] [address] Care Team Providers Care Analytical Statistician Name Role Phone None, Provider MD Primary Care Provider Unavaila ble Immunizations Immunization [...] 75+ series) 2016 COVID-19 Vaccine (3 - 2024-2 6 season) 2024 07/24/2020, 06/26/2020 Influenza Adult (#1) 2025 Hepatitis A Vaccines Aged Out No long er eligible based on patient's age to complete this topic Meningococcal B Vaccine Aged Out No l onger eligible based on patient's age to complete this topic Meningococcal Vaccine Aged Out No alison bishop eligible based on patient's age to complete this topic RSV Immunizations Under 20 Months Aged Out No longer eligible b ased on patient's age to complete this topic Care Teams Analytical Statistician Relationship Specialty Start Date End Date None, Provider, PCP - General 06/26/20
== END 2025-02-13 12:46 | disposition home or self-care (01) ==
PROVIDERS: PCP Internal Medicine; Visit Provider Obstetrics & Gynecology
DX: R19.09 Other intra-abdominal and pelvic swelling, mass and lump (principal)
CPT/HCPCS: 86304

== ENCOUNTER 2025-03-16 11:04 | Outpatient (CLI) | payer MEDICARE, SELFPAY ==
[2025-03-16 12:11] LABS: Hematocrit 39.4 % (37.0-47.0); Hemoglobin 12.1 g/dL (12.0-15.0); Mean Corpuscular HGB Conc 30.7 g/dl (32-36); Mean Corpuscular Hemoglobin 28.1 pg (26-34); Mean Corpuscular Volume 91.6 fl (80-100); Platelet Count Result 303 k/mm3 (150-375); Red Blood Count 4.30 M/mm3 (4.2-5.4); White Blood Count 5.4 K/mm3 (4.5-10.0)
[2025-03-16 12:28] LABS: Add Urine Microscopic? YES; Appearance Urine Clear (Clear); Glucose Urine UA Negative (Negative); Leukocyte Esterase Ur 2+ LEU/UL (Negative); Need Manual Microscopic Reviewed; Nitrate Urine Negative (Negative); Non Pathogenic Casts 0-2; Specific Grav Ur 1.006 (1.001-1.035)
[2025-03-16 12:37] LABS: Total Protein Urine Random 12 mg/dL; Ur Ttl Prot Creatinine Ratio 0.27 mg/mg (0-0.20)
[2025-03-16 12:50] LABS: Parathyroid Intact < 14.5 pg/mL (14.5-75.2)
[2025-03-16 12:59] LABS: Albumin Level 4.2 g/dL (3.5-5.1); Anion Gap 4 mmol/L (4-12); Blood Urea Nitrogen 20 mg/dL (7-17); Calcium 9.6 mg/dL (8.4-10.2); Carbon Dioxide 31 mmol/L (22-30); Chloride 103 mmol/L (98-107); Estimated Glomerular Filt Rate 42; Potassium 4.2 mmol/L (3.4-5.0); Sodium 138 mmol/L (137-145)
[2025-03-16 13:07] LABS: Thyroid Stimulating Hormone Reflex 3.420 uIU/mL (0.465-4.68)
[2025-03-16 13:08] LABS: Creatine Kinase 55 U/L (30-135)
[2025-03-16 16:08] LABS: Glucose 58 mg/dL (65-110)
[2025-03-19 15:09] LABS: ANA by IFA Rfx Titer/Pattern Positive (.); Immunoglobulin A, Qn 295 mg/dL (64-422); Immunoglobulin G, Qn 1066 mg/dL (586-1602); Immunoglobulin M, Qn 59 mg/dL (26-217); Osmolality, Serum 289 mOsmol/kg (280-301)
[2025-03-20 14:08] LABS: Osmolality, Urine 233 mOsmol/kg (.)
== END 2025-03-16 11:05 | disposition home or self-care (01) ==
PROVIDERS: PCP Internal Medicine; Visit Provider Internal Medicine Nephrology
DX: I12.9 Hypertensive chronic kidney disease with stage 1 through stage 4 chronic kidney disease, or unspecified chronic kidney disease (principal); N18.32 Chronic kidney disease, stage 3b; E87.1 Hypo-osmolality and hyponatremia
CPT/HCPCS: 36415; 80069; 81001; 82533; 82550; 82570; 82784; 83930; 83935; 83970; 84156; 84300; 84443; 85027; 85652; 86038; 86160; 86162; 86334; 86335

== ENCOUNTER 2025-03-20 10:29 | Outpatient (CLI) | payer MEDICARE, SELFPAY ==
[2025-03-20 11:15] LABS: Total Volume 24 Hour Urine 2500 ml
--- OUTSIDE RECORDS SUMMARY | 2025-03-20 12:26 | XMS_ITS | Clinical Summary ---
Author Organization [facility] [address] Address [address] [place] [address] Care Team Providers Care Ink Printer Name Role Phone David Campbell Primary Care Provider [phone] Lenny Sanchez MD Unavailable [phone] Allergies Active Allergy Reactions Criticality Noted Date [...] 2 (two) times a day Active multivit nvjdiqyf-ddwd-AE- calcium (THERA-M) 9 mg iron-400 mcg tabletIndications [...] Active Problems Problem Noted Date Diagnosed Date Atypical atrial flutter 03/16/2025 Burning chest pain 09/07/2024 Benzodiazepine withdrawal without [...] these. Assessment & Plan (03/05/2022 12:26 PM FITTER HELPER): She is very afraid to take injections [...] Encounters Date Type Department Care Team Description 03/16/2025 10:45 AM FITTER HELPER Office Visit [facility] Cardiology [address] [place] [address] Lenny Blevins MD Atypical atrial flutter (HCC) (Primary Dx); Essential hypertension; Chronic anticoagulation; UCHE (obstructive sleep apnea); Anxiety; Burning chest pain 03/12/2025 10:28 AM FITTER HELPER - 03/12/2025 11:59 PM FITTER HELPER Hospital Encounter [address] [address] Screening mammogram, encounter for Discharge Disposition: Discharge to home or self care 12/29/2024 9:15 AM CDT Ancillary Procedure [facility] Cardiology at [address] [place] [address] Burning chest pain 12/29/2024 Results Follow-Up [facility] Cardiology at [address] [place] [address] Lenny Blevins MD NM MPI SPECT (Rest and/or Stress) Multiple Studies 12/27/2024 Telephone [facility] Cardiology [address] [facility] [address] [place] [address] Lenny Blevins MD stress test from Last 3 Months Surgical History Surgery Date Site/Laterality Comments BACK SURGERY 03/05/2023 - 04/04/2023 CARPAL TUNNEL RELEASE 06/03/2022 - 07/03/2022 SPINE SURGERY 2022 FRACTURE SURGERY 2021 BREAST BIOPSY left, age 33, benign, lateral side, no scar visible Medical History Medical History Date Comments Hypertension Kidney disease Sleep apnea Thyroid disease Arthritis Anxiety GERD (gastroesophageal reflux disease) 2006 Osteoporosis 2021 Cataract 2023 Depression 2021 Neuromuscular disorder 2021 CRPS Family History Medical History Relation Name Comments Cancer Father Carlos Domínguez Prostate cancer Father Carlos Domínguez prostate can cer; Cause of : prostate cancer Breast cancer Mother Jodie Domínguez Cancer Mother Jodie Domínguez Heart disease Mother [...] drink = 0.6 oz pur e alcohol) [facility] Utilities Answer Date Recorded In the past 12 months has [employer] electric, gas, oil, or water company threatened [...] often do you attend chur ch or restorationism services? Never 02/18/2024 Do you belong to any clubs o r organizations such as sikhism groups, unions, fraternal or athletic groups, or [...] place to sleep or slept in a mcfp (including now)? No 05/14/2023 Housing Stability Vital Sign Answer Erasmo e Recorded In the last 12 months, was t here a time when you were not able to pay the mortgage or rent on time? No 02/18/2024 In the past 12 months, how m any times have you moved where you were living? 0 02/18/2024 At any time in the past 12 m [facility], were you homeless or living in a mcfp (including now)? No 02/18/2024 Personal Safety Answer Date Recorded Have you ever been in or are you currently in a harmful physical or emotional relationship or is someone making you feel afraid or unsafe? Denies 04/13/2024 Comments No Sex and Gender Information Value Date Recorded Sex Assigned at Not on file Legal Sex Female 3:18 AM FITTER HELPER Gender Identity Not on file Sexual Orientation Not on file Obstetrics History Para Term AB IAB SAB Ectopic Multiple Livin g Live Births 3 2 Date Outcome GA Total Labor Labor/2nd/3rd Weight Sex Type Anes PTL Edwige A1 A5 Name Clin Last Filed Vital Signs Vital Sign Reading Time Taken Comments Blood Pressure 98/54 03/16/2025 10:34 AM FITTER HELPER Pulse 65 03/16/2025 10:34 AM FITTER HELPER Temperature 37.3 C (99.1 F) 04/13/2024 11:17 AM FITTER HELPER Respiratory Rate 15 04/13/2024 1:00 PM FITTER HELPER Oxygen Saturation 98% 03/16/2025 10:34 AM FITTER HELPER Inhaled Oxygen Concentration - - Weight 58.2 kg (128 lb 4.8 oz) 03/16/2025 10:34 AM FITTER HELPER Height 157.5 cm (5' 2) 03/16/2025 10:34 AM FITTER HELPER Body Mass Index 23.47 03/16/2025 10:34 AM FITTER HELPER Plan of Treatment Health Maintenance Due Date Last Done Comments Depression Screening 1940 DTaP/Tdap/Td Vaccine (1 - Tdap) 1952 Hepatitis B Screening 10/22/1959 Pneumococcal vaccine 65+ (1 of 1 - PCV) 10/22/1991 Zoster Vaccine (1 of 2) 10/22/1991 Well Visit 65+ 2006 Covid-19 Vaccine ( season) 2024, 06/26/2020 Influenza Vaccine (#1) 2024 Fall Risk Assessment 02/19/2025 02/20/2024 Osteoporosis Screening-Bone Density Scan 09/28/2026 09/28/2024, 07/22/2023, 03/05/2022 Procedures Procedure Name Priority Date/Time Associated Diagnosis Comments SCREENING MAMMOGRAM BILATERAL W BRENT Schedule Routine, Read Routine (OP Routine) 03/12/2025 10:54 AM FITTER HELPER Screening mammogram, encounter for NM MPI SPECT (REST AND/OR STRESS) MULTIPLE STUDIES Schedule Routine, Read Routine (OP Routine) 12/29/2024 10:41 AM CDT Burning chest pain DEXA TBS AXIAL SKELETON BONE DENSITY 1 OR MORE SITES Schedule Routine, Read Routine (OP Routine) 09/28/2024 10:23 AM CDT Osteoporosis, unspecified osteoporosis type, unspecified pathological fracture presence from Last 3 Months or Most Recently Relevant to Health Maintenance Results * Screening Mammogram Bilateral W Brent (03/12/2025 10:54 AM FITTER HELPER) Anatomical Region Laterality Modality Breast Bilateral Mammography Impressions 03/14/2025 2:35 PM FITTER HELPER Bilateral No evidence of malignancy in either breast. OVERALL BI-RADS FINAL ASSESSMENT: 1 - Negative RECOMMENDATION: Recommend bilateral annual screening mammography. Decision to continue screening mammography should be made based on clinical factors. Narrative 03/14/2025 2:35 PM FITTER HELPER EXAMINATION: Screening Mammogram Bilateral W Brent: 03/12/2025 COMPARISON: Relevant prior studies available at the time of interpretation were reviewed, including the most recent mammogram on: 12/21/2023. TECHNIQUE: Mammography was performed with 2D and 3D digital breast tomosynthesis (DBT) images. CAD was utilized. BREAST PARENCHYMAL COMPOSITION: The breasts are heterogeneously dense, which may obscure small masses. FINDINGS: Bilateral There is no suspicious mass, calcification, or architectural distortion in either breast. There are benign calcifications in the left breast. us Self Screening Mammogram IMG MAMMO PROCEDURES Fi nal Result * NM MPI SPECT (Rest and/or Stress) Multiple Studies (12/29/2024 10:41 AM CDT) Anatomical Region Laterality Modality Body N/A Electrocardiogra phy 12/29/2024 9:15 AM CDT Narrative 12/29/2024 4:16 PM CDT [facility] Cardiology [address], [place] [address] [address] [facility] [address], [place] [address] [address] , [place] [address] P:[phone] P:[phone] MPI Imaging Report Patient Name: JOANN GARCIA E : 1940 Study Date: 12/29/2024 9:15:00 AM Sex: F Tech: DAVID [facility] Location: [facility] [place] Provider: LENNY BLEVINS Height(Cm): 157.5 BSA: Weight(Kg): 61.2 Heart Rate: 116 BMI: 24.67 Order Provider: LENNY BLEVINS PHYSICIAN: Primary Care Physician: Dr. Campbell. [facility] Physician: Raymond Blevins M.D. Stress Supervision: Raymond [...] Procedure Note Lenny Blevins MD - 12/29/2024 [facility] Cardiology [address] [facility] [address], [place] [address] [address] [facility] [address], [place] [address] [address], [place] [address] P:[phone] P:[phone] MPI Imaging Report Patient Name: JOANN GARCIA E : 1940 Study Date: 12/29/2024 9:15:00 AM Sex: F Tech: DAVID [facility] Location: [facility] [place] Provider: LENNY BLEVINS Height(Cm): 157.5 BSA: Weight(Kg): 61.2 Heart Rate: 116 BMI: 24.67 Order Provider: LENNY BLEVINS PHYSICIAN: Primary Care Physician: Dr. Campbell. [facility] Physician: Raymond Blevins M.D.Stress Supervision: Raymond Blevins [...] Bone mineral density was performed on a [employer] Discovery Densitometer. Based on machine cross-calibration and [...] by the International Society of Clinical Densitometry. [id number] Liot Epps MD IM DXA PROCEDURES Final Resul t from Last 3 Months or Most Recently Relevant to Health Maintenance Insurance MEDICARE [facility] MEDICARE [employer] MEDICARE SUPPLEMENT MEDICARE [facility] MEDICARE SUPPLEMENT Advance Directives For more information, please contact: [phone] Documents on File Type Date Recorded Patient Healthcare Liaison Expl anation ADVANCE DIRECTIVE 02/18/2024 2:13 PM [employer] [employer] Keyboard Operator-Medical * Full Code (Latest Code Status on File) Date Activated Date Inactivated Comments 02/18/2024 5:03 AM 02/20/2024 6:50 PM * Full Code Date Activated Date Inactivated Comments 05/13/2023 7:48 PM 05/14/2023 7:03 PM Care Teams Ink Printer Relationship Specialty Start Date End Date David Campbell DO PCP - General Internal Medicine 05/26/23 Lenny Sanchez MD [id number] [place] [address] Surgeon Colon and Rectal Surgery 01/26/24
--- OUTSIDE RECORDS SUMMARY | 2025-03-20 12:26 | XMS_ITS | Clinical Summary ---
Author Organization [facility] Address [address] [facility] [address] [place] [address] Phone Care Team Providers Care Insurance Claims Processor Name Role Phone Raghavendra Gutiérrez DO Primary Care Provider [phone] Allergies Active Allergy Reactions Criticality Noted Date [...] Comments Blood Pressure 120/70 03/08/2020 2:25 PM HUMANITIES COORDINATOR Pulse 61 03/08/2020 2:25 PM HUMANITIES COORDINATOR Temperature 35.6 C (96 F) 03/08/2020 2:25 PM HUMANITIES COORDINATOR Respiratory Rate 16 03/08/2020 2:25 PM HUMANITIES COORDINATOR Oxygen Saturation 98% 03/08/2020 2:25 PM HUMANITIES COORDINATOR Inhaled Oxygen Concentration - - Weight 60.8 kg (134 lb) 03/08/2020 2:25 PM HUMANITIES COORDINATOR Height 160 cm (5' 3) 11/30/2017 9:00 [...] complete this topic Human Papillomavirus (HPV) Immunization (No Doses Required) Completed Meningococcal Immunization (ACWY) Aged Out No longer eligible b ased on patient's age to complete this topic Rotavirus Immunization Aged Out No lo nger eligible based on patient's age to complete this topic Insurance MEDICARE [facility] Care Teams Insurance Claims Processor Relationship Specialty Start Date End Date Raghavendra Gutiérrez DO [address] [place] [address] PCP - General Internal Medicine 08/06/17
--- OUTSIDE RECORDS SUMMARY | 2025-03-20 12:26 | XMS_ITS | Patient Health Record ---
Author Organization [facility] As [employer] [facility] Address [address] [place] [address] Care Team Providers Care Apprentice Embalmer Name Role Phone David Campbell DO Primary Care Provider Zoe Andres Unavailable [phone] Allergies Allergen (clinical drug ingredient) Drug/Non Drug [...] Oxycodone (OXY) N THC N UDT Reviewed date:09/26/2024 05:22:47 PM Interpretation: Performing [...] n 0 - 300 ng/ml UDT Reviewed date:11/22/2024 01:39:00 PM Interpretation: Performing [...] Duration) Notes Start Date End Date Status Zinc 50 MG Tablet 1 tablet Orally Once a day Not-Taking Co Q 10 10 MG Capsule as directed Orally Not-Taking Lisinopril 10 MG Tablet 1 tablet Oral Once a day 04/09/2020 Active DULoxetine HCl 40 MG Capsule Delayed Release Particles 1 capsule Orally Once a day; Duration: 30 days 02/28/2025 Active ALPRAZolam 0.5 MG Tablet 1 tablet Orally Twice a day; Duration: 30 days 02/28/2025 Active Eliquis 2.5 MG Tablet as directed Orally Active Omeprazole 20 MG Capsule Delayed Release Oral 04/09/2020 Active Magnesium 250 MG Tablet 1 tablet with a meal Orally Once a day Active Multivitamin - Tablet 1 tablet Orally Once a day Active Alendronate Sodium 35 MG Tablet 1 tablet Oral; Duration: 84 days weekly on Sundays Active Vitamin D 25 MCG (1000 UT) Tablet 1 tablet Orally Once a day Active EUTHYROX 25 MCG TABLET *Reorder from [facility] for eRx and Interaction Alerts* 04/09/2020 Not-Taking PROMETHAZINE-DM 6.25 MG-15 MG/5 ML ORAL SYRUP *Reorder from [facility] for eRx and Interaction Alerts* 04/09/2020 Not-Taking Social History Tobacco Use: Social History Observation [...] Risk Notes Problem Mild recurrent major depression (61042048) Major depressive disorder, recurrent, mild (F33.0) Active confirmed Problem Moderate recurrent major depression (12414650) Major depressive disorder, recurrent, moderate (F33.1) Active confirmed Problem Generalized anxiety disorder (28870287) Generalized anxiety disorder (F41.1) Active confirmed Problem Complex regional pain syndrome (548479511) Complex regional pain syndrome I, unspecified (G90.50) Active confirmed Problem Obstructive sleep apnea (12804799) Obstructive sleep apnea (G47.33) Active confirmed Problem Essential hypertension (85106813) Benign essential HTN (I10) Active confirmed Problem Obstructive sleep apnea syndrome (87426519) UCHE (obstructive sleep apnea) (G47.33) Active confirmed Vital Signs Heart Rate 60 /min 02/28/2025 Height-cm 165.1 cm 02/28/2025 Blood pressure diastolic 56 mm Hg 02/28/2025 Weight-kg 59.42 kg 02/28/2025 Height 65.00 in 02/28/2025 Blood pressure systolic 123 mm Hg 02/28/2025 Weight 131 lbs 02/28/2025 BMI 21.8 kg/m2 02/28/2025 Encounters Encounter Location Date Provider Diagnosis [facility] [address] [address] 05/26/2024 Zoe Amor Generalized anxiety disorder F41.1 ; Major depressive disorder, recurrent, mild F33.0 ; Complex regional pain syndrome I, unspecified G90.50 ; UCHE (obstructive sleep apnea) G47.33 and Essential hypertension I10 [facility] [address] [address] 06/15/2024 Zoe Amor Generalized anxiety disorder F41.1 ; Major depressive disorder, recurrent, mild F33.0 ; Complex regional pain syndrome I, unspecified G90.50 ; Encounter for screening for cardiovascular disorders Z13.6 ; Encounter for screening for depression Z13.31 ; UCHE (obstructive sleep apnea) G47.33 and Benign essential HTN I10 [facility] [address] [facility] [address] [address] 07/12/2024 Zoe Amor Generalized anxiety disorder F41.1 ; Major depressive disorder, recurrent, mild F33.0 ; Complex regional pain syndrome I, unspecified G90.50 ; Benign essential HTN I10 and Encounter for screening for depression Z13.31 [facility] [place] [address] [facility] [address] [address] 08/02/2024 Zoe Amor Generalized anxiety disorder F41.1 ; Major depressive disorder, recurrent, mild F33.0 ; Complex regional pain syndrome I, unspecified G90.50 ; Encounter for screening for depression Z13.31 and Encounter for screening for cardiovascular disorders Z13.6 [facility] [address] [address] 08/29/2024 Zoe Amor Generalized anxiety disorder F41.1 ; Major depressive disorder, recurrent, mild F33.0 ; Complex regional pain syndrome I, unspecified G90.50 ; Encounter for screening for depression Z13.31 and Encounter for screening for cardiovascular disorders Z13.6 [facility], [place] [address] [place] [address] 09/26/2024 Zoe Amor Generalized anxiety disorder F41.1 ; Major depressive disorder, recurrent, mild F33.0 ; Benign essential HTN I10 ; Complex regional pain syndrome I, unspecified G90.50 and Encounter for screening for depression Z13.31 [facility], [place] [address] [place] [address] 10/24/2024 Zoe Amor Major depressive disorder, recurrent, mild F33.0 ; Generalized anxiety disorder F41.1 and Complex regional pain syndrome I, unspecified G90.50 [facility], [place] [address] [place] [address] 11/21/2024 Zoe Amor Major depressive disorder, recurrent, mild F33.0 ; Generalized anxiety disorder F41.1 and Complex regional pain syndrome I, unspecified G90.50 [facility], [place] [address] [place] [address] 12/19/2024 Zoe Amor Generalized anxiety disorder F41.1 ; Major depressive disorder, recurrent, moderate F33.1 and Complex regional pain syndrome I, unspecified G90.50 [facility], [place] [address] [place] [address] 01/30/2025 Zoe Amor Major depressive disorder, recurrent, moderate F33.1 ; Generalized anxiety disorder F41.1 and Complex regional pain syndrome I, unspecified G90.50 [facility], [place] [address] [place] [address] 02/28/2025 Zoe Amor Major depressive disorder, recurrent, moderate F33.1 ; Generalized anxiety disorder F41.1 and Complex regional pain syndrome I, unspecified G90.50 [facility], [place] [address] [place] [address] 06/23/2024 Zoe Hagopian [facility] [address] [place] [address] 08/04/2024 [facility] [place], [facility] [address] [place] [address] 09/06/2024 [facility] [place], [place] [address] [place] [address] 09/20/2024 [facility] [place], [facility] [address] [place] [address] 09/28/2024 [facility] [place], [facility] [address] [place] [address] 10/11/2024 [facility] [place], [facility] [address] [place] [address] 10/27/2024 [facility] [place], [place] [address] [place] [address] 03/05/2025 Zoe Amor Assessments Encounter Date Diagnosis (ICD Code) Assessment Notes Treatment Notes Treatment Clinical Notes Section Notes 05/26/2024 Major depressive disorder, recurrent, mild (ICD-10 - F33.0) Discussed technician terminal and repeater risks of benzodiazepines and recommended treatment options [...] Generalized anxiety disorder (ICD-10 - F41.1) Discussed alf risks of benzodiazepines and recommended treatment options [...] 10/24/2024 Generalized anxiety disorder (ICD-10 - F41.1) 11/21/2024 Major depressive disorder, recurrent, mild (ICD-10 - F33.0) 12/19/2024 Major depressive disorder, recurrent, moderate (ICD-10 - F33.1) 12/19/2024 Generalized anxiety disorder (ICD-10 - F41.1) 01/30/2025 Major depressive disorder, recurrent, moderate (ICD-10 - F33.1) 01/30/2025 Generalized anxiety disorder (ICD-10 - F41.1) 02/28/2025 Major depressive disorder, recurrent, moderate (ICD-10 - F33.1) 02/28/2025 Generalized anxiety disorder (ICD-10 - F41.1) 01/30/2025 Complex regional pain syndrome I, unspecified (ICD-10 - G90.50) 12/19/2024 Complex regional pain syndrome I, unspecified (ICD-10 - G90.50) 11/21/2024 Generalized anxiety disorder (ICD-10 - F41.1) 10/24/2024 [...] syndrome I, unspecified (ICD-10 - G90.50) Discussed technician terminal and repeater risks of benzodiazepines and recommended treatment options [...] will begin to be managed at [facility] - Request records from Dr. Pace if needed Follow-up in 3-4 weeks to discuss further steps 05/26/2024 UCHE (obstructive sleep apnea) (ICD-10 - G47.33) Discussed technician terminal and repeater risks of benzodiazepines and recommended treatment options [...] will begin to be managed at [facility] - Request records from Dr. [...] syndrome I, unspecified (ICD-10 - G90.50) 11/21/2024 Complex regional pain syndrome I, unspecified (ICD-10 - G90.50) 02/28/2025 Complex regional pain syndrome I, unspecified (ICD-10 [...] 05/26/2024 Essential hypertension (ICD-10 - I10) Discussed alf risks of benzodiazepines and recommended treatment options [...] will begin to be managed at [facility] - Request records from Dr. [...] HTN (ICD-10 - I10) Continue treatment per trash hauler Consider benzodiazepine effect on BP Anxiety symptoms [...] buspirone 15 mg twice a day Discussed technician terminal and repeater risks of benzodiazepines and recommended treatment options [...] will begin to be managed at [facility] - Request records from Dr. [...] arm-related symptoms and mentions a history of Stellate-Ganglion injection, which reportedly worsened nerve-related symptoms. Plan: [...] of alprazolam is not recommended due to [employer] suppression and potential rebound effects. Plan: - [...] assess response to medication changes and ongoing anxiety/depressio n symptoms Cardiovascular Concerns Assessment: Patient reports heart [...] loud concert. Plan: - Refer patient to trash hauler for evaluation of heart rate fluctuations and [...] administration - Advise to follow up with trash hauler as scheduled next week Anxiety Assessment: Patient [...] readings of 90-99/57 mmHg. Scheduled follow-up with trash hauler next week. Plan: - Continue current cardiovascular [...] adjustments and improved pain control 09/26/2024 Other Joann Garcia, female patient with complex regional pain [...] Complete pre-appointment lab work as ordered by brine tank operator and share results 10/24/2024 Other Joann Garcia, a patient with Complex Regional Pain [...] protein intake. Patient expresses dissatisfaction with previous brine tank operator and is scheduled to see a new brine tank operator, Dr. Goldberg at [facility], on November 27. Plan: - Continue current dietary modifications (low salt, low protein) - Encourage adequate hydration (patient reports 48-64 oz water daily) - Attend scheduled appointment with new brine tank operator, Dr. Godlberg, on November 27 - Review and adjust medications as needed to ensure kidney-friendly regimen 11/21/2024 Other Joann Garcia, female, presents with anxiety, sleep disturbances, [...] - Patient to request referral to a heel turner Wrist injury Assessment: MRI revealed a partially torn tendon in the wrist, a 9 mm cyst, and fluid accumulation. Patient has a follow-up appointment scheduled with Dr. Reardon in Pain Management on December 19 for re-evaluation. Plan: - Attend scheduled follow-up appointment with Dr. Reardon on December 19 for pain management re-evaluation Medical Decision Making Joann Garcia is a female patient with a [...] constipation as a side effect. 12/19/2024 Other Joann Garcia, a patient with chronic kidney disease, [...] and dietary intake. Comprehensive workup ordered by brine tank operator includes parathyroid, creatinine, urinalysis, CK, cortisol, renal function panel, CHARLIE, and thyroid-stimulati ng hormone tests to investigate underlying causes. Plan: - Follow up with brine tank operator and recommend adhering to treatment plan - [...] current medications - Coordinate medication management with brine tank operator's recommendations Medical Decision Making Joann Garcia is a female patient with a [...] possible adjustment period contributing to CRPS symptom fluctuation.Plan: - Continue current alprazolam regimen: half tablet morning, [...] and anxiety symptoms do not improve adequately ConstipationPatie nt managing constipation with high fiber diet, experiencing bowel movements every other day. Occasional use of Colace for symptom management. Constipation likely medication-relate d and manageable at current level.Plan:- Continue current [...] hand specialist Dr. Mahesh Webb Medical Decision MakingJoann Garcia is a female with Complex Regional [...] adjustment is warranted before making dosage changes. 02/28/2025 Maame Garcia reports feeling much better overall on current psychiatric medications despite significant family stressors including her son's recent stroke and sister's hospitalization. Anxiety disorderPatient reports feeling much better overall with current treatment. She is managing significant family stressors including her son's recent stroke with right-sided paralysis and her 76-year-old sister's multiple hospitalizations and functional decline. Patient acknowledges need to control anxiousness to prevent elevation of blood pressure and heart rate. She has been able to intentionally push her afternoon alprazolam dose from earlier in the day to 3 PM, indicating some improvement in anxiety management. Duloxetine 40 mg has been beneficial for her condition.Plan:- Continue duloxetine 40 mg (patient does not want to increase due to constipation or decrease due to benefits)- Continue alprazolam 0.5 mg: half tablet at 6 AM, half tablet in afternoon (currently pushed to 3 PM), and one whole tablet at nighttime- Patient will maintain current afternoon dosing time at 3 PM to assess tolerance- No medication changes planned until family situation stabilizes- Provide 2 months supply of alprazolam to ensure adequate medication availability- Future consideration for tapering alprazolam discussed but deferred ConstipationPatie nt continues to experience constipation as a side effect of duloxetine but reports it is manageable. She is actively managing this side effect with dietary modifications.Dayana n:- Continue current management with adequate fiber intake and water consumption- Monitor constipation as limiting factor for duloxetine dose adjustments CRPSPatient reports nightly stinging sensation in her arm, described as nerve sensitivity. Plan:- Monitor CRPS symtpoms Medical Decision MakingJoann Garcia presents for psychiatric follow-up while managing significant family stressors including her sister's recent hospitalization and rehabilitation needs, and her son's acute stroke with right-sided weakness requiring rehabilitation. The patient reports overall improvement in mood with duloxetine therapy, though she continues to experience manageable constipation as a side effect. Her current psychiatric stability is maintained despite multiple acute family stressors, indicating adequate therapeutic response to current antidepressant regimen. The decision to maintain duloxetine at current dose reflects the balance between therapeutic benefit and tolerable side effects, with constipation being managed through dietary modifications. Patient demonstrates good insight regarding stress management and its potential impact on her blood pressure and heart rate. No acute psychiatric concerns identified, with patient denying suicidal ideation and reporting stable sleep and appetite patterns. Plan Of Treatment Next Appt Details Provider Name:Zoe birmingham, 04/25/2025 11:30:00 AM, [address], [facility] [[email or web address] [address], [place], [address], Insurance Providers Payer Name Payer Address Payer Phone Subscriber Number Group Number Insured Name Patient Relationship to Insured Coverage Start Date Coverage End Date Medicare-I l Medicare [address] [place] [phone] [id number] JOSE JOANN Self - [facility] [address] [place] [address] [id number] JOANN GARCIA Self - patient is the [...] I, unspec ified G90.50 Paroxysmal atrial flutter (CMS/[facility]) I48. 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
--- OUTSIDE RECORDS SUMMARY | 2025-03-20 12:26 | XMS_ITS | Patient Health Record ---
Author Organization [facility] Address [address] [place], [place] [address] Care Team Providers Care V Block Saw Operator Name Role Phone LEILA JOHNSON Unavailable [phone] Raghavendra Gutiérrez Unavailable Unavailable Reason For Referral No Information Medications Medication SIG (Take, Route, Frequency, Duration) Notes Start Date End Date Status ALPRAZolam 0.25 MG Oral Tablet ORAL alprazolam 0.25 MG Oral TabletOriginal Medicationalprazolam 0.25 MG Oral Tablet *Reorder from [employer] for eRx and Interaction Alerts* 7 Active cholecalciferol 5000 UNT / folic acid 1 MG Oral Tablet ORAL cholecalciferol 5000 UNT / folic acid 1 MG Oral TabletOriginal Medicationcholecalciferol 5000 UNT / folic acid 1 MG Oral Tablet *[facility] and [facility]* 7 Active Ascorbic Acid 500 MG Oral Tablet ORAL ascorbic acid 500 MG Oral TabletOriginal Medicationascorbic acid 500 MG Oral Tablet *Reorder from [facility] for eRx and Interaction Alerts* 7 Active folic acid 1 MG / vitamin B12 0.5 MG Oral Tablet ORAL folic acid 1 MG / vitamin B1 2 0.5 MG Oral TabletOriginal Medicationfolic acid 1 MG / vitamin B12 0.5 MG Oral Tablet *Reorder from [facility] for eRx and Interaction Alerts* 7 Active omeprazole 20 MG Delayed Release Oral Tablet ORAL omeprazole 20 MG Delayed Release Oral TabletOriginal Medicationomeprazole 20 MG Delayed Release Oral Tablet *Reorder from [employer] for eRx and Interaction Alerts* 7 Active Medrol Dosepak ORAL Medrol DosepakOr iginal MedicationMedrol Dosepak *Reorder from [facility] for eRx and Interaction Alerts* 9 Active ubidecarenone 100 MG Oral Capsule ORAL ubidecarenone 100 MG Oral CapsuleOriginal Medicationubidecarenone 100 MG Oral Capsule *[facility] for [facility]Rx and Interaction Alerts* 7 Active [...] Date Coverage End Date Medicare Part [place] [address] [place] [address] [id number] JOANN GARCIA Self - patient is the insured [facility] ([facility]) ATTN CLAIMS [address] [place] [address] [id number] JOANN GARCIA Self - patient is the insured [facility] [address] [place], [place] [id number] JOANN GARCIA Self - patient is the insured
--- OUTSIDE RECORDS SUMMARY | 2025-03-20 12:26 | XMS_ITS | Clinical Summary ---
Author Organization [facility] Address [facility] [place] [address] Care Team Providers Care Clinical Nursing Assistant Name Role Phone None, Provider MD Primary [...] age to complete this topic Care Teams Clinical Nursing Assistant Relationship Specialty Start Date End Date None, Provider, PCP - General 06/26/20
== END 2025-03-20 10:30 | disposition home or self-care (01) ==
PROVIDERS: PCP Internal Medicine; Visit Provider Internal Medicine Nephrology
DX: N18.32 Chronic kidney disease, stage 3b (principal)
CPT/HCPCS: 81050; 84540